=== PATIENT | female | born 1985 | race Caucasian/White ===

== ENCOUNTER → 2017-04-24 | Outpatient (CLI) | payer OTHER ==
--- NOTE | 2017-04-24 14:03 | MR ---
MR lumbar spine wo con bulging lsp disc, back and right leg pain Multiplanar, multiecho imaging of the lumbar spine was obtained without contrast on a 3 Clementina magnet. REFERENCE:None. FINDINGS: There is a 1.3 cm lesion in the medial aspect of the right kidney. This may represent a cy st. This may be confirmed with ultrasound. Paraspinal soft tissues are otherwise unremarkable. Vertebral body height and alignment are maintained. Cord signal is maintained. The conus ends normally at the level of the L1-2 disc. At T12-L1 and L1-2, no definite abnormality is seen. At L2-3, there is mild capsulitis within the facets. At L3-4, there is mild hypertrophic change and capsulitis within the facets. At L4-5, there is disc space loss and disc desiccation. There is a diffuse disc displacement. The int ervertebral foramina are well maintained. There is hypertrophic change and capsulitis in the facets. There is mild trefoiling of the thecal sac. At L5-S1, there is disc space loss and disc desiccation. There is a broad-based disc protrusion exten ding into the intervertebral foramina bilaterally causing mild, bilateral intervertebral foraminal na rrowing. There is hypertrophic changes and capsulitis within the facets. There is mild trefoiling of the thecal sac. IMPRESSION: 1. DIFFUSE FACET ARTHROPATHY. 2. DEGENERATIVE DISC DISEASE, L4-5 AND L5-S1. 3. BROAD-BASED DISC PROTRUSION, L5-S1 EXTENDING INTO THE INTERVERTEBRAL FORAMINA BILATERALLY CAUSING MILD, BILATERAL INTERVERTEBRAL FORAMINAL NARROWING.
== END | disposition home or self-care (01) ==
LOC: RADMRIMAIN 12:55
PROVIDERS: ATTEND Psychiatry & Neurology Neurology
DX: M99.73 Connective tissue and disc stenosis of intervertebral foramina of lumbar region (principal); M51.17 Intervertebral disc disorders with radiculopathy, lumbosacral region; M46.86 Other specified inflammatory spondylopathies, lumbar region
CPT/HCPCS: 72148

== ENCOUNTER 2017-08-21 09:10 | Emergency (ER) | payer OTHER ==
[2017-08-21 09:26] VITALS: TEMP 98.5
[2017-08-21] MEDS ORDERED: HYDROcodone/APAP 5-325MG 1 EACH TAB PO STA (09:43)
[2017-08-21] MEDS ORDERED: DIPH,PERTUS(ACELL)TETVAC-LF 0.5 ML VIAL IM ONE (09:45)
[2017-08-21 10:32] LABS: Basophils % (A) 0 %; CH 32.1; CHCM 30.8; Eosinophils # (A) 0.3 k/uL (0-0.7); Eosinophils % (A) 4 %; HCT 40.2 % (34.0-46.0); HDW 2.28; HGB 12.2 gm/dL (11.4-16.0); Hypochromasia Slight; Luc # (Auto) 0.12; Luc % (Auto) 1; Lymphocytes # (A) 1.4 k/uL (1.0-4.8); Lymphocytes % (A) 16 %; MCH 31.9 pg (25.0-35.0); MCHC 30.4 g/dL (31.0-37.0); MCV 105.1 fL (80.0-100.0); Macrocytosis Moderate; Monocytes # (A) 0.6 k/uL (0-1.0); Monocytes % (A) 7 %; Neutrophils # (A) 6.4 k/uL (1.3-7.7); Neutrophils % (A) 72 %; RBC 3.82 m/uL (3.80-5.40); RDW 14.5 % (11.5-15.5); WBC 8.9 k/uL (3.8-10.6); WBC (Perox) 8.48
[2017-08-21 10:54] LABS: ALT 26 U/L (9-52); AST 18 U/L (14-36); Alcohol <10 mg/dL; Alkaline Phosphatase 61 U/L (38-126); Anion Gap 7 mmol/L; Blood Urea Nitrogen 18 mg/dL (7-17); Calcium 8.7 mg/dL (8.4-10.2); Carbon Dioxide 28 mmol/L (22-30); Chloride 105 mmol/L (98-107); Glucose 72 mg/dL (74-99); Non-African American GFR(MDRD) >60 (>60 ml/min/1.73 sqM); Potassium 4.1 mmol/L (3.5-5.1); Sodium 140 mmol/L (137-145); Total Bilirubin 0.1 mg/dL (0.2-1.3); Total Protein 6.3 g/dL (6.3-8.2)
[2017-08-21 10:55] LABS: Partial Thromboplastin Time 24.1 sec (22.0-30.0); Prothrombin Time 9.8 sec (9.0-12.0)
[2017-08-21 11:00] VITALS: RESP 19
--- NOTE | 2017-08-21 11:07 | CT ---
EXAMINATION TYPE: CT brain cspine wo con DATE OF EXAM: 08/21/2017 COMPARISON: 01/08/2016 HISTORY: Fell 14feet CT DLP: brain 945.5, Cervical 312.4 mGycm, Automated exposure control for dose reduction was used. CONTRAST: None CT of the brain is performed utilizing 3 mm thick sections through the posterior fossa and 3 mm thick sections through the remaining calvarium. Study is performed within 24 hours of arrival to the hospital. No abnormal hyperdensity is present to suggest an acute intracranial hemorrhage. No mass lesion is evident. No acute infarcts are evident. Ventricles and sulci are appropriate for the patient age. Paranasal sinuses and mastoid air cells within the [id number] are clear. IMPRESSIONS: 1. Normal CT brain. CT cervical spine. COMPARISON: 01/08/2016 CT of the cervical spine is performed in the axial plane at 2 mm thick sections. Reconstructed image s in the coronal, and sagittal plane are reviewed on the computer. No acute fractures are evident. Vertebral body alignment is normal. Disc heights are preserved. Vertebral body heights are preserved. No spinal canal stenosis is evident. No neural foraminal stenosis is evident. Reflux in the esophagus is noted. IMPRESSIONS: 1. Normal CT cervical spine.
[2017-08-21 11:31] LABS: Appearance,Urine Cloudy (Clear); Bilirubin,Urine Negative (Negative); Glucose,Urine (UA) Negative (Negative); Ketones,Urine Negative (Negative); Leukocyte Esterase,Urine Negative (Negative); Mucus,Urine Rare /hpf; Nitrite,Urine Negative (Negative); PH, Urine 5.5 (5.0-8.0); Particle Count 5601; Protein,Urine Trace (Negative); RBC,Urine 1 /hpf (0-5); Specific Gravity,Urine 1.016 (1.001-1.035); Squamous Epithelial Cell,Urine 6 /hpf (0-4); UA Billing (MACRO vs. MICRO) MICRO; Urobilinogen,Urine <2.0 mg/dL (<2.0); WBC,Urine 5 /hpf (0-5)
--- NOTE | 2017-08-21 11:42 | XR ---
EXAMINATION TYPE: XR chest 2V DATE OF EXAM: 08/21/2017 CLINICAL HISTORY: pain TECHNIQUE: Frontal and lateral views of the chest are obtained. COMPARISON: 09/17/2011 FINDINGS: There is no focal air space opacity, pleural effusion, or pneumothorax seen. The cardiac silhouette size is within normal limits. The osseous structures are intact. IMPRESSION: No acute cardiopulmonary process.
--- NOTE | 2017-08-21 11:43 | XR ---
EXAMINATION TYPE: XR foot complete LT DATE OF EXAM: 08/21/2017 COMPARISON: NONE HISTORY: 14 foot Fall from tree stand landing on a wheel barrel. Abrasions, pain TECHNIQUE: Three-view left foot FINDINGS: No acute fractures evident. Soft tissues appear normal. Joint spaces are preserved. Follow-up study can be performed 7-10 days from acute trauma for continued pain. IMPRESSION: 1. Normal three-view left foot
--- NOTE | 2017-08-21 11:44 | XR ---
EXAMINATION TYPE: XR forearm LT DATE OF EXAM: 08/21/2017 CLINICAL HISTORY: pain TECHNIQUE: Frontal and lateral images of the left forearm are obtained. COMPARISON: None. FINDINGS: There is no acute fracture/dislocation evident. The joint spaces appear within normal limi ts. The overlying soft tissue appears unremarkable. IMPRESSION: There is no acute fracture or dislocation. ICD 10 NO FRACTURE, INITIAL EVALUATION
--- NOTE | 2017-08-21 11:44 | XR ---
EXAMINATION TYPE: XR tibia fibula LT DATE OF EXAM: 08/21/2017 CLINICAL HISTORY: pain TECHNIQUE: AP and lateral images of the left tibia and fibula are obtained. COMPARISON: None. FINDINGS: There is no acute fracture/dislocation evident. The joint spaces appear within normal vo its. The overlying soft tissue appears unremarkable. IMPRESSION: There is no acute fracture or dislocation seen. ICD 10 NO FRACTURE, INITIAL EVALUATION
--- NOTE | 2017-08-21 11:46 | XR ---
EXAMINATION TYPE: XR ankle complete bilateral DATE OF EXAM: 08/21/2017 COMPARISON: NONE HISTORY: 14 foot Fall from tree stand landing on a wheel barrel. Abrasions, pain TECHNIQUE: Three-view bilateral ankles each FINDINGS: Right ankle: Ankle mortise is intact. Soft tissues appear normal. No acute displaced fractu res are evident. Left ankle: Ankle mortise is intact. Soft tissues appear normal. No acute displaced fractures are santos dent. IMPRESSION: 1. Normal bilateral ankles.
--- NOTE | 2017-08-21 11:48 | XR ---
EXAMINATION TYPE: XR knee complete bilateral DATE OF EXAM: 08/21/2017 COMPARISON: NONE HISTORY: 14 foot fall from tree stand landing and wheelbarrow, pain, abrasions TECHNIQUE: Bilateral knees 3 views each FINDINGS: No joint effusions are evident. No acute fractures are evident. Joint spaces appear preserv ed. Follow-up study can be performed 7-10 days from acute trauma for continued pain. IMPRESSION: 1. No acute displaced fractures identified. Follow-up can be performed as clinically indicated.
--- NOTE | 2017-08-21 11:48 | XR ---
EXAMINATION TYPE: XR pelvis AP view DATE OF EXAM: 08/21/2017 COMPARISON: NONE HISTORY: 14 foot fall from tree stand landing and wheelbarrow, pain, abrasions TECHNIQUE: Single AP pelvis FINDINGS: Femoral heads articulate with the acetabulum. Joint spaces are preserved. Sacrum iliac join ts and symphysis pubis are normal. No acute fractures are identified. Normal bowel gas is present. IMPRESSION: 1. Normal AP pelvis
[2017-08-21 12:08] VITALS: BP 112/61; PULSE 93
--- NOTE | 2017-08-21 12:09 | ED ---
Fall [facility] - General Chief Complaint: Fall Stated Complaint: Fall 14ft Time Seen by Provider: 08/21/17 09:34 Source: patient, family Mode of arrival: wheelchair - History of Present Illness Initial Comments: Patient presents after having a fall. She hit her head and sustained multiple injuries. She complains of several areas of tenderness. She has some abrasions. Her tetanus immunization is up-to-date. She has no belly or back pain. She has no chest pain. She has no shortness of breath. Her pain is worse with movement. She took no pain medication prior to arrival. She has no nausea or vomiting. She has no focal weakness. - Related Data Home Medications Medication Instructions Recorded Confirmed LORazepam [Ativan] 1 mg PO DAILY PRN 08/21/17 08/21/17 oxyCODONE-APAP 10-325MG [Percocet 1 tab PO TID PRN 08/21/17 08/21/17 10-325 mg] Allergies Allergy/AdvReac Type Severity Reaction Status Date / Time No Known Allergies Allergy Verified 08/21/17 09:31 Review of Systems ROS Statement: Those systems with pertinent positive or pertinent negative responses have been documented in the HPI. ROS Other: All systems not noted in ROS Statement are negative. Past Medical History Past Medical History: No Reported History Additional Past Medical History / Comment(s): TUBAL PREGANCY, chronic back pain History of Any Multi-Drug Resistant Organisms: MRSA Date of last positivie culture/infection: 07/01/16 MDRO Source:: RIGHT WRIST Past Surgical History: Section, Tonsillectomy Additional Past Surgical History / Comment(s): LAPROSCOPY Past Psychological History: Anxiety, Depression Smoking Status: Current every day smoker Past Alcohol Use History: None Reported Past Drug Use History: Marijuana, Opiates, Prescription Drug Abuse General Exam Limitations: physical limitation General appearance: alert, in no apparent distress Head exam: Present: atraumatic, normocephalic, normal inspection Eye exam: Present: normal appearance, PERRL, EOMI. Absent: scleral icterus, conjunctival injection, periorbital swelling ENT exam: Present: normal exam, mucous membranes moist Neck exam: Present: normal inspection. Absent: tenderness, meningismus, lymphadenopathy Respiratory exam: Present: normal lung sounds bilaterally. Absent: respiratory distress, wheezes, rales, rhonchi, stridor Cardiovascular Exam: Present: regular rate, normal rhythm, normal heart sounds. Absent: systolic murmur, diastolic murmur, rubs, gallop, clicks GI/Abdominal exam: Present: soft, normal bowel sounds. Absent: distended, tenderness, guarding, rebound, rigid Extremities exam: Present: normal inspection, full ROM, tenderness, normal capillary refill. Absent: pedal edema, joint swelling, calf tenderness Back exam: Present: normal inspection Neurological exam: Present: alert, oriented X3, CN II-XII intact Psychiatric exam: Present: normal affect, normal mood Skin exam: Present: warm, dry, intact, normal color. Absent: rash Course Vital Signs 08/21/17 08/21/17 09:20 10:27 Temperature 98.5 F Pulse Rate 90 62 Respiratory 18 19 Rate Blood Pressure 119/86 113/62 O2 Sat by Pulse 99 97 Oximetry Medical Decision Making - Medical Decision Making Patient presents with several injuries from a fall. She does have some abrasions, but her tetanus immunization is up-to-date. All of her imaging is negative. She is feeling better. Her laboratory studies are normal. Her drug screen is positive for cannabinoids. She is stable for discharge. - Lab Data Result diagrams: 08/21/17 10:22 08/21/17 10:22 Lab Results 08/21/17 08/21/17 08/21/17 Range/Units 10:22 10:22 10:22 WBC 8.9 (3.8-10.6) k/uL RBC 3.82 (3.80-5.40) m/uL Hgb 12.2 (11.4-16.0) gm/dL Hct 40.2 (34.0-46.0) % MCV 105.1 H (80.0-100.0) fL MCH 31.9 (25.0-35.0) pg MCHC 30.4 L (31.0-37.0) g/dL RDW 14.5 (11.5-15.5) % Plt Count 289 (150-450) k/uL Neutrophils % 72 % Lymphocytes % 16 % Monocytes % 7 % Eosinophils % 4 % Basophils % 0 % Neutrophils # 6.4 (1.3-7.7) k/uL Lymphocytes # 1.4 (1.0-4.8) k/uL Monocytes # 0.6 (0-1.0) k/uL Eosinophils # 0.3 (0-0.7) k/uL Basophils # 0.0 (0-0.2) k/uL Hypochromasia Slight Macrocytosis Moderate PT 9.8 (9.0-12.0) sec INR 1.0 (<1.2) APTT 24.1 (22.0-30.0) sec Sodium 140 (137-145) mmol/L Potassium 4.1 (3.5-5.1) mmol/L Chloride 105 (98-107) mmol/L Carbon Dioxide 28 (22-30) mmol/L Anion Gap 7 mmol/L BUN 18 H (7-17) mg/dL Creatinine 1.00 (0.52-1.04) mg/dL Est GFR (MDRD) Af Amer >60 (>60 ml/min/1.73 sqM) Est GFR (MDRD) Non-Af >60 (>60 ml/min/1.73 sqM) Glucose 72 L (74-99) mg/dL Calcium 8.7 (8.4-10.2) mg/dL Total Bilirubin 0.1 L (0.2-1.3) mg/dL AST 18 (14-36) U/L ALT 26 (9-52) U/L Alkaline Phosphatase 61 (38-126) U/L Total Protein 6.3 (6.3-8.2) g/dL Albumin 3.3 L (3.5-5.0) g/dL Urine Color Urine Appearance (Clear) Urine pH (5.0-8.0) Ur Specific [place] (1.001-1.035) Urine Protein (Negative) Urine Glucose (UA) (Negative) Urine Ketones (Negative) Urine Blood (Negative) Urine Nitrite (Negative) Urine Bilirubin (Negative) Urine Urobilinogen (<2.0) mg/dL Ur Leukocyte Esterase (Negative) Urine RBC (0-5) /hpf Urine WBC (0-5) /hpf Ur Squamous Epith Cells (0-4) /hpf Urine Mucus (None) /hpf Urine Opiates Screen (NotDetected) Ur Oxycodone Screen (NotDetected) Urine Methadone Screen (NotDetected) Ur Propoxyphene Screen (NotDetected) Ur Barbiturates Screen (NotDetected) U Tricyclic Antidepress (NotDetected) Ur Phencyclidine Scrn (NotDetected) Ur Amphetamines Screen (NotDetected) U Methamphetamines Scrn (NotDetected) U Benzodiazepines Scrn (NotDetected) Urine Cocaine Screen (NotDetected) U Marijuana (THC) Screen (NotDetected) Serum Alcohol <10 mg/dL 08/21/17 08/21/17 Range/Units 10:54 10:54 WBC (3.8-10.6) k/uL RBC (3.80-5.40) m/uL Hgb (11.4-16.0) gm/dL Hct (34.0-46.0) % MCV (80.0-100.0) fL MCH (25.0-35.0) pg MCHC (31.0-37.0) g/dL RDW (11.5-15.5) % Plt Count (150-450) k/uL Neutrophils % % Lymphocytes % % Monocytes % % Eosinophils % % Basophils % % Neutrophils # (1.3-7.7) k/uL Lymphocytes # (1.0-4.8) k/uL Monocytes # (0-1.0) k/uL Eosinophils # (0-0.7) k/uL Basophils # (0-0.2) k/uL Hypochromasia Macrocytosis PT (9.0-12.0) sec INR (<1.2) APTT (22.0-30.0) sec Sodium (137-145) mmol/L Potassium (3.5-5.1) mmol/L Chloride (98-107) mmol/L Carbon Dioxide (22-30) mmol/L Anion Gap mmol/L BUN (7-17) mg/dL Creatinine (0.52-1.04) mg/dL Est GFR (MDRD) Af Amer (>60 ml/min/1.73 sqM) Est GFR (MDRD) Non-Af (>60 ml/min/1.73 sqM) Glucose (74-99) mg/dL Calcium (8.4-10.2) mg/dL Total Bilirubin (0.2-1.3) mg/dL AST (14-36) U/L ALT (9-52) U/L Alkaline Phosphatase (38-126) U/L Total Protein (6.3-8.2) g/dL Albumin (3.5-5.0) g/dL Urine Color Yellow Urine Appearance Cloudy H (Clear) Urine pH 5.5 (5.0-8.0) Ur Specific [place] 1.016 (1.001-1.035) Urine Protein Trace H (Negative) Urine Glucose (UA) Negative (Negative) Urine Ketones Negative (Negative) Urine Blood Trace H (Negative) Urine Nitrite Negative (Negative) Urine Bilirubin Negative (Negative) Urine Urobilinogen <2.0 (<2.0) mg/dL Ur Leukocyte Esterase Negative (Negative) Urine RBC 1 (0-5) /hpf Urine WBC 5 (0-5) /hpf Ur Squamous Epith Cells 6 H (0-4) /hpf Urine Mucus Rare H (None) /hpf Urine Opiates Screen Not Detected (NotDetected) Ur Oxycodone Screen Not Detected (NotDetected) Urine Methadone Screen Not Detected (NotDetected) Ur Propoxyphene Screen Not Detected (NotDetected) Ur Barbiturates Screen Not Detected (NotDetected) U Tricyclic Antidepress Not Detected (NotDetected) Ur Phencyclidine Scrn Not Detected (NotDetected) Ur Amphetamines Screen Not Detected (NotDetected) U Methamphetamines Scrn Not Detected (NotDetected) U Benzodiazepines Scrn Detected H (NotDetected) Urine Cocaine Screen Not Detected (NotDetected) U Marijuana (THC) Screen Detected H (NotDetected) Serum Alcohol mg/dL Disposition Clinical Impression: Fall Disposition: HOME SELF-CARE Condition: Good Instructions: Contusion in Adults (ED) Referrals: None,Stated [Primary Care Provider] - 1-2 days Time of Disposition: 12:08
== END 2017-08-21 12:30 | disposition home or self-care (01) ==
LOC: EC 09:10
DX: S09.90XA Unspecified injury of head, initial encounter (principal); M25.572 Pain in left ankle and joints of left foot; M25.571 Pain in right ankle and joints of right foot; M25.562 Pain in left knee; M25.561 Pain in right knee; M79.602 Pain in left arm; F17.200 Nicotine dependence, unspecified, uncomplicated; Z86.14 Personal history of Methicillin resistant Staphylococcus aureus infection; Z53.20 Procedure and treatment not carried out because of patient's decision for unspecified reasons; W14.XXXA Fall from tree, initial encounter
CPT/HCPCS: 36415; 70450; 71020; 72125; 72170; 80053; 80306; 80320; 81001; 85025; 85610; 85730; 99284

== ENCOUNTER → 2018-03-20 | Outpatient (CLI) | payer OTHER ==
--- NOTE | 2018-03-20 13:02 | XR ---
EXAMINATION TYPE: XR ankle complete RT, XR foot complete RT DATE OF EXAM: 03/20/2018 CLINICAL HISTORY: Pain TECHNIQUE: Frontal, lateral and oblique images of the right ankle and foot are obtained. COMPARISON: None. FINDINGS: There is no acute fracture/dislocation evident in the right ankle. The ankle mortise appe ars within normal limits. The overlying soft tissue appears unremarkable.There is no acute fracture or dislocation evident in the right foot. The joint spaces in the right foot are preserved. Overlyi ng soft tissue is unremarkable. IMPRESSION: There is no acute fracture or dislocation in the right ankle or foot.
== END | disposition home or self-care (01) ==
LOC: RADXRMAIN 12:34
PROVIDERS: ATTEND Family Medicine
DX: M79.671 Pain in right foot (principal)

== ENCOUNTER → 2019-02-18 | Outpatient (CLI) | payer OTHER ==
--- NOTE | 2019-02-18 14:43 | XR ---
EXAMINATION TYPE: XR Hip Bilateral Complete DATE OF EXAM: 02/18/2019 COMPARISON: None HISTORY: Bilateral hip pain TECHNIQUE: Bilateral hips examined in 2 projections each FINDINGS: Right hip: Femoral head articulates with the acetabulum. Joint spaces preserved. No acute f ractures or dislocations are evident. Left hip: Femoral head articulates with the acetabulum. Joint spaces preserved. No acute fractures or dislocations are evident. IMPRESSION: 1. Normal bilateral hips
--- NOTE | 2019-02-18 14:45 | XR ---
EXAMINATION TYPE: XR lumbar spine 2 or 3V DATE OF EXAM: 02/18/2019 COMPARISON: 06/14/2014 HISTORY: Pain TECHNIQUE: Three-view lumbar spine FINDINGS: There 5 lumbar-type vertebral bodies. The pedicles are intact. There is narrowing of the L5 -S1 disc height. Remaining disc heights are preserved. Vertebral body heights are preserved. COMPARISON: There is some progression of the loss of disc height at L5-S1. IMPRESSION: 1. Progression of degenerative disc disease L5-S1
--- NOTE | 2019-02-18 14:46 | XR ---
EXAMINATION TYPE: XR thoracic spine 2V DATE OF EXAM: 02/18/2019 COMPARISON: None HISTORY: Pain TECHNIQUE: Three-view thoracic spine FINDINGS: There are 12 thoracic type vertebral bodies. Pedicles are intact. Disc heights are preserve d. Vertebral body heights are preserved. Alignment is normal. IMPRESSION: 1. Normal three-view thoracic spine
--- NOTE | 2019-02-18 14:48 | XR ---
EXAMINATION TYPE: XR cervical spine comp DATE OF EXAM: 02/18/2019 COMPARISON: None HISTORY: Chronic pain TECHNIQUE: Five-view cervical spine FINDINGS: Prevertebral space is normal. There is straightening of the cervical spine in the lateral p rojection. Very subtle kyphosis may be present centered at C6. The posterior spinal lamellar line is intact. Mild foraminal narrowing on the right at C3-4 may be present. Remaining foramen are patent. T here is limited visualization of the odontoid with poor visualization of the tip. IMPRESSION: 1. Minimal narrowing right C3-4 foramen.
== END | disposition home or self-care (01) ==
LOC: RADXRMAIN 13:58
PROVIDERS: ATTEND Internal Medicine
DX: M48.02 Spinal stenosis, cervical region (principal); M51.37 Other intervertebral disc degeneration, lumbosacral region
CPT/HCPCS: 72050; 72070; 72100; 73521

== ENCOUNTER 2019-05-19 21:27 | Emergency (ER) | payer OTHER ==
[2019-05-19 21:49] VITALS: BP 130/86; PULSE 90; RESP 18; TEMP 98.4
[2019-05-19] MEDS ORDERED: LIDOCAINE 1% INJ 10MG/ML (20 ML MDV) SQ ONE (21:54)
[2019-05-19] MEDS ORDERED: ALPRAZolam 0.5 MG TAB PO STA (22:20)
--- NOTE | 2019-05-19 22:27 | XR ---
EXAM: XR Right Wrist Complete, 3 or More Views CLINICAL HISTORY: ITS.REASON XR Reason: FB TECHNIQUE: Frontal, lateral and oblique views of the right wrist. COMPARISON: No relevant prior studies available. FINDINGS: Bones/joints: Unremarkable. No acute fracture. No dislocation. Soft tissues: Unremarkable. No radiopaque foreign body. IMPRESSION: Normal right wrist x-rays.
--- NOTE | 2019-05-19 22:36 | XR ---
EXAM: XR Right Hand Complete, 3 or More Views CLINICAL HISTORY: [email or web address] XR Reason: FB TECHNIQUE: Frontal, lateral and oblique views of the right hand. COMPARISON: No relevant prior studies available. FINDINGS: Bones/joints: Unremarkable. No acute fracture. No dislocation. Soft tissues: Unremarkable. No radiopaque foreign body. IMPRESSION: Normal right hand x-rays.
--- NOTE | 2019-05-20 00:03 | ED ---
Wound/Laceration HPI - General Chief Complaint: Wound/Laceration Stated Complaint: Hand laceration Time Seen by Provider: 05/19/19 21:44 Source: patient Mode of arrival: ambulatory Limitations: no limitations - History of Present Illness Initial Comments: 33-year-old female presents today for chief complaint of right hand laceration x 30 minutes ago. Patient states when she was attempting to close an old one on her home her hand went through the glass. Patient states she has a small laceration of the right wrist on the ventral aspect. Patient also states on the dorsal aspect of the digits 3 and 4 she has lacerations. Patient states she thought she might need sutures and presents emergency room for evaluation. Patient states that she has no numbness tingling or loss sensation of the digits. Patient states bleeding has been controlled. Patient denies other areas of injury. Patient has a limitations of range of motion at the fingers. Patient states that her tetanus is up-to-date. Remaining review of systems negative upon arrival patient appears well there is no signs of acute distress. She is anxious about receiving sutures. - Related Data Home Medications Medication Instructions Recorded Confirmed LORazepam [Ativan] 1 mg PO DAILY PRN 08/21/17 08/21/17 oxyCODONE-APAP 10-325MG [Percocet 1 tab PO TID PRN 08/21/17 08/21/17 10-325 mg] Previous Rx's Medication Instructions Recorded Cephalexin [Keflex] 500 mg PO Q8HR 5 Days #15 cap 05/20/19 Allergies Allergy/AdvReac Type Severity Reaction Status Date / Time No Known Allergies Allergy Verified 05/19/19 21:49 Review of Systems ROS Statement: Those systems with pertinent positive or pertinent negative responses have been documented in the HPI. ROS Other: All systems not noted in ROS Statement are negative. Past Medical History Past Medical History: No Reported History Additional Past Medical History / Comment(s): TUBAL PREGANCY, chronic back pain History of Any Multi-Drug Resistant Organisms: MRSA Date of last positivie culture/infection: 07/01/16 MDRO Source:: RIGHT WRIST Past Surgical History: Section, Tonsillectomy Additional Past Surgical History / Comment(s): LAPROSCOPY Past Psychological History: Anxiety, Depression Smoking Status: Current every day smoker Past Alcohol Use History: None Reported Past Drug Use History: Marijuana, Opiates, Prescription Drug Abuse General Exam - General Exam Comments Initial Comments: General: The patient is awake and alert, in no distress, and does not appear acutely ill. Eye: Pupils are equal, round and reactive to light, extra-ocular movements are intact. No nystagmus. There is normal conjunctiva bilaterally. No signs of icterus. Cardiovascular: There is a regular rate and rhythm. No murmur, rub or gallop is appreciated. Respiratory: Lungs are clear to auscultation, respirations are non-labored, breath sounds are equal. No wheezes, stridor, rales, or rhonchi. Musculoskeletal: Normal ROM, no tenderness. Strength 5/5. Sensation intact. Radial pulses equal bilaterally 2+. Capillary refill less than 3 seconds. Patient is able to fully range at the MTP DIP and MCP joints of all 5 digits of the right hand equal comparison with the left with full strength. Neurological: A&O x 3. CN II-XII intact, There are no obvious motor or sensory deficits. Coordination appears grossly intact. Speech is normal. Skin: Skin is warm and dry and no rashes. 1.7cm laceration of the right ring finger dorsal aspect. 1.2 cm skin flap of the right middle finger. 1.2 similar laceration of the ventral aspect of the right wrist. Appears superficial no evidence of foreign body within lacerations. No evidence of exposure of underlying structures within all 3 lacerations. Psychiatric: Cooperative, appropriate mood & affect, normal judgment. Limitations: no limitations Course Vital Signs 05/19/19 21:46 Temperature 98.4 F Pulse Rate 90 Respiratory 18 Rate Blood Pressure 130/86 O2 Sat by Pulse 99 Oximetry Procedures - Laceration Laceration #1 Consent Obtained: verbal consent Indication: laceration Site: upper extremity, other Size (cm): 2 (1.7) Description: linear Depth: simple, single layer Anesthetic Used: lidocaine 1% Anesthesia Technique: local infiltration Amount (mls): 1 Pre-repair: wound explored, irrigated extensively, deep structures intact Type of Sutures: nylon Size of Sutures: 5-0 Number of Sutures: 3 Technique: simple, interrupted Patient Tolerated Procedure: well, no complications Additional Comments: Irrigated and cleansed with iodine Laceration #2 Consent Obtained: verbal consent Site: hand (Metal finger) Size (cm): 1 (1.2) Description: linear, flap Anesthetic Used: lidocaine 1% Anesthesia Technique: local infiltration Amount (mls): 1 Pre-repair: wound explored, irrigated extensively, deep structures intact Type of Sutures: nylon Size of Sutures: 5-0 Number of Sutures: 4 Technique: simple, interrupted Patient Tolerated Procedure: well, no complications Additional Comments: Irrigated and cleansed iodine prior to closure Laceration #3 Consent Obtained: verbal consent Indication: laceration Site: hand (Ring finger) Size (cm): 2 (1.7) Description: linear Depth: simple, single layer Anesthetic Used: lidocaine 1% Anesthesia Technique: local infiltration Amount (mls): 1 Pre-repair: wound explored, irrigated extensively, deep structures intact Type of Sutures: nylon Size of Sutures: 5-0 Number of Sutures: 6 Technique: simple, interrupted Patient Tolerated Procedure: well, no complications (Including cleansed with iodine prior to closure) Medical Decision Making - Medical Decision Making 33-year-old female presenting for lacerations after hand going through window. Imaging studies reveal no foreign body or osseous injury. Patient has no limitations in range of motion MTP PIP and DIP joints were isolated of all 5 digits of the right hand. Equal comparison with the left. Patient has sensation of a proximal distal to injury site neurovascularly intact. Bleeding controlled. Lacerations repaired. Signs infections discussed. Return parameters including for suture removal were discussed with patient. Patient started on antibiotics for prevention of infection. She was discharged appearing well Disposition Clinical Impression: Wrist laceration, Laceration of middle finger, Laceration of ring finger Disposition: HOME SELF-CARE Condition: Good Instructions (If sedation given, give patient instructions): Care For Your Stitches (ED), Finger Laceration (ED) Additional Instructions: Please use medication as discussed. Please follow-up for suture removal in 7 days. Please return to emergency room if the symptoms increase or worsen or for any other concerns. Prescriptions: Cephalexin [Keflex] 500 mg PO Q8HR 5 Days #15 cap Is patient prescribed a controlled substance at d/c from ED?: No Referrals: Rosas Pastor MD [Primary Care Provider] - 1-2 days Time of Disposition: 00:02
== END 2019-05-20 00:08 | disposition home or self-care (01) ==
LOC: EC 21:27
DX: S61.511A Laceration without foreign body of right wrist, initial encounter (principal); S61.212A Laceration without foreign body of right middle finger without damage to nail, initial encounter; S61.214A Laceration without foreign body of right ring finger without damage to nail, initial encounter; F41.9 Anxiety disorder, unspecified; F17.200 Nicotine dependence, unspecified, uncomplicated; Z79.899 Other long term (current) drug therapy; W25.XXXA Contact with sharp glass, initial encounter; Y92.009 Unspecified place in unspecified non-institutional (private) residence as the place of occurrence of the external cause
CPT/HCPCS: 73110; 73130; 99282; 12002; J2001

== ENCOUNTER 2019-08-29 12:40 | Emergency (ER) | payer OTHER ==
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
[2019-08-29 14:25] VITALS: BP 137/78; PULSE 90; RESP 16; TEMP 98.2
== END 2019-08-29 14:23 | disposition home or self-care (01) ==
LOC: EC 12:40
DX: S60.222A Contusion of left hand, initial encounter (principal); S60.221A Contusion of right hand, initial encounter; S50.12XA Contusion of left forearm, initial encounter; S50.11XA Contusion of right forearm, initial encounter; S90.31XA Contusion of right foot, initial encounter; F41.9 Anxiety disorder, unspecified; F17.200 Nicotine dependence, unspecified, uncomplicated; Y04.0XXA Assault by unarmed brawl or fight, initial encounter
CPT/HCPCS: 70450; 99284

== ENCOUNTER 2019-10-10 05:43 | Inpatient (IN) | payer MEDICAID, OTHER ==
[2019-10-10] MEDS ORDERED: LIDOCAINE 1% INJ 10MG/ML (20 ML MDV) SQ ONE (06:20)
[2019-10-10] MEDS ORDERED: LORazepam 1 MG TAB PO STA (06:28)
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
[2019-10-10 06:46] LABS: Amphetamine Screen,Urine Not Detected (NotDetected); Barbiturate Screen,Urine Detected (NotDetected); Benzodiazepines Screen,Urine Not Detected (NotDetected); Cocaine Screen,Urine Not Detected (NotDetected); Methadone Screen, Urine Not Detected (NotDetected); Opiate Screen,Urine Not Detected (NotDetected); Oxycodone Screen, Urine Not Detected (NotDetected); Phencyclidine Screen,Urine Not Detected (NotDetected); Tricyclic Antidepressant,Urine Not Detected (NotDetected); Urn Cannabinoid Scrn Not Detected (NotDetected)
[2019-10-10] MEDS ORDERED: diphenhydrAMINE 50 MG/ML 1 ML VIAL IM STA (07:24)
[2019-10-10] MEDS ORDERED: ZIPRASIDONE 20 MG VIAL IM STA (07:24)
[2019-10-10] MEDS ORDERED: DIPH,PERTUS(ACELL)TETVAC-LF 0.5 ML VIAL IM ONE (07:26)
[2019-10-10] MEDS ORDERED: hydrOXYzine PAMOATE 25 MG CAP PO PRN (12:15)
[2019-10-10] MEDS ORDERED: MAGNESIUM HYDROXIDE 2,400 MG/10 ML CUP PO PRN (12:18)
[2019-10-10] MEDS ORDERED: MAG HYDROX/AL HYDROX/SIMETH 30 ML CUP PO PRN (12:18)
[2019-10-10] MEDS: BUTALB/APAP/CAFF 50-325-40MG TAB PO PRN ×2 (13:35→20:07)
[2019-10-10] MEDS: LORazepam 1 MG TAB PO PRN ×2 (13:35→20:22)
[2019-10-10 14:39] LABS: Basophils % (A) 0 %; Eosinophils # (A) 0.2 k/uL (0-0.7); Eosinophils % (A) 3 %; HCT 38.5 % (34.0-46.0); HGB 12.2 gm/dL (11.4-16.0); Lymphocytes # (A) 1.6 k/uL (1.0-4.8); Lymphocytes % (A) 31 %; MCH 35.4 pg (25.0-35.0); MCHC 31.6 g/dL (31.0-37.0); MCV 111.9 fL (80.0-100.0); Macrocytosis Marked; Monocytes # (A) 0.2 k/uL (0-1.0); Monocytes % (A) 4 %; Neutrophils # (A) 3.1 k/uL (1.3-7.7); Neutrophils % (A) 60 %; Platelet Count 303 k/uL (150-450); RBC 3.44 m/uL (3.80-5.40); RDW 15.7 % (11.5-15.5); WBC 5.2 k/uL (3.8-10.6)
[2019-10-10 14:49] LABS: Albumin 4.4 g/dL (3.5-5.0); Calcium 9.7 mg/dL (8.4-10.2); Potassium 4.8 mmol/L (3.5-5.1); Total Bilirubin 0.6 mg/dL (0.2-1.3); Total Protein 7.2 g/dL (6.3-8.2)
[2019-10-10 15:08] LABS: Stomatocytes Present
--- NOTE | 2019-10-10 15:31 | P.CONS ---
History of Present Illness - History of Present Illness this is a pleasant 54 years old female with past medical history of hyperten lynne, rheumatoid arthritis, chronic back pain, irritable bowel syndrome,scleroderma, lupus, tubal ligation. Who presents because of depression and laceration of her left wrist. She was admitted to the mental health unit and medical consult has been requested for medical management.. Her left wrist is sutured in the emergency room, the wound looks clean with no surrounding cellulitis or infection. No discharge. Patient denies chest pain or dyspnea. No headache or abnormal weakness or sensation. She has a small hard bowel movement which could be related to her vertebral bowel syndrome. She smokes about half pack per day, she denies alcohol or illicit drug. I offered to do test but she declined. Risks and benefits are explained for the patient. Review of Systems CONSTITUTIONAL: No fever, no malaise, no fatigue. HEENT: No recent visual problems or hearing problems. Denied any sore throat. CARDIOVASCULAR: No orthopnea, PND, no palpitations, no syncope. PULMONARY: No shortness of breath, no cough, no hemoptysis. GASTROINTESTINAL: No diarrhea, no nausea, no vomiting, no abdominal pain. Normoactive bowel sounds. NEUROLOGICAL: No headaches, no weakness, no numbness. HEMATOLOGICAL: Denies any bleeding or petechiae. GENITOURINARY: Denies any burning micturition, frequency, or urgency. MUSCULOSKELETAL/RHEUMATOLOGICAL: Denies any joint pain, swelling, or any muscle pain. ENDOCRINE: Denies any polyuria or polydipsia. Past Medical History Past Medical History: Hypertension, Rheumatoid Arthritis (RA) Additional Past Medical History / Comment(s): TUBAL PREGANCY, chronic back pain, scleraderma, lipus, ddd History of Any Multi-Drug Resistant Organisms: MRSA Year Discovered:: 07/01/16 MDRO Source:: RIGHT WRIST Past Surgical History: Section, Tonsillectomy Additional Past Surgical History / Comment(s): LAPROSCOPY Past Anesthesia/Blood Transfusion Reactions: No Reported Reaction Past Psychological History: Anxiety, Bipolar, Depression Smoking Status: Current every day smoker Past Alcohol Use History: None Reported Past Drug Use History: Marijuana, Opiates, Prescription Drug Abuse Medications and Allergies Home Medications Medication Instructions Recorded Confirmed Type Butalb/APAP/Caff 50-325-40Mg 1 tab PO Q6H PRN 10/10/19 10/10/19 History [Fioricet 50-325-40] Ibuprofen [Motrin] 800 mg PO TID PRN 10/10/19 10/10/19 History Lisinopril [Zestril] 5 mg PO DAILY 10/10/19 10/10/19 History hydrOXYzine PAMOATE [Vistaril] 25 mg PO Q8H PRN 10/10/19 10/10/19 History Allergies Allergy/AdvReac Type Severity Reaction Status Date / Time No Known Allergies Allergy Verified 10/10/19 12:50 Physical Exam Vitals: Vital Signs Temp Pulse Pulse Resp BP BP Pulse Ox 10/10/19 12:27 98.1 F 96 16 114/58 10/10/19 11:19 98.2 F 96 18 101/58 99 10/10/19 06:00 112 H 118/99 97 10/10/19 05:51 98.3 F 121 H 20 119/106 96 Intake and Output 10/10/19 10/10/19 10/10/19 06:59 14:59 22:59 Other: Weight 72.575 kg 71.696 kg GENERAL: The patient is alert and oriented x3, not in any acute distress. Well developed, well nourished. HEENT: Pupils are round and equally reacting to light. EOMI. No scleral icterus. No conjunctival pallor. Normocephalic, atraumatic. No pharyngeal erythema. No thyromegaly. CARDIOVASCULAR: S1 and S2 present. No murmurs, rubs, or gallops. PULMONARY: Chest is clear to auscultation, no wheezing or crackles. ABDOMEN: Soft, nontender, nondistended, normoactive bowel sounds. No palpable organomegaly. MUSCULOSKELETAL: No joint swelling or deformity. EXTREMITIES: No cyanosis, clubbing, or pedal edema. NEUROLOGICAL: Gross neurological examination did not reveal any focal deficits. SKIN: No rashes. No petechiae Results CBC & Chem 7: 10/10/19 14:02 10/10/19 14:01 Labs: Abnormal Lab Results - Last 24 Hours (Table) 10/10/19 10/10/19 10/10/19 Range/Units 06:11 14:01 14:02 RBC 3.44 L (3.80-5.40) m/uL MCV 111.9 H (80.0-100.0) fL MCH 35.4 H (25.0-35.0) pg RDW 15.7 H (11.5-15.5) % Macrocytosis Marked A BUN 30 H (7-17) mg/dL Creatinine 1.37 H (0.52-1.04) mg/dL Glucose 148 H (74-99) mg/dL AST 42 H (14-36) U/L Ur Barbiturates Screen Detected H (NotDetected) Assessment and Plan Assessment: depression and suicidal ideation, management as per the psych team left wrist wound, sutures in a Place hypertension nicotine dependence History of Rheumatoid arthritis chronic back pain Irritable bowel syndrome history of Lupus tubal ligation Plan: this is a pleasant 54 years old female who presents because of depression, suicidal attempts and sludge in her left wrist. Labs and medication were reviewed.. Continue same treatment. Continue with symptomatic treatment. Resume home medication. Monitor lytes and vitals. DVT and GI prophylaxis. We will see the patient on an as-needed basis. Physical free to contact us Thank you for consulting the medical team
[2019-10-10] MEDS: IBUPROFEN 800 MG TAB PO PRN (17:26)
[2019-10-10] MEDS: ZIPRASIDONE 20 MG VIAL IM PRN (19:30)
[2019-10-11] MEDS: IBUPROFEN 800 MG TAB PO PRN ×3 (06:40→23:00)
[2019-10-11] MEDS: LORazepam 1 MG TAB PO PRN ×2 (06:43→18:30)
[2019-10-11] MEDS: BUTALB/APAP/CAFF 50-325-40MG TAB PO PRN ×2 (09:00→15:03)
[2019-10-11] MEDS: LISINOPRIL 5 MG TAB PO SCH (09:00)
--- NOTE | 2019-10-11 09:50 | P.HP ---
Psychiatric H&P - . H&P Date: 10/11/19 History & Physical: Allergies Allergy/AdvReac Type Severity Reaction Status Date / Time No Known Allergies Allergy Verified 10/10/19 12:50 Vital Signs Temp 98.1 F 10/10/19 12:27 Pulse 120 H 10/11/19 06:45 Resp 16 10/10/19 12:27 BP 108/62 10/11/19 06:45 Pulse Ox 99 10/10/19 11:19 Intake & Output 10/10/19 10/11/19 10/11/19 18:59 06:59 18:59 Weight 71.696 kg Laboratory Last Values WBC 5.2 k/uL (3.8-10.6) 10/10/19 14:02 RBC 3.44 m/uL (3.80-5.40) L 10/10/19 14:02 Hgb 12.2 gm/dL (11.4-16.0) 10/10/19 14:02 Hct 38.5 % (34.0-46.0) 10/10/19 14:02 MCV 111.9 fL (80.0-100.0) H 10/10/19 14:02 MCH 35.4 pg (25.0-35.0) H 10/10/19 14:02 MCHC 31.6 g/dL (31.0-37.0) 10/10/19 14:02 RDW 15.7 % (11.5-15.5) H 10/10/19 14:02 Plt Count 303 k/uL (150-450) 10/10/19 14:02 Neutrophils % 60 % 10/10/19 14:02 Lymphocytes % 31 % 10/10/19 14:02 Monocytes % 4 % 10/10/19 14:02 Eosinophils % 3 % 10/10/19 14:02 Basophils % 0 % 10/10/19 14:02 Neutrophils # 3.1 k/uL (1.3-7.7) 10/10/19 14:02 Lymphocytes # 1.6 k/uL (1.0-4.8) 10/10/19 14:02 Monocytes # 0.2 k/uL (0-1.0) 10/10/19 14:02 Eosinophils # 0.2 k/uL (0-0.7) 10/10/19 14:02 Basophils # 0.0 k/uL (0-0.2) 10/10/19 14:02 Manual Slide Review Performed 10/10/19 14:02 Macrocytosis Marked A 10/10/19 14:02 Stomatocytes Present 10/10/19 14:02 Sodium 137 mmol/L (137-145) 10/10/19 14:01 Potassium 4.8 mmol/L (3.5-5.1) 10/10/19 14:01 Chloride 105 mmol/L (98-107) 10/10/19 14:01 Carbon Dioxide 23 mmol/L (22-30) 10/10/19 14:01 Anion Gap 9 mmol/L 10/10/19 14:01 BUN 30 mg/dL (7-17) H 10/10/19 14:01 Creatinine 1.37 mg/dL (0.52-1.04) H 10/10/19 14:01 Est GFR (CKD-EPI)AfAm 58 (>60 ml/min/1.73 sqM) 10/10/19 14:01 Est GFR (CKD-EPI)NonAf 51 (>60 ml/min/1.73 sqM) 10/10/19 14:01 Glucose 148 mg/dL (74-99) H 10/10/19 14:01 Calcium 9.7 mg/dL (8.4-10.2) 10/10/19 14:01 Total Bilirubin 0.6 mg/dL (0.2-1.3) 10/10/19 14:01 AST 42 U/L (14-36) H 10/10/19 14:01 ALT 20 U/L (4-34) 10/10/19 14:01 Alkaline Phosphatase 71 U/L (38-126) 10/10/19 14:01 Total Protein 7.2 g/dL (6.3-8.2) 10/10/19 14:01 Albumin 4.4 g/dL (3.5-5.0) 10/10/19 14:01 TSH 1.550 mIU/L (0.465-4.680) 10/10/19 14:01 Urine HCG, Qual Not Detected (Not Detectd) 10/10/19 06:11 Urine Opiates Screen Not Detected (NotDetected) 10/10/19 06:11 Ur Oxycodone Screen Not Detected (NotDetected) 10/10/19 06:11 Urine Methadone Screen Not Detected (NotDetected) 10/10/19 06:11 Ur Propoxyphene Screen Not Detected (NotDetected) 10/10/19 06:11 Ur Barbiturates Screen Detected (NotDetected) H 10/10/19 06:11 U Tricyclic Antidepress Not Detected (NotDetected) 10/10/19 06:11 Ur Phencyclidine Scrn Not Detected (NotDetected) 10/10/19 06:11 Ur Amphetamines Screen Not Detected (NotDetected) 10/10/19 06:11 U Methamphetamines Scrn Not Detected (NotDetected) 10/10/19 06:11 U Benzodiazepines Scrn Not Detected (NotDetected) 10/10/19 06:11 Urine Cocaine Screen Not Detected (NotDetected) 10/10/19 06:11 U Marijuana (THC) Screen Not Detected (NotDetected) 10/10/19 06:11 10/11/19 09:02 IDENTIFYING DATA: Patient is a 34-year-old female who currently lives at home with her in the house and has one child and currently unemployed HPI: Patient presented to the hospital after sustaining 2 self-inflicted lacerations to her left forearm and complaining of increase in anxiety and depression. She states that she has been off medications since her last admission in 2016 to the mental health unit. She claims that she is not able to follow-up with a psychiatrist and states that her therapist was not able to get her in to see a psychiatrist. Patient claims that her anxiety and depression have been increased recently and states that after her and her were in a fight or several days her did not come home from work and she did not have any contact with him and impulsively started cutting herself however denied suicidal intent. She claimed that "I just wanted to hurt myself". Patient states that she was self-medicating with marijuana however has been off marijuana for the past month due to probation. She states that she is currently having thoughts of suicide however no plan or intent at this time. Patient is tearful and appeared anxious during the interview. She claims that she has had history of manic episodes which usually last approximately 2-3 weeks long and her last episode was a month ago when she was combative and agitated with police after a fight at home. Patient claims that her sleep has been poor and has been having nightmares almost daily. She claims that her mood is "depressed". Patient denies any homicidal ideations intent or plan. At this time patient denies any auditory or visual hallucinations. Patient admits to using marijuana and was smoking approximately 2 blunts a day however has been off this for one month now. She denies any other drugs or alcohol. She admits to daily cigarette use. PAST PSYCHIATRIC HISTORY: Patient states that she has a history of bipolar disorder, anxiety and was seeing a therapist at [facility]. Was last seen by her therapist on 10/09/19. Her last admission to the mental health unit was in 12/13. The patient claims that she's had 2 suicide attempts in the past. Patient was previously on lithium and Seroquel in her last hospitalization. PMH:rheumatoid arthritis, hypertension, lupus ALLERGIES: as per EMR CHEMICAL DEPENDENCY HISTORY: as per HPI FAMILY PSYCHIATRIC/SUBSTANCE USE HISTORY: states that her mother suffers from depression, brother abuses alcohol and aunt has bipolar disorder. SOCIAL HISTORY: patient claims that she is born and raised in [place] [facility] and finished high school completed 2 years of college dropped out, is currently unemployed and states that she cannot work at this time and has been applying for disability. She is currently living with her in a house has 1 kid and supported by her . MENTAL STATUS EXAM: General Appearance: Patient appears to be stated age is alert, attempts to cooperate, appears anxious and has several scratch meraz over her face her chest and 2 lacerations which are bandaged on her left forearm. poor hygiene and grooming. Behavior: [Patient is anxiously seated without any agitated behavior.]tearful. Speech: Patient's speech is fluent and nonpressured. Mood/Affect: Patient reports their mood is depressed and anxious, affect is congruent and tearful. Suicidality/Homicidality: Patient denies having any homicidal ideation intent or plan. patient missed a passive suicidal ideations, no intent or plan. Perceptions: Patient denies any auditory or visual hallucinations. Though content/process: There is no evidence of any delusional thought content and thought process is linear and goal-directed. Memory and concentration: AOX3, grossly intact for the purposes of this session. Can spell "WORLD" backwards Judgment and insight: poor STRENGTHS/WEAKNESSES: strength is that patient is resilient and has supportive family, weaknesses the patient is impulsive and has chronic mental illness. INTELLECT: average IMPRESSIONS: bipolar disorder type I, currently depressed Cannabis use disorder nicotine dependence PLAN: -Patient is admitted under voluntary status to MHU for stabilization of psychiatric symptoms and safety. Patient signed adult voluntary form and medication consent and is placed in patient's chart. -Medications : after speaking with patient about the option of different mood stabilizing agents, Will start patient on Abilify 2.5 mg daily for mood stabilization. Spoke with patient about possibly getting long-acting injection in the near future to ensure compliance. We'll also start Lamictal 25 mg twice a day for bipolar depression. Vistaril 50 mg every 8 hours when necessary for anxiety. Melatonin 6 mg daily at bedtime for sleep. -Ativan and GeodonPRN for agitation/aggression -Patient was counselled on substance abuse and desired to cut back on use -Patient was informed of the risks, benefits and side effects of the medication and patient verbally consented to taking the medications. Patient signed med consent form and was placed in chart. -NRT - Nicorette gum -SW on board for discharge planning 10/11/19 09:39
[2019-10-11] MEDS: ARIPiprazole 5 MG TAB PO SCH (10:42)
[2019-10-11] MEDS: hydrOXYzine PAMOATE 25 MG CAP PO PRN ×2 (10:42→20:10)
[2019-10-11] MEDS: lamoTRIgine 25 MG TAB PO SCH ×2 (10:43→20:11)
[2019-10-11] MEDS: ACETAMINOPHEN TAB 325 MG TAB PO PRN ×2 (10:43→18:30)
[2019-10-11] MEDS: cloNIDine HCL 0.1 MG TAB PO PRN ×2 (11:17→20:11)
[2019-10-11] MEDS: NICOTINE POLACRILEX 2 MG GUM BUCCAL PRN (11:17)
[2019-10-11] MEDS: BACITRACIN 500 UNIT/GM OINT 28.4 GM TUBE TOPICAL SCH ×2 (11:22→20:07)
[2019-10-11] MEDS: ZIPRASIDONE 20 MG VIAL IM PRN ×2 (11:38→23:01)
[2019-10-11] MEDS ORDERED: MELATONIN 3 MG TABLET PO SCH (21:00)
[2019-10-12] MEDS: ARIPiprazole 5 MG TAB PO SCH (08:42)
[2019-10-12] MEDS: LISINOPRIL 5 MG TAB PO SCH (08:43)
[2019-10-12] MEDS: BUTALB/APAP/CAFF 50-325-40MG TAB PO PRN ×3 (08:43→22:58)
[2019-10-12] MEDS: BACITRACIN 500 UNIT/GM OINT 28.4 GM TUBE TOPICAL SCH ×2 (08:43→20:19)
[2019-10-12] MEDS: lamoTRIgine 25 MG TAB PO SCH ×2 (08:43→20:18)
[2019-10-12] MEDS: hydrOXYzine PAMOATE 25 MG CAP PO PRN ×2 (08:46→20:20)
[2019-10-12] MEDS: LORazepam 1 MG TAB PO PRN ×2 (09:35→17:09)
[2019-10-12] MEDS: NICOTINE POLACRILEX 2 MG GUM BUCCAL PRN ×3 (09:37→23:00)
[2019-10-12] MEDS: ACETAMINOPHEN TAB 325 MG TAB PO PRN ×2 (10:22→17:12)
[2019-10-12] MEDS: QUEtiapine 50 MG TAB PO SCH (11:30)
--- NOTE | 2019-10-12 11:32 | P.PN ---
Progress Note - Text interval history: The patient is found in the hallway she follows me to an interview room. She was admitted after she had cut her left anterior forearm twice requiring sutures. She states that she did this as she felt overwhelmed in the context of having a verbal altercation with her boyfriend. She endorses a history of bipolar disorder and has been off of medication for almost 3 years. She was previously treated on this mental health unit with lithium and Seroquel. She states those were effective but never did follow up with [facility] and subsequently went off of the medication. She was seen yesterday by Dr. Monroy and was placed on Abilify and Lamictal. She states that she prefers to go back on the Seroquel. She states she is experiencing a significant amount of anxiety and feels that that medication was more calming. She indicates having some trouble sleeping. She's been trying to attend some groups. Mental status exam: The patient is alert she's cooperative she is directable. She is dressed her own clothing hygiene grooming adequate. Eye contact is appropriate. Speech is fluent spontaneous nonpressured. She reports depressed mood she reports heightened anxiety feelings. She states that she feels safe here in the hospital. She does feel overwhelmed but feels she can keep herself safe here. She is reporting no auditory or visual hallucinations or any specific delusions. She indicates prior to coming to the hospital she was experiencing visual hallucinations of mice being in her bed. She is demonstrating no verbal or physical aggressiveness. She is somewhat hyperactive due to her anxiety. Insight and judgment limited. She is oriented to person place and date. Plan: The patient will continue on the Lamictal as written we will discontinue the Abilify we will restart her Seroquel 50 mg twice daily 100 mg at bedtime. We will discontinue the melatonin as she has found it ineffective. We will prescribe trazodone 50 mg at bedtime for insomnia. She is requesting to be placed back on Suboxone. She states that she has been taking that regularly as an outpatient and is prescribed by her primary care physician. There were no opiates in her drug screen. In reviewing maps it appears that she last filled it at the end of July. She indicates that she will abuse her Suboxone at times. We decided that we would not continue that medication on the mental health unit. She is instructed to participate in groups we will monitor her for safety vital signs reviewed.
[2019-10-12] MEDS: IBUPROFEN 800 MG TAB PO PRN (15:44)
[2019-10-12] MEDS: traZODone HCL 50 MG TAB PO SCH (20:18)
[2019-10-12] MEDS ORDERED: QUEtiapine 100 MG TAB PO SCH (21:00)
[2019-10-13] MEDS ORDERED: ZIPRASIDONE 20 MG VIAL IM ONE (00:37)
[2019-10-13] MEDS ORDERED: WATER FOR INJECTION, STERILE 10 ML IV ONE (00:37)
[2019-10-13] MEDS: ZIPRASIDONE 20 MG VIAL IM PRN (00:39)
[2019-10-13] MEDS: IBUPROFEN 800 MG TAB PO PRN ×2 (01:21→12:02)
[2019-10-13] MEDS: BACITRACIN 500 UNIT/GM OINT 28.4 GM TUBE TOPICAL SCH ×2 (08:36→20:13)
[2019-10-13] MEDS: LISINOPRIL 5 MG TAB PO SCH (08:36)
[2019-10-13] MEDS: lamoTRIgine 25 MG TAB PO SCH ×2 (08:40→20:13)
[2019-10-13] MEDS: QUEtiapine 50 MG TAB PO SCH ×2 (08:40→12:00)
[2019-10-13] MEDS: LORazepam 1 MG TAB PO PRN ×2 (08:41→17:23)
[2019-10-13] MEDS: BUTALB/APAP/CAFF 50-325-40MG TAB PO PRN ×3 (08:41→20:15)
[2019-10-13] MEDS: hydrOXYzine PAMOATE 25 MG CAP PO PRN ×2 (08:42→17:23)
[2019-10-13] MEDS: NICOTINE POLACRILEX 2 MG GUM BUCCAL PRN ×4 (08:44→20:17)
--- NOTE | 2019-10-13 09:06 | P.PN ---
Progress Note - Text interval history: The patient is found in her room she follows me to an interview room. She indicates her mood is anxious which is causing her to feel down. She states that the Seroquel during the day was very helpful in reducing anxiety. She indicates she did not sleep well last night staff reported she slept 4-5 hours. She tried several medications last evening to try to sleep. She reports attending groups. She states her heart rate has been elevated. Vital signs reviewed. She has several readings were her heart rate was elevated there was one that was in the normal range yesterday. she suspects it is her withdrawing from the Suboxone. We reviewed her current psychotropic medications her questions were answered. Mental status exam: The patient is alert she is dressed in her own clothing hygiene is adequate grooming is fair. Eye contact is appropriate speech is fluent spontaneous nonpressured. She endorses and anxious mood which causes her to feel depressed. She reports some hopeless thoughts she feels safe here in the hospital in terms of suicidal ideation. She reports no auditory or visual hallucinations or any specific delusions there is no observed evidence of psychosis. She demonstrates no tangential thinking loose associations or flight of ideas. She demonstrates no verbal or physical aggressiveness she demonstrates no involuntary repetitive movements. She remains oriented to person place and date. She maintains a constricted affect with little range. Plan: The patient will continue on her current psychotropic medications. We will titrate the Seroquel to 150 mg at bedtime. The Catapres is unneeded we will discontinue that medication. We will monitor vital signs. She is encouraged to continue participating in group. She requires continued psychiatric hospitalization for further evaluation and treatment.
[2019-10-13] MEDS: ACETAMINOPHEN TAB 325 MG TAB PO PRN ×2 (10:44→17:23)
[2019-10-13] MEDS: traZODone HCL 50 MG TAB PO SCH (20:14)
[2019-10-13] MEDS ORDERED: QUEtiapine 50 MG TAB PO SCH (21:00)
[2019-10-14] MEDS: hydrOXYzine PAMOATE 25 MG CAP PO PRN ×3 (00:27→22:05)
[2019-10-14] MEDS: LORazepam 1 MG TAB PO PRN ×2 (00:27→09:01)
[2019-10-14] MEDS: IBUPROFEN 800 MG TAB PO PRN ×2 (06:22→23:29)
[2019-10-14] MEDS: BUTALB/APAP/CAFF 50-325-40MG TAB PO PRN ×3 (06:23→18:59)
[2019-10-14] MEDS: NICOTINE POLACRILEX 2 MG GUM BUCCAL PRN ×3 (06:24→22:04)
[2019-10-14] MEDS: BACITRACIN 500 UNIT/GM OINT 28.4 GM TUBE TOPICAL SCH ×2 (08:57→20:35)
[2019-10-14] MEDS: QUEtiapine 50 MG TAB PO SCH ×2 (08:58→11:41)
[2019-10-14] MEDS: lamoTRIgine 25 MG TAB PO SCH ×2 (08:58→20:34)
[2019-10-14] MEDS: LISINOPRIL 5 MG TAB PO SCH (08:58)
[2019-10-14] MEDS: ACETAMINOPHEN TAB 325 MG TAB PO PRN ×2 (09:00→22:04)
[2019-10-14] MEDS ORDERED: NALTREXONE HCL 50 MG TAB PO SCH (09:30)
--- NOTE | 2019-10-14 09:38 | P.PN ---
Progress Note - Text Interval history: The patient is found in the hallway she follows me to an interview room. She reports that her mood is slowly getting better. She is troubled that she is not sleeping at night. Staff reported she slept 4 hours she states maybe 2 hours. She indicates she is not sleeping during the day. She feels that it's is because she's been manic that is been more difficult to sleep at night with this admission. We reviewed her psychotropic medications. We decided we would discontinue the Ativan as we want to eliminate substances that can be habit forming we discussed the true necessity of the Fioricet. We decided we would titrate the Seroquel and she is also interested in starting naltrexone. She expects a visit from her this evening. Mental status exam: The patient is alert she has a disheveled appearance hygiene is adequate eye contact is appropriate. She is pleasant cooperative she is easily directed during the session. She is reporting that her mood is improving but she is troubled by not sleeping. She continues to have heightened anxiety. She is having some racing thoughts. She is reporting that she feels safe in the hospital. She has no intent or plan of harming herself here. She is reporting no homicidal ideation intent or plan. She is reporting no auditory or visual hallucinations or any specific delusions. She demonstrates no verbal or physical aggressiveness she demonstrates no involuntary repetitive movements. Insight and judgment limited but slowly improving. Plan: The patient will continue on her current medication however we will titrate the Seroquel to 300 mg at bedtime continue the daily doses written we will initiate naltrexone 50 mg daily we will discontinue Ativan. She is encouraged to avoid use of Fioricet. She is encouraged to continue participating in the milieu. We will await the outcome of her visit with her this evening. She requires continued psychiatric hospitalization. Vital signs reviewed she does have continued tachycardia we will get an EKG if one has not argument order to be sure that its sinus tachycardia.
[2019-10-14] MEDS ORDERED: LORazepam 2 MG/ML INJ IM STA (12:56)
[2019-10-14] MEDS: traZODone HCL 50 MG TAB PO SCH (20:34)
[2019-10-14] MEDS ORDERED: QUEtiapine 100 MG TAB PO SCH (21:00)
[2019-10-15] MEDS: BUTALB/APAP/CAFF 50-325-40MG TAB PO PRN ×4 (06:02→23:22)
[2019-10-15] MEDS: hydrOXYzine PAMOATE 25 MG CAP PO PRN ×3 (06:04→23:23)
[2019-10-15] MEDS: BACITRACIN 500 UNIT/GM OINT 28.4 GM TUBE TOPICAL SCH ×2 (08:42→23:13)
[2019-10-15] MEDS: LISINOPRIL 5 MG TAB PO SCH (08:44)
[2019-10-15] MEDS: ACETAMINOPHEN TAB 325 MG TAB PO PRN ×3 (08:44→18:57)
[2019-10-15] MEDS: lamoTRIgine 25 MG TAB PO SCH ×2 (08:44→21:08)
[2019-10-15] MEDS: NICOTINE POLACRILEX 2 MG GUM BUCCAL PRN ×3 (08:44→23:22)
[2019-10-15] MEDS: QUEtiapine 50 MG TAB PO SCH ×2 (08:44→12:44)
--- NOTE | 2019-10-15 10:03 | P.PN ---
Progress Note - Text interval history: The patient is found in group she follows me to an interview room. She reports that she feels very anxious she feels much more depressed. SHe states that she wishes she wasn't alive. She indicates that she didn't sleep more than 2 hours last night staff recorded she slept 5 hours. She was acutely anxious yesterday and required Ativan once. She has been attending groups and she feels better when she is around others.she did have a brief visit with her yesterday. She indicates that there was nothing upsetting about that visit. Mental status exam: The patient is alert she is dressed in her own clothing hygiene grooming adequate. Eye contact is intermittent. Speech is spontaneous nonpressured. She reports hopelessness thinking depressed mood significant anxiety. She made a statement that she wishes she would've cut her arm deeper. She reports no homicidal ideation intent or plan. She reports no auditory or visual hallucinations or any specific delusions. There is no objective evidence of psychosis. She demonstrates no tangential thinking loose associations or flight of ideas. She does not appear hypomanic or manic. Insight and judgment limited. She is oriented to person place and date. She maintains a dysphoric affect throughout the session. Plan: The patient will continue on her current medication we will titrate the Seroquel to 400 mg at bedtime we will titrate the trazodone 100 mg at bedtime. We discussed having her continue group activity she is encouraged to journal. Her questions regarding the psychotropic medications were answered. We will monitor her for safety. She requires continued psychiatric hospitalization. Vital signs reviewed.
[2019-10-15] MEDS: IBUPROFEN 800 MG TAB PO PRN ×2 (10:32→21:08)
[2019-10-15] MEDS ORDERED: QUEtiapine 400 MG TAB PO SCH (21:00)
[2019-10-15] MEDS: traZODone HCL 100 MG TAB PO SCH (21:08)
[2019-10-16] MEDS: ACETAMINOPHEN TAB 325 MG TAB PO PRN (02:08)
[2019-10-16] MEDS: IBUPROFEN 800 MG TAB PO PRN ×2 (04:31→12:43)
[2019-10-16] MEDS: NICOTINE POLACRILEX 2 MG GUM BUCCAL PRN ×3 (06:10→16:16)
[2019-10-16] MEDS: QUEtiapine 50 MG TAB PO SCH (09:11)
[2019-10-16] MEDS: lamoTRIgine 25 MG TAB PO SCH ×2 (09:11→21:26)
[2019-10-16] MEDS: BACITRACIN 500 UNIT/GM OINT 28.4 GM TUBE TOPICAL SCH ×2 (09:11→21:30)
[2019-10-16] MEDS: LISINOPRIL 5 MG TAB PO SCH (09:11)
[2019-10-16] MEDS: BUTALB/APAP/CAFF 50-325-40MG TAB PO PRN ×3 (09:12→21:28)
[2019-10-16] MEDS: hydrOXYzine PAMOATE 25 MG CAP PO PRN ×2 (09:16→18:09)
[2019-10-16] MEDS: QUEtiapine 25 MG TAB PO SCH (12:41)
--- NOTE | 2019-10-16 15:09 | P.PN ---
Progress Note - Text Progress Note Date: 10/16/19 Interval History: patient is a 34-year-old female is being seen in coverage for Dr. Werner and she reports that she isn't feeling tired continues to complain of anxiety all day long and is up most of the night talking to other patients. Patient states that she is not having any suicidal thoughts and states that the Vistaril is not helping with her anxiety. She states that she isn't attempting to attend groups and activities. Mental Status: Appearance/Attitude: patient is casually dressed and makes eye contact and is cooperative Behavior: patient does not exhibit any psychomotor agitation or retardation Speech/Language: patient's speech is spontaneous and normal volume and rhythm and she is coherent Thought Process: patient is goal-directed there is no evidence of loose association or flight of ideas Thought Content: patient denies any auditory or visual hallucinations and no delusions or paranoid ideation were elicited. Patient is preoccupied with her anxiety symptoms and states that she's up all night long pacing in the hallways, later in the day complained of some abdominal discomfort and states that she slept for about an hour last night. She states that her appetite is okay Suicidal/Homicidal Ideation: patient denied any current suicidal or homicidal ideation Sensorium/Cognition: patient is alert and oriented to person, place, and time and her recent and remote memory are grossly intact Mood/Affect: patient's mood is anxious and her affect is appropriate to her mood Insight/Judgment: patient's insight and judgment are fair Assessment: patient reports that she is still anxious not feeling tired and sleeping only an hour at night. She reports that she aches the medication state to be increased and wonders what else she can take for anxiety. She states that the anxiety is not controlled with the Vistaril. patient is attending groups and activities. Plan: we'll increase patient's Seroquel to 75 mg twice a day and 600 mg at bedtime and continue trazodone 100 mg at bedtime and Lamictal 25 mg daily. she continues to require inpatient hospital stay to stabilize her mood.
[2019-10-16 15:37] VITALS: BMI 28.0
[2019-10-16] MEDS: QUEtiapine 200 MG TAB PO SCH (21:26)
[2019-10-16] MEDS: traZODone HCL 100 MG TAB PO SCH (21:26)
[2019-10-16] MEDS: ZIPRASIDONE 20 MG VIAL IM PRN (22:17)
[2019-10-16] MEDS ORDERED: LORazepam 1 MG TAB PO STA (23:17)
[2019-10-17] MEDS: BUTALB/APAP/CAFF 50-325-40MG TAB PO PRN ×3 (06:34→21:18)
[2019-10-17] MEDS: NICOTINE POLACRILEX 2 MG GUM BUCCAL PRN (06:38)
[2019-10-17] MEDS: hydrOXYzine PAMOATE 25 MG CAP PO PRN ×2 (06:40→21:19)
[2019-10-17] MEDS: BACITRACIN 500 UNIT/GM OINT 28.4 GM TUBE TOPICAL SCH ×2 (08:56→21:20)
[2019-10-17] MEDS: LISINOPRIL 5 MG TAB PO SCH (08:56)
[2019-10-17] MEDS: lamoTRIgine 25 MG TAB PO SCH ×2 (08:56→21:18)
[2019-10-17] MEDS: QUEtiapine 25 MG TAB PO SCH ×2 (08:56→12:55)
[2019-10-17] MEDS: IBUPROFEN 800 MG TAB PO PRN (08:57)
--- NOTE | 2019-10-17 17:17 | P.PN ---
Progress Note - Text Progress Note Date: 10/17/19 interval history: [place] [facility] [place] She states last night she had an episode where she was having hallucinations and she has had that it sounds like occasionally in the past. She states she absolutely will not take the Seroquel. She complains of high anxiety level and elevated pulse. Her blood pressure has been good. She seems to relay that she does well with the Geodon IM. Mental status exam: She is alert and cooperative with the interview. She denies any thoughts of harm to self or others. She does describe that she has thoughts of dying. Her mood she describes is not doing well. She does not show any active evidence of psychosis and does not appear responding to any internal stimuli Plan: Patient will be maintained on current psychotropic medication regimen. She is not going to take the Seroquel she states. We will consider substituting Geodon for Seroquel once we evaluate how she feels without taking the Seroquel. She is recommended to not abruptly discontinue her medications
[2019-10-17] MEDS: traZODone HCL 100 MG TAB PO SCH (21:18)
[2019-10-17] MEDS: QUEtiapine 200 MG TAB PO SCH (21:20)
[2019-10-17] MEDS: ZIPRASIDONE 20 MG VIAL IM PRN (23:50)
[2019-10-18] MEDS: hydrOXYzine PAMOATE 25 MG CAP PO PRN ×2 (06:52→18:23)
[2019-10-18] MEDS: BUTALB/APAP/CAFF 50-325-40MG TAB PO PRN ×2 (06:53→18:24)
[2019-10-18] MEDS ORDERED: BENZOCAINE/MENTHOL LOZENG 1 EACH LOZENGE MUCOUS MEM PRN (07:52)
[2019-10-18] MEDS: QUEtiapine 25 MG TAB PO SCH ×2 (08:56→12:58)
[2019-10-18] MEDS: BACITRACIN 500 UNIT/GM OINT 28.4 GM TUBE TOPICAL SCH ×2 (08:56→21:11)
[2019-10-18] MEDS: lamoTRIgine 25 MG TAB PO SCH ×2 (08:56→21:12)
[2019-10-18] MEDS: LISINOPRIL 5 MG TAB PO SCH (08:56)
[2019-10-18] MEDS: IBUPROFEN 800 MG TAB PO PRN ×2 (08:56→23:54)
[2019-10-18] MEDS ORDERED: ZIPRASIDONE 20 MG VIAL IM ONE ×2 (13:00→21:55)
[2019-10-18] MEDS: ZIPRASIDONE 20 MG VIAL IM PRN ×2 (13:01→21:59)
--- NOTE | 2019-10-18 13:36 | P.PN ---
Progress Note - Text Progress Note Date: 10/18/19 interval history: [place] [facility] [place] She reports that she was feeling better and then found out that her daughter tried to run away to see her dad. She states that her mom now has her daughter. She did receive a injection of Geodon just prior to seeing me. She states that last night without the Seroquel she felt much better was able to sleep for 6-1/2 hours. She felt less restless and was not having hallucinations. She would like to stay off of the Seroquel. She has responded well to Geodon and would like to try oral Geodon at bedtime. We did discuss risk of QT prolongation with Geodon and trazodone and she prefers to trial the Geodon and not be on the trazodone as it does not seem to give her much benefit. Geodon can also get benefit in terms of mood stabilization. We discussed if an EKG has not been done that we will order an EKG to rule out any QT prolongation and then she could get periodic EKG checkups. Mental status exam: Patient is alert and cooperative with the interview. She describes being upset regarding the situation with her daughter. She denies any thoughts of harm to self or others. She does not verbalize any hallucinations or alberto delusions. She does not show any significant agitation. She does describe a lot of anxiety. Plan: Patient will be taken off of Seroquel she does not wish to take any longer and we will also DC trazodone. Will initiate low dose of Geodon at bedtime. Maintain other current psychotropic medication regimen. We will check an EKG if needed.
[2019-10-18] MEDS: NICOTINE POLACRILEX 2 MG GUM BUCCAL PRN (18:23)
[2019-10-18] MEDS ORDERED: ZIPRASIDONE 20 MG CAP PO SCH (21:00)
[2019-10-18] MEDS: ACETAMINOPHEN TAB 325 MG TAB PO PRN (21:12)
[2019-10-19 07:05] VITALS: RESP 16; TEMP 98
[2019-10-19] MEDS: IBUPROFEN 800 MG TAB PO PRN ×2 (07:49→16:54)
[2019-10-19] MEDS: BUTALB/APAP/CAFF 50-325-40MG TAB PO PRN ×3 (07:51→23:19)
[2019-10-19] MEDS: hydrOXYzine PAMOATE 25 MG CAP PO PRN ×2 (07:51→20:55)
[2019-10-19] MEDS: lamoTRIgine 25 MG TAB PO SCH ×2 (07:52→20:55)
[2019-10-19] MEDS: BACITRACIN 500 UNIT/GM OINT 28.4 GM TUBE TOPICAL SCH ×2 (07:53→21:43)
[2019-10-19] MEDS: LISINOPRIL 5 MG TAB PO SCH (07:53)
[2019-10-19] MEDS: ZIPRASIDONE 20 MG VIAL IM PRN ×2 (11:45→22:51)
[2019-10-19] MEDS: ACETAMINOPHEN TAB 325 MG TAB PO PRN ×2 (12:24→20:55)
[2019-10-19] MEDS: ZIPRASIDONE 20 MG CAP PO SCH ×2 (12:26→20:55)
--- NOTE | 2019-10-19 13:35 | P.PN ---
Progress Note - Text Progress Note Date: 10/19/19 Chief complaint: "I am ready to go back home " Subjective: The patient has been seen today as follow-up, chart reviewed, case discussed with the treatment team. Patient slept about 7 hours last night. Patient has been going to some groups and other unit activities. Patient reports fair appet ite. Patient reports feeling stable emotionally and he denies feeling depressed, hopeless, or suicidal. She denies any severe mood swings and reports feeling ready for discharge. Patient addressed that she feels get the maximum benefit from hospital stay and her family is waiting for her. Patient submitted 72 hours for to leave the hospital. She reports her and her family are waiting for her to celebrate Dora together. The patient is compliant with her medications and denies any adverse reactions. Patient reports is starting Geodon helping her mood and he denies any side effects. She reports Seroquel caused her swollen tongue and face and she felt very "weird" on it. The patient denies any manic symptoms including sustained period of time with elevated or irritable mood, impulsive or irrational behavior, inflated self- esteem, or absence need to sleep due to increases goal-directed activities. The patient denies any auditory or visual hallucinations. Also the patient denies any paranoid ideation. Objective: Vitals has been reviewed. Mental status examination; Appearance: The patient appears stated age, adequately groomed and dressed, no specific features. Gait/posture: Normal gait, Normal arm swinging: No abnormal movements. Attitude and behavior: engaged, cooperative, eye contact. Motor activity: Normal psychomotor activity Speech: Normal rate, tone. Mood: Anxious Affect: Constricted Thought form: goal-directed, linear, coherent. Thought content: Non-delusional, denies suicidal thoughts, denies homicidal thoughts, denies intentions or plans. Perception: Denies any auditory or visual hallucinations Attention: No impairment. Patient was able to repeat serial 5. Orientation: Patient patient was fully oriented to time place person and situa tion. Insight: Patient has fair insight about his psychiatric disorder. Judgment: Patient has fair judgment about his psychiatric treatment. Assessment: Bipolar disorder type I, most recent episode depressive. Cannabis use disorder, moderate-severe. Tobacco use disorder. Rule out borderline personality disorder. Plan: Continue inpatient level of care due to further stabilization on medication and discharge planning Continue treatment of disorder provide psychiatric education regarding her diagnosis Precautions: Continue 15 minutes check for safety. Consider medical consultation if any acute medical issues arise. Provide the patient individual, group therapy, substance use disorder counseling to give better insight and learn coping skills. Medications: Continue Geodon 20 mg and increase the dose to twice daily for better stabilization of the mood and bipolar disorder. Continue Lamictal 25 mg twice daily for bipolar disorder. Discharge patient to OUTPATIENT services upon a stabilization Expected LOS: 1-2 days
[2019-10-19] MEDS: NICOTINE POLACRILEX 2 MG GUM BUCCAL PRN (16:53)
[2019-10-20] MEDS: IBUPROFEN 800 MG TAB PO PRN (02:08)
[2019-10-20] MEDS: hydrOXYzine PAMOATE 25 MG CAP PO PRN (05:46)
[2019-10-20] MEDS: ACETAMINOPHEN TAB 325 MG TAB PO PRN ×2 (05:47→11:33)
[2019-10-20] MEDS: NICOTINE POLACRILEX 2 MG GUM BUCCAL PRN ×2 (05:48→11:33)
[2019-10-20] MEDS: BACITRACIN 500 UNIT/GM OINT 28.4 GM TUBE TOPICAL SCH (08:18)
[2019-10-20] MEDS: ZIPRASIDONE 20 MG CAP PO SCH (08:18)
[2019-10-20] MEDS: lamoTRIgine 25 MG TAB PO SCH (08:18)
[2019-10-20] MEDS: LISINOPRIL 5 MG TAB PO SCH (08:18)
[2019-10-20] MEDS: BUTALB/APAP/CAFF 50-325-40MG TAB PO PRN (08:19)
[2019-10-20 09:41] VITALS: BP 125/71; PULSE 113
--- NOTE | 2019-10-20 13:54 | P.DS ---
Providers Date of admission: 10/10/19 11:16 Expected date of discharge: 10/20/19 Attending physician: Pal Werner Consults: 10/10/19 12:18 Consult Physician Routine Consulting Provider: Gracy Casanova Consult Reason/Comments: H and P Do you want consulting provider notified?: Yes Primary care physician: [facility] Course: Brief HPI: As per the HPI from initial psychiatric evaluation during this hospital stay: " Patient presented to the hospital after sustaining 2 self-inflicted lacerations to her left forearm and complaining of increase in anxiety and depression. She states that she has been off medications since her last admission in 2016 to the mental health unit. She claims that she is not able to follow-up with a psychiatrist and states that her therapist was not able to get her in to see a psychiatrist. Patient claims that her anxiety and depression have been increased recently and states that after her and her were in a fight or several days her did not come home from work and she did not have any contact with him and impulsively started cutting herself however denied suicidal intent. She claimed that "I just wanted to hurt myself". Patient states that she was self-medicating with marijuana however has been off marijuana for the past month due to probation. She states that she is currently having thoughts of suicide however no plan or intent at this time. Patient is tearful and appeared anxious during the interview. She claims that she has had history of manic episodes which usually last approximately 2-3 weeks long and her last episode was a month ago when she was combative and agitated with police after a fight at home. Patient claims that her sleep has been poor and has been having nightmares almost daily. She claims that her mood is "depressed". Patient denies any homicidal ideations intent or plan. At this time patient denies any auditory or visual hallucinations. Patient admits to using marijuana and was smoking approximately 2 blunts a day however has been off this for one month now. She denies any other drugs or alcohol. She admits to daily cigarette use. " Psychiatric: The patient was initiated on psychotropic medication Seroquel which she received for few doses and medication was discontinued because it caused her severe anxiety, panic attack, and swelling of her throat that she couldn't breathe. Seroquel was added to patient's ALLERGY, and patient was a started on Geodon for mood stabilization. Patient reports previous trial of Seroquel few years ago but was at the low dose. She reports didn't receive any psychiatric medications for the past 2 years prior to this admission. During this hospitalization, the patient was a started on Lamictal as a mood stabilizer and Vistaril as needed for anxiety. The medication doses has been adjusted to optimize the stability of the psychiatric symptoms, and to avoid side effects. Patient tolerated the above medication/s very well, without side effects. The patient was admitted for a safe and supportive environment. A psychiatric, medical, and psychosocial evaluations were done on admission. [facility]. Patient did not exhibit any aggression towards herself or others during this hospitalization, and there was no requirements for emergency medications or restraints. The patient attended most of the groups to obtain coping skills and process stress. Patient was compliant with her medications. Patient got along with her peers and with staff. The objective signs of depression and mood instability have been improved. She denies any suicidal ideation, not made any hopelessness/helplessness statements for more than 3 days prior to discharge. Maximum hospitalization benefit was reached and subsequently discharge was planned, and patient is appropriate to continue treatment on an outpatient basis. On the day of discharge the patient was able to create an appropriate safety plan and denies any side effect of medications. Discussion was held about need to stop use of marijuna , including its effects on mood, interaction with psychiatric medications, and its role in events leading up to admission. Patient is in the contemplation stage of a change. Medical: Patient continued the medical management of her medical conditions. Non- psychiatric medications including Lisinopril was maintained to manage HTN. Patient was educated about smoking cessation and a prescription for nicotine replacement therapy was offered NRT at time of discharge but she refused. Assessment: Assessment at the day of discharge: The patient was seen at the day of discharge. Patient denies any sleep or appetite disturbances, denies feeling hopeless, worthless or helpless. Also, patient denies any other depressive or manic symptoms. Patient denies any psychotic symptoms. Patient denies suicidal or homicidal thoughts, intention or plans. Nurses and therapist reported patient is psychiatrically stable, and agreed to discharge plan. Mental status examination; Appearance: The patient appears stated age, adequately groomed and dressed, no specific features. Gait/posture: Normal gait, Normal arm swinging: No abnormal movements. Attitude and behavior: engaged, cooperative, eye contact. Motor activity: Normal psychomotor activity Speech: Normal rate, tone, not pressured Mood: Anxious Affect: Constricted Thought form: goal-directed, linear, coherent. Thought content: Non-delusional, denies suicidal thoughts, denies homicidal t houghts, denies intentions or plans. Perception: Denies any auditory or visual hallucinations Attention: No impairment. Patient was able to repeat serial 5. Orientation: Patient patient was fully oriented to time place person and situation. Insight: Patient has fair insight about his psychiatric disorder. Judgment: Patient has fair judgment about his psychiatric treatment. Discharge diagnoses: Bipolar disorder type I, most recent episode depressive. Cannabis use disorder, moderate-severe. Tobacco use disorder. Rule out borderline personality disorder. Health Concerns: Activity: As tolerated Diet: Low salt diet. Wound Care: Follow up with her PCP for remove stitches in L forearm Special Instructions: Labs to be completed after discharge: As clinically indicated by her outpatient psychiatrist and PCP. Pt is currently on Geodon and she was educated about risk of metabolic syndrome and need to continue monitoring weight, and continue monitoring lipid panel and Hb A1C. Discharge checklist for suicide and violence to determine stability: Safety plan was discussed with the patient. Patient denies any current suicidal/ homicidal or violent ideation/plan/ intent. Patient has ability to address stressors/emotions. Patient understands and is comfortable with discharge plan. Outpatient appointments is near [facility] Emergency number (911, crisis number) provided to the patient. Avoid the use of street drugs and alcohol. Take all medications as prescribed. When you are in need of refills please contact your medical provider and/or outpatient psychiatrist to have this done. Please go to scheduled outpatient appointment for aftercare. If symptoms return or become worse call the crisis line at and/or go to the nearest emergency room for an evaluation. Pertinent Studies: Laboratory Tests Range/Units 10/10/19 10/10/19 10/10/19 06:11 06:11 14:01 WBC (3.8-10.6) k/uL RBC (3.80-5.40) m/uL Hgb (11.4-16.0) gm/dL Hct (34.0-46.0) % MCV (80.0-100.0) fL MCH (25.0-35.0) pg MCHC (31.0-37.0) g/dL RDW (11.5-15.5) % Plt Count (150-450) k/uL Neutrophils % % Lymphocytes % % Monocytes % % Eosinophils % % Basophils % % Neutrophils # (1.3-7.7) k/uL Lymphocytes # (1.0-4.8) k/uL Monocytes # (0-1.0) k/uL Eosinophils # (0-0.7) k/uL Basophils # (0-0.2) k/uL Manual Slide Review Macrocytosis Stomatocytes Sodium (137-145) mmol/L 137 Potassium (3.5-5.1) mmol/L 4.8 Chloride (98-107) mmol/L 105 Carbon Dioxide (22-30) mmol/L 23 Anion Gap mmol/L 9 BUN (7-17) mg/dL 30 H Creatinine (0.52-1.04) mg/dL 1.37 H Est GFR (CKD-EPI)AfAm (>60 ml/min/1.73 sqM) 58 Est GFR (CKD-EPI)NonAf (>60 ml/min/1.73 sqM) 51 Glucose (74-99) mg/dL 148 H Calcium (8.4-10.2) mg/dL 9.7 Total Bilirubin (0.2-1.3) mg/dL 0.6 AST (14-36) U/L 42 H ALT (4-34) U/L 20 Alkaline Phosphatase (38-126) U/L 71 Total Protein (6.3-8.2) g/dL 7.2 Albumin (3.5-5.0) g/dL 4.4 TSH (0.465-4.680) mIU/L 1.550 Urine HCG, Qual (Not Detectd) Not Detected Urine Opiates Screen (NotDetected) Not Detected Ur Oxycodone Screen (NotDetected) Not Detected Urine Methadone Screen (NotDetected) Not Detected Ur Propoxyphene Screen (NotDetected) Not Detected Ur Barbiturates Screen (NotDetected) Detected H U Tricyclic Antidepress (NotDetected) Not Detected Ur Phencyclidine Scrn (NotDetected) Not Detected Ur Amphetamines Screen (NotDetected) Not Detected U Methamphetamines Scrn (NotDetected) Not Detected U Benzodiazepines Scrn (NotDetected) Not Detected Urine Cocaine Screen (NotDetected) Not Detected U Marijuana (THC) Screen (NotDetected) Not Detected Range/Units 10/10/19 14:02 WBC (3.8-10.6) k/uL 5.2 RBC (3.80-5.40) m/uL 3.44 L Hgb (11.4-16.0) gm/dL 12.2 Hct (34.0-46.0) % 38.5 MCV (80.0-100.0) fL 111.9 H MCH (25.0-35.0) pg 35.4 H MCHC (31.0-37.0) g/dL 31.6 RDW (11.5-15.5) % 15.7 H Plt Count (150-450) k/uL 303 Neutrophils % % 60 Lymphocytes % % 31 Monocytes % % 4 Eosinophils % % 3 Basophils % % 0 Neutrophils # (1.3-7.7) k/uL 3.1 Lymphocytes # (1.0-4.8) k/uL 1.6 Monocytes # (0-1.0) k/uL 0.2 Eosinophils # (0-0.7) k/uL 0.2 Basophils # (0-0.2) k/uL 0.0 Manual Slide Review Performed Macrocytosis Marked A Stomatocytes Present Sodium (137-145) mmol/L Potassium (3.5-5.1) mmol/L Chloride (98-107) mmol/L Carbon Dioxide (22-30) mmol/L Anion Gap mmol/L BUN (7-17) mg/dL Creatinine (0.52-1.04) mg/dL Est GFR (CKD-EPI)AfAm (>60 ml/min/1.73 sqM) Est GFR (CKD-EPI)NonAf (>60 ml/min/1.73 sqM) Glucose (74-99) mg/dL Calcium (8.4-10.2) mg/dL Total Bilirubin (0.2-1.3) mg/dL AST (14-36) U/L ALT (4-34) U/L Alkaline Phosphatase (38-126) U/L Total Protein (6.3-8.2) g/dL Albumin (3.5-5.0) g/dL TSH (0.465-4.680) mIU/L Urine HCG, Qual (Not Detectd) Urine Opiates Screen (NotDetected) Ur Oxycodone Screen (NotDetected) Urine Methadone Screen (NotDetected) Ur Propoxyphene Screen (NotDetected) Ur Barbiturates Screen (NotDetected) U Tricyclic Antidepress (NotDetected) Ur Phencyclidine Scrn (NotDetected) Ur Amphetamines Screen (NotDetected) U Methamphetamines Scrn (NotDetected) U Benzodiazepines Scrn (NotDetected) Urine Cocaine Screen (NotDetected) U Marijuana (THC) Screen (NotDetected) Procedures: Plan: Patient will continue follow-up at-. As per discharge plan Continue the following medications: As per discharge plan Patient Condition at Discharge: Stable Patient will be discharge to home Discharge Medication List Lisinopril [Zestril] 5 mg PO DAILY 10/10/19 [History] Bacitracin Oint 1 applic TOPICAL BID #1 ampul 10/20/19 [Rx] Ziprasidone [Geodon] 20 mg PO BID #60 cap 10/20/19 [Rx] hydrOXYzine PAMOATE [Vistaril] 50 mg PO Q8HR PRN #180 cap 10/20/19 [Rx] lamoTRIgine [LaMICtal] 25 mg PO BID #60 tab 10/20/19 [Rx] Plan - Discharge Summary Discharge Rx Participant: No New Discharge Prescriptions: New Bacitracin Oint 1 applic TOPICAL BID #1 ampul Ziprasidone [Geodon] 20 mg PO BID #60 cap lamoTRIgine [LaMICtal] 25 mg PO BID #60 tab hydrOXYzine PAMOATE [Vistaril] 50 mg PO Q8HR PRN #180 cap PRN Reason: Anxiety Continue Lisinopril [Zestril] 5 mg PO DAILY Discontinued Ibuprofen [Motrin] 800 mg PO TID PRN PRN Reason: Pain Butalb/APAP/Caff 50-325-40Mg [Fioricet 50-325-40] 1 tab PO Q6H PRN PRN Reason: Migraine Headache hydrOXYzine PAMOATE [Vistaril] 25 mg PO Q8H PRN PRN Reason: Anxiety Discharge Medication List Lisinopril [Zestril] 5 mg PO DAILY 10/10/19 [History] Bacitracin Oint 1 applic TOPICAL BID #1 ampul 10/20/19 [Rx] Ziprasidone [Geodon] 20 mg PO BID #60 cap 10/20/19 [Rx] hydrOXYzine PAMOATE [Vistaril] 50 mg PO Q8HR PRN #180 cap 10/20/19 [Rx] lamoTRIgine [LaMICtal] 25 mg PO BID #60 tab 10/20/19 [Rx] Follow up Appointment(s)/Referral(s): [facility] - 10/23/19 2:30 pm (Kelly Arellano @ [facility] ) Sukh Wilkerson MD [Primary Care Provider] - 1-2 days Patient Instructions/Handouts: Bipolar Disorder (DC), Suicide Prevention (DC) Activity/Diet/Wound Care/Special Instructions: Activity and diet as tolerated. Avoid the use of street drugs and alcohol. Take all medications as prescribed. When you are in need of refills on your medications please contact your medical provider and/or outpatient psychiatrist to have this done. Please go to scheduled outpatient appointment for aftercare treatment. If symptoms return or become worse, call the crisis line at and/or go to the nearest emergency room for evaluation. Discharge Disposition: HOME SELF-CARE
== END 2019-10-20 12:30 | disposition home or self-care (01) | DRG 885 ==
LOC: EC 05:43 → 3MHU 11:16
PROVIDERS: ADMIT Psychiatry & Neurology Psychiatry; ATTEND Psychiatry & Neurology Psychiatry
DX: F31.9 Bipolar disorder, unspecified (principal); F12.20 Cannabis dependence, uncomplicated; F17.210 Nicotine dependence, cigarettes, uncomplicated; F41.0 Panic disorder [episodic paroxysmal anxiety]; F41.1 Generalized anxiety disorder; G89.29 Other chronic pain; I10 Essential (primary) hypertension; K58.9 Irritable bowel syndrome, unspecified; M06.9 Rheumatoid arthritis, unspecified; M34.9 Systemic sclerosis, unspecified; M32.9 Systemic lupus erythematosus, unspecified; R45.850 Homicidal ideations; S51.812A Laceration without foreign body of left forearm, initial encounter; S61.512A Laceration without foreign body of left wrist, initial encounter; X78.9XXA Intentional self-harm by unspecified sharp object, initial encounter; Y04.0XXA Assault by unarmed brawl or fight, initial encounter; Z65.3 Problems related to other legal circumstances; Z79.899 Other long term (current) drug therapy; Z81.8 Family history of other mental and behavioral disorders; Z98.51 Tubal ligation status
CPT/HCPCS: 12002; 80053; 80306; 81025; 82075; 84443; 85025; 93005; 96372; 99285

== ENCOUNTER 2020-01-06 19:24 | Emergency (ER) | payer OTHER ==
[2020-01-06 19:42] VITALS: BP 121/77; PULSE 97; RESP 18; TEMP 98.2
== END 2020-01-06 20:35 | disposition left against medical advice (07) ==
LOC: EC 19:24
DX: R51 Headache (principal); R11.10 Vomiting, unspecified; Z53.21 Procedure and treatment not carried out due to patient leaving prior to being seen by health care provider
CPT/HCPCS: 99499

== ENCOUNTER 2020-02-22 09:25 | Inpatient (IN) | payer MEDICAID, OTHER ==
[2020-02-22] MEDS ORDERED: SODIUM CHLORIDE 0.9% 1,000 ML IV STA (09:29)
--- NOTE | 2020-02-22 09:50 | ED ---
General Adult HPI - General Chief complaint: Psychiatric Symptoms Stated complaint: Poss overdose Time Seen by Provider: 02/22/20 09:28 Source: patient, EMS, RN notes reviewed, old records reviewed Mode of arrival: EMS Limitations: no limitations - History of Present Illness Initial comments: 34-year-old female presented for evaluation of depression, suicidal ideation and overdose. Patient metastases to taking Fioricet and Xanax. She is uncertain ho w many of these medications she has taken over the past 24 hours. She states that she wanted to go to sleep and not wake up. Transported by EMS. History of depression. She has had previous admission for psychiatric evaluation and treatment. She is stating that she "does not want to go to [facility] unless she has a private room". - Related Data Home Medications Medication Instructions Recorded Confirmed Lisinopril [Zestril] 5 mg PO DAILY 10/10/19 10/10/19 Previous Rx's Medication Instructions Recorded Bacitracin Oint 1 applic TOPICAL BID #1 ampul 10/20/19 Ziprasidone [Geodon] 20 mg PO BID #60 cap 10/20/19 hydrOXYzine PAMOATE [Vistaril] 50 mg PO Q8HR PRN #180 cap 10/20/19 lamoTRIgine [LaMICtal] 25 mg PO BID #60 tab 10/20/19 Allergies Allergy/AdvReac Type Severity Reaction Status Date / Time quetiapine [From Seroquel] AdvReac Rash/Hives Verified 02/22/20 09:43 Review of Systems ROS Statement: Those systems with pertinent positive or pertinent negative responses have been documented in the HPI. ROS Other: All systems not noted in ROS Statement are negative. Past Medical History Past Medical History: Hypertension, Rheumatoid Arthritis (RA) Additional Past Medical History / Comment(s): TUBAL PREGANCY, chronic back pain, scleraderma, lupus, ddd History of Any Multi-Drug Resistant Organisms: MRSA Date of last positivie culture/infection: 07/01/16 MDRO Source:: RIGHT WRIST Past Surgical History: Section, Tonsillectomy Additional Past Surgical History / Comment(s): LAPROSCOPY Past Anesthesia/Blood Transfusion Reactions: No Reported Reaction Past Psychological History: Anxiety, Bipolar, Depression Smoking Status: Current every day smoker Past Alcohol Use History: None Reported Past Drug Use History: Marijuana, Opiates, Prescription Drug Abuse General Exam Limitations: no limitations General appearance: alert, appears intoxicated Head exam: Present: atraumatic, normocephalic Eye exam: Present: normal appearance, PERRL ENT exam: Present: normal exam Neck exam: Present: normal inspection. Absent: tenderness, meningismus Respiratory exam: Present: normal lung sounds bilaterally. Absent: respiratory distress, wheezes Cardiovascular Exam: Present: regular rate, normal rhythm GI/Abdominal exam: Present: soft. Absent: distended, tenderness, guarding, rebound Extremities exam: Present: normal inspection, normal capillary refill. Absent: pedal edema Neurological exam: Present: alert, oriented X3, CN II-XII intact. Absent: motor sensory deficit Psychiatric exam: Present: depressed, flat affect, suicidal ideation Skin exam: Present: warm, dry, intact. Absent: cyanosis, diaphoretic Course Vital Signs 02/22/20 02/22/20 02/22/20 09:30 10:39 12:00 Temperature 97.5 F L Pulse Rate 98 80 96 Respiratory 18 18 18 Rate Blood Pressure 122/55 114/78 120/89 O2 Sat by Pulse 99 100 100 Oximetry 02/22/20 02/22/20 13:17 15:03 Temperature 98.1 F Pulse Rate 99 98 Respiratory 18 18 Rate Blood Pressure 113/96 125/77 O2 Sat by Pulse 96 100 Oximetry - Reevaluation(s) Reevaluation #1: 02/22/20 11:03 Patient medically cleared for EPS evaluation. EKG Findings - EKG Comments: EKG Findings:: EKG: Sinus tachycardia, rate of 104, left atrial enlargement, NM interval 136, QRS duration 80, QTc 457, no ST segment elevation. Medical Decision Making - Medical Decision Making Patient medically cleared, evaluated by EPS, patient does sign herself in for psychiatric evaluation and treatment. She has been admitted to this institution. - Lab Data Result diagrams: 02/22/20 09:52 02/22/20 09:52 Lab Results 02/22/20 02/22/20 02/22/20 Range/Units 09:52 09:52 09:52 WBC 8.1 (3.8-10.6) k/uL RBC 3.64 L (3.80-5.40) m/uL Hgb 13.1 (11.4-16.0) gm/dL Hct 41.0 (34.0-46.0) % MCV 112.7 H (80.0-100.0) fL MCH 36.0 H (25.0-35.0) pg MCHC 31.9 (31.0-37.0) g/dL RDW 12.9 (11.5-15.5) % Plt Count 400 (150-450) k/uL Neutrophils % 68 % Lymphocytes % 25 % Monocytes % 4 % Eosinophils % 1 % Basophils % 0 % Neutrophils # 5.5 (1.3-7.7) k/uL Lymphocytes # 2.0 (1.0-4.8) k/uL Monocytes # 0.3 (0-1.0) k/uL Eosinophils # 0.1 (0-0.7) k/uL Basophils # 0.0 (0-0.2) k/uL Manual Slide Review Performed Hypochromasia Moderate Poikilocytosis (manual Present Anisocytosis (manual) Present Macrocytosis Marked A PT 10.6 (9.0-12.0) sec INR 1.0 (<1.2) Sodium (137-145) mmol/L Potassium (3.5-5.1) mmol/L Chloride (98-107) mmol/L Carbon Dioxide (22-30) mmol/L Anion Gap mmol/L BUN (7-17) mg/dL Creatinine (0.52-1.04) mg/dL Est GFR (CKD-EPI)AfAm (>60 ml/min/1.73 sqM) Est GFR (CKD-EPI)NonAf (>60 ml/min/1.73 sqM) Glucose (74-99) mg/dL Plasma Lactic Acid Flex (0.7-2.0) mmol/L Calcium (8.4-10.2) mg/dL Phosphorus (2.5-4.5) mg/dL Magnesium (1.6-2.3) mg/dL Total Bilirubin (0.2-1.3) mg/dL AST (14-36) U/L ALT (4-34) U/L Alkaline Phosphatase (38-126) U/L Total Protein (6.3-8.2) g/dL Albumin (3.5-5.0) g/dL Urine Color Yellow Urine Appearance Cloudy H (Clear) Urine pH 6.0 (5.0-8.0) Ur Specific [place] 1.019 (1.001-1.035) Urine Protein Negative (Negative) Urine Glucose (UA) Negative (Negative) Urine Ketones Negative (Negative) Urine Blood Negative (Negative) Urine Nitrite Negative (Negative) Urine Bilirubin Negative (Negative) Urine Urobilinogen <2.0 (<2.0) mg/dL Ur Leukocyte Esterase Negative (Negative) Urine RBC 1 (0-5) /hpf Urine WBC 5 (0-5) /hpf Ur Squamous Epith Cells 15 H (0-4) /hpf Urine Mucus Rare H (None) /hpf Urine HCG, Qual (Not Detectd) Salicylates mg/dL Urine Opiates Screen Not Detected (NotDetected) Ur Oxycodone Screen Not Detected (NotDetected) Urine Methadone Screen Not Detected (NotDetected) Ur Propoxyphene Screen Not Detected (NotDetected) Acetaminophen ug/mL Ur Barbiturates Screen Detected H (NotDetected) U Tricyclic Antidepress Not Detected (NotDetected) Ur Phencyclidine Scrn Not Detected (NotDetected) Ur Amphetamines Screen Not Detected (NotDetected) U Methamphetamines Scrn Not Detected (NotDetected) U Benzodiazepines Scrn Detected H (NotDetected) Urine Cocaine Screen Not Detected (NotDetected) U Marijuana (THC) Screen Not Detected (NotDetected) Serum Alcohol mg/dL 02/22/20 02/22/20 02/22/20 Range/Units 09:52 09:52 09:52 WBC (3.8-10.6) k/uL RBC (3.80-5.40) m/uL Hgb (11.4-16.0) gm/dL Hct (34.0-46.0) % MCV (80.0-100.0) fL MCH (25.0-35.0) pg MCHC (31.0-37.0) g/dL RDW (11.5-15.5) % Plt Count (150-450) k/uL Neutrophils % % Lymphocytes % % Monocytes % % Eosinophils % % Basophils % % Neutrophils # (1.3-7.7) k/uL Lymphocytes # (1.0-4.8) k/uL Monocytes # (0-1.0) k/uL Eosinophils # (0-0.7) k/uL Basophils # (0-0.2) k/uL Manual Slide Review Hypochromasia Poikilocytosis (manual Anisocytosis (manual) Macrocytosis PT (9.0-12.0) sec INR (<1.2) Sodium 139 (137-145) mmol/L Potassium 4.8 (3.5-5.1) mmol/L Chloride 110 H (98-107) mmol/L Carbon Dioxide 20 L (22-30) mmol/L Anion Gap 9 mmol/L BUN 17 (7-17) mg/dL Creatinine 0.96 (0.52-1.04) mg/dL Est GFR (CKD-EPI)AfAm 89 (>60 ml/min/1.73 sqM) Est GFR (CKD-EPI)NonAf 78 (>60 ml/min/1.73 sqM) Glucose 102 H (74-99) mg/dL Plasma Lactic Acid Flex 1.9 (0.7-2.0) mmol/L Calcium 9.1 (8.4-10.2) mg/dL Phosphorus 2.2 L (2.5-4.5) mg/dL Magnesium 1.8 (1.6-2.3) mg/dL Total Bilirubin 0.7 (0.2-1.3) mg/dL AST 31 (14-36) U/L ALT 13 (4-34) U/L Alkaline Phosphatase 56 (38-126) U/L Total Protein 7.3 (6.3-8.2) g/dL Albumin 4.2 (3.5-5.0) g/dL Urine Color Urine Appearance (Clear) Urine pH (5.0-8.0) Ur Specific [place] (1.001-1.035) Urine Protein (Negative) Urine Glucose (UA) (Negative) Urine Ketones (Negative) Urine Blood (Negative) Urine Nitrite (Negative) Urine Bilirubin (Negative) Urine Urobilinogen (<2.0) mg/dL Ur Leukocyte Esterase (Negative) Urine RBC (0-5) /hpf Urine WBC (0-5) /hpf Ur Squamous Epith Cells (0-4) /hpf Urine Mucus (None) /hpf Urine HCG, Qual Not Detected (Not Detectd) Salicylates <1.0 mg/dL Urine Opiates Screen (NotDetected) Ur Oxycodone Screen (NotDetected) Urine Methadone Screen (NotDetected) Ur Propoxyphene Screen (NotDetected) Acetaminophen <10.0 ug/mL Ur Barbiturates Screen (NotDetected) U Tricyclic Antidepress (NotDetected) Ur Phencyclidine Scrn (NotDetected) Ur Amphetamines Screen (NotDetected) U Methamphetamines Scrn (NotDetected) U Benzodiazepines Scrn (NotDetected) Urine Cocaine Screen (NotDetected) U Marijuana (THC) Screen (NotDetected) Serum Alcohol <10 mg/dL Disposition Clinical Impression: Suicidal ideation, Depression Disposition: ADMITTED IP TO THIS [facility] Condition: Stable Is patient prescribed a controlled substance at d/c from ED?: No Decision to Admit Reason: Admit from EC Decision Date: 02/22/20 Decision Time: 15:14
[2020-02-22 10:11] LABS: Appearance,Urine Cloudy (Clear); Bilirubin,Urine Negative (Negative); Blood,Urine Negative (Negative); Color,Urine Yellow; Glucose,Urine (UA) Negative (Negative); Ketones,Urine Negative (Negative); Leukocyte Esterase,Urine Negative (Negative); Mucus,Urine Rare /hpf; Nitrite,Urine Negative (Negative); Protein,Urine Negative (Negative); RBC,Urine 1 /hpf (0-5); Specific Gravity,Urine 1.019 (1.001-1.035); Squamous Epithelial Cell,Urine 15 /hpf (0-4); Urobilinogen,Urine <2.0 mg/dL (<2.0); WBC,Urine 5 /hpf (0-5)
[2020-02-22 10:12] LABS: Basophils % (A) 0 %; Eosinophils # (A) 0.1 k/uL (0-0.7); Eosinophils % (A) 1 %; HGB 13.1 gm/dL (11.4-16.0); Hypochromasia Moderate; Lymphocytes % (A) 25 %; MCHC 31.9 g/dL (31.0-37.0); MCV 112.7 fL (80.0-100.0); Macrocytosis Marked; Monocytes # (A) 0.3 k/uL (0-1.0); Monocytes % (A) 4 %; Neutrophils # (A) 5.5 k/uL (1.3-7.7); Neutrophils % (A) 68 %; Platelet Count 400 k/uL (150-450); RBC 3.64 m/uL (3.80-5.40); RDW 12.9 % (11.5-15.5); WBC 8.1 k/uL (3.8-10.6)
[2020-02-22 10:15] LABS: African American GFR (CKD) 89 (>60 ml/min/1.73 sqM); Albumin 4.2 g/dL (3.5-5.0); Anion Gap 9 mmol/L; Blood Urea Nitrogen 17 mg/dL (7-17); Calcium 9.1 mg/dL (8.4-10.2); Carbon Dioxide 20 mmol/L (22-30); Chloride 110 mmol/L (98-107); Glucose 102 mg/dL (74-99); Non-African American GFR(CKD) 78 (>60 ml/min/1.73 sqM); Sodium 139 mmol/L (137-145); Total Bilirubin 0.7 mg/dL (0.2-1.3); Total Protein 7.3 g/dL (6.3-8.2)
[2020-02-22 10:16] LABS: ALT 13 U/L (4-34); Acetaminophen <10.0 ug/mL; Alcohol <10 mg/dL; Salicylate <1.0 mg/dL
[2020-02-22 10:19] LABS: AST 31 U/L (14-36); Magnesium 1.8 mg/dL (1.6-2.3); Phosphorus 2.2 mg/dL (2.5-4.5); Potassium 4.8 mmol/L (3.5-5.1)
[2020-02-22 10:20] LABS: Alkaline Phosphatase 56 U/L (38-126)
[2020-02-22 10:21] LABS: Prothrombin Time 10.6 sec (9.0-12.0)
[2020-02-22 10:46] LABS: Anisocytosis (M) Present; Poikilocytosis (M) Present
[2020-02-22 11:01] LABS: Amphetamine Screen,Urine Not Detected (NotDetected); Barbiturate Screen,Urine Detected (NotDetected); Benzodiazepines Screen,Urine Detected (NotDetected); Cocaine Screen,Urine Not Detected (NotDetected); Methadone Screen, Urine Not Detected (NotDetected); Opiate Screen,Urine Not Detected (NotDetected); Oxycodone Screen, Urine Not Detected (NotDetected); Phencyclidine Screen,Urine Not Detected (NotDetected); Tricyclic Antidepressant,Urine Not Detected (NotDetected); Urn Cannabinoid Scrn Not Detected (NotDetected)
[2020-02-22] MEDS ORDERED: LORazepam 2 MG/ML INJ IV STA (13:20)
[2020-02-22] MEDS ORDERED: MAG HYDROX/AL HYDROX/SIMETH 30 ML CUP PO PRN (15:01)
[2020-02-22] MEDS ORDERED: MAGNESIUM HYDROXIDE 2,400 MG/10 ML CUP PO PRN (15:01)
[2020-02-22] MEDS: LORazepam 1 MG TAB PO PRN (15:46)
[2020-02-22] MEDS: ZIPRASIDONE 20 MG VIAL IM PRN (15:48)
--- NOTE | 2020-02-22 23:22 | P.PN ---
Progress Note - Text Progress Note Date: 02/22/20 patient was heavily sedated, as she was agitated earlier please notify Sound team when patient appropriate for evaluation
[2020-02-23] MEDS: LORazepam 1 MG TAB PO PRN ×3 (04:34→18:25)
[2020-02-23 07:11] LABS: ALT 12 U/L (4-34); AST 21 U/L (14-36); African American GFR (CKD) >90 (>60 ml/min/1.73 sqM); Albumin 3.8 g/dL (3.5-5.0); Alkaline Phosphatase 68 U/L (38-126); Anion Gap 0 mmol/L; Blood Urea Nitrogen 17 mg/dL (7-17); Calcium 8.9 mg/dL (8.4-10.2); Carbon Dioxide 21 mmol/L (22-30); Chloride 111 mmol/L (98-107); Glucose 107 mg/dL (74-99); Non-African American GFR(CKD) >90 (>60 ml/min/1.73 sqM); Potassium 4.8 mmol/L (3.5-5.1); Sodium 132 mmol/L (137-145); Total Bilirubin 0.2 mg/dL (0.2-1.3); Total Protein 6.7 g/dL (6.3-8.2)
[2020-02-23] MEDS ORDERED: ZIPRASIDONE 20 MG VIAL IM ONE ×2 (07:46→11:44)
[2020-02-23] MEDS ORDERED: WATER FOR INJECTION, STERILE 10 ML IV ONE (07:46)
[2020-02-23] MEDS: ZIPRASIDONE 20 MG VIAL IM PRN ×3 (07:49→22:45)
[2020-02-23] MEDS: IBUPROFEN 800 MG TAB PO PRN ×2 (11:21→18:25)
[2020-02-23] MEDS ORDERED: IBUPROFEN 800 MG TAB ONE (11:21)
[2020-02-23] MEDS: lamoTRIgine 25 MG TAB PO SCH (11:23)
[2020-02-23] MEDS ORDERED: lamoTRIgine 25 MG TAB ONE (11:23)
[2020-02-23] MEDS: NICOTINE POLACRILEX 2 MG GUM BUCCAL PRN ×4 (11:23→20:19)
[2020-02-23] MEDS ORDERED: NICOTINE POLACRILEX 2 MG GUM BUCCAL ONE (11:23)
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
[2020-02-23] MEDS: ACETAMINOPHEN TAB 325 MG TAB PO PRN ×3 (12:45→23:03)
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
[2020-02-23] MEDS: ZIPRASIDONE 40 MG CAP PO SCH (20:17)
[2020-02-23] MEDS: traZODone HCL 100 MG TAB PO SCH (20:17)
[2020-02-24] MEDS: IBUPROFEN 800 MG TAB PO PRN ×3 (06:04→18:57)
[2020-02-24] MEDS: LORazepam 1 MG TAB PO PRN ×3 (06:04→18:58)
[2020-02-24 07:17] VITALS: RESP 16
[2020-02-24] MEDS: lamoTRIgine 25 MG TAB PO SCH (08:06)
[2020-02-24] MEDS: ACETAMINOPHEN TAB 325 MG TAB PO PRN ×3 (08:07→20:27)
[2020-02-24] MEDS: NICOTINE POLACRILEX 2 MG GUM BUCCAL PRN ×5 (08:07→20:31)
[2020-02-24] MEDS: ZIPRASIDONE 40 MG CAP PO SCH (08:07)
--- NOTE | 2020-02-24 11:28 | P.PN ---
Progress Note - Text Interval history: The patient is found at the front she follows me to an interview room. She indicates her mood is frustrated. She is primarily focused on obtaining substances. She is asking for methadone and Subutex or Suboxone. She reports that she continues to experience some opiate withdrawal symptoms however she is eating she is experiencing no vomiting or diarrhea. Staff reports that she continues to ask for Geodon injections for agitated behavior. She states that she has used Haldol on the past and asked that that be used at bedtime to assist with sleep. We discussed risks and benefits he using Haldol and she is agreeable with trialing the medication temporarily while she is here. She selectively attends group she is associating with peers. Mental status exam: The patient is alert she reports a frustrated mood she is very somatic in her complaints. She indicates that she feels safe she is reporting no suicidal ideation intent or plan. She is reporting no homicidal ideation intent or plan. She reports no auditory or visual hallucinations or any specific delusions. Insight and judgment limited but improved compared to yesterday. She is oriented to person place and date. She demonstrates no evidence of psychosis hypomania or brandon. Affect is constricted. Plan: The patient will continue her current medications however we will discontinue the scheduled Geodon. We will plan to titrate the Lamictal further. I will prescribe Haldol 2.5 mg at bedtime to assist with some of her agitation. We will discuss the option of inpatient chemical dependency treatment although she is not motivated. She is encouraged to fully participate in the milieu. We will monitor her for safety.
[2020-02-24] MEDS: traZODone HCL 100 MG TAB PO SCH (20:28)
[2020-02-24] MEDS ORDERED: HALOPERIDOL 5 MG TAB PO SCH (21:00)
[2020-02-24] MEDS: ZIPRASIDONE 20 MG VIAL IM PRN (22:56)
[2020-02-25] MEDS: ACETAMINOPHEN TAB 325 MG TAB PO PRN ×2 (00:26→08:47)
[2020-02-25 01:08] VITALS: BP 131/78; PULSE 107; TEMP 98.2
[2020-02-25] MEDS: IBUPROFEN 800 MG TAB PO PRN (04:38)
[2020-02-25] MEDS: LORazepam 1 MG TAB PO PRN ×2 (04:38→09:53)
[2020-02-25] MEDS: lamoTRIgine 25 MG TAB PO SCH (08:47)
[2020-02-25] MEDS: NICOTINE POLACRILEX 2 MG GUM BUCCAL PRN (08:48)
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
== END 2020-02-25 12:00 | disposition home or self-care (01) | DRG 881 ==
LOC: EC 09:25 → 3MHU 14:58
PROVIDERS: ADMIT Psychiatry & Neurology Psychiatry; ATTEND Psychiatry & Neurology Psychiatry
DX: F32.9 Major depressive disorder, single episode, unspecified (principal); E87.1 Hypo-osmolality and hyponatremia; F11.23 Opioid dependence with withdrawal; M34.9 Systemic sclerosis, unspecified; F12.10 Cannabis abuse, uncomplicated; T42.4X2A Poisoning by benzodiazepines, intentional self-harm, initial encounter; E86.1 Hypovolemia; E86.0 Dehydration; F41.9 Anxiety disorder, unspecified; M06.9 Rheumatoid arthritis, unspecified; I10 Essential (primary) hypertension; G89.29 Other chronic pain; M54.9 Dorsalgia, unspecified; F17.200 Nicotine dependence, unspecified, uncomplicated; Z71.6 Tobacco abuse counseling; Z79.899 Other long term (current) drug therapy; Z91.5 Personal history of self-harm; Z86.14 Personal history of Methicillin resistant Staphylococcus aureus infection; Z59.9 Problem related to housing and economic circumstances, unspecified; Z98.890 Other specified postprocedural states; Z98.891 History of uterine scar from previous surgery; Z88.8 Allergy status to other drugs, medicaments and biological substances; Y04.0XXA Assault by unarmed brawl or fight, initial encounter; Y92.009 Unspecified place in unspecified non-institutional (private) residence as the place of occurrence of the external cause; Z81.8 Family history of other mental and behavioral disorders
CPT/HCPCS: 36415; 80053; 80306; 80320; 80329; 81001; 81025; 82075; 83520; 83605; 83735; 84100; 85025; 85610; 93005; 96361; 96374; 99285

== ENCOUNTER → 2020-04-05 | Outpatient (CLI) | payer OTHER ==
[2020-04-05 13:44] LABS: HCT 40.5 % (34.0-46.0); HGB 12.9 gm/dL (11.4-16.0); Hypochromasia Slight; MCH 35.6 pg (25.0-35.0); MCHC 31.8 g/dL (31.0-37.0); MCV 112.1 fL (80.0-100.0); Macrocytosis Marked; Mean Platelet Volume 7.1; Platelet Count 242 k/uL (150-450); RBC 3.62 m/uL (3.80-5.40); RDW 13.5 % (11.5-15.5); WBC 5.5 k/uL (3.8-10.6)
[2020-04-05 20:09] LABS: T4, Free (Free Thyroxine) 0.8 ng/dL (0.80-1.80)
[2020-04-05 20:25] LABS: Hemoglobin A1C 4.8 % (4.0-6.0)
== END | disposition home or self-care (01) ==
LOC: LABWHC1 12:19
PROVIDERS: ATTEND Family Medicine
DX: R00.0 Tachycardia, unspecified (principal); Z13.9 Encounter for screening, unspecified; Z13.1 Encounter for screening for diabetes mellitus
CPT/HCPCS: 36415; 83036; 83721; 84439; 84443; 84481; 85027

== ENCOUNTER → 2020-06-24 | Outpatient (CLI) | payer OTHER | END | disposition home or self-care (01) | LOC: LABWHC1 08:53 | PROVIDERS: ATTEND Psychiatry & Neurology Psychiatry | DX: Z53.9 Procedure and treatment not carried out, unspecified reason (principal) ==

== ENCOUNTER 2020-10-14 05:53 | Emergency (ER) | payer OTHER ==
[2020-10-14] MEDS ORDERED: PANTOPRAZOLE 40 MG/10 ML VIAL IVP STA (06:19)
[2020-10-14] MEDS ORDERED: diphenhydrAMINE 50 MG/ML 1 ML VIAL IVP STA (06:19)
[2020-10-14] MEDS ORDERED: SODIUM CHLORIDE 0.9% 2,000 ML IV STA (06:19)
[2020-10-14] MEDS ORDERED: ONDANSETRON 4 MG/2 ML VIAL IVP STA ×2 (06:19→08:31)
[2020-10-14 06:32] LABS: Basophils % (A) 1 %; Eosinophils # (A) 0.2 k/uL (0-0.7); Eosinophils % (A) 3 %; HCT 42.9 % (34.0-46.0); HGB 14.2 gm/dL (11.4-16.0); Lymphocytes # (A) 1.8 k/uL (1.0-4.8); Lymphocytes % (A) 24 %; MCH 33.7 pg (25.0-35.0); MCHC 33.1 g/dL (31.0-37.0); MCV 101.8 fL (80.0-100.0); Macrocytosis Slight; Mean Platelet Volume 7.4; Monocytes # (A) 0.5 k/uL (0-1.0); Monocytes % (A) 6 %; Neutrophils # (A) 4.7 k/uL (1.3-7.7); Neutrophils % (A) 63 %; Platelet Count 298 k/uL (150-450); RBC 4.22 m/uL (3.80-5.40); RDW 13.6 % (11.5-15.5); WBC 7.5 k/uL (3.8-10.6)
[2020-10-14 06:36] LABS: Appearance,Urine Clear (Clear); Bilirubin,Urine 1+ (Negative); Blood,Urine Trace (Negative); Color,Urine Yellow; Glucose,Urine (UA) Negative (Negative); Hyaline Casts,Urine 169 /lpf (0-2); Ketones,Urine Negative (Negative); Leukocyte Esterase,Urine Negative (Negative); Mucus,Urine Rare /hpf; Nitrite,Urine Negative (Negative); Protein,Urine 1+ (Negative); RBC,Urine 3 /hpf (0-5); Specific Gravity,Urine 1.035 (1.001-1.035); Squamous Epithelial Cell,Urine 2 /hpf (0-4); Urobilinogen,Urine <2.0 mg/dL (<2.0); WBC,Urine 1 /hpf (0-5)
[2020-10-14 06:42] LABS: Albumin 3.8 g/dL (3.5-5.0); Calcium 9.5 mg/dL (8.4-10.2); Potassium 3.7 mmol/L (3.5-5.1); Total Bilirubin 0.5 mg/dL (0.2-1.3); Total Protein 6.6 g/dL (6.3-8.2)
--- NOTE | 2020-10-14 06:43 | ED ---
General Adult HPI - General Chief complaint: Nausea/Vomiting/Diarrhea Stated complaint: vomiting Time Seen by Provider: 10/14/20 06:01 Source: patient, RN notes reviewed Mode of arrival: ambulatory Limitations: no limitations - History of Present Illness Initial comments: 35-year-old female presents emergency Department with chief complaint of nausea vomiting diarrhea. Patient states symptoms started 9 days ago. Patient states that she feels severely dehydrated. Patient states she's not been any recent antibiotics. Patient states that she's had no melena hematochezia. Patient has no dysuria or noted hematuria she's had decreased urine output. Patient states she's thirsty no chest pain or shortness of breath no fevers or chills. She's had no sick contacts. - Related Data Home Medications Medication Instructions Recorded Confirmed Buprenorphine HCl/Naloxone HCl 1 film SUBLINGUAL BID 10/14/20 10/14/20 [Suboxone 8 mg-2 mg Sl Film] Butalb/APAP/Caff 50-325-40Mg 1 tab PO Q6H PRN 10/14/20 10/14/20 [Fioricet 50-325-40] Cyclobenzaprine [Flexeril] 5 mg PO TID PRN 10/14/20 10/14/20 FLUoxetine HCL [PROzac] 20 mg PO HS 10/14/20 10/14/20 Mirtazapine [Remeron] 30 mg PO HS 10/14/20 10/14/20 Ziprasidone HCl [Geodon] 20 mg PO BID 10/14/20 10/14/20 Previous Rx's Medication Instructions Recorded Famotidine [Pepcid] 20 mg PO BID #28 tablet 10/14/20 Ondansetron Odt [Zofran Odt] 4 mg PO Q8HR PRN #15 tab 10/14/20 Allergies Allergy/AdvReac Type Severity Reaction Status Date / Time quetiapine [From Seroquel] Allergy Rash/Hives Verified 10/14/20 06:48 Review of Systems ROS Statement: Those systems with pertinent positive or pertinent negative responses have been documented in the HPI. ROS Other: All systems not noted in ROS Statement are negative. Past Medical History Past Medical History: Hypertension, Rheumatoid Arthritis (RA) Additional Past Medical History / Comment(s): TUBAL PREGANCY, chronic back pain, scleraderma, lupus, ddd History of Any Multi-Drug Resistant Organisms: MRSA Date of last positivie culture/infection: 07/01/16 MDRO Source:: RIGHT WRIST Past Surgical History: Section, Tonsillectomy Additional Past Surgical History / Comment(s): LAPROSCOPY Past Anesthesia/Blood Transfusion Reactions: No Reported Reaction Past Psychological History: Anxiety, Bipolar, Depression Smoking Status: Current some day smoker Past Alcohol Use History: None Reported Past Drug Use History: Marijuana, Opiates, Prescription Drug Abuse General Exam Limitations: no limitations General appearance: alert, in no apparent distress Head exam: Present: atraumatic, normocephalic, normal inspection Eye exam: Present: normal appearance, PERRL, EOMI. Absent: scleral icterus, conjunctival injection, periorbital swelling ENT exam: Present: mucous membranes dry. Absent: normal exam, normal oropharynx, mucous membranes moist Neck exam: Present: normal inspection. Absent: tenderness, meningismus, lymphadenopathy Respiratory exam: Present: normal lung sounds bilaterally. Absent: respiratory distress, wheezes, rales, rhonchi, stridor Cardiovascular Exam: Present: normal rhythm, tachycardia (Heart rate 110 on e xam), normal heart sounds. Absent: systolic murmur, diastolic murmur, rubs, gallop, clicks GI/Abdominal exam: Present: soft, tenderness ([id number] epigastric), normal bowel sounds. Absent: distended, guarding, rebound, rigid Back exam: Absent: CVA tenderness (R), CVA tenderness (L) Neurological exam: Present: alert, oriented X3 Course Vital Signs 10/14/20 10/14/20 10/14/20 05:54 07:23 08:29 Temperature 98.2 F Pulse Rate 133 H 98 112 H Respiratory 20 18 Rate Blood Pressure 131/84 110/74 O2 Sat by Pulse 99 100 98 Oximetry Medical Decision Making - Medical Decision Making 35-year-old female presented from for nausea vomiting diarrhea. Patient symptoms have been present for over a week. Patient was well hydrated with 3 L of fluid, given antiemetics, pain control. Symptoms have improved she's no recurrent episodes of emesis she has had some diarrhea. Patient also was performed secondary to transaminitis which is unremarkable sec reactive. Patient will be discharged follow-up with PCP and return parameters were discussed. - Lab Data Result diagrams: 10/14/20 06:24 10/14/20 06:24 Lab Results 10/14/20 10/14/20 10/14/20 Range/Units 06:24 06:24 06:24 WBC 7.5 (3.8-10.6) k/uL RBC 4.22 (3.80-5.40) m/uL Hgb 14.2 (11.4-16.0) gm/dL Hct 42.9 (34.0-46.0) % MCV 101.8 H (80.0-100.0) fL MCH 33.7 (25.0-35.0) pg MCHC 33.1 (31.0-37.0) g/dL RDW 13.6 (11.5-15.5) % Plt Count 298 (150-450) k/uL MPV 7.4 Neutrophils % 63 % Lymphocytes % 24 % Monocytes % 6 % Eosinophils % 3 % Basophils % 1 % Neutrophils # 4.7 (1.3-7.7) k/uL Lymphocytes # 1.8 (1.0-4.8) k/uL Monocytes # 0.5 (0-1.0) k/uL Eosinophils # 0.2 (0-0.7) k/uL Basophils # 0.0 (0-0.2) k/uL Macrocytosis Slight Sodium 135 L (137-145) mmol/L Potassium 3.7 (3.5-5.1) mmol/L Chloride 99 (98-107) mmol/L Carbon Dioxide 27 (22-30) mmol/L Anion Gap 9 mmol/L BUN 15 (7-17) mg/dL Creatinine 1.07 H (0.52-1.04) mg/dL Est GFR (CKD-EPI)AfAm 78 (>60 ml/min/1.73 sqM) Est GFR (CKD-EPI)NonAf 68 (>60 ml/min/1.73 sqM) Glucose 122 H (74-99) mg/dL Plasma Lactic Acid Flex (0.7-2.0) mmol/L Calcium 9.5 (8.4-10.2) mg/dL Total Bilirubin 0.5 (0.2-1.3) mg/dL AST 232 H (14-36) U/L ALT 165 H (4-34) U/L Alkaline Phosphatase 119 (38-126) U/L Total Protein 6.6 (6.3-8.2) g/dL Albumin 3.8 (3.5-5.0) g/dL Amylase 102 (30-110) U/L Lipase 412 H (23-300) U/L Urine Color Yellow Urine Appearance Clear (Clear) Urine pH 6.0 (5.0-8.0) Ur Specific [place] 1.035 (1.001-1.035) Urine Protein 1+ H (Negative) Urine Glucose (UA) Negative (Negative) Urine Ketones Negative (Negative) Urine Blood Trace H (Negative) Urine Nitrite Negative (Negative) Urine Bilirubin 1+ H (Negative) Urine Urobilinogen <2.0 (<2.0) mg/dL Ur Leukocyte Esterase Negative (Negative) Urine RBC 3 (0-5) /hpf Urine WBC 1 (0-5) /hpf Ur Squamous Epith Cells 2 (0-4) /hpf Hyaline Casts 169 H (0-2) /lpf Urine Mucus Rare H (None) /hpf Urine HCG, Qual (Not Detectd) 10/14/20 10/14/20 Range/Units 06:24 06:24 WBC (3.8-10.6) k/uL RBC (3.80-5.40) m/uL Hgb (11.4-16.0) gm/dL Hct (34.0-46.0) % MCV (80.0-100.0) fL MCH (25.0-35.0) pg MCHC (31.0-37.0) g/dL RDW (11.5-15.5) % Plt Count (150-450) k/uL MPV Neutrophils % % Lymphocytes % % Monocytes % % Eosinophils % % Basophils % % Neutrophils # (1.3-7.7) k/uL Lymphocytes # (1.0-4.8) k/uL Monocytes # (0-1.0) k/uL Eosinophils # (0-0.7) k/uL Basophils # (0-0.2) k/uL Macrocytosis Sodium (137-145) mmol/L Potassium (3.5-5.1) mmol/L Chloride (98-107) mmol/L Carbon Dioxide (22-30) mmol/L Anion Gap mmol/L BUN (7-17) mg/dL Creatinine (0.52-1.04) mg/dL Est GFR (CKD-EPI)AfAm (>60 ml/min/1.73 sqM) Est GFR (CKD-EPI)NonAf (>60 ml/min/1.73 sqM) Glucose (74-99) mg/dL Plasma Lactic Acid Flex 1.6 (0.7-2.0) mmol/L Calcium (8.4-10.2) mg/dL Total Bilirubin (0.2-1.3) mg/dL AST (14-36) U/L ALT (4-34) U/L Alkaline Phosphatase (38-126) U/L Total Protein (6.3-8.2) g/dL Albumin (3.5-5.0) g/dL Amylase (30-110) U/L Lipase (23-300) U/L Urine Color Urine Appearance (Clear) Urine pH (5.0-8.0) Ur Specific [place] (1.001-1.035) Urine Protein (Negative) Urine Glucose (UA) (Negative) Urine Ketones (Negative) Urine Blood (Negative) Urine Nitrite (Negative) Urine Bilirubin (Negative) Urine Urobilinogen (<2.0) mg/dL Ur Leukocyte Esterase (Negative) Urine RBC (0-5) /hpf Urine WBC (0-5) /hpf Ur Squamous Epith Cells (0-4) /hpf Hyaline Casts (0-2) /lpf Urine Mucus (None) /hpf Urine HCG, Qual Not Detected (Not Detectd) Disposition Clinical Impression: Dehydration, Nausea vomiting and diarrhea Disposition: HOME SELF-CARE Condition: Stable Instructions (If sedation given, give patient instructions): Acute Diarrhea (ED), Acute Nausea and Vomiting (ED) Additional Instructions: Please return to the Emergency Department if symptoms worsen or any other concerns. Prescriptions: Famotidine [Pepcid] 20 mg PO BID #28 tablet Ondansetron Odt [Zofran Odt] 4 mg PO Q8HR PRN #15 tab PRN Reason: Nausea Is patient prescribed a controlled substance at d/c from ED?: No Referrals: Sukh Wilkerson MD [Primary Care Provider] - 1-2 days Marianna Kendall MD [STAFF PHYSICIAN] - 1-2 days Time of Disposition: 09:20
--- NOTE | 2020-10-14 08:28 | US ---
EXAMINATION TYPE: US abdomen limited DATE OF EXAM: 10/14/2020 COMPARISON: None CLINICAL HISTORY: ruq pain. N/V/D x 10 days EXAM MEASUREMENTS: Liver Length: 18.7 cm Gallbladder Wall: 0.2 cm CBD: 0.6 cm Right Kidney: 10.1 x 4.9 x 2.6 cm Pancreas: Tail obscured by overlying bowel gas Liver: Upper limits of normal Gallbladder: wnl Evidence for sonographic Ruiz's sign: neg CBD: Upper limits of normal Right Kidney: No hydronephrosis or masses seen IMPRESSION: No distinct abnormality at this time.
[2020-10-14 08:30] VITALS: RESP 18
[2020-10-14] MEDS ORDERED: MAG HYDROX/AL HYDROX/SIMETH 30 ML, HYOSCYAMINE ELIXIR 10 ML PO STA ×2 (08:31)
[2020-10-14] MEDS ORDERED: SODIUM CHLORIDE 0.9% 1,000 ML IV ONE (08:34)
[2020-10-14] MEDS ORDERED: KETOROLAC 15 MG/ML 1 ML VIAL IVP STA (08:34)
[2020-10-14] MEDS ORDERED: DIPHENOX-ATROP STARTER PACK 8 TAB BTL PO STA (09:18)
[2020-10-14 09:53] VITALS: BP 115/75; PULSE 88; TEMP 98.1
== END 2020-10-14 09:50 | disposition home or self-care (01) ==
LOC: EC 05:53
DX: R11.2 Nausea with vomiting, unspecified (principal); R19.7 Diarrhea, unspecified; E86.0 Dehydration; R74.01 Elevation of levels of liver transaminase levels; F41.9 Anxiety disorder, unspecified; F32.9 Major depressive disorder, single episode, unspecified; F17.200 Nicotine dependence, unspecified, uncomplicated; Z79.899 Other long term (current) drug therapy; Z79.891 Long term (current) use of opiate analgesic; Z88.8 Allergy status to other drugs, medicaments and biological substances
CPT/HCPCS: 36415; 80053; 82150; 83605; 83690; 85025; 81001; 81025; 76705; 99284; 96374; 96375 ×3; 96376; 96361 ×3; J1200; J2405; J1885; C9113

== ENCOUNTER 2021-05-14 06:49 | Inpatient (IN) | payer OTHER ==
--- NOTE | 2021-05-14 07:25 | ED ---
General Adult HPI - General Chief complaint: Overdose Stated complaint: Overdose Time Seen by Provider: 05/14/21 07:07 Source: patient, RN notes reviewed Mode of arrival: ambulatory Limitations: altered mental status (Intoxicated) - History of Present Illness Initial comments: Patient is a 35-year-old female presenting to the emergency department for ov erdose. Patient omits to attempt at self-harm. Patient also admits to causing abrasions to her arm. Patient states she took around 15 pills total. Patient took fiorcet and another medication. Patient states she took these not long ago. - Related Data Home Medications Medication Instructions Recorded Confirmed Buprenorphine HCl/Naloxone HCl 1 film SUBLINGUAL BID 10/14/20 10/14/20 [Suboxone 8 mg-2 mg Sl Film] Butalb/APAP/Caff 50-325-40Mg 1 tab PO Q6H PRN 10/14/20 10/14/20 [Fioricet 50-325-40] Cyclobenzaprine [Flexeril] 5 mg PO TID PRN 10/14/20 10/14/20 FLUoxetine HCL [PROzac] 20 mg PO HS 10/14/20 10/14/20 Mirtazapine [Remeron] 30 mg PO HS 10/14/20 10/14/20 Ziprasidone HCl [Geodon] 20 mg PO BID 10/14/20 10/14/20 Previous Rx's Medication Instructions Recorded Famotidine [Pepcid] 20 mg PO BID #28 tablet 10/14/20 Ondansetron Odt [Zofran Odt] 4 mg PO Q8HR PRN #15 tab 10/14/20 Allergies Allergy/AdvReac Type Severity Reaction Status Date / Time quetiapine [From Seroquel] Allergy Rash/Hives Verified 05/14/21 07:14 Review of Systems ROS Statement: Those systems with pertinent positive or pertinent negative responses have been documented in the HPI. ROS Other: All systems not noted in ROS Statement are negative. Constitutional: Denies: fever Eyes: Denies: eye pain ENT: Denies: ear pain Respiratory: Denies: cough Cardiovascular: Denies: chest pain Endocrine: Denies: fatigue Gastrointestinal: Denies: abdominal pain Genitourinary: Denies: urgency Skin: Denies: lesions Neurological: Denies: weakness Psychiatric: Reports: depression, suicidal thoughts Past Medical History Past Medical History: Hypertension, Rheumatoid Arthritis (RA) Additional Past Medical History / Comment(s): TUBAL PREGANCY, chronic back pain, scleraderma, lupus, ddd History of Any Multi-Drug Resistant Organisms: MRSA Date of last positivie culture/infection: 07/01/16 MDRO Source:: RIGHT WRIST Past Surgical History: Section, Tonsillectomy Additional Past Surgical History / Comment(s): LAPROSCOPY Past Anesthesia/Blood Transfusion Reactions: No Reported Reaction Past Psychological History: Anxiety, Bipolar, Depression Smoking Status: Current every day smoker, Current some day smoker Past Alcohol Use History: None Reported Past Drug Use History: Marijuana, Opiates, Prescription Drug Abuse General Exam Limitations: no limitations General appearance: alert, appears intoxicated Head exam: Present: atraumatic Eye exam: Present: normal appearance, PERRL ENT exam: Present: normal oropharynx Neck exam: Present: normal inspection Respiratory exam: Present: normal lung sounds bilaterally Cardiovascular Exam: Present: regular rate, normal rhythm GI/Abdominal exam: Present: soft. Absent: tenderness Extremities exam: Present: normal inspection Neurological exam: Present: alert Psychiatric exam: Present: manic (Intoxicated and hypomanic) Skin exam: Present: normal color Course Vital Signs 05/14/21 05/14/21 07:07 08:09 Temperature 98.4 F Pulse Rate 88 70 Respiratory 16 18 Rate Blood Pressure 117/71 115/75 O2 Sat by Pulse 98 99 Oximetry EKG Findings - EKG Comments: EKG Findings:: Normal sinus rhythm with rate of 86. ND 1:30. QRS 80. QT 374. QTC 447. Normal axis. Normal QRS. No acute ST change. Medical Decision Making - Medical Decision Making Patient reevaluated and unchanged. Patient still remains intoxicated. Patient is maintaining her airway well. Case was discussed with Dr. russell, covering for and that it has been ordered and will need to be followed up with. - Lab Data Result diagrams: 05/14/21 07:34 05/14/21 07:34 Lab Results 05/14/21 05/14/21 05/14/21 Range/Units 07:34 07:34 07:34 WBC 7.6 (3.8-10.6) k/uL RBC 3.68 L (3.80-5.40) m/uL Hgb 13.2 (11.4-16.0) gm/dL Hct 38.8 (34.0-46.0) % MCV 105.6 H (80.0-100.0) fL MCH 36.0 H (25.0-35.0) pg MCHC 34.1 (31.0-37.0) g/dL RDW 13.7 (11.5-15.5) % Plt Count 302 (150-450) k/uL MPV 7.0 Neutrophils % 39 % Lymphocytes % 50 % Monocytes % 6 % Eosinophils % 3 % Basophils % 0 % Neutrophils # 3.0 (1.3-7.7) k/uL Lymphocytes # 3.8 (1.0-4.8) k/uL Monocytes # 0.4 (0-1.0) k/uL Eosinophils # 0.2 (0-0.7) k/uL Basophils # 0.0 (0-0.2) k/uL Macrocytosis Moderate Sodium (137-145) mmol/L Potassium (3.5-5.1) mmol/L Chloride (98-107) mmol/L Carbon Dioxide (22-30) mmol/L Anion Gap mmol/L BUN (7-17) mg/dL Creatinine (0.52-1.04) mg/dL Est GFR (CKD-EPI)AfAm (>60 ml/min/1.73 sqM) Est GFR (CKD-EPI)NonAf (>60 ml/min/1.73 sqM) Glucose (74-99) mg/dL Calcium (8.4-10.2) mg/dL Total Bilirubin (0.2-1.3) mg/dL AST (14-36) U/L ALT (4-34) U/L Alkaline Phosphatase (38-126) U/L Total Protein (6.3-8.2) g/dL Albumin (3.5-5.0) g/dL Urine HCG, Qual Not Detected (Not Detectd) Salicylates mg/dL Urine Opiates Screen Not Detected (NotDetected) Ur Oxycodone Screen Not Detected (NotDetected) Urine Methadone Screen Not Detected (NotDetected) Ur Propoxyphene Screen Not Detected (NotDetected) Acetaminophen ug/mL Ur Barbiturates Screen Detected H (NotDetected) U Tricyclic Antidepress Not Detected (NotDetected) Ur Phencyclidine Scrn Not Detected (NotDetected) Ur Amphetamines Screen Not Detected (NotDetected) U Methamphetamines Scrn Not Detected (NotDetected) U Benzodiazepines Scrn Detected H (NotDetected) Urine Cocaine Screen Not Detected (NotDetected) U Marijuana (THC) Screen Detected H (NotDetected) Serum Alcohol mg/dL 05/14/21 Range/Units 07:34 WBC (3.8-10.6) k/uL RBC (3.80-5.40) m/uL Hgb (11.4-16.0) gm/dL Hct (34.0-46.0) % MCV (80.0-100.0) fL MCH (25.0-35.0) pg MCHC (31.0-37.0) g/dL RDW (11.5-15.5) % Plt Count (150-450) k/uL MPV Neutrophils % % Lymphocytes % % Monocytes % % Eosinophils % % Basophils % % Neutrophils # (1.3-7.7) k/uL Lymphocytes # (1.0-4.8) k/uL Monocytes # (0-1.0) k/uL Eosinophils # (0-0.7) k/uL Basophils # (0-0.2) k/uL Macrocytosis Sodium 139 (137-145) mmol/L Potassium 4.3 (3.5-5.1) mmol/L Chloride 109 H (98-107) mmol/L Carbon Dioxide 21 L (22-30) mmol/L Anion Gap 9 mmol/L BUN 17 (7-17) mg/dL Creatinine 1.03 (0.52-1.04) mg/dL Est GFR (CKD-EPI)AfAm 81 (>60 ml/min/1.73 sqM) Est GFR (CKD-EPI)NonAf 71 (>60 ml/min/1.73 sqM) Glucose 99 (74-99) mg/dL Calcium 9.6 (8.4-10.2) mg/dL Total Bilirubin 0.3 (0.2-1.3) mg/dL AST 30 (14-36) U/L ALT 14 (4-34) U/L Alkaline Phosphatase 80 (38-126) U/L Total Protein 6.9 (6.3-8.2) g/dL Albumin 4.2 (3.5-5.0) g/dL Urine HCG, Qual (Not Detectd) Salicylates <1.0 mg/dL Urine Opiates Screen (NotDetected) Ur Oxycodone Screen (NotDetected) Urine Methadone Screen (NotDetected) Ur Propoxyphene Screen (NotDetected) Acetaminophen 107.0 H* ug/mL Ur Barbiturates Screen (NotDetected) U Tricyclic Antidepress (NotDetected) Ur Phencyclidine Scrn (NotDetected) Ur Amphetamines Screen (NotDetected) U Methamphetamines Scrn (NotDetected) U Benzodiazepines Scrn (NotDetected) Urine Cocaine Screen (NotDetected) U Marijuana (THC) Screen (NotDetected) Serum Alcohol <10 mg/dL - Radiology Data Radiology results: image reviewed (Right knee x-ray reveals no acute process) Disposition Clinical Impression: Drug overdose, Depression Disposition: ADMITTED IP TO THIS HOSP Is patient prescribed a controlled substance at d/c from ED?: No Referrals: Sukh Wilkerson MD [Primary Care Provider] - 1-2 days Decision Time: 09:22
[2021-05-14 07:46] LABS: Basophils % (A) 0 %; Eosinophils # (A) 0.2 k/uL (0-0.7); Eosinophils % (A) 3 %; HCT 38.8 % (34.0-46.0); HGB 13.2 gm/dL (11.4-16.0); Lymphocytes # (A) 3.8 k/uL (1.0-4.8); Lymphocytes % (A) 50 %; MCHC 34.1 g/dL (31.0-37.0); MCV 105.6 fL (80.0-100.0); Macrocytosis Moderate; Monocytes # (A) 0.4 k/uL (0-1.0); Monocytes % (A) 6 %; Neutrophils % (A) 39 %; Platelet Count 302 k/uL (150-450); RBC 3.68 m/uL (3.80-5.40); RDW 13.7 % (11.5-15.5); WBC 7.6 k/uL (3.8-10.6)
[2021-05-14 07:56] LABS: ALT 14 U/L (4-34); AST 30 U/L (14-36); African American GFR (CKD) 81 (>60 ml/min/1.73 sqM); Albumin 4.2 g/dL (3.5-5.0); Alcohol <10 mg/dL; Alkaline Phosphatase 80 U/L (38-126); Anion Gap 9 mmol/L; Blood Urea Nitrogen 17 mg/dL (7-17); Calcium 9.6 mg/dL (8.4-10.2); Carbon Dioxide 21 mmol/L (22-30); Chloride 109 mmol/L (98-107); Glucose 99 mg/dL (74-99); Non-African American GFR(CKD) 71 (>60 ml/min/1.73 sqM); Potassium 4.3 mmol/L (3.5-5.1); Salicylate <1.0 mg/dL; Sodium 139 mmol/L (137-145); Total Bilirubin 0.3 mg/dL (0.2-1.3); Total Protein 6.9 g/dL (6.3-8.2)
[2021-05-14 08:14] LABS: Cocaine Screen,Urine Not Detected (NotDetected); Opiate Screen,Urine Not Detected (NotDetected); Phencyclidine Screen,Urine Not Detected (NotDetected); Urn Cannabinoid Scrn Detected (NotDetected)
[2021-05-14 08:15] LABS: Amphetamine Screen,Urine Not Detected (NotDetected); Barbiturate Screen,Urine Detected (NotDetected); Benzodiazepines Screen,Urine Detected (NotDetected); Methadone Screen, Urine Not Detected (NotDetected); Oxycodone Screen, Urine Not Detected (NotDetected); Tricyclic Antidepressant,Urine Not Detected (NotDetected)
--- NOTE | 2021-05-14 08:19 | XR ---
EXAMINATION TYPE: XR knee complete RT DATE OF EXAM: 05/14/2021 COMPARISON: 08/21/2017 HISTORY: Pain TECHNIQUE: Three-view right FINDINGS: No acute fractures or dislocations are evident. Joint spaces are preserved. No joint effusi on is evident. Follow up exams can be performed 7-10 days from acute trauma for continued pain. IMPRESSION: 1. Normal three-view right knee
[2021-05-14] MEDS ORDERED: NALOXONE 0.4 MG/ML 1 ML VIAL IV PRN (09:23)
[2021-05-14] MEDS: SODIUM CHLORIDE 0.9% 1,000 ML IV SCH (09:36)
[2021-05-14] MEDS ORDERED: ACETYLCYSTEINE 6,000 MG/30 ML VIAL PO STA (10:04)
[2021-05-14] MEDS ORDERED: ALBUTEROL HFA INHALER INHALATION PRN (10:46)
[2021-05-14] MEDS ORDERED: IOPAMIDOL CONTRAST (ORAL USE) VIAL PO PRN (13:53)
[2021-05-14] MEDS ORDERED: ONDANSETRON 4 MG/2 ML VIAL IVP PRN (13:54)
--- NOTE | 2021-05-14 14:25 | P.HPIM ---
History of Present Illness This is a pleasant 35 years old female with past medical history of hypertension, rheumatoid arthritis, chronic back pain, lupus and scleroderma, bipolar disorder and depression, She presents to emergency room with lethargy and drowsiness stating that she took a lot the Tylenol and Fioricet but could not specify how many. Patient was drowsy but she will wake up and provide appropriate information, When I ask her she stated that she did not want to kill herself. Her has gone, she tried but she could not handle it and then started crying. Also patient was complaining of from right ankle pain but denies trauma. She states also she has abdominal pain and vomited. She states that she has history of gastroparesis. She could not specify where her pain is but she points more to the left side. When asked she denies any vaginal bleeding or discharge more than usual. she denies chest pain or dyspnea Vitals have been stable and blood pressure 106/68, heart rate 62, RR 16, afebrile with temperature 97.6. She is saturating 99% on room air. reviewed showing unremarkable CBC, BMP, liver enzymes. Urine drug screen is positive for barbiturates, benzodiazepines and marijuana Her acetaminophen level was elevated on admission at 107 down to 79.6 today. She is a cigarette smoker about 1 cigarettes per day and uses marijua In the emergency room patient received first dose of N acetylcysteine and and continue with while inpatient. Also she was started on normal sinus at 75 mL/h psychiatric team were consulted Sitter is currently at bedside Encounter and physical examination were done in the presents of sitter at bedside nurse Review of Systems CONSTITUTIONAL: No fever, no malaise, no fatigue. HEENT: No recent visual problems or hearing problems. Denied any sore throat. CARDIOVASCULAR: No orthopnea, PND, no palpitations, no syncope. PULMONARY: No shortness of breath, no cough, no hemoptysis. GASTROINTESTINAL: No diarrhea. Normoactive bowel sounds. NEUROLOGICAL: No headaches, no weakness, no numbness. HEMATOLOGICAL: Denies any bleeding or petechiae. GENITOURINARY: Denies any burning micturition, frequency, or urgency. MUSCULOSKELETAL/RHEUMATOLOGICAL: Denies any joint pain, swelling, or any muscle pain. ENDOCRINE: Denies any polyuria or polydipsia. Past Medical History Past Medical History: Hypertension, Rheumatoid Arthritis (RA) Additional Past Medical History / Comment(s): TUBAL PREGANCY, chronic back pain, scleraderma, lupus, ddd History of Any Multi-Drug Resistant Organisms: MRSA Date of last positivie culture/infection: 07/01/16 MDRO Source:: RIGHT WRIST Past Surgical History: Section, Tonsillectomy Additional Past Surgical History / Comment(s): LAPROSCOPY Past Anesthesia/Blood Transfusion Reactions: No Reported Reaction Past Psychological History: Anxiety, Bipolar, Depression Smoking Status: Current every day smoker Past Alcohol Use History: None Reported Past Drug Use History: Marijuana, Opiates, Prescription Drug Abuse Medications and Allergies Home Medications Medication Instructions Recorded Confirmed Type Buprenorphine HCl/Naloxone HCl 1 film SUBLINGUAL BID 10/14/20 05/14/21 History [Suboxone 8 mg-2 mg Sl Film] Butalb/APAP/Caff 50-325-40Mg 1 tab PO Q6H PRN 10/14/20 05/14/21 History [Fioricet 50-325-40] Cyclobenzaprine [Flexeril] 5 mg PO TID PRN 10/14/20 05/14/21 History Albuterol Sulfate [Proair Hfa] 2 puff INHALATION RT-Q4H PRN 05/14/21 05/14/21 History Allergies Allergy/AdvReac Type Severity Reaction Status Date / Time quetiapine [From Seroquel] Allergy Rash/Hives Verified 05/14/21 10:28 Physical Exam Vitals: Vital Signs Temp Pulse Pulse Resp BP BP Pulse Ox 05/14/21 11:25 97.6 F 62 16 106/68 99 05/14/21 10:17 65 18 101/78 99 05/14/21 08:09 70 18 115/75 99 05/14/21 07:07 98.4 F 88 16 117/71 98 Intake and Output 05/13/21 05/14/21 05/14/21 22:59 06:59 14:59 Other: Weight 90.718 kg GENERAL: The patient is alert and oriented x3, not in any acute distress. Well developed, well nourished. HEENT: Pupils are round and equally reacting to light. EOMI. No scleral icterus. No conjunctival pallor. Normocephalic, atraumatic. No pharyngeal erythema. No thyromegaly. CARDIOVASCULAR: S1 and S2 present. No murmurs, rubs, or gallops. PULMONARY: Chest is clear to auscultation, no wheezing or crackles. -ABDOMEN: Soft, generalized abdominal tenderness, more on the left side, no rebound tenderness, no guarding, nondistended, normoactive bowel sounds. No palpable organomegaly. ((Exam was limited by poor patient cooperation due to her drowsiness and crying)) MUSCULOSKELETAL: No joint swelling or deformity. EXTREMITIES: No cyanosis, clubbing, or pedal edema. NEUROLOGICAL: Gross neurological examination did not reveal any focal deficits. SKIN: No rashes. No petechiae Results CBC & Chem 7: 05/14/21 07:34 05/14/21 07:34 Labs: Abnormal Lab Results - Last 24 Hours (Table) 05/14/21 05/14/21 05/14/21 Range/Units 07:34 07:34 07:34 RBC 3.68 L (3.80-5.40) m/uL MCV 105.6 H (80.0-100.0) fL MCH 36.0 H (25.0-35.0) pg Chloride 109 H (98-107) mmol/L Carbon Dioxide 21 L (22-30) mmol/L Acetaminophen 107.0 H* ug/mL Ur Barbiturates Screen Detected H (NotDetected) U Benzodiazepines Scrn Detected H (NotDetected) U Marijuana (THC) Screen Detected H (NotDetected) 05/14/21 Range/Units 10:24 RBC (3.80-5.40) m/uL MCV (80.0-100.0) fL MCH (25.0-35.0) pg Chloride (98-107) mmol/L Carbon Dioxide (22-30) mmol/L Acetaminophen 79.6 H* ug/mL Ur Barbiturates Screen (NotDetected) U Benzodiazepines Scrn (NotDetected) U Marijuana (THC) Screen (NotDetected) Thrombosis Risk Factor Assmnt - Choose All That Apply Any of the Below Risk Factors Present?: No Other Risk Factors: No Thrombosis Risk Factor Assessment Level: Very Low Risk Assessment and Plan Assessment: Tylenol toxicity Medication overdose with Tylenol and Fioricet Bipolar/depression and anxiety, rule out suicidal ideation She complains from abdominal pain and vomiting. Also she has history of gastroparesis Nicotine dependence Substance abuse including barbiturates, marijuana History of rheumatoid arthritis Protection Back pain History of lupus and scleroderma Plan: this is a pleasant 35 years old female who presents with Tylenol overdose. Continue with N acetylcysteine started in the emergency room. Monitor liver enzymes closely. GI team consult Nicotine patch Check CT of the abdomen and pelvis with oral but no intravenous contrast. Check right ankle x-ray GI team consult, for abdominal pain and Tylenol toxicity Keep sitter at bedside with suicidal precautions Labs and medication were reviewed.. Continue same treatment. Continue with symptomatic treatment. Resume home medication. Monitor lytes and vitals. DVT and GI prophylaxis. Further recommendations depends on the clinical course of the patient DVT prophylaxis: Subcutaneous heparin GI Prophylaxis: Pepcid Prognosis is guarded
[2021-05-14] MEDS: NICOTINE 14MG/24HR PATCH TRANSDERM SCH (15:11)
[2021-05-14] MEDS: ACETYLCYSTEINE 6,000 MG/30 ML VIAL PO SCH ×2 (15:11→19:11)
--- NOTE | 2021-05-14 18:02 | CT ---
EXAMINATION TYPE: CT abdomen pelvis wo con DATE OF EXAM: 05/14/2021 COMPARISON: 01/08/2016 HISTORY: Abdominal pain and vomiting. CT DLP: 618.2 mGycm Automated exposure control for dose reduction was used. Images obtained from the diaphragm to the floor the pelvis with oral contrast only. Lung bases are clear. There is no pleural effusion. Heart size is normal. There is no pericardial eff usion. Liver spleen stomach pancreas gallbladder appear intact. Bile ducts are not dilated. There is no adrenal mass. Kidneys have normal size. There is no hydronephrosis. Bladder distends smoo thly. Uterus is retroverted. There is no inguinal hernia. There is no free fluid in the pelvis. I see no pelvic mass. Appendix is posterior and appears normal. There is no mesenteric edema. There is no ascites or free air. There is no evidence of a bowel obstruction. There is no retroperitoneal adenopa thy. The lumbar vertebra have fairly normal alignment. There is narrowing of L5-S1 disc space. There is no compression fracture. The bony pelvis is intact. The hip joints are intact. There is no hip dysplasi a. IMPRESSION: Negative CT scan abdomen and pelvis. Normal appendix. No adverse change compared to old exam.
--- NOTE | 2021-05-14 18:04 | XR ---
EXAMINATION TYPE: XR ankle limited RT DATE OF EXAM: 05/14/2021 COMPARISON: NONE HISTORY: Ankle pain TECHNIQUE: 2 views FINDINGS: Ankle mortise is anatomic. I see no fracture nor dislocation. Joint spaces are normal. IMPRESSION: Negative right ankle exam.
[2021-05-14] MEDS ORDERED: hydrOXYzine HCL 25 MG TAB PO PRN (20:30)
[2021-05-14] MEDS ORDERED: FAMOTIDINE 20 MG/2 ML VIAL IV SCH (21:00)
[2021-05-14] MEDS ORDERED: LORazepam 2 MG/ML INJ IV PRN (21:12)
[2021-05-14] MEDS ORDERED: LORazepam 2 MG/ML INJ IV STA (21:12)
[2021-05-14] MEDS ORDERED: traMADol 50 MG TAB PO SCH (22:00)
[2021-05-14] MEDS ORDERED: traMADol 50 MG TAB PO PRN (22:15)
[2021-05-14] MEDS: HEPARIN SODIUM,PORCINE/PF 5,000 UNIT/0.5 ML SYRINGE SQ SCH (22:17)
[2021-05-14] MEDS ORDERED: HALOPERIDOL LACTATE 5 MG/ML 1 ML VIAL IM STA (23:48)
[2021-05-15] MEDS: ACETYLCYSTEINE 6,000 MG/30 ML VIAL PO SCH ×4 (00:12→12:20)
[2021-05-15] MEDS: SODIUM CHLORIDE 0.9% 1,000 ML IV SCH ×2 (00:42→12:00)
[2021-05-15] MEDS ORDERED: HALOPERIDOL LACTATE 5 MG/ML 1 ML VIAL IM PRN ×2 (07:11→13:11)
[2021-05-15] MEDS ORDERED: CYCLOBENZAPRINE 5 MG TAB PO PRN (07:50)
[2021-05-15 08:44] LABS: INR 1.1 (<1.2); Prothrombin Time 11.2 sec (9.0-12.0)
[2021-05-15 08:47] LABS: Basophils # (A) 0.1 k/uL (0-0.2); Basophils % (A) 1 %; Eosinophils # (A) 0.2 k/uL (0-0.7); Eosinophils % (A) 3 %; HCT 40.6 % (34.0-46.0); HGB 12.9 gm/dL (11.4-16.0); Lymphocytes # (A) 1.7 k/uL (1.0-4.8); Lymphocytes % (A) 27 %; MCH 34.7 pg (25.0-35.0); MCHC 31.8 g/dL (31.0-37.0); MCV 108.9 fL (80.0-100.0); Macrocytosis Marked; Mean Platelet Volume 7.6; Monocytes # (A) 0.3 k/uL (0-1.0); Monocytes % (A) 4 %; Neutrophils # (A) 3.9 k/uL (1.3-7.7); Neutrophils % (A) 63 %; Platelet Count 262 k/uL (150-450); RBC 3.73 m/uL (3.80-5.40); RDW 14.3 % (11.5-15.5); WBC 6.2 k/uL (3.8-10.6)
[2021-05-15] MEDS ORDERED: PATIENT'S OWN (Buprenorphine Hcl/Naloxone Hcl [Suboxone 8 Mg-2 Mg Sl Film] 1 EACH Fil SUBLINGUAL SCH (09:00)
[2021-05-15 09:02] LABS: ALT 13 U/L (4-34); AST 23 U/L (14-36); Acetaminophen <10.0 ug/mL; African American GFR (CKD) >90 (>60 ml/min/1.73 sqM); Albumin 3.6 g/dL (3.5-5.0); Alkaline Phosphatase 39 U/L (38-126); Anion Gap 11 mmol/L; Blood Urea Nitrogen 11 mg/dL (7-17); Calcium 9.1 mg/dL (8.4-10.2); Carbon Dioxide 20 mmol/L (22-30); Chloride 108 mmol/L (98-107); Glucose 122 mg/dL (74-99); Magnesium 1.7 mg/dL (1.6-2.3); Non-African American GFR(CKD) >90 (>60 ml/min/1.73 sqM); Potassium 3.7 mmol/L (3.5-5.1); Sodium 139 mmol/L (137-145); Total Bilirubin 0.2 mg/dL (0.2-1.3); Total Protein 6.1 g/dL (6.3-8.2)
[2021-05-15] MEDS: HEPARIN SODIUM,PORCINE/PF 5,000 UNIT/0.5 ML SYRINGE SQ SCH ×2 (09:49→20:43)
[2021-05-15] MEDS: FAMOTIDINE 20 MG TAB PO SCH ×2 (09:49→20:42)
[2021-05-15] MEDS: NICOTINE 14MG/24HR PATCH TRANSDERM SCH (09:50)
[2021-05-15] MEDS: PATIENT'S OWN (Buprenorphine Hcl/Naloxone Hcl [Suboxone 8 Mg-2 Mg Sl Film] 1 EACH Fil SUBLINGUAL SCH ×2 (09:50→21:52)
[2021-05-15] MEDS ORDERED: ALPRAZolam 0.25 MG TAB PO PRN (12:45)
[2021-05-15] MEDS ORDERED: LORazepam 2 MG/ML INJ IM PRN (13:11)
--- NOTE | 2021-05-15 13:22 | P.CN ---
Psychiatric Consult - . Consult date: 05/15/21 Consult:: 05/15/21 12:24 IDENTIFYING DATA: This patient is a 35-year-old female who currently lives with her [id number] and her in a house and has 1. She is currently unemployed. REASON FOR REFERRAL: Psychiatry was consulted for overdose HISTORY OF PRESENT ILLNESS: The patient presented to the hospital initially after a overdose and apparently admitted in the ER that it was a suicide attempt. Patient also had admitted that she was causing abrasions on her arms. She admitted to taking 15 pills fiorcet and other medications. Patient's MCV was 105. Patient's UDS was positive for barbiturates benzodiazepines and THC. Patient's acetaminophen level was 107 on admission however has now improved to below 10. Patient was given Mucomyst for treatment. Patient received Haldol IM as a prn med for agitation. Patient's nurse claims the patient has not been endorsing any current suicidal thoughts however has been tearful. Patient was seen by telegraphic typewriter operator chief at the bedside and was tearful at times and appeared to be irritable and rambling. She claims that "nothing's going on" and minimized her mental health history and also the reason why she came to the hospital. She states that she took 10-12 tablets of fiorcet for pain but states that she took it over a 12 hr time frame. At this time she claims that it was not a suicide attempt and was very confrontational and aggressive with telegraphic typewriter operator chief denying that it ever was. She states that she try to relax after watching TV with her son. She states that she is worried about her not coming home. She claims that after taking the medications she tried to walk down the stairs and fell down and her [id number] brought her in the hospital. She states that she became agitated in the hospital. She claims that she does not want to be admitted and showed very poor impulse control and agitation. She claims that she has not been taking her psychiatric meds for a "long time" and claims that she has not been going to her [facility] appointments in quite some time. She states that she has no history of manic episodes in the past. She said that she is currently depressed and anxious. She has very poor insight into her condition and need for treatment. At this time patient denies any current suicidal or homical ideations, intent or plan. Patient denies any auditory, visual hallucinations and denies any paranoia or delusions. Patients admits to using cigarettes daily and opiates and marijuana. PAST PSYCHIATRIC HISTORY: Patient has a a history of depression and anxiety. [Patient denies being on any psychiatric medications currently however in the past was previously taking Haldol, Lamictal and trazodone.] [Patient has had multiple psychiatric hospitalizations in the past and her last admission was in January 2020.] [Patient denies any psychiatric outpatient follow-up.] [Patient denies any history of suicide attempts in the past.] PAST MEDICAL HISTORY: Lupus, rheumatoid arthritis, hypertension ALLERGIES: as per EMR. CHEMICAL DEPENDENCY HISTORY: as per HPI. FAMILY PSYCHIATRIC/SUBSTANCE USE HISTORY: denies SOCIAL HISTORY: Patient was born and raised in [place] [facility]. She states that she completed high school and did some college in psychology. 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 She states that she stopped working for her disability as she has lupus. She states that she went to penitentiary briefly in the past for unpaid child support. She has 1 biological son. She lives in a house with her and her [id number]. MENTAL STATUS EXAM: General Appearance: Patient appears to be overweight stated age is alert, irritable, aggressive at times and tearful. Patient appears to have [fair] hygiene and grooming wearing hospital gown with poor eye contact. Behavior: [Patient is calmly lying in bed without any agitated behavior.] impulsive Speech: Patient's speech is fluent and nonpressured. Mood/Affect: Patient reports their mood is "[depressed and anxious]", affect is congruent and tearful Suicidality/Homicidality: Patient denies having any suicidal or homicidal ideation intent or plan. Perceptions: Patient denies any visual hallucinations [and denies any auditory hallucinations] Though content/process: patient minimizes her symptoms and need for treatment. Depressive content. illogical. Poor insight. Memory and concentration: AOX3, grossly intact for the purposes of this session. Can spell "WORLD" backwards Judgment and insight: [poor] IMPRESSIONS: Major depressive disorder, recurrent, severe without psychotic features Anxiety disorder unspecified Cannabis use disorder Opiate abuse Nicotine dependence PLAN: -At this time patient DOES meet criteria for inpatient psychiatric admission. -Would recommend the following medication changes/additions: Will add Lamictal 25 mg twice a day for mood stabilization/depression. Trazodone 50 mg daily at bedtime for insomnia. Haldol and Ativan IM when necessary for agitation/aggression. -Continue 1:1 sitter for safety -When medically stable, patient is eligible for transfer to a psych bed when available. -Communicated plan to patient's nurse and medical doctor -Psychiatry will sign off at this time -Please contact with any questions. 05/15/21 13:12
--- NOTE | 2021-05-15 13:41 | P.CONS ---
History of Present Illness - Reason for Consult Consult date: 05/15/21 Acetaminophen toxicity Requesting physician: Kimo E Sheet - Chief Complaint Overdose - History of Present Illness 35-year-old white female who presented to the emergency department yesterday after taking several Fioricet and other possible medications with complaints of lethargy and weakness. Her past medical history includes hypertension, rheumatoid arthritis, chronic back pain, lupus and scleroderma, bipolar disorder and depression. Patient states she had a lot of pain and Taking Fioricet, states she took at least 10 Fioricet within a 12 hour period. She was found to have acetaminophen toxicity. Her initial acetaminophen level was 107, she was started on Mucomyst, today's repeat acetaminophen level was less than 10. The patient states she did not take to intentionally harm herself. She also states she has a history of gastroparesis and has nausea and vomiting daily. States she usually vomits every day. She's had multiple multiple episodes of diarrhea today due to the Mucomyst. Admission labs WBC 7.6, hemoglobin 13.2, hematocrit 38.8, platelet count 302,000, total bilirubin 0.3, alkaline phosphatase 80, AST 30, ALT 14, acetaminophen level was 107, with a repeat at 79.6. She had a CT of the abdomen and pelvis with no acute findings. The patient is denying any nausea or vomiting currently. States she does have some abdominal tenderness. She denies any previous liver disease. She does state she has a history of gastroparesis, had an EGD approximately 5 years ago when she was diagnosed in [facility]. The patient was crying to the sitter when first entering her room. Psychiatry has been consulted. Review of Systems REVIEW OF SYSTEMS: CARDIOPULMONARY: No chest pain or shortness of breath. Gastrointestinal: Diffuse abdominal pain.. Nausea and vomiting daily, history of gastroparesis. No hematemesis, coffee-ground emesis. No rectal bleeding, or melena. GENITOURINARY: No dysuria or hematuria. MUSCULOSKELETAL: Reports normal range of motion., Joint pain. SKIN: No rashes. No jaundice. ENDOCRINE: No chills, fevers. No excessive weight gain or loss. No polydipsia or polyuria. PSYCHIATRIC: On suicide precautions. History of depression and bipolar disease. Crying when entering the room NEUROLOGY: No change in mental status. Denies dizziness, headache. ENT: Vision unremarkable. CONSTITUTIONAL: No recent weight loss. No fever, chills, night sweats. Past Medical History Past Medical History: Hypertension, Rheumatoid Arthritis (RA) Additional Past Medical History / Comment(s): TUBAL PREGANCY, chronic back pain, scleraderma, lupus, ddd History of Any Multi-Drug Resistant Organisms: MRSA Year Discovered:: 07/01/16 MDRO Source:: RIGHT WRIST Past Surgical History: Section, Tonsillectomy Additional Past Surgical History / Comment(s): LAPROSCOPY Past Anesthesia/Blood Transfusion Reactions: No Reported Reaction Past Psychological History: Anxiety, Bipolar, Depression Smoking Status: Current every day smoker Past Alcohol Use History: None Reported Past Drug Use History: Marijuana, Opiates, Prescription Drug Abuse Medications and Allergies Home Medications Medication Instructions Recorded Confirmed Type Buprenorphine HCl/Naloxone HCl 1 film SUBLINGUAL BID 10/14/20 05/14/21 History [Suboxone 8 mg-2 mg Sl Film] Butalb/APAP/Caff 50-325-40Mg 1 tab PO Q6H PRN 10/14/20 05/14/21 History [Fioricet 50-325-40] Cyclobenzaprine [Flexeril] 5 mg PO TID PRN 10/14/20 05/14/21 History Albuterol Sulfate [Proair Hfa] 2 puff INHALATION RT-Q4H PRN 05/14/21 05/14/21 History Allergies Allergy/AdvReac Type Severity Reaction Status Date / Time quetiapine [From Seroquel] Allergy Rash/Hives Verified 05/14/21 10:28 Physical Exam Vitals: Vital Signs Temp Pulse Resp BP Pulse Ox 05/15/21 12:00 97.9 F 102 H 18 121/82 96 05/15/21 09:00 97.9 F 92 18 120/78 97 05/15/21 02:17 16 05/14/21 19:30 16 05/14/21 16:00 86 16 116/87 98 05/14/21 14:00 62 16 Intake and Output 05/14/21 05/15/21 05/15/21 22:59 06:59 14:59 Intake Total 650 240 Balance 650 240 Intake: Oral 650 240 Other: Voiding Method Toilet Toilet # Voids 1 2 # Bowel Movements 1 3 Weight 82.5 kg General appearance: The patient is alert, oriented, appears in no acute distress. HET: Head is normocephalic and atraumatic. Conjunctiva pink. Sclera anicteric. Neck: Supple without lymphadenopathy. Trachea midline. Heart: S1 S2. Regular rate and rhythm. Lungs: Clear to auscultation. Abdomen: Soft, diffuse tenderness, nondistended with bowel sounds. No guarding or rigidity. Skin: No rashes. No jaundice. Extremities: Normal skin color and turgor. No pedal edema. Neurological: No focal deficits. Alert and oriented 3.. Results CBC & Chem 7: 05/15/21 08:16 05/15/21 08:16 Labs: Abnormal Lab Results - Last 24 Hours (Table) 05/15/21 05/15/21 Range/Units 08:16 08:16 RBC 3.73 L (3.80-5.40) m/uL MCV 108.9 H (80.0-100.0) fL Macrocytosis Marked A Chloride 108 H (98-107) mmol/L Carbon Dioxide 20 L (22-30) mmol/L Glucose 122 H (74-99) mg/dL Total Protein 6.1 L (6.3-8.2) g/dL CT scan - abdomen: report reviewed (No significant findings) Assessment and Plan (1) Acetaminophen toxicity Narrative/Plan: There is a 5-year-old female who presented to the emergency department with lethargy and weakness after taking at least 10 Fioricet for chronic pain. States she came to get help because she knew she needed it. States she was not trying to harm herself by taking the medication. States she took them over a period of 12 hours. She has a past medical history including depression and bipolar disorder, chronic back pain, lupus and scleroderma, rheumatoid arthritis, and hypertension. On admission her acetaminophen level was 170, liver enzymes are within normal limits. She was treated with Mucomyst and repeat acetaminophen level today is less than 10. She also states she has a history of gastroparesis and has been vomiting daily. States she was diagnosed approximately 5 years ago and was seen by a environmental science instructor in [facility], states she had an EGD at that time as well. Current Visit: Yes Status: Acute Code(s): T39.1X1A - POISONING BY 4- AMINOPHENOL DERIVATIVES, ACCIDENTAL, INIT SNOMED Code(s): 04095587 (2) Drug overdose Current Visit: Yes Status: Acute Code(s): T50.901A - POISONING BY UNSP DRUG/MEDS/BIOL SUBST, ACCIDENTAL, INIT SNOMED Code(s): 00819547 Plan: 1. Continue symptomatic and supportive care 2. Diabetes tolerated 3. Repeat CMP, INR in the morning 4. CT of abdomen and pelvis reviewed 5. Avoid hepatotoxic medications 6. Continue further medical management per primary team, psychiatry on consult as well Thank you for this consultation, we will continue to follow Dr. Wright I agree with the dictator's note, documented as a scribe by Iqra Tavares.
[2021-05-15] MEDS: lamoTRIgine 25 MG TAB PO SCH ×2 (17:31→20:46)
--- NOTE | 2021-05-15 20:06 | P.PN ---
Subjective his is a pleasant 35 years old female with past medical history of hypertension, rheumatoid arthritis, chronic back pain, lupus and scleroderma, bipolar disorder and depression, She presents to emergency room with lethargy and drowsiness stating that she took a lot the Tylenol and Fioricet but could not specify how many. Patient was drowsy but she will wake up and provide appropriate information, When I ask her she stated that she did not want to kill herself. Her has gone, she tried but she could not handle it and then started crying. Also patient was complaining of from right ankle pain but denies trauma. She states also she has abdominal pain and vomited. She states that she has history of gastroparesis. She could not specify where her pain is but she points more to the left side. When asked she denies any vaginal bleeding or discharge more than usual. she denies chest pain or dyspnea Vitals have been stable and blood pressure 106/68, heart rate 62, RR 16, afebrile with temperature 97.6. She is saturating 99% on room air. reviewed showing unremarkable CBC, BMP, liver enzymes. Urine drug screen is positive for barbiturates, benzodiazepines and marijuana Her acetaminophen level was elevated on admission at 107 down to 79.6 today. She is a cigarette smoker about 1 cigarettes per day and uses marijua In the emergency room patient received first dose of N acetylcysteine and and continue with while inpatient. Also she was started on normal sinus at 75 mL/h psychiatric team were consulted Sitter is currently at bedside Encounter and physical examination were done in the presents of sitter at bedside nurse 05/15/2021 Patient was agitated during the night and on an off, however she was calm when I saw Her the morning. She still complaining from vague abdominal pain and ankle pain however ankle x-ray and CT of the abdomen are negative. She was denying suicidal ideation and denial taking Tylenol despite having higher level of acetaminophen level and the blood. She was still crying, she wants to remember and her and his family. She was trying to leave AMA because of this patient was positioned by staff and I did cert for her. Sitter At bedside. Vital signs stable. Liver enzymes are normal. Uncontrolled called and recommended to discontinue the Mucomyst. She was getting Ativan and Haldol as needed. I discussed the case with the psychiatric service who are kindly accepted the vicki claudio to inpatient psychiatrist where she is medically stable. I discussed the case with GI team, we will monitor her liver enzymes and INR tomorrow, if she remains stable she would be medically stable to go to psych unit Review of systems CONSTITUTIONAL: No fever, no malaise, no fatigue. HEENT: No recent visual problems or hearing problems. Denied any sore throat. CARDIOVASCULAR: No orthopnea, PND, no palpitations, no syncope. PULMONARY: No shortness of breath, no cough, no hemoptysis. GASTROINTESTINAL: No diarrhea, no nausea, no vomiting, no abdominal pain. Normoactive bowel sounds. NEUROLOGICAL: No headaches, no weakness, no numbness. Active Medications Generic Name Dose Route Start Last Admin Trade Name Freq PRN Reason Stop Dose Admin Albuterol Sulfate 2 puff 05/14/21 10:46 Albuterol Hfa Inhaler INHALATION RT-Q4H PRN Shortness Of Breath Cyclobenzaprine HCl 5 mg 05/15/21 07:50 Cyclobenzaprine 5 Mg Tab PO TID PRN Muscle Spasm Famotidine 20 mg 05/15/21 09:00 05/15/21 09:49 Famotidine 20 Mg Tab PO 20 mg BID RYAN Administration Haloperidol Lactate 5 mg 05/15/21 13:11 05/15/21 13:31 Haloperidol Lactate 5 Mg/Ml 1 Ml Vial IM 5 mg Q6HR PRN Administration Agitation or Acute Psychosis Heparin Sodium (Porcine) 5,000 unit 05/14/21 21:00 05/15/21 09:49 Heparin Sodium,Porcine/Pf 5,000 Unit/0.5 Ml Syringe SQ 5,000 unit Q12HR RYAN Administration Hydroxyzine HCl 25 mg 05/14/21 20:30 Hydroxyzine Hcl 25 Mg Tab PO TID PRN Mild Anxiety Sodium Chloride 1,000 mls @ 75 mls/hr 05/14/21 09:30 05/15/21 12:00 Saline 0.9% IV Not Given .[id number] RYAN Lamotrigine 25 mg 05/15/21 13:30 05/15/21 17:31 Lamotrigine 25 Mg Tab PO 25 mg BID RYAN Administration Lorazepam 1 mg 05/15/21 13:11 Lorazepam 2 Mg/Ml Inj IM Q6HR PRN Anxiety Naloxone HCl 0.2 mg 05/14/21 09:23 Naloxone 0.4 Mg/Ml 1 Ml Vial IV Q2M PRN Opioid Reversal Nicotine 1 patch 05/14/21 14:00 05/15/21 09:50 Nicotine 14mg/24hr Patch TRANSDERM 1 patch DAILY RYAN Administration Patient's Own ( 1 film 05/15/21 10:00 05/15/21 09:50 Buprenorphine Hcl/ SUBLINGUAL 1 film Naloxone Hcl [ BID RYAN Administration Suboxone 8 Mg-2 Mg Sl Film] 1 Each Aolnzo Ondansetron HCl 4 mg 05/14/21 13:54 Ondansetron 4 Mg/2 Ml Vial IVP Q6HR PRN Nausea And Vomiting Tramadol HCl 25 mg 05/14/21 22:15 05/14/21 22:47 Tramadol 50 Mg Tab PO 25 mg TID PRN Administration Mild to Moderate Pain Trazodone HCl 50 mg 05/15/21 21:00 Trazodone Hcl 50 Mg Tab PO HS [facility] Objective - Vital Signs Vital signs: Vital Signs Temp 97.9 F 05/15/21 12:00 Pulse 102 H 05/15/21 12:00 Resp 18 05/15/21 12:00 BP 121/82 05/15/21 12:00 Pulse Ox 96 05/15/21 12:00 Intake & Output 05/14/21 05/15/21 05/15/21 18:59 06:59 18:59 Intake Total 650 1070 Balance 650 1070 Weight 90.718 kg 82.5 kg Intake: Oral 650 1070 Other: Voiding Method Toilet Toilet # Voids 1 2 # Bowel Movements 3 - Exam GENERAL: The patient is alert and oriented x3, not in any acute distress. Well developed, well nourished. HEENT: Pupils are round and equally reacting to light. EOMI. No scleral icterus. No conjunctival pallor. Normocephalic, atraumatic. No pharyngeal erythema. No thyromegaly. CARDIOVASCULAR: S1 and S2 present. No murmurs, rubs, or gallops. PULMONARY: Chest is clear to auscultation, no wheezing or crackles. ABDOMEN: Soft, nontender, nondistended, normoactive bowel sounds. No palpable organomegaly. MUSCULOSKELETAL: No joint swelling or deformity. EXTREMITIES: No cyanosis, clubbing, or pedal edema. NEUROLOGICAL: Gross neurological examination did not reveal any focal deficits. SKIN: No rashes. no petechiae. - Labs CBC & Chem 7: 05/15/21 08:16 05/15/21 08:16 Labs: Abnormal Lab Results - Last 24 Hours (Table) 05/15/21 05/15/21 Range/Units 08:16 08:16 RBC 3.73 L (3.80-5.40) m/uL MCV 108.9 H (80.0-100.0) fL Macrocytosis Marked A Chloride 108 H (98-107) mmol/L Carbon Dioxide 20 L (22-30) mmol/L Glucose 122 H (74-99) mg/dL Total Protein 6.1 L (6.3-8.2) g/dL Assessment and Plan Assessment: Tylenol toxicity Medication overdose with Tylenol and Fioricet Bipolar/depression and anxiety, which possible suicidal intention for medication overdose. Patient was accepted for inpatient psychiatric admission when medically stable Right ankle sprain She complains from abdominal pain and vomiting. Also she has history of gastroparesis Nicotine dependence Substance abuse including barbiturates, marijuana History of rheumatoid arthritis Protection Back pain History of lupus and scleroderma Plan: this is a pleasant 35 years old female who presents with Tylenol overdose. Discontinue N acetylcysteine per poison control recommendation Monitor liver enzymes and INR closely. GI team consult Nicotine patch Transfer to psych unit when medically stable, possibly tomorrow Keep sitter at bedside with suicidal precautions Labs and medication were reviewed.. Continue same treatment. Continue with symptomatic treatment. Resume home medication. Monitor lytes and vitals. DVT and GI prophylaxis. Further recommendations depends on the clinical course of the patient DVT prophylaxis: Subcutaneous heparin GI Prophylaxis: Pepcid Prognosis is guarded
[2021-05-15] MEDS: traZODone HCL 50 MG TAB PO SCH (20:42)
[2021-05-15 23:40] VITALS: RESP 18; TEMP 98.1
[2021-05-16] MEDS: SODIUM CHLORIDE 0.9% 1,000 ML IV SCH (05:54)
[2021-05-16 07:41] LABS: Prothrombin Time 10.4 sec (9.0-12.0)
[2021-05-16 07:56] LABS: ALT 25 U/L (4-34); AST 41 U/L (14-36); African American GFR (CKD) >90 (>60 ml/min/1.73 sqM); Albumin 3.7 g/dL (3.5-5.0); Alkaline Phosphatase 93 U/L (38-126); Anion Gap 4 mmol/L; Blood Urea Nitrogen 15 mg/dL (7-17); Calcium 9.4 mg/dL (8.4-10.2); Carbon Dioxide 26 mmol/L (22-30); Chloride 108 mmol/L (98-107); Glucose 97 mg/dL (74-99); Non-African American GFR(CKD) 84 (>60 ml/min/1.73 sqM); Potassium 4.5 mmol/L (3.5-5.1); Sodium 138 mmol/L (137-145); Total Bilirubin 0.1 mg/dL (0.2-1.3); Total Protein 6.4 g/dL (6.3-8.2)
[2021-05-16] MEDS: FAMOTIDINE 20 MG TAB PO SCH ×2 (09:03→21:04)
[2021-05-16] MEDS: lamoTRIgine 25 MG TAB PO SCH ×2 (09:03→21:04)
[2021-05-16] MEDS: HEPARIN SODIUM,PORCINE/PF 5,000 UNIT/0.5 ML SYRINGE SQ SCH ×2 (09:04→21:04)
[2021-05-16] MEDS: NICOTINE 14MG/24HR PATCH TRANSDERM SCH (09:04)
--- NOTE | 2021-05-16 10:18 | P.PN ---
Subjective Progress Note Date: 05/16/21 Principal diagnosis: Acetaminophen toxicity, overdose The patient is seen and examined lying in bed. She denies any abdominal pain or vomiting. States she does have some nausea. The patient is status post treatment with Mucomyst, last acetaminophen level yesterday less than 10. Liver enzymes remain stable. Objective - Vital Signs Vital signs: Vital Signs Temp 98.1 F 05/15/21 20:00 Pulse 96 05/16/21 04:00 Resp 18 05/16/21 04:00 BP 101/51 05/16/21 04:00 Pulse Ox 97 05/16/21 04:00 Intake & Output 05/15/21 05/16/21 05/16/21 18:59 06:59 18:59 Intake Total 1310 240 Balance 1310 240 Weight 84 kg Intake: Oral 1310 240 Other: # Voids 3 - Exam General appearance: The patient is alert, oriented, appears in no acute distress. HET: Head is normocephalic and atraumatic. Conjunctiva pink. Sclera anicteric. Neck: Supple without lymphadenopathy. Abdomen: Soft, diffuse tenderness, nondistended with bowel sounds. No guarding or rigidity. Extremities: Normal skin color and turgor. No pedal edema Skin: No rashes, no jaundice Neurological: No focal deficits. Alert and oriented 3. - Labs CBC & Chem 7: 05/15/21 08:16 05/16/21 07:04 Labs: Abnormal Lab Results - Last 24 Hours (Table) 05/16/21 Range/Units 07:04 Chloride 108 H (98-107) mmol/L Total Bilirubin 0.1 L (0.2-1.3) mg/dL AST 41 H (14-36) U/L Assessment and Plan (1) Acetaminophen toxicity Narrative/Plan: There is a 5-year-old female who presented to the emergency department with lethargy and weakness after taking at least 10 Fioricet for chronic pain. States she came to get help because she knew she needed it. States she was not trying to harm herself by taking the medication. States she took them over a period of 12 hours. She has a past medical history including depression and bipolar disorder, chronic back pain, lupus and scleroderma, rheumatoid arthri tis, and hypertension. On admission her acetaminophen level was 170, liver enzymes are within normal limits. She was treated with Mucomyst and repeat acetaminophen level today is less than 10. She also states she has a history of gastroparesis and has been vomiting daily. States she was diagnosed approximately 5 years ago and was seen by a division chair in [facility], states she had an EGD at that time as well. Current Visit: Yes Status: Acute Code(s): T39.1X1A - POISONING BY 4- AMINOPHENOL DERIVATIVES, ACCIDENTAL, INIT SNOMED Code(s): 53721214 (2) Drug overdose Current Visit: Yes Status: Acute Code(s): T50.901A - POISONING BY UNSP DRUG/MEDS/BIOL SUBST, ACCIDENTAL, INIT SNOMED Code(s): 19165624 Plan: 1. Continue symptomatic and supportive care 2. Diet as tolerated 3. LFTs reviewed, stable 4. CT of abdomen and pelvis reviewed 5. Avoid hepatotoxic medications 6. Continue further medical management per primary team, psychiatry on consult as well 7. Patient is clear from a gastroenterology standpoint and may be transferred to the mental health unit, once otherwise medically cleared 8. Discussed with patient importance to adhere to medication dosage recommendations as overmedicating me lead to liver damage and overdosing, even causing . Thank you for this consultation, we will sign off at this time Dr. Wright I agree with the dictator's note, documented as a scribe by Iqra Tavares.
[2021-05-16] MEDS: PATIENT'S OWN (Buprenorphine Hcl/Naloxone Hcl [Suboxone 8 Mg-2 Mg Sl Film] 1 EACH Fil SUBLINGUAL SCH ×2 (11:27→21:04)
--- NOTE | 2021-05-16 13:35 | P.PN ---
Subjective Please consider this note as discharge summary his is a pleasant 35 years old female with past medical history of hypertension, rheumatoid arthritis, chronic back pain, lupus and scleroderma, bipolar disorder and depression, She presents to emergency room with lethargy and drowsiness stating that she took a lot the Tylenol and Fioricet but could not specify how many. Patient was drowsy but she will wake up and provide appropriate information, When I ask her she stated that she did not want to kill herself. Her has gone, she tried but she could not handle it and then started crying. Also patient was complaining of from right ankle pain but denies trauma. She states also she has abdominal pain and vomited. She states that she has history of gastroparesis. She could not specify where her pain is but she points more to the left side. When asked she denies any vaginal bleeding or discharge more than usual. she denies chest pain or dyspnea Vitals have been stable and blood pressure 106/68, heart rate 62, RR 16, afebrile with temperature 97.6. She is saturating 99% on room air. reviewed showing unremarkable CBC, BMP, liver enzymes. Urine drug screen is positive for barbiturates, benzodiazepines and marijuana Her acetaminophen level was elevated on admission at 107 down to 79.6 today. She is a cigarette smoker about 1 cigarettes per day and uses marijua In the emergency room patient received first dose of N acetylcysteine and and continue with while inpatient. Also she was started on normal sinus at 75 mL/h psychiatric team were consulted Sitter is currently at bedside Encounter and physical examination were done in the presents of sitter at bedside nurse 05/15/2021 Patient was agitated during the night and on an off, however she was calm when I saw Her the morning. She still complaining from vague abdominal pain and ankle pain however ankle x-ray and CT of the abdomen are negative. She was denying suicidal ideation and denial taking Tylenol despite having higher level of acetaminophen level and the blood. She was still crying, she wants to remember and her and his family. She was trying to leave AMA because of this patient was positioned by staff and I did cert for her. Sitter At bedside. Vital signs stable. Liver enzymes are normal. Uncontrolled called and recommended to discontinue the Mucomyst. She was getting Ativan and Haldol as needed. I discussed the case with the psychiatric service who are kindly accepted the patient to inpatient psychiatrist where she is medically stable. I discussed the case with GI team, we will monitor her liver enzymes and INR tomorrow, if she remains stable she would be medically stable to go to psych unit 05/16/2021 Patient is more calm and alert today however she still looks sat and depressed. She did not complain much from her abdominal or ankle pain. Her liver enzymes are stable with AST only mildly up at 41. INR is 1.0. Rest of labs are unremarkable GI input is appreciated Patient remains on normal sinus 75 mL/h. Also she is on home dose of Suboxone Psychiatric input is appreciated, Lamictal and trazodone for acute patient is medically stable to be transferred to mental health unit Objective - Vital Signs Vital signs: Vital Signs Temp 98.1 F 05/15/21 20:00 Pulse 96 05/16/21 04:00 Resp 18 05/16/21 04:00 BP 101/51 05/16/21 04:00 Pulse Ox 97 05/16/21 04:00 Intake & Output 05/15/21 05/16/21 05/16/21 18:59 06:59 18:59 Intake Total 1310 240 Balance 1310 240 Weight 84 kg Intake: Oral 1310 240 Other: # Voids 3 0 # Bowel Movements 0 - Exam GENERAL: The patient is alert and oriented x3, not in any acute distress. Well developed, well nourished. HEENT: Pupils are round and equally reacting to light. EOMI. No scleral icterus. No conjunctival pallor. Normocephalic, atraumatic. No pharyngeal erythema. No thyromegaly. CARDIOVASCULAR: S1 and S2 present. No murmurs, rubs, or gallops. PULMONARY: Chest is clear to auscultation, no wheezing or crackles. ABDOMEN: Soft, nontender, nondistended, normoactive bowel sounds. No palpable organomegaly. MUSCULOSKELETAL: No joint swelling or deformity. EXTREMITIES: No cyanosis, clubbing, or pedal edema. NEUROLOGICAL: Gross neurological examination did not reveal any focal deficits. SKIN: No rashes. no petechiae. - Labs CBC & Chem 7: 05/15/21 08:16 05/16/21 07:04 Labs: Abnormal Lab Results - Last 24 Hours (Table) 05/16/21 Range/Units 07:04 Chloride 108 H (98-107) mmol/L Total Bilirubin 0.1 L (0.2-1.3) mg/dL AST 41 H (14-36) U/L Assessment and Plan Assessment: Tylenol toxicity Medication overdose with Tylenol and Fioricet Bipolar/depression and anxiety, which possible suicidal intention for medication overdose. Patient was accepted for inpatient psychiatric admission when medically stable Right ankle sprain She complains from abdominal pain and vomiting. Also she has history of gastroparesis Nicotine dependence Substance abuse including barbiturates, marijuana History of rheumatoid arthritis Protection Back pain History of lupus and scleroderma Plan: this is a pleasant 35 years old female who presents with Tylenol overdose. Discontinue N acetylcysteine per poison control recommendation Monitor liver enzymes and INR closely. GI team consult Nicotine patch Patient liver function is stable and cleared by GI team to be transferred to psych unit Patient is medically stable for transfer to psych unit Keep sitter at bedside with suicidal precautions Labs and medication were reviewed.. Continue same treatment. Continue with symptomatic treatment. Resume home medication. Monitor lytes and vitals. DVT and GI prophylaxis. Further recommendations depends on the clinical course of the patient DVT prophylaxis: Subcutaneous heparin GI Prophylaxis: Pepcid Prognosis is guarded
[2021-05-16 21:03] VITALS: BP 136/83; PULSE 81
[2021-05-16] MEDS: traZODone HCL 50 MG TAB PO SCH (21:04)
--- NOTE | 2021-05-19 10:30 | CDI ---
Documentation Clarification Form Date: 05/19/2021 09:19:00 AM From: Claudia Dorsey RN, CCDS Admit Date: 05/14/2021 09:23:00 AM Patient Name: Paulino Angel Visit Number: [id number] Discharge Date: 05/17/2021 12:18:00 AM ATTENTION: The Clinical Documentation Specialists (CDI) and [facility] Coding Staff appreciate your assistance in clarifying documentation. Please respond to the clarification below the line at the bottom and electronically sign. The CDI & [facility] Coding staff will review the response and follow-up if needed. Please note: Queries are made part of the Legal Health Record. If you have any questions, please contact the author of this message via ITS. Dr. Malin Sheet Elements of metabolic and/or toxic encephalopathy is documented in the addendum to the H/P, but is not noted in subsequent documentation. Clarification is requested. H/P and subsequent progress notes has Tylenol toxicity. History/Risk Factors: Hypertension Rheumatoid Arthritis, Anxiety, Bipolar, Depression, Prescription Drug abuse, marijuana, Opiates, Current smoker Clinical Indicators: 35-year-old female present with altered mental status per ED assessment. She admits to self-harm and took Fiorcet and Tylenol and other medication. She reports: depression, suicidal thoughts. General appearance: Alert, appears intoxicated Psychiatric exam: Manic (intoxicated and hypomanic) 05/15 GI Consults: Present after taking several Fioricet and other possible medications with complaints of lethargy and weakness. 05/14 07:07: Vital sign: 117/71 88 16 98 % RA 05/04 Labs: UDA: Acetaminophen 107.0, Barbiturates screen Detected, Benzodiazepines Detected, Marijuana Detected, Serum Alcohol <10 Treatment: Telemetry monitoring Neuro checks per protocol 1:1 sitter Mucomyst 14,000 MG PO Once STA then 7,000 MP PO Q 4 HRS (05/14-05/15) Please clarify if the Toxic encephalopathy due to medication overdose with Tylenol and Fioricet is: [ ] Toxic Encephalopathy, confirmed, resolved [ ] Toxic Encephalopathy, ruled out [ ] Other condition, please specify [ ] Unable to determine (Template Last Revised: December 2020) Toxic Encephalopathy, resolved MTDD
== END 2021-05-17 00:18 | DRG 917 ==
LOC: EC 06:49 → 3SCARD 09:23
PROVIDERS: ADMIT Internal Medicine; ATTEND Internal Medicine
DX: T39.1X2A Poisoning by 4-Aminophenol derivatives, intentional self-harm, initial encounter (principal); G92 Toxic encephalopathy; S40.819A Abrasion of unspecified upper arm, initial encounter; I10 Essential (primary) hypertension; M06.9 Rheumatoid arthritis, unspecified; M32.9 Systemic lupus erythematosus, unspecified; M34.9 Systemic sclerosis, unspecified; F17.210 Nicotine dependence, cigarettes, uncomplicated; F31.9 Bipolar disorder, unspecified; M54.5 Low back pain; K31.84 Gastroparesis; G89.29 Other chronic pain; F41.9 Anxiety disorder, unspecified; S93.401A Sprain of unspecified ligament of right ankle, initial encounter
CPT/HCPCS: 36415; 74176; 80053; 80143; 80179; 80306; 80320; 81025; 83735; 84703; 85025; 85610; 93005; 99285

== ENCOUNTER 2021-05-16 22:38 | Inpatient (IN) | payer MEDICAID ==
[2021-05-17] MEDS ORDERED: ACETAMINOPHEN TAB 325 MG TAB PO PRN (00:11)
[2021-05-17] MEDS ORDERED: MAGNESIUM HYDROXIDE 2,400 MG/10 ML CUP PO PRN (00:11)
[2021-05-17] MEDS ORDERED: MAG HYDROX/AL HYDROX/SIMETH 30 ML CUP PO PRN (00:11)
[2021-05-17] MEDS ORDERED: HALOPERIDOL LACTATE 5 MG/ML 1 ML VIAL IM PRN (00:13)
[2021-05-17] MEDS ORDERED: LORazepam 2 MG/ML INJ IM PRN (00:13)
[2021-05-17] MEDS ORDERED: haloperidoL 5 MG TAB PO PRN (00:13)
[2021-05-17] MEDS: CYCLOBENZAPRINE 5 MG TAB PO PRN ×4 (00:36→22:52)
[2021-05-17] MEDS: lamoTRIgine 25 MG TAB PO SCH ×2 (07:57→20:28)
[2021-05-17] MEDS: NICOTINE 14MG/24HR PATCH TRANSDERM SCH (07:58)
[2021-05-17] MEDS: Buprenorphine Hcl/Naloxone Hcl [Suboxone 8 Mg-2 Mg Sl Film] 1 EACH Fil SUBLINGUAL SCH ×2 (08:43→21:28)
--- NOTE | 2021-05-17 10:37 | P.HP ---
Psychiatric H&P - . H&P Date: 05/17/21 History & Physical: Allergies Allergy/AdvReac Type Severity Reaction Status Date / Time quetiapine From Seroquel Allergy Rash/Hives Verified 05/17/21 04:46 Vital Signs Temp 98.2 F 05/17/21 00:05 Pulse 88 05/17/21 00:05 Resp 16 05/17/21 00:05 BP 119/85 05/17/21 00:05 Pulse Ox 96 05/17/21 00:05 Intake & Output 05/16/21 05/17/21 05/17/21 18:59 06:59 18:59 Weight 84 kg 05/17/21 10:23 IDENTIFYING DATA: This patient is a 35-year-old female who currently lives with her [id number] and her in a house and has 1. She is currently unemployed. HISTORY OF PRESENT ILLNESS: The patient presented to the hospital initially after a overdose and apparently admitted in the ER that it was a suicide attempt. Patient also had admitted that she was causing abrasions on her arms. She admitted to taking 15 pills fiorcet and other medications. Patient's MCV was 105. Patient's UDS was positive for barbiturates benzodiazepines and THC. Patient's acetaminophen level was 107 on admission however has now improved to below 10. Patient was given Mucomyst for treatment. Patient received Haldol IM as a prn med for agitation. Patient's nurse claims the patient has not been endorsing any current suicidal thoughts however has been tearful. Patient was initially seen by publicity writer at the bedside for psychiatric consultation and was tearful at times and appeared to be irritable and rambling. She claims that "nothing's going on" and minimized her mental health history and also the reason why she came to the hospital. She states that she took 10-12 tablets of fiorcet for pain but states that she took it over a 12 hr time frame. At this time she claims that it was not a suicide attempt and was very confrontational and aggressive with publicity writer denying that it ever was. She states that she try to relax after watching TV with her son. She states that she is worried about her not coming home. She claims that after taking the medications she tried to walk down the stairs and fell down and her [id number] brought her in the hospital. She states that she became agitated in the hospital. She claims that she does not want to be admitted and showed very poor impulse control and a gitation. She claims that she has not been taking her psychiatric meds for a "long time" and claims that she has not been going to her [facility] appointments in quite some time. She said that she is currently depressed and anxious. She has very poor insight into her condition and need for treatment. After patient was transferred to the mental health unit, patient was seen again on the floor and agreeable to speak to publicity writer in the office for evaluation. She was more superficial today and appeared to have a brighter affect. She claims that she "messed up" and states that she should've been taking her medications. She claims that her mood feels still "unstable" however states that it has been getting better. She claims that she does have some anxiety during the day. She states that she could not sleep well last night. At this time patient denies any current suicidal or homical ideations, intent or plan. Patient denies any auditory, visual hallucinations and denies any paranoia or delusions. Patients admits to using cigarettes daily and opiates and marijuana. PAST PSYCHIATRIC HISTORY: Patient has a a history of depression and anxiety. Patient in the past was previously taking Haldol, Lamictal and trazodone. Patient has had multiple psychiatric hospitalizations in the past and her last admission was in January 2020. Patient denies any psychiatric outpatient follow- up. Patient denies any history of suicide attempts in the past. PAST MEDICAL HISTORY: Lupus, rheumatoid arthritis, hypertension ALLERGIES: as per EMR. CHEMICAL DEPENDENCY HISTORY: as per HPI. FAMILY PSYCHIATRIC/SUBSTANCE USE HISTORY: denies SOCIAL HISTORY: Patient was born and raised in [place] [facility] [place]. She states that she completed high school and did some college in psychology. 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 She states that she stopped working for her disability as she has lupus. She states that she went to group home briefly in the past for unpaid child support. She has 1 biological son. She lives in a house with her and her [id number]. MENTAL STATUS EXAM: General Appearance: Patient appears to be stated age is alert, directable, and attempts to cooperate. Patient appears to have improving hygiene and grooming. Behavior: Patient is seated without any agitated behavior. Speech: Patient's speech is fluent and nonpressured. Mood/Affect: Patient reports their mood is anxious depressed, improving, affect is congruent Suicidality/Homicidality: Patient denies having any homicidal ideation intent or plan. Denies any suicidal ideations intent or plan Perceptions: Patient denies any visual hallucinations and denies any auditory hallucinations Though content/process: There is no evidence of any delusional thought content and thought process is linear and goal-directed. Memory and concentration: AOX3, grossly intact for the purposes of this session. Can spell "WORLD" backwards Judgment and insight: poor STRENGTHS/WEAKNESSES: strength is that patient is resilient. Weakness is that patient has poor judgment and is impulsive INTELLECT: average IMPRESSIONS: Mood disorder unspecified, rule out bipolar disorder depressed versus major depressive disorder Anxiety disorder unspecified Cannabis use disorder Opiate abuse Nicotine dependence PLAN: -Patient is admitted under involuntary status to MHU for stabilization of psychiatric symptoms and safety. Patient has signed adult voluntary form and medication consent and is placed in patient's chart. A second certification was completed and along with petition will be filed for court. -Medications : Will start patient on Zyprexa 5 mg daily at bedtime for mood stabilization/insomnia. Lamictal 25 mg twice a day for mood stabilization/depression. -Ativan and Haldol PRN for agitation/aggression -Patient was counselled on substance abuse and desired to cut back on use -Patient was informed of the risks, benefits and side effects of the medication and patient verbally consented to taking the medications. Patient signed med consent form and was placed in chart. -Internal Medicine consult to perform medical evaluation and physical. -NRT - nicotine patch - on board for discharge planning. Encourage patient to participate in groups to work on coping skills. Will await deferral and court date. 05/17/21 11:45
[2021-05-17] MEDS: NICOTINE POLACRILEX 2 MG GUM BUCCAL PRN ×4 (11:01→22:52)
[2021-05-17] MEDS: LORazepam 1 MG TAB PO PRN ×2 (15:17→22:53)
[2021-05-17] MEDS ORDERED: traZODone HCL 50 MG TAB PO SCH (21:00)
[2021-05-17] MEDS ORDERED: OLANZapine 5 MG TAB PO SCH (21:00)
[2021-05-18] MEDS: CYCLOBENZAPRINE 5 MG TAB PO PRN ×3 (07:38→22:48)
[2021-05-18] MEDS: lamoTRIgine 25 MG TAB PO SCH ×2 (07:38→20:29)
[2021-05-18] MEDS: NICOTINE 14MG/24HR PATCH TRANSDERM SCH (07:38)
[2021-05-18] MEDS: Buprenorphine Hcl/Naloxone Hcl [Suboxone 8 Mg-2 Mg Sl Film] 1 EACH Fil SUBLINGUAL SCH ×2 (08:03→20:09)
[2021-05-18] MEDS: LORazepam 1 MG TAB PO PRN ×3 (09:18→22:48)
--- NOTE | 2021-05-18 11:27 | P.PN ---
Progress Note - Text Progress Note Date: 05/18/21 Interval History: Patient was seen wandering the hallways and was directable and agreeable to sp eak with appeals writer in the office. Patient was fairly persistent to speak with appeals writer today. She was fairly focused on discharge. She claims that her mood has been improving on the current medications. She states that she needed to take an Ativan last night to go to sleep however did claim that the Zyprexa is helping her. She was agreeable to have her Zyprexa increased to 7-1/2 mg tonight. She states that she does miss her family and plans on signing a deferral tomorrow with her [place] attorney. She claims that she has been going to groups and notices the difference being on medications. At this time patient denies any suicidal or homical ideations, intent or plan. Patient denies any auditory, visual hallucinations and denies any paranoia or delusions. Patient denies any side effects from the medications and has been compliant with meds. Mental Status Exam: General Appearance: Patient appears to be stated age is alert, directable, and attempts to cooperate. Patient appears to have improving hygiene and grooming. Behavior: Patient is seated without any agitated behavior. Speech: Patient's speech is fluent and nonpressured. Mood/Affect: Patient reports their mood is improving, affect is congruent Suicidality/Homicidality: Patient denies having any homicidal ideation intent or plan. Denies any suicidal ideations intent or plan Perceptions: Patient denies any visual hallucinations and denies any auditory hallucinations Though content/process: There is no evidence of any delusional thought content and thought process is linear and goal-directed. Focused on discharge. Memory and concentration: AOX3, grossly intact for the purposes of this session Judgment and insight: Improving mildly Assessment Mood disorder unspecified, rule out bipolar disorder depressed versus major depressive disorder Anxiety disorder unspecified Cannabis use disorder Opiate abuse Nicotine dependence Plan: -Patient continues to meet criteria for inpatient psychiatric admission for symptom stabilization and safety. Patient has signed medication consent and was placed in patient's chart. -Medications: Increase Zyprexa to 700 mg daily at bedtime for mood stabilization/insomnia. Continue with Lamictal 25 mg twice a day for mood stabilization/depression. -When necessary Ativan and Haldol for agitation/aggression. -NRT - nicotine patch -SW on board for discharge planning. Encouraged the patient to participate in milieu. She has a deferral with her [place] attorney tomorrow at 1 PM. If patient defers then likely discharge tomorrow back home.
--- NOTE | 2021-05-18 14:17 | P.HPMEDMHU ---
History of Present Illness H&P Date: 05/18/21 History of Presenting Illness: Patient is a 35-year-old female with a past medical history of anxiety, rheumatoid arthritis, hypertension, asthma/COPD, nicotine dependence smoking one pack of cigarettes daily, and daily marijuana use. She is currently admitted to the inpatient mental health unit after a suicide attempt with intentional overdose with ingestion of medications including 15 Fioricet pills and other medications. Urine drug screen positive for barbiturates, benzos, and marijuana. We have been consulted for medical management of this patient during her admission to the psychiatric unit. Upon assessment, patient alert and oriented to person place time and situation. She denied having any pain or complaints at this time including headache, lightheadedness, dizziness, changes in her vision or hearing, chest pain or palpitations, shortness of breath, dyspnea with exertion, abdominal pain, nausea, vomiting, or experiencing any numbness/tingling/weakness in her extremities. She does report feeling some anxiety and did confirm intentional ingestion of medications was done in a suicide attempt, however patient currently denies having suicidal or homicidal ideations. Patient denies having any visual, auditory, or tactile hallucin ations. Review of systems: Pertinent positives and negatives as discussed in HPI, a complete review of systems was performed and all other systems are negative. Physical exam: Vital signs reviewed and stable. General: Nontoxic, no distress and appears stated age. Derm: Skin warm and dry, normal coloration for ethnicity. Head: Atraumatic, normocephalic and symmetric. Eyes: EOMs intact, no lid lag, and anicteric sclera Mouth: no lip lesions, mucus membranes moist Cardiovascular: regular rate and rhythm with normal S1S2, no murmur, positive posterior tibial pulses bilaterally, and cap refill < 2 seconds. Lungs: Respirations even, regular, and unlabored on room air. Lungs CTA bilaterally, no rhonchi, no rales, no wheezing, and no accessory muscle usage. Abdominal: soft, nontender to palpation, no guarding, no appreciable organomegaly Ext: ROM intact. No gross muscle atrophy, no edema, no contractures Neuro: Speech clear, face symmetrical and CN II-XII grossly intact with no noted focal neuro deficits Psych: Alert and oriented to person, place, time, and situation. Appropriate and pleasant affect. Assessment and Plan of Care: Suicidal attempt with intentional overdose via ingestion of medications -Suicidal precautions -Management per primary admitting psychiatric team. Asthma/COPD -Ventolin inhaler every 4 hours as needed for shortness of breath. -Continued encouragement and education on the importance of smoking cessation and the risks of continued use. Hypertension -Monitor vital signs. Patient currently not on any antihypertensive medications and blood pressure within normal range. Rheumatoid arthritis -Symptomatic care and pain management. -Flexeril for muscle spasms. Nicotine dependence -Patient to continue to receive education and encouragement on the benefits of smoking cessation and the risks of continued use. -Nicotine patch Other conditions include: Cannabis use disorder and anxiety Thank you for allowing us to participate in the care of this pleasant patient. Do not hesitate to contact us with questions. Someone can be reached from the [facility] hospitalist group all hours of the day at [phone] or via [employer]. Past Medical History Past Medical History: Hypertension, Rheumatoid Arthritis (RA) Additional Past Medical History / Comment(s): TUBAL PREGANCY, chronic back pain, scleraderma, lupus, ddd History of Any Multi-Drug Resistant Organisms: MRSA Date of last positivie culture/infection: 07/01/16 MDRO Source:: RIGHT WRIST Past Surgical History: Section, Tonsillectomy Additional Past Surgical History / Comment(s): LAPROSCOPY Past Anesthesia/Blood Transfusion Reactions: No Reported Reaction Past Psychological History: Anxiety, Bipolar, Depression Smoking Status: Current every day smoker Past Alcohol Use History: None Reported Past Drug Use History: Marijuana, Opiates, Prescription Drug Abuse Medications and Allergies Home Medications Medication Instructions Recorded Confirmed Type Buprenorphine HCl/Naloxone HCl 1 film SUBLINGUAL BID 10/14/20 05/14/21 History [Suboxone 8 mg-2 mg Sl Film] Butalb/APAP/Caff 50-325-40Mg 1 tab PO Q6H PRN 10/14/20 05/14/21 History [Fioricet 50-325-40] Cyclobenzaprine [Flexeril] 5 mg PO TID PRN 10/14/20 05/14/21 History Albuterol Sulfate [Proair Hfa] 2 puff INHALATION RT-Q4H PRN 05/14/21 05/14/21 History Allergies Allergy/AdvReac Type Severity Reaction Status Date / Time quetiapine [From Seroquel] Allergy Rash/Hives Verified 05/17/21 04:46 Physical Exam Vitals: Vital Signs Pulse BP 05/17/21 15:19 101 H 120/78 Cranial Nerve Examination - Cranial Nerves Cranial Nerve II- Optic: Intact Cranial Nerve III- Oculomotor: Intact Cranial Nerve IV- Trochlear: Intact Cranial Nerve V- Trigeminal: Intact Cranial Nerve - Abducens: Intact Cranial Nerve VII- Facial: Intact Cranial Nerve VIII- Auditory: Intact Cranial Nerve IX- Glossopharyngeal: Intact Cranial Nerve X- Vagus: Intact Cranial Nerve XI- Accessory: Intact Cranial Nerve XII- Hypoglossal: Intact Thrombosis Risk Factor Assmnt - Choose All That Apply Any of the Below Risk Factors Present?: No
[2021-05-18] MEDS: ALBUTEROL HFA INHALER INHALATION PRN (16:36)
[2021-05-18] MEDS: NICOTINE POLACRILEX 2 MG GUM BUCCAL PRN (20:30)
[2021-05-18] MEDS ORDERED: OLANZapine 2.5 MG TAB PO SCH (21:00)
[2021-05-19 06:59] VITALS: RESP 18; TEMP 98
[2021-05-19] MEDS: Buprenorphine Hcl/Naloxone Hcl [Suboxone 8 Mg-2 Mg Sl Film] 1 EACH Fil SUBLINGUAL SCH (08:15)
[2021-05-19] MEDS: lamoTRIgine 25 MG TAB PO SCH (08:15)
[2021-05-19] MEDS: NICOTINE 14MG/24HR PATCH TRANSDERM SCH (08:17)
[2021-05-19] MEDS: NICOTINE POLACRILEX 2 MG GUM BUCCAL PRN (08:17)
[2021-05-19] MEDS: CYCLOBENZAPRINE 5 MG TAB PO PRN (08:17)
[2021-05-19] MEDS ORDERED: BUTALB/APAP/CAFF 50-325-40MG TAB PO PRN (09:09)
[2021-05-19] MEDS: LORazepam 1 MG TAB PO PRN (09:49)
[2021-05-19 09:51] VITALS: BP 143/83; PULSE 104
--- NOTE | 2021-05-19 11:20 | P.DS ---
Providers Date of admission: 05/16/21 23:58 Expected date of discharge: 05/19/21 Attending physician: Lei Monroy MD Consults: 05/17/21 00:11 Consult Physician Routine Consulting Provider: Chaparro Physician Consult Reason/Comments: H&P and medical Do you want consulting provider notified?: Yes Primary care physician: Sukh Wilkerson - Discharge Diagnosis(es) (1) Bipolar disorder current episode depressed Current Visit: Yes Status: Acute Priority: High (2) Anxiety disorder, unspecified Current Visit: Yes Status: Acute Priority: Medium (3) Cannabis use disorder, mild, abuse Current Visit: Yes Status: Acute Priority: Medium (4) Opioid abuse Current Visit: Yes Status: Acute Priority: Medium (5) Nicotine dependence Current Visit: Yes Status: Acute Priority: Low Hospital Course: Admission HPI: Admission note was completed by manual writer "This patient is a 35-year-old female who currently lives with her [id number] and her in a house and has 1. She is currently unemployed. The patient presented to the hospital initially after a overdose and apparently admitted in the ER that it was a suicide attempt. Patient also had admitted that she was causing abrasions on her arms. She admitted to taking 15 pills fiorcet and other medications. Patient's MCV was 105. Patient's UDS was positive for barbiturates benzodiazepines and THC. Patient's acetaminophen level was 107 on admission however has now improved to below 10. Patient was given Mucomyst for treatment. Patient received Haldol IM as a prn med for agitation. Patient's nurse claims the patient has not been endorsing any current suicidal thoughts however has been tearful. Patient was initially seen by manual writer at the bedside for psychiatric consultation and was tearful at times and appeared to be irritable and rambling. She claims that "nothing's going on" and minimized her mental health history and also the reason why she came to the hospital. She states that she took 10-12 tablets of fiorcet for pain but states that she took it over a 12 hr time frame. At this time she claims that it was not a suicide attempt and was very confrontational and aggressive with manual writer denying that it ever was. She states that she try to relax after watching TV with her son. She states that she is worried about her not coming home. She claims that after taking the medications she tried to walk down the stairs and fell down and her [id number] brought her in the hospital. She states that she became agitated in the hospital. She claims that she does not want to be admitted and showed very poor impulse control and agitation. She claims that she has not been taking her psychiatric meds for a "long time" and claims that she has not been going to her [facility] appointments in quite some time. She said that she is currently depressed and anxious. She has very poor insight into her condition and need for treatment. After patient was transferred to the mental health unit, patient was seen again on the floor and agreeable to speak to manual writer in the office for evaluation. She was more superficial today and appeared to have a brighter affect. She claims that she "messed up" and states that she should've been taking her medications. She claims that her mood feels still "unstable" however states that it has been getting better. She claims that she does have some anxiety during the day. She states that she could not sleep well last night. At this time patient denies any current suicidal or homical ideations, intent or plan. Patient denies any auditory, visual hallucinations and denies any paranoia or delusions. Patients admits to using cigarettes daily and opiates and marijuana." Hospital course: Upon admission to the unit patient was initially depressed and anxious. Patient was however admitted involuntarily and filed with the court. Patient ended up meeting with trial attorney on day of discharge and deferred court and was agreeable to treatment. Patient got along well with other patients on the unit and followed unit protocol. Patient was compliant with the medications and denied any side effects throughout hospital course. Patient was started on Zyprexa and increased to a dose of 7.5 mg daily at bedtime for mood stabilization/insomnia. Patient was also started on Lamictal 25 mg twice a day for mood stabilization/depression. Patient spoke of her stressors and engaged in therapy both group and individual. Patient was also seen by medical team for history and physical exam. Throughout the course of the hospitalization patient gradually improved with regards to mood, anxiety, sleep and became more future oriented with improved insight and judgment. On the day of discharge patient denied any suicidal or homicidal ideations intent or plan denied any auditory or visual hallucinations. Patient endorsed wanting to live for her family and her future. The patient denied any access to guns or weapons. Patient denied any paranoia and did not endorse any delusions. Patient does have a significant history of substance abuse and was counseled on abstaining from all substances including alcohol and marijuana.Patient was offered however declined inpatient substance-abuse rehab. Patient elected to do outpatient substance use treatment program through [facility]. Patient was also counseled on the medications and need for regular compliance and was encouraged to follow-up with their outpatient appointment for mental health and also for primary care. Prior to discharge a family meeting will be arranged by social services to answer any questions and ensure safety upon discharge. Mental status exam: General Appearance: Patient appears to be stated age is alert, pleasant, and cooperative. Patient is in no acute distress and has improved hygiene and grooming Behavior: Patient is calmly seated without any agitated behavior. Speech: Patient's speech is fluent and nonpressured. Mood/Affect: Patient reports their mood is "better", affect is congruent and euthymic. Suicidality/Homicidality: Patient denies having any suicidal or homicidal ideation intent or plan. Perceptions: Patient denies any auditory or visual hallucinations. Though content/process: There is no evidence of any delusional thought content and thought process is linear and goal-directed. more future oriented Memory and concentration: AOX3, grossly intact for the purposes of this session. Can spell "WORLD" backwards correctly. Judgment and insight: chronically poor, however has improved with guarded prognosis Impression: Bipolar disorder, currently depressed Anxiety disorder unspecified Cannabis use disorder Opioid abuse Nicotine dependence Plan: -Continue with discharge today as patient has improved and stabilized psychiatrically and is not currently an imminent threat to herself and/or others. Patient will remain at chronically elevated risk for harm to self and/or others due to her impulsivity and polysubstance abuse. -Continue medications: Zyprexa 7.5 mg daily at bedtime for mood stabilization/insomnia. Melatonin 6 mg daily at bedtime for insomnia. Lamictal 25 mg twice a day for mood stabilization/depression. Informed patient to monitor for any rash and to seek urgent medical attention if this does occur as it is a side effect of Lamictal, she verbally understood and agreed. -Patient was counseled on the need for medication compliance and appropriate follow-up at mental health and also primary care for medical issues. Patient verbalized understanding and agreed. -Social work to arrange for and conduct family meeting to ensure safety upon discharge and answer any questions/concerns. Social work also to arrange for patients follow up appointments with [facility] for psychiatric care along with follow up with primary care provider. -Patient counseled on abstaining from recreational drugs and marijuana and alcohol. Was informed/educated on the adverse effects on their physical and mental health. Patient verbally agreed and understood. Patient was offered substance abuse treatment however declined at this time. -Patient was instructed to return to the hospital or seek immediate medical care if their psychiatric or medical symptoms do worsen or reoccur. Allergies Allergy/AdvReac Type Severity Reaction Status Date / Time quetiapine [From Seroquel] Allergy Rash/Hives Verified 05/17/21 04:46 Vital Signs Temp 98.0 F 05/19/21 06:41 Pulse 104 H 05/19/21 09:50 Resp 18 05/19/21 06:41 BP 143/83 05/19/21 09:50 Pulse Ox 96 05/17/21 00:05 Patient Condition at Discharge: Stable Plan - Discharge Summary Discharge Rx Participant: No New Discharge Prescriptions: New Melatonin 6 mg PO HS 30 Days tablet Nicotine Polacrilex [Nicorette] 2 mg BUCCAL Q4HR PRN 28 Days gum PRN Reason: Nicotine Cravings OLANZapine [ZyPREXA] 7.5 mg PO HS 30 Days tablet lamoTRIgine [LaMICtal] 25 mg PO BID 30 Days tab Continue Cyclobenzaprine [Flexeril] 5 mg PO TID PRN PRN Reason: Muscle Spasm Buprenorphine HCl/Naloxone HCl [Suboxone 8 mg-2 mg Sl Film] 1 film SUBLINGUAL BID Butalb/APAP/Caff 50-325-40Mg [Fioricet 50-325-40] 1 tab PO Q6H PRN PRN Reason: Migraine Headache Albuterol Sulfate [Proair Hfa] 2 puff INHALATION RT-Q4H PRN PRN Reason: Shortness Of Breath Discharge Medication List Buprenorphine HCl/Naloxone HCl [Suboxone 8 mg-2 mg Sl Film] 1 film SUBLINGUAL BID 10/14/20 [History] Butalb/APAP/Caff 50-325-40Mg [Fioricet 50-325-40] 1 tab PO Q6H PRN 10/14/20 [History] Cyclobenzaprine [Flexeril] 5 mg PO TID PRN 10/14/20 [History] Albuterol Sulfate [Proair Hfa] 2 puff INHALATION RT-Q4H PRN 05/14/21 [History] Melatonin 6 mg PO HS 30 Days tablet 05/19/21 [Rx] Nicotine Polacrilex [Nicorette] 2 mg BUCCAL Q4HR PRN 28 Days gum 05/19/21 [Rx] OLANZapine [ZyPREXA] 7.5 mg PO HS 30 Days tablet 05/19/21 [Rx] lamoTRIgine [LaMICtal] 25 mg PO BID 30 Days tab 05/19/21 [Rx] Follow up Appointment(s)/Referral(s): Other, other [Other] - 05/23/21 12:30 pm [facility] [NON-STAFF] - 1 Week Patient Instructions/Handouts: How to Stop Smoking (DC), Depression (DC) Activity/Diet/Wound Care/Special Instructions: Activity and diet as tolerated. Avoid the use of street drugs and alcohol. Take all medications as prescribed. When you are in need of refills on your medications please contact your medical provider and/or outpatient psychiatrist to have this done. Please go to scheduled outpatient appointment for aftercare treatment. If symptoms return or become worse, call the crisis line at and/or go to the nearest emergency room for evaluation. Discharge Disposition: HOME SELF-CARE
[2021-05-19] MEDS: ALBUTEROL HFA INHALER INHALATION PRN (11:38)
[2021-05-19] MEDS ORDERED: MELATONIN 3 MG TABLET PO SCH (21:00)
== END 2021-05-19 13:55 | disposition home or self-care (01) | DRG 918 ==
LOC: 3MHU 23:58
PROVIDERS: ADMIT Psychiatry & Neurology Psychiatry; ATTEND Psychiatry & Neurology Psychiatry
DX: T50.902A Poisoning by unspecified drugs, medicaments and biological substances, intentional self-harm, initial encounter (principal); F31.30 Bipolar disorder, current episode depressed, mild or moderate severity, unspecified; I10 Essential (primary) hypertension; M06.9 Rheumatoid arthritis, unspecified; S40.812A Abrasion of left upper arm, initial encounter; S40.811A Abrasion of right upper arm, initial encounter; G47.00 Insomnia, unspecified; F41.9 Anxiety disorder, unspecified; F12.10 Cannabis abuse, uncomplicated; F11.10 Opioid abuse, uncomplicated; F17.210 Nicotine dependence, cigarettes, uncomplicated; Z79.899 Other long term (current) drug therapy; Z71.6 Tobacco abuse counseling; Z71.51 Drug abuse counseling and surveillance of drug abuser

== ENCOUNTER 2022-02-10 23:49 | Observation (INO) | payer OTHER ==
[2022-02-11] MEDS ORDERED: SODIUM CHLORIDE 0.9% 1,000 ML IV ONE (00:27)
[2022-02-11 01:09] LABS: Calcium 9.3 mg/dL (8.4-10.2); Magnesium 1.8 mg/dL (1.6-2.3); Total Bilirubin 0.3 mg/dL (0.2-1.3); Total Protein 7.2 g/dL (6.3-8.2)
--- NOTE | 2022-02-11 01:12 | XR ---
EXAMINATION TYPE: XR chest 2V DATE OF EXAM: 02/11/2022 COMPARISON: 08/21/2017 HISTORY: Chest pain TECHNIQUE: FINDINGS: Heart and mediastinum are normal. Lungs are clear. Diaphragm is normal. Bony thorax appears normal. IMPRESSION: Normal chest. No change.
--- NOTE | 2022-02-11 01:20 | ED ---
General Adult HPI - General Chief complaint: Chest Pain Stated complaint: Chest Pain, Shortness of Breath Time Seen by Provider: 02/11/22 00:11 Source: patient, RN notes reviewed, old records reviewed Mode of arrival: ambulatory - History of Present Illness Initial comments: 36-year-old female presenting with palpitations, racing heart, and lightheaded sensation. Patient states she has a history of tachycardia and atrial fibrillation. She is currently on lisinopril. She denies illicit drug use. Denies alcohol. She denies abdominal pain. She denies vomiting. She denies dysuria or hematuria. - Related Data Home Medications Medication Instructions Recorded Confirmed Buprenorphine HCl/Naloxone HCl 1 film SUBLINGUAL BID 10/14/20 05/14/21 [Suboxone 8 mg-2 mg Sl Film] Butalb/APAP/Caff 50-325-40Mg 1 tab PO Q6H PRN 10/14/20 05/14/21 [Fioricet 50-325-40] Cyclobenzaprine [Flexeril] 5 mg PO TID PRN 10/14/20 05/14/21 Albuterol Sulfate [Proair Hfa] 2 puff INHALATION RT-Q4H PRN 05/14/21 05/14/21 Previous Rx's Medication Instructions Recorded Melatonin 6 mg PO HS 30 Days tablet 05/19/21 Nicotine Gum (Polacrilex) 2 mg BUCCAL Q4HR PRN 28 Days gum 05/19/21 [Nicorette] OLANZapine [ZyPREXA] 7.5 mg PO HS 30 Days tablet 05/19/21 lamoTRIgine [LaMICtal] 25 mg PO BID 30 Days tab 05/19/21 Allergies Allergy/AdvReac Type Severity Reaction Status Date / Time quetiapine [From Seroquel] Allergy Rash/Hives Verified 02/11/22 00:06 Review of Systems ROS Statement: Those systems with pertinent positive or pertinent negative responses have been documented in the HPI. ROS Other: All systems not noted in ROS Statement are negative. Past Medical History Past Medical History: Atrial Fibrillation, Hypertension, Rheumatoid Arthritis (RA) Additional Past Medical History / Comment(s): TUBAL PREGANCY, chronic back pain, scleraderma, lupus, ddd History of Any Multi-Drug Resistant Organisms: MRSA Date of last positivie culture/infection: 07/01/16 MDRO Source:: RIGHT WRIST Past Surgical History: Section, Tonsillectomy Additional Past Surgical History / Comment(s): LAPROSCOPY Past Anesthesia/Blood Transfusion Reactions: No Reported Reaction Past Psychological History: Anxiety, Bipolar, Depression Smoking Status: Current every day smoker Past Alcohol Use History: None Reported Past Drug Use History: Marijuana, Opiates, Prescription Drug Abuse General Exam General appearance: alert, in no apparent distress Head exam: Present: atraumatic, normocephalic Eye exam: Present: normal appearance, PERRL ENT exam: Present: mucous membranes dry Neck exam: Present: normal inspection. Absent: tenderness, meningismus Respiratory exam: Present: normal lung sounds bilaterally. Absent: respiratory distress, wheezes Cardiovascular Exam: Present: normal rhythm, tachycardia GI/Abdominal exam: Present: soft. Absent: distended, tenderness, guarding Extremities exam: Present: normal inspection, normal capillary refill. Absent: pedal edema Neurological exam: Present: alert, oriented X3, CN II-XII intact. Absent: motor sensory deficit Psychiatric exam: Present: normal affect, normal mood Skin exam: Present: warm, dry, intact. Absent: cyanosis, diaphoretic Course Vital Signs 02/11/22 02/11/22 02/11/22 00:01 00:51 02:28 Temperature 98 F Pulse Rate 141 H 125 H 112 H Respiratory 19 18 18 Rate Blood Pressure 95/67 106/76 122/74 O2 Sat by Pulse 100 98 97 Oximetry - Reevaluation(s) Reevaluation #1: 02/11/22 03:16 Heart rate significantly improved with hydration. EKG Findings - EKG Comments: EKG Findings:: EKG: Sinus tachycardia, rate of 132, HI interval 126, QRS du ration 86, QTC 4080 ST segment elevation. Medical Decision Making - Medical Decision Making 36 yo female presenting with chief complaint of palpitations, lightheadedness. Patient is tachycardic to 130s. Blood pressure is normal but on the low side of normal. She has leukocytosis 16.0. She has a mild acute kidney injury with a creatinine of 1.37. She has a negative d-dimer. Her initial troponin is 0.04. I suspect this is from demand secondary to tachycardia. This level will be trended. She has a urinalysis consistent with UTI. Her tachycardia improves with IV hydration and IV antibiotics. Blood cultures are obtained. She will be admitted for continued IV hydration and IV antibiotics awaiting culture results. - Lab Data Result diagrams: 02/11/22 00:43 02/11/22 00:43 Lab Results 02/11/22 02/11/22 02/11/22 Range/Units 00:43 00:43 00:43 WBC 16.0 H (3.8-10.6) k/uL RBC 4.20 (3.80-5.40) m/uL Hgb 15.0 (11.4-16.0) gm/dL Hct 46.1 H (34.0-46.0) % MCV 109.7 H (80.0-100.0) fL MCH 35.6 H (25.0-35.0) pg MCHC 32.5 (31.0-37.0) g/dL RDW 12.9 (11.5-15.5) % Plt Count 338 (150-450) k/uL MPV 7.6 Neutrophils % 76 % Lymphocytes % 16 % Monocytes % 4 % Eosinophils % 1 % Basophils % 1 % Neutrophils # 12.2 H (1.3-7.7) k/uL Lymphocytes # 2.6 (1.0-4.8) k/uL Monocytes # 0.7 (0-1.0) k/uL Eosinophils # 0.1 (0-0.7) k/uL Basophils # 0.1 (0-0.2) k/uL Manual Slide Review Performed Large Platelets Present Poikilocytosis (manual Present Anisocytosis (manual) Present Macrocytosis Marked A PT 10.7 (9.0-12.0) sec INR 1.0 (<1.2) APTT 23.6 (22.0-30.0) sec D-Dimer 0.21 (<0.60) mg/L FEU Sodium 139 (137-145) mmol/L Potassium 4.0 (3.5-5.1) mmol/L Chloride 107 (98-107) mmol/L Carbon Dioxide 20 L (22-30) mmol/L Anion Gap 12 mmol/L BUN 22 H (7-17) mg/dL Creatinine 1.37 H (0.52-1.04) mg/dL Est GFR (CKD-EPI)AfAm 57 (>60 ml/min/1.73 sqM) Est GFR (CKD-EPI)NonAf 50 (>60 ml/min/1.73 sqM) Glucose 122 H (74-99) mg/dL Plasma Lactic Acid Flex (0.7-2.0) mmol/L Calcium 9.3 (8.4-10.2) mg/dL Magnesium 1.8 (1.6-2.3) mg/dL Total Bilirubin 0.3 (0.2-1.3) mg/dL AST 23 (14-36) U/L ALT 14 (4-34) U/L Alkaline Phosphatase 83 (38-126) U/L Troponin I (0.000-0.034) ng/mL Total Protein 7.2 (6.3-8.2) g/dL Albumin 4.0 (3.5-5.0) g/dL Lipase 371 H (23-300) U/L Urine Color Urine Appearance (Clear) Urine pH (5.0-8.0) Ur Specific [place] (1.001-1.035) Urine Protein (Negative) Urine Glucose (UA) (Negative) Urine Ketones (Negative) Urine Blood (Negative) Urine Nitrite (Negative) Urine Bilirubin (Negative) Urine Urobilinogen (<2.0) mg/dL Ur Leukocyte Esterase (Negative) Urine RBC (0-5) /hpf Urine WBC (0-5) /hpf Urine WBC Clumps (None) /hpf Ur Squamous Epith Cells (0-4) /hpf Urine Bacteria (None) /hpf Hyaline Casts (0-2) /lpf Urine Mucus (None) /hpf Urine HCG, Qual (Not Detectd) Urine Opiates Screen (NotDetected) Ur Oxycodone Screen (NotDetected) Urine Methadone Screen (NotDetected) Ur Propoxyphene Screen (NotDetected) Ur Barbiturates Screen (NotDetected) U Tricyclic Antidepress (NotDetected) Ur Phencyclidine Scrn (NotDetected) Ur Amphetamines Screen (NotDetected) U Methamphetamines Scrn (NotDetected) U Benzodiazepines Scrn (NotDetected) Urine Cocaine Screen (NotDetected) U Marijuana (THC) Screen (NotDetected) 02/11/22 02/11/22 02/11/22 Range/Units 00:43 00:43 00:43 WBC (3.8-10.6) k/uL RBC (3.80-5.40) m/uL Hgb (11.4-16.0) gm/dL Hct (34.0-46.0) % MCV (80.0-100.0) fL MCH (25.0-35.0) pg MCHC (31.0-37.0) g/dL RDW (11.5-15.5) % Plt Count (150-450) k/uL MPV Neutrophils % % Lymphocytes % % Monocytes % % Eosinophils % % Basophils % % Neutrophils # (1.3-7.7) k/uL Lymphocytes # (1.0-4.8) k/uL Monocytes # (0-1.0) k/uL Eosinophils # (0-0.7) k/uL Basophils # (0-0.2) k/uL Manual Slide Review Large Platelets Poikilocytosis (manual Anisocytosis (manual) Macrocytosis PT (9.0-12.0) sec INR (<1.2) APTT (22.0-30.0) sec D-Dimer (<0.60) mg/L FEU Sodium (137-145) mmol/L Potassium (3.5-5.1) mmol/L Chloride (98-107) mmol/L Carbon Dioxide (22-30) mmol/L Anion Gap mmol/L BUN (7-17) mg/dL Creatinine (0.52-1.04) mg/dL Est GFR (CKD-EPI)AfAm (>60 ml/min/1.73 sqM) Est GFR (CKD-EPI)NonAf (>60 ml/min/1.73 sqM) Glucose (74-99) mg/dL Plasma Lactic Acid Flex (0.7-2.0) mmol/L Calcium (8.4-10.2) mg/dL Magnesium (1.6-2.3) mg/dL Total Bilirubin (0.2-1.3) mg/dL AST (14-36) U/L ALT (4-34) U/L Alkaline Phosphatase (38-126) U/L Troponin I 0.040 H* (0.000-0.034) ng/mL Total Protein (6.3-8.2) g/dL Albumin (3.5-5.0) g/dL Lipase (23-300) U/L Urine Color Yellow Urine Appearance Turbid H (Clear) Urine pH 5.5 (5.0-8.0) Ur Specific [place] 1.033 (1.001-1.035) Urine Protein 1+ H (Negative) Urine Glucose (UA) Negative (Negative) Urine Ketones Negative (Negative) Urine Blood Small H (Negative) Urine Nitrite Negative (Negative) Urine Bilirubin Negative (Negative) Urine Urobilinogen 2.0 (<2.0) mg/dL Ur Leukocyte Esterase Large H (Negative) Urine RBC 45 H (0-5) /hpf Urine WBC >182 H (0-5) /hpf Urine WBC Clumps Moderate H (None) /hpf Ur Squamous Epith Cells 73 H (0-4) /hpf Urine Bacteria Rare H (None) /hpf Hyaline Casts 10 H (0-2) /lpf Urine Mucus Occasional H (None) /hpf Urine HCG, Qual Not Detected (Not Detectd) Urine Opiates Screen (NotDetected) Ur Oxycodone Screen (NotDetected) Urine Methadone Screen (NotDetected) Ur Propoxyphene Screen (NotDetected) Ur Barbiturates Screen (NotDetected) U Tricyclic Antidepress (NotDetected) Ur Phencyclidine Scrn (NotDetected) Ur Amphetamines Screen (NotDetected) U Methamphetamines Scrn (NotDetected) U Benzodiazepines Scrn (NotDetected) Urine Cocaine Screen (NotDetected) U Marijuana (THC) Screen (NotDetected) 02/11/22 02/11/22 02/11/22 Range/Units 00:43 02:37 03:15 WBC (3.8-10.6) k/uL RBC (3.80-5.40) m/uL Hgb (11.4-16.0) gm/dL Hct (34.0-46.0) % MCV (80.0-100.0) fL MCH (25.0-35.0) pg MCHC (31.0-37.0) g/dL RDW (11.5-15.5) % Plt Count (150-450) k/uL MPV Neutrophils % % Lymphocytes % % Monocytes % % Eosinophils % % Basophils % % Neutrophils # (1.3-7.7) k/uL Lymphocytes # (1.0-4.8) k/uL Monocytes # (0-1.0) k/uL Eosinophils # (0-0.7) k/uL Basophils # (0-0.2) k/uL Manual Slide Review Large Platelets Poikilocytosis (manual Anisocytosis (manual) Macrocytosis PT (9.0-12.0) sec INR (<1.2) APTT (22.0-30.0) sec D-Dimer (<0.60) mg/L FEU Sodium (137-145) mmol/L Potassium (3.5-5.1) mmol/L Chloride (98-107) mmol/L Carbon Dioxide (22-30) mmol/L Anion Gap mmol/L BUN (7-17) mg/dL Creatinine (0.52-1.04) mg/dL Est GFR (CKD-EPI)AfAm (>60 ml/min/1.73 sqM) Est GFR (CKD-EPI)NonAf (>60 ml/min/1.73 sqM) Glucose (74-99) mg/dL Plasma Lactic Acid Flex 2.8 H* (0.7-2.0) mmol/L Calcium (8.4-10.2) mg/dL Magnesium (1.6-2.3) mg/dL Total Bilirubin (0.2-1.3) mg/dL AST (14-36) U/L ALT (4-34) U/L Alkaline Phosphatase (38-126) U/L Troponin I 0.041 H* (0.000-0.034) ng/mL Total Protein (6.3-8.2) g/dL Albumin (3.5-5.0) g/dL Lipase (23-300) U/L Urine Color Urine Appearance (Clear) Urine pH (5.0-8.0) Ur Specific [place] (1.001-1.035) Urine Protein (Negative) Urine Glucose (UA) (Negative) Urine Ketones (Negative) Urine Blood (Negative) Urine Nitrite (Negative) Urine Bilirubin (Negative) Urine Urobilinogen (<2.0) mg/dL Ur Leukocyte Esterase (Negative) Urine RBC (0-5) /hpf Urine WBC (0-5) /hpf Urine WBC Clumps (None) /hpf Ur Squamous Epith Cells (0-4) /hpf Urine Bacteria (None) /hpf Hyaline Casts (0-2) /lpf Urine Mucus (None) /hpf Urine HCG, Qual (Not Detectd) Urine Opiates Screen Not Detected (NotDetected) Ur Oxycodone Screen Not Detected (NotDetected) Urine Methadone Screen Not Detected (NotDetected) Ur Propoxyphene Screen Not Detected (NotDetected) Ur Barbiturates Screen Detected H (NotDetected) U Tricyclic Antidepress Detected H (NotDetected) Ur Phencyclidine Scrn Not Detected (NotDetected) Ur Amphetamines Screen Not Detected (NotDetected) U Methamphetamines Scrn Not Detected (NotDetected) U Benzodiazepines Scrn Not Detected (NotDetected) Urine Cocaine Screen Not Detected (NotDetected) U Marijuana (THC) Screen Detected H (NotDetected) Disposition Clinical Impression: Sepsis secondary to UTI, Troponin level elevated Disposition: ADMITTED IP TO THIS [facility] Condition: Stable Is patient prescribed a controlled substance at d/c from ED?: No Referrals: Sukh Wilkerson MD [Primary Care Provider] - 1-2 days Time of Disposition: 03:10
[2022-02-11 01:21] LABS: Appearance,Urine Turbid (Clear); Bacteria,Urine Rare /hpf; Bilirubin,Urine Negative (Negative); Blood,Urine Small (Negative); Color,Urine Yellow; Glucose,Urine (UA) Negative (Negative); Hyaline Casts,Urine 10 /lpf (0-2); Ketones,Urine Negative (Negative); Leukocyte Esterase,Urine Large (Negative); Mucus,Urine Occasional /hpf; Nitrite,Urine Negative (Negative); PH, Urine 5.5 (5.0-8.0); Protein,Urine 1+ (Negative); RBC,Urine 45 /hpf (0-5); Specific Gravity,Urine 1.033 (1.001-1.035); Squamous Epithelial Cell,Urine 73 /hpf (0-4); WBC,Urine >182 /hpf (0-5)
[2022-02-11 01:29] LABS: Amphetamine Screen,Urine Not Detected (NotDetected); Barbiturate Screen,Urine Detected (NotDetected); Benzodiazepines Screen,Urine Not Detected (NotDetected); Cocaine Screen,Urine Not Detected (NotDetected); Methadone Screen, Urine Not Detected (NotDetected); Opiate Screen,Urine Not Detected (NotDetected); Oxycodone Screen, Urine Not Detected (NotDetected); Phencyclidine Screen,Urine Not Detected (NotDetected); Tricyclic Antidepressant,Urine Detected (NotDetected); Urn Cannabinoid Scrn Detected (NotDetected)
[2022-02-11 01:33] LABS: Basophils # (A) 0.1 k/uL (0-0.2); Basophils % (A) 1 %; Eosinophils # (A) 0.1 k/uL (0-0.7); Eosinophils % (A) 1 %; HCT 46.1 % (34.0-46.0); Lymphocytes # (A) 2.6 k/uL (1.0-4.8); Lymphocytes % (A) 16 %; MCH 35.6 pg (25.0-35.0); MCHC 32.5 g/dL (31.0-37.0); MCV 109.7 fL (80.0-100.0); Macrocytosis Marked; Mean Platelet Volume 7.6; Monocytes # (A) 0.7 k/uL (0-1.0); Monocytes % (A) 4 %; Neutrophils # (A) 12.2 k/uL (1.3-7.7); Neutrophils % (A) 76 %; Platelet Count 338 k/uL (150-450); RDW 12.9 % (11.5-15.5)
[2022-02-11] MEDS ORDERED: cefTRIAXone IN SWFI 1,000 MG/10 ML SYRINGE IVP STA (01:40)
[2022-02-11] MEDS ORDERED: SODIUM CHLORIDE 0.9% 500 ML 500 ML IV ONE (01:40)
[2022-02-11 02:03] LABS: Partial Thromboplastin Time 23.6 sec (22.0-30.0); Prothrombin Time 10.7 sec (9.0-12.0)
[2022-02-11 02:10] LABS: Anisocytosis (M) Present; Large Platelets Present
[2022-02-11 02:12] LABS: Poikilocytosis (M) Present
[2022-02-11] MEDS: SODIUM CHLORIDE 0.9% 1,000 ML IV SCH ×3 (02:39→20:35)
[2022-02-11] MEDS ORDERED: ACETAMINOPHEN TAB 325 MG TAB PO PRN (03:10)
[2022-02-11] MEDS ORDERED: NALOXONE 0.4 MG/ML 1 ML VIAL IV PRN (03:10)
[2022-02-11] MEDS ORDERED: ONDANSETRON 4 MG/2 ML VIAL IVP PRN (03:10)
[2022-02-11] MEDS ORDERED: LORazepam 2 MG/ML INJ IV STA (03:15)
[2022-02-11] MEDS ORDERED: ASPIRIN 325 MG TAB PO STA (04:02)
[2022-02-11] MEDS: METOPROLOL TARTRATE 25 MG TAB PO SCH ×2 (09:17→20:34)
[2022-02-11] MEDS ORDERED: ALBUTEROL NEBULIZED 2.5 MG/3 ML INHALATION PRN (09:41)
[2022-02-11] MEDS ORDERED: CYCLOBENZAPRINE 5 MG TAB PO PRN (09:41)
--- NOTE | 2022-02-11 10:21 | CONS ---
CONSULTATION This is a 36-year-old lady who is currently on Suboxone for opiate withdrawal. She came into the hospital with very nondescript symptoms of what seems to be mostly a sensation of palpitations, racing heart and lightheadedness. She has history of tachycardia. However, after arrival she was found to have a urinary tract infection and has been on antibiotics. I was asked to see her because of her palpitations. On questioning, she is not sure if she has any diagnosis of atrial fibrillation. She does have bipolar disorder and underlying depression and currently has opioid abuse. She is being weaned off with Suboxone. She has no chest pain or palpitations at the time of my evaluation. Unfortunately she smokes fairly heavily, uses marijuana and in the past used opiates also. Medications at home include Suboxone, Fioricet, Flexeril, albuterol inhaler and Nicorette gum. On examination, blood pressure is 118/70. Pulse rate is 110 per minute, regular. HEENT unremarkable. Fundus was not examined by me. Neck is supple. No JVD. I do not hear a carotid bruit. There is no thyromegaly. Heart exam reveals S1, S2 heard normally in all areas. No rub, murmur or gallop. Lungs are clear. Abdomen is soft, nontender. Lower extremities reveal normal pulses, no edema. Central nervous system is normal. EKG revealed sinus tachycardia, no acute changes. IMPRESSION: 1. Urinary tract infection. 2. Palpitations. 3. History of opioid withdrawal, in progress. RECOMMENDATIONS: I would recommend that we add a small dose of beta kat, metoprolol tartrate 25 mg b.i.d., hydrate her, continue antibiotics and perform echocardiogram tomorrow. Troponin is borderline elevated at 0.04, but this is not considered significant or related to any myocardial injury. Thank you very much for consult. MMODL / IJN: [id number] /
[2022-02-11] MEDS ORDERED: KETOROLAC 15 MG/ML 1 ML VIAL IVP PRN (11:38)
[2022-02-11] MEDS: LORazepam 2 MG/ML INJ IV PRN ×2 (12:31→20:34)
[2022-02-11] MEDS: lamoTRIgine 25 MG TAB PO SCH ×2 (12:36→20:34)
[2022-02-11] MEDS: BUPRENORPHINE HCL SUBLINGUAL SCH ×2 (18:30→21:25)
[2022-02-11] MEDS: NALOXONE HCL SUBLINGUAL SCH ×2 (18:30→21:25)
[2022-02-11] MEDS ORDERED: OLANZapine 7.5 MG TAB PO SCH (21:00)
[2022-02-12] MEDS: LORazepam 2 MG/ML INJ IV PRN ×2 (02:19→08:58)
--- NOTE | 2022-02-12 02:53 | P.HPIM ---
History of Present Illness H&P Date: 02/11/22 Chief Complaint: Palpitations 36-year-old female presenting with palpitations, racing heart, and lightheaded sensation. Patient states she has a history of tachycardia and atrial fibrillation. She is currently on lisinopril. She denies illicit drug use. Denies alcohol. She denies abdominal pain. She denies vomiting. She denies dysuria or hematuria. Patient presented to the ER with palpitations, lightheadedness. Patient is tachycardic to 130s. Pt had leukocytosis 16.0. She has a mild acute kidney injury with a creatinine of 1.37. She has a negative d- dimer. Her initial troponin is 0.04. She has a urinalysis consistent with UTI. Her tachycardia improves with IV hydration and IV antibiotics. Blood cultures are obtained. Review of Systems Constitutional: Denies chills, Denies fever Eyes: denies blurred vision, denies pain Ears: deny: earache Ears, nose, mouth and throat: Denies epistaxis, Denies headache Cardiovascular: Reports palpitations, Denies chest pain, Denies dyspnea on exertion, Denies leg edema Respiratory: Denies hemoptysis, Denies home oxygen Gastrointestinal: Denies hematemesis, Denies hematochezia Genitourinary: Denies hematuria, Denies hot flashes Menstruation: Denies period light Musculoskeletal: absent: ankle pain, ankle stiffness Integumentary: Denies unusual bruising, Denies wounds Neurological: Denies aphasia, Denies hearing difficulties Psychiatric: Denies anxiety, Denies change in appetite Endocrine: Denies cold intolerance, Denies deepening of the voice Hematologic/Lymphatic: Denies easy bruising, Denies lymphadenopathy Allergic/Immunologic: Denies angioedema, Denies gluten intolerance Past Medical History Past Medical History: Atrial Fibrillation, Hypertension, Rheumatoid Arthritis (RA) Additional Past Medical History / Comment(s): TUBAL PREGANCY, chronic back pain, scleraderma, lupus, ddd History of Any Multi-Drug Resistant Organisms: MRSA Date of last positivie culture/infection: 07/01/16 MDRO Source:: RIGHT WRIST Past Surgical History: Section, Tonsillectomy Additional Past Surgical History / Comment(s): LAPROSCOPY Past Anesthesia/Blood Transfusion Reactions: No Reported Reaction Past Psychological History: Anxiety, Bipolar, Depression Smoking Status: Current every day smoker Past Alcohol Use History: None Reported Past Drug Use History: Marijuana, Opiates, Prescription Drug Abuse Medications and Allergies Home Medications Medication Instructions Recorded Confirmed Type Buprenorphine HCl/Naloxone HCl 1 film SUBLINGUAL BID 10/14/20 02/11/22 History [Suboxone 8 mg-2 mg Sl Film] Butalb/APAP/Caff 50-325-40Mg 1 tab PO Q6H PRN 10/14/20 02/11/22 History [Fioricet 50-325-40] Cyclobenzaprine [Flexeril] 5 mg PO TID PRN 10/14/20 02/11/22 History lisinopriL [Zestril] 10 mg PO DAILY 02/11/22 02/11/22 History Allergies Allergy/AdvReac Type Severity Reaction Status Date / Time quetiapine [From Seroquel] Allergy Rash/Hives Verified 02/11/22 11:49 Physical Exam Vitals: Vital Signs Temp Pulse Pulse Resp BP BP Pulse Ox 02/11/22 09:15 98 F 115 H 16 112/78 98 02/11/22 05:00 97.7 F 118 H 18 98/62 98 02/11/22 04:11 116 H 18 126/75 97 02/11/22 02:28 112 H 18 122/74 97 02/11/22 00:51 125 H 18 106/76 98 02/11/22 00:01 98 F 141 H 19 95/67 100 Intake and Output 02/10/22 02/11/22 02/11/22 22:59 06:59 14:59 Intake Total 10 Balance 10 Intake: IV 10 Invasive Line 1 10 Other: Voiding Method Toilet # Voids 1 Weight 72.121 kg General appearance: alert, in no apparent distress Head exam: Present: atraumatic, normocephalic Eye exam: Present: normal appearance, PERRL ENT exam: Present: mucous membranes dry Neck exam: Present: normal inspection. Absent: tenderness, meningismus Respiratory exam: Present: normal lung sounds bilaterally. Absent: respiratory distress, wheezes Cardiovascular Exam: Present: normal rhythm, tachycardia GI/Abdominal exam: Present: soft. Absent: distended, tenderness, guarding Extremities exam: Present: normal inspection, normal capillary refill. Absent: pedal edema Neurological exam: Present: alert, oriented X3, CN II-XII intact. Absent: motor sensory deficit Psychiatric exam: Present: normal affect, normal mood Skin exam: Present: warm, dry, intact. Absent: cyanosis, diaphoretic Results CBC & Chem 7: 02/11/22 00:43 02/11/22 00:43 Labs: Abnormal Lab Results - Last 24 Hours (Table) 02/11/22 02/11/22 02/11/22 Range/Units 00:43 00:43 00:43 WBC 16.0 H (3.8-10.6) k/uL Hct 46.1 H (34.0-46.0) % MCV 109.7 H (80.0-100.0) fL MCH 35.6 H (25.0-35.0) pg Neutrophils # 12.2 H (1.3-7.7) k/uL Macrocytosis Marked A Carbon Dioxide 20 L (22-30) mmol/L BUN 22 H (7-17) mg/dL Creatinine 1.37 H (0.52-1.04) mg/dL Glucose 122 H (74-99) mg/dL Plasma Lactic Acid Flex (0.7-2.0) mmol/L Troponin I 0.040 H* (0.000-0.034) ng/mL Lipase 371 H (23-300) U/L Urine Appearance (Clear) Urine Protein (Negative) Urine Blood (Negative) Ur Leukocyte Esterase (Negative) Urine RBC (0-5) /hpf Urine WBC (0-5) /hpf Urine WBC Clumps (None) /hpf Ur Squamous Epith Cells (0-4) /hpf Urine Bacteria (None) /hpf Hyaline Casts (0-2) /lpf Urine Mucus (None) /hpf Ur Barbiturates Screen (NotDetected) U Tricyclic Antidepress (NotDetected) U Marijuana (THC) Screen (NotDetected) 02/11/22 02/11/22 02/11/22 Range/Units 00:43 00:43 02:37 WBC (3.8-10.6) k/uL Hct (34.0-46.0) % MCV (80.0-100.0) fL MCH (25.0-35.0) pg Neutrophils # (1.3-7.7) k/uL Macrocytosis Carbon Dioxide (22-30) mmol/L BUN (7-17) mg/dL Creatinine (0.52-1.04) mg/dL Glucose (74-99) mg/dL Plasma Lactic Acid Flex 2.8 H* (0.7-2.0) mmol/L Troponin I (0.000-0.034) ng/mL Lipase (23-300) U/L Urine Appearance Turbid H (Clear) Urine Protein 1+ H (Negative) Urine Blood Small H (Negative) Ur Leukocyte Esterase Large H (Negative) Urine RBC 45 H (0-5) /hpf Urine WBC >182 H (0-5) /hpf Urine WBC Clumps Moderate H (None) /hpf Ur Squamous Epith Cells 73 H (0-4) /hpf Urine Bacteria Rare H (None) /hpf Hyaline Casts 10 H (0-2) /lpf Urine Mucus Occasional H (None) /hpf Ur Barbiturates Screen Detected H (NotDetected) U Tricyclic Antidepress Detected H (NotDetected) U Marijuana (THC) Screen Detected H (NotDetected) 02/11/22 Range/Units 03:15 WBC (3.8-10.6) k/uL Hct (34.0-46.0) % MCV (80.0-100.0) fL MCH (25.0-35.0) pg Neutrophils # (1.3-7.7) k/uL Macrocytosis Carbon Dioxide (22-30) mmol/L BUN (7-17) mg/dL Creatinine (0.52-1.04) mg/dL Glucose (74-99) mg/dL Plasma Lactic Acid Flex (0.7-2.0) mmol/L Troponin I 0.041 H* (0.000-0.034) ng/mL Lipase (23-300) U/L Urine Appearance (Clear) Urine Protein (Negative) Urine Blood (Negative) Ur Leukocyte Esterase (Negative) Urine RBC (0-5) /hpf Urine WBC (0-5) /hpf Urine WBC Clumps (None) /hpf Ur Squamous Epith Cells (0-4) /hpf Urine Bacteria (None) /hpf Hyaline Casts (0-2) /lpf Urine Mucus (None) /hpf Ur Barbiturates Screen (NotDetected) U Tricyclic Antidepress (NotDetected) U Marijuana (THC) Screen (NotDetected) Thrombosis Risk Factor Assmnt - Choose All That Apply Any of the Below Risk Factors Present?: No Other Risk Factors: No Thrombosis Risk Factor Assessment Level: Very Low Risk Assessment and Plan Assessment: 1. UTI/SEPSIS: patient received IV Rocephin 1 gram in ED; we will plan to continue same with plans to make adjustments once urine culture is available 2. Elevated troponin: rule out acute coronary syndrome we will monitor EKG and trend troponin Q4 hours x 3 ; start patient on aspirin 325 mg daily ; consult cardiology for further recommendations; recommend 2D echo 3. HTN: Continue home dose of lisinsopril and monitor BP closely 4. Chronic pain continue home dose of suboxone DVT Prophylaxis SCDs Code Status: Full Code
[2022-02-12] MEDS: SODIUM CHLORIDE 0.9% 1,000 ML IV SCH ×2 (03:42→08:49)
[2022-02-12 05:47] VITALS: RESP 16
[2022-02-12] MEDS: lamoTRIgine 25 MG TAB PO SCH (08:48)
[2022-02-12] MEDS: METOPROLOL TARTRATE 25 MG TAB PO SCH (08:48)
[2022-02-12] MEDS: BUPRENORPHINE HCL SUBLINGUAL SCH (08:49)
[2022-02-12] MEDS: NALOXONE HCL SUBLINGUAL SCH (08:49)
--- NOTE | 2022-02-12 10:01 | ECHOF ---
Referral Reason:palpitations MEASUREMENTS -------- HEIGHT: 162.6 cm WEIGHT: 72.1 kg BP: 111/74 RVIDd: 1.9 cm (< 3.3) IVSd: 1.0 cm (0.6 - 1.1) LVIDd: 4.1 cm (3.9 - 5.3) LVPWd: 1.2 cm (0.6 - 1.1) IVSs: 1.5 cm LVIDs: 2.9 cm LVPWs: 1.5 cm LAESV Index (A-L): 10.05 ml/m Ao Diam: 2.9 cm (2.0 - 3.7) AV Cusp: 2.0 cm (1.5 - 2.6) LA Diam: 3.0 cm (2.7 - 3.8) MV EXCURSION: 20.499 mm (> 18.000) MV EF SLOPE: 161 mm/s (70 - 150) EPSS: 1.4 cm MV E Thai: 0.99 m/s MV DecT: 170 ms MV A Thai: 0.78 m/s MV E/A Ratio: 1.27 AR PHT: 506 ms RAP: 5.00 mmHg RVSP: 19.78 mmHg FINDINGS -------- This was a technically adequate study. The left ventricular size is normal. Left ventricular wall thickness is normal. Overall left vent ricular systolic function is normal with, an EF between 55 - 60 %. The diastolic filling pattern is normal for the age of the patient 10.08. The right ventricle is normal in size. The left atrial size is normal. Normal LA size by volume 22+/-6 ml/m2. The right atrial size is normal. The aortic valve is trileaflet and appears structurally normal. Trace amount of aortic regurgitatio n. The mitral valve is normal. There is trace mitral regurgitation. The tricuspid valve appears structurally normal. Trace tricuspid regurgitation present. Right [place] tricular systolic pressure is normal at < 35 mmHg. There is no pulmonic regurgitation present. The aortic root size is normal. Normal inferior vena cava with normal inspiratory collapse consistent with estimated right atrial pre ssure of 5 mmHg. There is no pericardial effusion. CONCLUSIONS -------- 1. The left ventricular size is normal. 2. Left ventricular wall thickness is normal. 3. Overall left ventricular systolic function is normal with, an EF between 55 - 60 %. 4. The diastolic filling pattern is normal for the age of the patient 10.08 5. Trace amount of aortic regurgitation. 6. There is trace mitral regurgitation. 7. Trace tricuspid regurgitation present. 8. There is no pericardial effusion. HUMAN RESOURCES SPECIALIST: Elba Benton RDCS
[2022-02-12 13:51] VITALS: BP 106/58; PULSE 86; TEMP 97.6
--- NOTE | 2022-02-12 14:13 | PN ---
PROGRESS NOTE DATE OF SERVICE: 02/12/2022 This 36-year-old woman who was admitted with palpitations also had features of acute UTI. The troponin is also slightly elevated. The patient is being closely monitored. No chest pain. No palpitations. No fever. PHYSICAL EXAMINATION: Alert and oriented x3. Pulse 94, blood pressure 109/60, respirations 16. CHEST: Clear to auscultation. ABDOMEN: Soft, non-tender. NERVOUS SYSTEM: No focal deficit. LABS: Reviewed. ASSESSMENT: 1. Urinary tract infection with sepsis. 2. Tachycardia. 3. Elevated troponin. 4. Hypertension. 5. Chronic pain syndrome. RECOMMENDATIONS: I recommend to continue current medications, continue with the monitoring, symptomatic treatment. Continue the broad-spectrum IV antibiotics. Follow the cultures. Follow with Cardiology. Prognosis guarded. Further recommendations to follow. MMJENNIEL / JENIFFERN: [id number] /
--- NOTE | 2022-02-14 13:06 | DS ---
DISCHARGE SUMMARY FINAL DIAGNOSIS: 1. Urinary tract infection with sepsis, present on admission. 2. Tachycardia. 3. Elevated troponin. 4. Hypertension. 5. Chronic pain syndrome. DISCHARGE DISPOSITION: The patient left the hospital AGAINST MEDICAL ADVICE. HISTORY OF PRESENT ILLNESS: This 36-year-old woman was admitted with UTI with sepsis. Please refer to the previous records for further information. Patient left the hospital AGAINST MEDICAL ADVICE. Prognosis remains guarded. MMODL / IJN: [id number] /
== END 2022-02-12 14:07 | disposition left against medical advice (07) ==
LOC: EC 23:49 → 3SCARD 02-11 03:10 → INTOOBSV 02-11 03:10 → 3SCARD 02-11 04:11 → UNDODISIN 02-12 14:07
PROVIDERS: ADMIT Hospitalist; ATTEND Hospitalist
DX: A41.9 Sepsis, unspecified organism (principal); N39.0 Urinary tract infection, site not specified; Z53.29 Procedure and treatment not carried out because of patient's decision for other reasons; N17.9 Acute kidney failure, unspecified; R77.8 Other specified abnormalities of plasma proteins; F17.200 Nicotine dependence, unspecified, uncomplicated; I10 Essential (primary) hypertension; G89.4 Chronic pain syndrome; F11.20 Opioid dependence, uncomplicated; R00.0 Tachycardia, unspecified; R42 Dizziness and giddiness; I48.91 Unspecified atrial fibrillation; R00.2 Palpitations; M54.9 Dorsalgia, unspecified; H15.9 Unspecified disorder of sclera; F41.9 Anxiety disorder, unspecified; F31.9 Bipolar disorder, unspecified; M06.9 Rheumatoid arthritis, unspecified; R06.02 Shortness of breath; Z71.9 Counseling, unspecified; Z79.899 Other long term (current) drug therapy; Z86.14 Personal history of Methicillin resistant Staphylococcus aureus infection; Z79.891 Long term (current) use of opiate analgesic; Z88.8 Allergy status to other drugs, medicaments and biological substances
CPT/HCPCS: 96376 ×3; 96361 ×3; 96365; 96366; 96375 ×2; 99285; 36415; 94760; 93005; 93306; 85379; 80053; 83605; 83690; 83735; 84484; 85025; 85610; 85730; 81001; 81025; 87040; 80306; 87086; 71046; G0378 ×2; J2060 ×2; J0696 ×2; J1885; 96374

== ENCOUNTER 2022-03-08 22:17 | Emergency (ER) | payer OTHER ==
[2022-03-08 22:38] VITALS: BP 118/88; PULSE 102; RESP 18; TEMP 98
[2022-03-09] MEDS ORDERED: MORPHINE SULFATE 4 MG/ML SYRINGE ONE (02:00)
[2022-03-09] MEDS ORDERED: SODIUM CHLORIDE 0.9% 1,000 ML BAG ONE (02:00)
[2022-03-09] MEDS ORDERED: PROCHLORPERAZINE INJ 10 MG/2 ML VIAL ONE (02:00)
--- NOTE | 2022-03-09 07:10 | CT ---
EXAM: CT Abdomen and Pelvis Without Intravenous Contrast CLINICAL HISTORY: upper abdominal pain x 2 days. History of ectopic TECHNIQUE: Axial computed tomography images of the abdomen and pelvis without intravenous contrast. CTDI is 7.87 mGy and DLP is 321.6 mGy-cm. This CT exam was performed using one or more of the following dose reduction techniques: automated exposure control, adjustment of the mA and/or kV according to patient size, and/or use of iterative reconstruction technique. COMPARISON: CT abdomen/pelvis on 05/14/2021 FINDINGS: Lung bases: Mild bibasilar atelectasis. ABDOMEN: Liver: Unremarkable. Gallbladder and bile ducts: Unremarkable. No calcified stones. No ductal dilation. Pancreas: Unremarkable. No ductal dilation. Spleen: Unremarkable. No splenomegaly. Adrenals: Unremarkable. No mass. Kidneys and ureters: No hydronephrosis or stone. Stomach and bowel: Mildly prominent fluid and gas-filled small bowel loops may represent enteritis or ileus. Evaluation of the stomach is limited by underdistention. PELVIS: Appendix: Normal appendix. Bladder: Decompressed bladder. Small gas foci in the anterior aspect of the bladder. This could be related to recent manipulation. Please correlate with urinalysis to evaluate for cystitis. No stones. Reproductive: Retroverted uterus. ABDOMEN and PELVIS: Intraperitoneal space: Unremarkable. No free air. No significant fluid collection. Bones/joints: Mild degenerative changes of the spine, most prominently at L5-S1. No acute fracture. No dislocation. Soft tissues: Unremarkable. Vasculature: Unremarkable. No abdominal aortic aneurysm. Lymph nodes: Unremarkable. No enlarged lymph nodes. IMPRESSION: 1. Mildly prominent fluid and gas-filled small bowel loops may represent enteritis or ileus. 2. Decompressed bladder. Small gas foci in the anterior aspect of the bladder. This could be related to recent manipulation. Please correlate with urinalysis to evaluate for cystitis.
[2022-03-09 07:49] LABS: Basophils % (A) 0 %; Eosinophils # (A) 0.2 k/uL (0-0.7); Eosinophils % (A) 2 %; HCT 46.4 % (34.0-46.0); HGB 14.9 gm/dL (11.4-16.0); Lymphocytes # (A) 4.1 k/uL (1.0-4.8); Lymphocytes % (A) 36 %; MCHC 32.1 g/dL (31.0-37.0); MCV 105.9 fL (80.0-100.0); Macrocytosis Moderate; Mean Platelet Volume 7.5; Monocytes # (A) 0.5 k/uL (0-1.0); Monocytes % (A) 5 %; Neutrophils # (A) 6.3 k/uL (1.3-7.7); Neutrophils % (A) 55 %; Platelet Count 437 k/uL (150-450); RBC 4.38 m/uL (3.80-5.40); RDW 14.1 % (11.5-15.5); WBC 11.4 k/uL (3.8-10.6)
[2022-03-09 08:01] LABS: Lactic Acid, Venous 1.4 mmol/L (0.7-2.0)
[2022-03-09 08:15] LABS: Albumin 3.7 g/dL (3.5-5.0); Calcium 8.9 mg/dL (8.4-10.2); Magnesium 1.8 mg/dL (1.6-2.3); Phosphorus 3.7 mg/dL (2.5-4.5); Potassium 3.8 mmol/L (3.5-5.1); Total Bilirubin 0.5 mg/dL (0.2-1.3); Total Protein 6.3 g/dL (6.3-8.2)
[2022-03-09 08:19] LABS: Creatine Kinase 130 U/L (30-135); Creatine Kinase MB 2.2 ng/mL (0.0-2.4); Troponin I <0.012 ng/mL (0.000-0.034)
[2022-03-09 08:48] LABS: Appearance,Urine Cloudy (Clear); Bilirubin,Urine Negative (Negative); Blood,Urine Negative (Negative); Calcium Oxalate Crystals,Urine Occasional /hpf; Color,Urine Yellow; Glucose,Urine (UA) Negative (Negative); Ketones,Urine Negative (Negative); Leukocyte Esterase,Urine Moderate (Negative); Mucus,Urine Moderate /hpf; Nitrite,Urine Negative (Negative); Protein,Urine 1+ (Negative); RBC,Urine 3 /hpf (0-5); Specific Gravity,Urine 1.035 (1.001-1.035); Squamous Epithelial Cell,Urine 6 /hpf (0-4); Urobilinogen,Urine <2.0 mg/dL (<2.0); WBC,Urine 23 /hpf (0-5)
== END 2022-03-09 04:30 ==
LOC: EC 22:17
DX: R10.9 Unspecified abdominal pain (principal)
CPT/HCPCS: 36415; 80053; 82140; 82550; 82553; 83605; 83690; 83735; 84100; 84484; 85025; 81001; 87086; 74176; 99285; 96374; 96375; J2270; J0780

== ENCOUNTER 2022-05-15 09:01 | Emergency (ER) | payer OTHER ==
[2022-05-15 09:05] VITALS: BP 135/85; PULSE 113; RESP 18; TEMP 97.7
--- NOTE | 2022-05-15 09:22 | ED ---
General Adult HPI - General Chief complaint: Extremity Injury, Upper Stated complaint: RT wrist injury Time Seen by Provider: 05/15/22 09:02 Source: patient, RN notes reviewed, old records reviewed Mode of arrival: ambulatory Limitations: no limitations - History of Present Illness Initial comments: 36-year-old female presenting for evaluation of right wrist pain. Patient states she may have injured it at work. She's had pain with range of motion for the past 2 days. She also states this may be secondary to overuse. She does work with her hands. No fever. No other injury reported. Patient is otherwise healthy. Denies current . - Related Data Home Medications Medication Instructions Recorded Confirmed Cyclobenzaprine [Flexeril] 5 mg PO TID PRN 10/14/20 03/11/22 Previous Rx's Medication Instructions Recorded Metoprolol Tartrate [Lopressor] 25 mg PO BID #60 tab 03/13/22 lisinopriL [Prinivil] 5 mg PO DAILY #30 tab 03/14/22 Allergies Allergy/AdvReac Type Severity Reaction Status Date / Time quetiapine [From Seroquel] Allergy Rash/Hives Verified 05/15/22 09:05 Review of Systems ROS Statement: Those systems with pertinent positive or pertinent negative responses have been documented in the HPI. ROS Other: All systems not noted in ROS Statement are negative. Past Medical History Past Medical History: Atrial Fibrillation, Hypertension, Rheumatoid Arthritis (RA) Additional Past Medical History / Comment(s): TUBAL PREGANCY, chronic back pain, scleraderma, lupus, ddd History of Any Multi-Drug Resistant Organisms: MRSA Date of last positivie culture/infection: 07/01/16 MDRO Source:: RIGHT WRIST Past Surgical History: Section, Tonsillectomy Additional Past Surgical History / Comment(s): LAPROSCOPY Past Anesthesia/Blood Transfusion Reactions: No Reported Reaction Past Psychological History: Anxiety, Bipolar, Depression Smoking Status: Current every day smoker Past Alcohol Use History: None Reported Past Drug Use History: Marijuana, Opiates, Prescription Drug Abuse General Exam Limitations: no limitations General appearance: alert, in no apparent distress Head exam: Present: atraumatic, normocephalic Eye exam: Present: normal appearance ENT exam: Present: normal exam Neck exam: Present: normal inspection. Absent: tenderness, meningismus Respiratory exam: Present: normal lung sounds bilaterally. Absent: respiratory distress, wheezes Cardiovascular Exam: Present: regular rate, normal rhythm GI/Abdominal exam: Absent: distended Extremities exam: Present: normal inspection, tenderness (Tenderness over the distal radius at the wrist joint, some pain with range of motion. No erythema. No warmth. ). Absent: full ROM Neurological exam: Present: alert, oriented X3 Psychiatric exam: Present: normal affect, normal mood Skin exam: Present: warm, dry, intact, normal color Course Vital Signs 05/15/22 09:02 Temperature 97.7 F Pulse Rate 113 H Respiratory 18 Rate Blood Pressure 135/85 O2 Sat by Pulse 100 Oximetry Medical Decision Making - Medical Decision Making 36-year-old female with injury to the right wrist. Patient believes she may have bumped it but is not completely sure. She also states this could be secondary to overuse. X-ray performed, negative for fracture dislocation. Patient placed in an [place] wrap and will follow-up with primary care physician. She started on Motrin Disposition Clinical Impression: Sprain of wrist, right Disposition: HOME SELF-CARE Condition: Good Instructions (If sedation given, give patient instructions): Wrist Injury (ED) Is patient prescribed a controlled substance at d/c from ED?: No Referrals: Sukh Wilkerson MD [Primary Care Provider] - 1-2 days Time of Disposition: 09:40
--- NOTE | 2022-05-15 09:47 | XR ---
EXAMINATION TYPE: XR wrist complete RT DATE OF EXAM: 05/15/2022 9:42 AM INDICATION: Patient age:Female; 36 years old; Reason for study: PAIN; PHH. COMPARISON: Right hand radiograph 05/19/2019. TECHNIQUE: 4 views of the right wrist. Frontal, navicular, lateral, and oblique. FINDINGS: No acute osseous pathology, joint dislocation, or joint effusion. No evidence of any soft tissue swelling is seen. IMPRESSION: No acute osseous pathology.
== END 2022-05-15 10:10 | disposition home or self-care (01) ==
LOC: EC 09:01
DX: S63.501A Unspecified sprain of right wrist, initial encounter (principal); I10 Essential (primary) hypertension; I48.91 Unspecified atrial fibrillation; F41.9 Anxiety disorder, unspecified; F31.9 Bipolar disorder, unspecified; F17.200 Nicotine dependence, unspecified, uncomplicated; F12.90 Cannabis use, unspecified, uncomplicated; Z88.8 Allergy status to other drugs, medicaments and biological substances; Z79.811 Long term (current) use of aromatase inhibitors; Z79.899 Other long term (current) drug therapy; X50.3XXA Overexertion from repetitive movements, initial encounter; Y99.0 Civilian activity done for income or pay
CPT/HCPCS: 99283

== ENCOUNTER 2022-11-07 02:39 | Inpatient (IN) | payer MEDICAID, OTHER ==
--- NOTE | 2022-11-07 02:43 | ED ---
Psych HPI - General Source: police, RN notes reviewed, old records reviewed Mode of arrival: ambulatory Limitations: no limitations - History of Present Illness MD Complaint: suicidal ideation, feels depressed, altered mental status -: unknown Associated Psychiatric Symptoms: depression, suicidal ideation, racing thoughts, delusions History of same: Yes Quality: constant, getting worse Improves With: none Worsens With: none Context: significant life stressor Associated Symptoms: denies other symptoms Treatments Prior to Arrival: placed on mental health hold If Self Harm: admits thoughts of self harm <Melchor Levin - Last Filed: 11/07/22 03:20> <Faisal Wilkerson - Last Filed: 11/07/22 10:38> - General Stated Complaint: Petition Time Seen by Provider: 11/07/22 02:43 - History of Present Illness Initial Comments: This is a 37-year-old female under petition having psychiatric outbreak, homicidal or suicidal or psychotic. (Melchor Levin) - Related Data Home Medications Medication Instructions Recorded Confirmed Cyclobenzaprine [Flexeril] 5 mg PO TID PRN 10/14/20 03/11/22 Previous Rx's Medication Instructions Recorded Metoprolol Tartrate [Lopressor] 25 mg PO BID #60 tab 03/13/22 lisinopriL [Prinivil] 5 mg PO DAILY #30 tab 03/14/22 Allergies Allergy/AdvReac Type Severity Reaction Status Date / Time quetiapine [From Seroquel] Allergy Rash/Hives Verified 11/07/22 02:57 Review of Systems ROS Other: All systems not noted in ROS Statement are negative. <Melchor Levin - Last Filed: 11/07/22 03:20> ROS Other: All systems not noted in ROS Statement are negative. <Faisal Wilkerson - Last Filed: 11/07/22 10:38> ROS Statement: Those systems with pertinent positive or pertinent negative responses have been documented in the HPI. Past Medical History Past Medical History: Atrial Fibrillation, Hypertension, Rheumatoid Arthritis (RA) Additional Past Medical History / Comment(s): TUBAL PREGANCY, chronic back pain, scleraderma, lupus, ddd History of Any Multi-Drug Resistant Organisms: MRSA Date of last positivie culture/infection: 07/01/16 MDRO Source:: RIGHT WRIST Past Surgical History: Section, Tonsillectomy Additional Past Surgical History / Comment(s): LAPROSCOPY Past Anesthesia/Blood Transfusion Reactions: No Reported Reaction Past Psychological History: Anxiety, Bipolar, Depression Smoking Status: Current every day smoker Past Alcohol Use History: None Reported Past Drug Use History: Marijuana, Opiates, Prescription Drug Abuse <Melchor Levin - Last Filed: 11/07/22 03:20> General Exam General appearance: alert, in no apparent distress Head exam: Present: atraumatic, normocephalic, normal inspection Eye exam: Present: normal appearance, PERRL, EOMI. Absent: scleral icterus, conjunctival injection, periorbital swelling ENT exam: Present: normal exam, mucous membranes moist Neck exam: Present: normal inspection. Absent: tenderness, meningismus, lymphadenopathy Respiratory exam: Present: normal lung sounds bilaterally. Absent: respiratory distress, wheezes, rales, rhonchi, stridor Cardiovascular Exam: Present: regular rate, normal rhythm, normal heart sounds. Absent: systolic murmur, diastolic murmur, rubs, gallop, clicks GI/Abdominal exam: Present: soft, normal bowel sounds. Absent: distended, tenderness, guarding, rebound, rigid Extremities exam: Present: normal inspection, full ROM, normal capillary refill. Absent: tenderness, pedal edema, joint swelling, calf tenderness Back exam: Present: normal inspection Neurological exam: Present: alert, oriented X3, CN II-XII intact Psychiatric exam: Present: normal affect, normal mood Skin exam: Present: warm, dry, intact, normal color. Absent: rash <Melchor Levin - Last Filed: 11/07/22 03:20> Course <Melchor Levin - Last Filed: 11/07/22 03:20> Vital Signs 11/07/22 11/07/22 02:52 03:41 Temperature 98.1 F Pulse Rate 144 H 110 H Respiratory 22 18 Rate Blood Pressure 137/94 116/70 O2 Sat by Pulse 97 100 Oximetry - Reevaluation(s) Reevaluation #1: 11/07/22 03:21 Medical record is reviewed (Melchor Levin) Reevaluation #2: 11/07/22 03:21 Medical clear for psychiatric evaluation (Melchor Levin) Medical Decision Making <Faisal Wilkerson - Last Filed: 11/07/22 10:38> - Medical Decision Making The patient was endorsed me pending EPS evaluation. Patient was evaluated by the psychiatric service and will be admitted for inpatient treatment I did fill out a clinical certification. Patient is demonstrating suicidal or homicidal ideation exacerbation of her underlying schizophrenia. Was pt. sent in by a medical professional or institution (, JAIME, SQL BI DEVELOPER, urgent care, hospital, or penitentiary...) When possible be specific @ Patient was brought in by police-No Did you speak to anyone other than the patient for history (EMS, parent, family, police, friend...)? What history was obtained from this source @ -No Did you review nursing and triage notes (agree or disagree)? Why? @ Yes and agree-I reviewed and agree with nursing and triage notes Were old charts reviewed (outside hosp., previous admission, EMS record, old EKG, old radiological studies, urgent care reports/EKG's, penitentiary records)? Report findings @ -No old charts were reviewed Differential Diagnosis (chest pain, altered mental status, abdominal pain women, abdominal pain men, vaginal bleeding, weakness, fever, dyspnea, syncope, headache, dizziness, GI bleed, back pain, seizure, CVA, palpatations, mental health)? @ Depression, suicidal ideation, homicidal elevation, schizophrenia exacerbation, anxiety-not applicable EKG interpreted by me (3pts min.). @ -As above X-rays interpreted by me (1pt min.). @ -None done CT interpreted by me (1pt min.). @ -None done U/S interpreted by me (1pt. min.). @ -None done What testing was considered but not performed or refused? (CT, X-rays, U/S, labs)? Why? @ -None What meds were considered but not given or refused? Why? @ -None Did you discuss the management of the patient with other professionals (professionals i.e. JAIME Burr, SQL BI DEVELOPER, lab, RT, psych nurse, manager social, assistant front desk manager, teacher, conservation science officer, machine adjuster leader case trim)? Give summary @ EPS nursing staff-No Was smoking cessation discussed for >3mins.? @ -No Was critical care preformed (if so, how long)? @ -No Were there social determinants of health that impacted care today? How? (Homelessness, low income, unemployed, alcoholism, drug addiction, transportation, low edu. Level, literacy, decrease access to med. care, alf, rehab)? @ -No Was there de-escalation of care discussed even if they declined (Discuss DNR or withdrawal of care, Hospice)? DNR status @ -No What co-morbidities impacted this encounter? (DM, HTN, Smoking, COPD, CAD, Cancer, CVA, ARF, Chemo, Hep., AIDS, mental health diagnosis, sleep apnea, morbid obesity)? @ -None Was patient admitted / discharged? Hospital course, mention meds given and route, prescriptions, significant lab abnormalities, going to OR and other pertinent info. @ Patient was admitted to the psychiatric inpatient unit-hospital course Undiagnosed new problem with uncertain prognosis? @ -No Drug Therapy requiring intensive monitoring for toxicity (Heparin, Nitro, Insulin, Cardizem)? @ -No Were any procedures done? @ -No Diagnosis/symptom? @ Depression, suicidal ideation, homicidal ideation, schizophrenia-default Acute, or Chronic, or Acute on Chronic? @ Acute chronic -default Uncomplicated (without systemic symptoms) or Complicated (systemic symptoms)? @ -default Side effects of treatment? @ -No Exacerbation, Progression, or Severe Exacerbation? @ -No Poses a threat to life or bodily function? How? (Chest pain, USA, CA, pneumonia, PE, COPD, DKA, ARF, appy, cholecystitis, CVA, Diverticulitis, Homicidal, Suicidal, threat to staff... and all critical care pts) @ -No (Faisal Wilkerson) Disposition <Melchor Levin - Last Filed: 11/07/22 03:20> Decision Date: 11/07/22 Decision Time: 10:00 <Faisal Wilkerson - Last Filed: 11/07/22 10:38> Clinical Impression: Chronic schizophrenia, Suicidal ideation, Homicidal ideation, Depression Disposition: TRANSFER TO PSYCH HOSP/UNIT Condition: Fair Referrals: Sukh Wilkerson MD [Primary Care Provider] - 1-2 days
[2022-11-07] MEDS ORDERED: LORazepam 1 MG TAB PO STA (09:57)
[2022-11-07] MEDS ORDERED: HALOPERIDOL LACTATE 5 MG/ML 1 ML VIAL IM PRN ×2 (10:03→12:24)
[2022-11-07] MEDS ORDERED: diphenhydrAMINE 50 MG/ML 1 ML VIAL IM STA (10:04)
[2022-11-07] MEDS ORDERED: LORazepam 2 MG/ML INJ IM STA (10:08)
[2022-11-07] MEDS ORDERED: ALBUTEROL INHALER 60 PUFF/8 GM INHALER (MHU) INHALATION PRN (12:23)
[2022-11-07] MEDS ORDERED: MAG HYDROX/AL HYDROX/SIMETH 30 ML CUP PO PRN (12:24)
[2022-11-07] MEDS ORDERED: MAGNESIUM HYDROXIDE 2,400 MG/10 ML CUP PO PRN (12:24)
[2022-11-07] MEDS ORDERED: LORazepam 2 MG/ML INJ IM PRN (12:27)
[2022-11-07] MEDS ORDERED: NON FORMULARY DRUG (Buprenorphine/Naloxone 8mg/2mg 1 EACH Film) SL SCH (12:30)
[2022-11-07] MEDS ORDERED: BUPRENORPHINE SL SCH (15:12)
[2022-11-07] MEDS ORDERED: NALOXONE SL SCH (15:12)
[2022-11-07] MEDS: haloperidoL 5 MG TAB PO PRN (17:26)
[2022-11-07] MEDS: LORazepam 1 MG TAB PO PRN (17:26)
[2022-11-07] MEDS ORDERED: MELATONIN 3 MG TABLET PO SCH (21:00)
[2022-11-07] MEDS ORDERED: OLANZapine 5 MG TAB PO SCH (21:00)
[2022-11-07] MEDS: lamoTRIgine 25 MG TAB PO SCH (22:11)
--- NOTE | 2022-11-08 03:30 | CONS ---
CONSULTATION CHIEF COMPLAINT: Bipolar depression. HISTORY OF PRESENT ILLNESS: This is another admission for this 37-year-old, who came in with major depression and was petitioned in. She was suicidal. She has a history of hypertension, rheumatoid arthritis, and atrial fibrillation. REVIEW OF SYSTEMS: Unremarkable. She has had no headaches, chest pain, abdominal pain, fever, chills, urinary complaints, etc. Past medical history, family history, personal and social histories are all otherwise unremarkable and noncontributory. PHYSICAL EXAMINATION: VITAL SIGNS: Blood pressure is 129/72 with a pulse of 80, respirations of 15, she is afebrile. GENERAL: She appeared to be well developed, well nourished, no acute distress. HEAD, EARS, EYES, NOSE, MOUTH AND THROAT: Normal. NECK: Neck veins not distended. Thyroid was not enlarged. CHEST: Clear. CARDIAC: Normal. ABDOMEN: Soft and nontender. EXTREMITIES: Normal. IMPRESSION: 1. Bipolar depression with suicidal thoughts. 2. Atrial fibrillation. 3. Hypertension. 4. Rheumatoid arthritis. RECOMMENDATIONS: None at this time. MMODL / IJN: [id number] /
[2022-11-08] MEDS: LORazepam 1 MG TAB PO PRN ×3 (07:38→20:50)
[2022-11-08] MEDS: lamoTRIgine 25 MG TAB PO SCH ×2 (07:38→20:48)
[2022-11-08] MEDS: NICOTINE 21MG/24HR PATCH TRANSDERM SCH (09:30)
[2022-11-08] MEDS: BUPRENORPHINE-NALOX 8-2 MG TAB 1 EACH TAB.SUBL SL SCH (09:30)
--- NOTE | 2022-11-08 11:37 | P.HP ---
Psychiatric H&P - . H&P Date: 11/08/22 History & Physical: Allergies Allergy/AdvReac Type Severity Reaction Status Date / Time quetiapine [From Seroquel] Allergy Rash/Hives Verified 11/07/22 02:57 Vital Signs Temp 97.3 F L 11/07/22 13:16 Pulse 86 11/07/22 13:16 Resp 16 11/07/22 13:16 BP 135/87 11/07/22 13:16 Pulse Ox 100 11/07/22 13:16 FiO2 Laboratory Last Values Coronavirus (PCR) Not Detected (Not Detectd) 11/07/22 10:18 11/08/22 11:30 IDENTIFYING DATA: This patient is a 37-year-old female who currently lives with her friend in a house and has 1 kid who is estranged. She is currently unemployed. HISTORY OF PRESENT ILLNESS: The patient presented to the hospital yesterday on a petition by police stating that patient was endorsing homicidal thoughts and also suicidal thoughts of wanting to end her life. Patient was admitted involuntarily to the mental health unit. Patient has a history of bipolar disorder and polysubstance abuse. Patient was seen this morning and agreeable to speak to typewriter assembler today in the office. Patient appeared to have poor hygiene and grooming. She claims that she has been "having conversations with people". She states that she has been hearing voices talking to her. She claims that she is also having visual hallucinations as well. She appeared to have very poor insight and judgment. She states that she has stopped taking her psychiatric medications and does not believe she needs them. He claims that her boyfriend on Saturday from a brain aneurysm and she claims that she tried to see them. She was illogical at times during the interview. She is also on displaying poor frustration tolerance. She claims that she has "blood on my shoes from him". She claims that she has also been feeling depressed and anxious. Also endorsing paranoia. She states that she could not sleep well last night. At this time patient denies any current suicidal or homical ideations, intent or plan. Patients admits to using cigarettes daily and mariju candis. Patient has not given a urine drug screen. PAST PSYCHIATRIC HISTORY: Patient has a a history of bipolar disorder and polysubstance abuse. Patient in the past was previously taking Haldol, Lamictal and trazodone, Zyprexa. Patient has had multiple psychiatric hospitalizations in the past and her last admission was in April 2021. Patient denies any psychiatric outpatient follow-up. Patient denies any history of suicide attempts in the past. PAST MEDICAL HISTORY: Lupus, rheumatoid arthritis, hypertension ALLERGIES: as per EMR. CHEMICAL DEPENDENCY HISTORY: as per HPI. FAMILY PSYCHIATRIC/SUBSTANCE USE HISTORY: denies SOCIAL HISTORY: Patient was born and raised in [facility]. She states that she completed high school and did some college in psychology. 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 She states that she stopped working for her disability as she has lupus. She states that she went to prison briefly in the past for unpaid child support. She has 1 biological son. She lives in a house with her friend. MENTAL STATUS EXAM: General Appearance: Patient appears to be stated age is alert, irritable at times and distracted. Patient appears to have poor hygiene and grooming. Behavior: Patient is seated without any agitated behavior. Uncooperative. Irritable. Speech: Patient's speech is fluent and nonpressured. Mood/Affect: Patient reports their mood is anxious depressed, affect is congruent Suicidality/Homicidality: Patient denies having any homicidal ideation intent or plan. Denies any suicidal ideations intent or plan Perceptions: Patient denies any visual hallucinations and denies any auditory hallucinations Though content/process: She was endorsing paranoia. Argumentative at times. Delusional. Memory and concentration: AOX3, grossly intact for the purposes of this session. Cannot spell "WORLD" backwards Judgment and insight: poor STRENGTHS/WEAKNESSES: strength is that patient is resilient. Weakness is that patient has poor judgment and is impulsive INTELLECT: average IMPRESSIONS: Bipolar disorder with psychotic features Cannabis use disorder Opiate dependence on agonist therapy Nicotine dependence PLAN: -Patient is admitted under involuntary status to MHU for stabilization of psychiatric symptoms and safety. Patient has not signed adult voluntary form and medication consent and is placed in patient's chart. A second certification was completed and along with petition will be filed for court. -Medications : Will start patient on Zyprexa 7.5 mg daily at bedtime for mood stabilization/insomnia. Lamictal 25 mg twice a day for mood stabilization/depression. melatonin qhs for sleep. -Ativan and Haldol PRN for agitation/aggression -Patient was counselled on substance abuse and desired to cut back on use -Patient was informed of the risks, benefits and side effects of the medication -Internal Medicine consult to perform medical evaluation and physical. -NRT - nicotine patch -SW on board for discharge planning. Encourage patient to participate in groups to work on coping skills. Will await deferral and court date.
[2022-11-08] MEDS: CYCLOBENZAPRINE 5 MG TAB PO PRN ×2 (11:41→16:55)
[2022-11-08] MEDS: ACETAMINOPHEN TAB 325 MG TAB PO PRN ×3 (11:42→21:08)
[2022-11-08] MEDS: NICOTINE GUM (POLACRILEX) 2 MG GUM BUCCAL PRN (11:44)
[2022-11-08 12:22] LABS: Basophils % (A) 0 %; Eosinophils # (A) 0.1 k/uL (0-0.7); Eosinophils % (A) 2 %; HCT 39.6 % (34.0-46.0); HGB 12.6 gm/dL (11.4-16.0); Lymphocytes # (A) 1.2 k/uL (1.0-4.8); Lymphocytes % (A) 20 %; MCH 32.7 pg (25.0-35.0); MCV 102.4 fL (80.0-100.0); Macrocytosis Slight; Mean Platelet Volume 7.5; Monocytes # (A) 0.3 k/uL (0-1.0); Monocytes % (A) 5 %; Neutrophils # (A) 4.3 k/uL (1.3-7.7); Neutrophils % (A) 72 %; Platelet Count 254 k/uL (150-450); RBC 3.86 m/uL (3.80-5.40); RDW 13.6 % (11.5-15.5)
[2022-11-08 12:42] LABS: Albumin 3.4 g/dL (3.5-5.0); Calcium 8.3 mg/dL (8.4-10.2); Potassium 4.5 mmol/L (3.5-5.1); Total Bilirubin 0.5 mg/dL (0.2-1.3); Total Protein 6.1 g/dL (6.3-8.2)
[2022-11-08] MEDS: MELATONIN 5 MG TABLET PO SCH (20:48)
[2022-11-08] MEDS ORDERED: OLANZapine 7.5 MG TAB PO SCH (21:00)
[2022-11-09] MEDS: LORazepam 1 MG TAB PO PRN ×3 (06:46→20:01)
[2022-11-09] MEDS: lamoTRIgine 25 MG TAB PO SCH ×3 (06:46→19:59)
[2022-11-09] MEDS: ACETAMINOPHEN TAB 325 MG TAB PO PRN ×3 (06:47→20:01)
[2022-11-09] MEDS: BUPRENORPHINE-NALOX 8-2 MG TAB 1 EACH TAB.SUBL SL SCH (08:35)
[2022-11-09] MEDS: NICOTINE GUM (POLACRILEX) 2 MG GUM BUCCAL PRN ×3 (08:36→18:26)
[2022-11-09] MEDS: NICOTINE 21MG/24HR PATCH TRANSDERM SCH (09:20)
[2022-11-09] MEDS: CYCLOBENZAPRINE 5 MG TAB PO PRN ×2 (10:28→18:22)
[2022-11-09] MEDS: BUTALB/APAP/CAFF 50-325-40MG TAB PO PRN ×2 (12:07→18:22)
[2022-11-09] MEDS: SULFACETAMIDE SOD 10% OPHTH DROPS 15 ML BTL LEFT EYE SCH ×3 (12:08→21:07)
--- NOTE | 2022-11-09 13:43 | P.PN ---
Progress Note - Text Progress Note Date: 11/09/22 Interval History: Patient was seen wandering the hallways and was directable and agreeable to jess ferguson with personal lines underwriter in the office. Patient states that she just finished eating lunch fairly well. She claims that she is feeling very anxious today and continues to feel depressed. She claims that she did not sleep well last night as well. We spoke about increasing her nighttime medications and also adding Benadryl which she was okay with. She denied any rash at this time from the Lamictal. Claims that she has been going to some groups. We spoke about the court process and she'll be talking to the ip attorney today. Since of a fair appetite. At this time patient denies any suicidal or homical ideations, intent or plan. Patient denies any visual hallucinations and denies any paranoia or delusions. She did state that she was hearing voices last night. Patient denies any side effects from the medications and has been compliant with meds. Mental Status Exam: General Appearance: Patient appears to be stated age is alert, less irritable at times, directable. Patient appears to have improving hygiene and grooming. Behavior: Patient is seated without any agitated behavior.more Cooperative today. Not irritable. Speech: Patient's speech is fluent and nonpressured. Mood/Affect: Patient reports their mood is anxious, affect is congruent Suicidality/Homicidality: Patient denies having any homicidal ideation intent or plan. Denies any suicidal ideations intent or plan Perceptions: Patient denies any visual hallucinations and claims that she was hearing voices last night. Though content/process: She was endorsing paranoia, improving. less Argumentative at times. More goal oriented. Memory and concentration: AOX3, grossly intact for the purposes of this session. Judgment and insight: poor, improving mildly IMPRESSIONS: Bipolar disorder with psychotic features Cannabis use disorder Opiate dependence on agonist therapy Nicotine dependence Plan: -Patient continues to meet criteria for inpatient psychiatric admission for symptom stabilization and safety. Patient has not signed adult voluntary form and medication consent and was placed in patient's chart. -Medications: increase Zyprexa 10 mg daily at bedtime for mood stabilization/insomnia. increase Lamictal 25 mg tid for mood stabilization/depression. added prozac 20 mg daily for anxiety/mood. melatonin qhs for sleep. added benadryl 25 mg qhs prn for insomnia. -When necessary Ativan and Haldol for agitation/aggression. -NRT - nicotine patch -SW on board for discharge planning. Encouraged the patient to participate in milieu. Currently awaiting deferral with ip attorney and court date.
[2022-11-09] MEDS: FLUoxetine HCL 20 MG CAP PO SCH (15:45)
[2022-11-09] MEDS: MELATONIN 5 MG TABLET PO SCH (19:59)
[2022-11-09] MEDS: diphenhydrAMINE 25 MG CAP PO PRN (20:15)
[2022-11-09] MEDS ORDERED: OLANZapine 10 MG TAB PO SCH (21:00)
[2022-11-10] MEDS: SULFACETAMIDE SOD 10% OPHTH DROPS 15 ML BTL LEFT EYE SCH ×5 (06:18→23:52)
[2022-11-10] MEDS: BUTALB/APAP/CAFF 50-325-40MG TAB PO PRN ×4 (06:37→21:11)
[2022-11-10] MEDS: LORazepam 1 MG TAB PO PRN ×3 (06:37→21:12)
[2022-11-10] MEDS: ACETAMINOPHEN TAB 325 MG TAB PO PRN ×4 (06:37→21:10)
[2022-11-10] MEDS: BUPRENORPHINE-NALOX 8-2 MG TAB 1 EACH TAB.SUBL SL SCH (08:53)
[2022-11-10] MEDS: lamoTRIgine 25 MG TAB PO SCH ×3 (08:55→21:07)
[2022-11-10] MEDS: FLUoxetine HCL 20 MG CAP PO SCH (08:55)
[2022-11-10] MEDS: NICOTINE 21MG/24HR PATCH TRANSDERM SCH (08:55)
[2022-11-10] MEDS: NICOTINE GUM (POLACRILEX) 2 MG GUM BUCCAL PRN ×5 (09:26→21:13)
[2022-11-10] MEDS: haloperidoL 5 MG TAB PO PRN (09:42)
--- NOTE | 2022-11-10 12:43 | P.PN ---
Subjective Progress Note Date: 11/10/22 Principal diagnosis: Progress note Text she was seen today in the office: she was dressed casually and has earlier participated in the unit activities. she did not ruminate excessively over the petition court. She noted she continued to experience intermittent panic attacks with no marked mood swings. She did not note change in her appetite; hwoever, she was distressed over the metablic side effects of olanzapine wt gain of over 20 lg. She reviewed her rpevious response; and thought she would be better off if she would be switched back to Geodon. She was not yet optimized on her lamictal at the low dose rande of 25 mg po tid. She dismissed the daltercation to be chaotic scene and was prepared to plan for future: housing and relationship problem. She did not harbor any suicidal or homicidal ideation Diagnosis: Bipolar disorder, mixed type comorbid panic disorder, rule out PTSD. substance use history was denied as the dtrigger for her admission MSU: she was lucid and coherent wit her treatment response. She was distressed over her lack of progress with her Zyprexa and open to Treatment options. Affect; highly anxious with intermittent fidgetting but responding to reassurance. No marked labile affect. congruent with her thought content. No marked grudges over the petiton of her admission. No suicial or homicidal ideation. No hallucinations, no delusions She was oriented and was fully aware of her Rx history, her goals and her discharge and treatment plan. Insight and judgement was advanced from maginal to abover aaverage. Management plan; 1. Clarify her petition and encourge her to complete the process soon 2. start on Geodon with her previous positive resposne 20 mg po bid x 1 day increasing to 40 mg po bid. SHe may benefit from IM deppot of Geodon. EKG was done within the last few months. 3. Titrate lamictal to 100 mg po od to 150 mg po od 4. community engagement to realign with her support system for her to find more stable housing and support 5. contineu to refine her discharge planning Objective - Vital Signs Vital signs: Vital Signs Temp 97.6 F 11/10/22 06:00 Pulse 131 H 11/10/22 09:44 Resp 19 11/10/22 06:00 BP 135/93 11/10/22 09:44 Pulse Ox 99 11/10/22 06:00 FiO2 Intake & Output 11/09/22 11/10/22 11/10/22 18:59 06:59 18:59 Weight 68.039 kg - Labs CBC & Chem 7: 11/08/22 11:24 11/08/22 11:24
[2022-11-10] MEDS: CYCLOBENZAPRINE 5 MG TAB PO PRN ×2 (12:44→21:11)
[2022-11-10] MEDS: ZIPRASIDONE 20 MG CAP PO SCH (18:46)
--- NOTE | 2022-11-10 19:32 | CONS ---
CONSULTATION CONSULT: Psych service. CHIEF COMPLAINT: Bipolar depression. HISTORY OF PRESENT ILLNESS: This lady is apparently admitted through the emergency room on petition because of agitation, bipolar depression and suicidal thoughts. She was just in the hospital several days ago. At that time, she is complaining of some difficulty with the left eye. REVIEW OF SYSTEMS: Presently, she denies any headaches, chest pain, shortness of breath, abdominal pain, nausea, urinary complaints, etc. She does still have some irritation of that left thigh. She believes she has otherwise been healthy. In the hospital, she is known to have a low TSH and a positive hepatitis C antibody panel, but hepatitis DIGITAL PROJECT COORDINATOR is negative. She does have a history of alcohol abuse. She is allergic to nothing. She is currently on lisinopril, cyclobenzaprine, Fioricet and buprenorphine. PHYSICAL EXAMINATION: VITAL SIGNS: Blood pressure is 108/60 with a pulse of 65, respirations of 20 and she is afebrile. GENERAL: She appeared to be slender, well developed, well nourished, in no acute distress. SKIN: Skin color was normal. Skin was dry. HEAD, EARS, EYES, NOSE, MOUTH AND THROAT: Revealed mild conjunctivitis of the left eye. CHEST: Clear. CARDIAC: Normal. ABDOMEN: Soft, nontender. IMPRESSION: 1. Major depression. 2. History of bipolar disorder. 3. Low TSH. 4. Hepatitis C antibody. 5. Conjunctivitis, left eye. 6. History of alcohol abuse. RECOMMENDATIONS: None at this time. We will start her on sulfacetamide 10% eyedrops to the left eye. MMODL / IJN: [id number] /
[2022-11-10] MEDS: MELATONIN 5 MG TABLET PO SCH (21:07)
[2022-11-10] MEDS: diphenhydrAMINE 25 MG CAP PO PRN (21:12)
[2022-11-11] MEDS: NICOTINE GUM (POLACRILEX) 2 MG GUM BUCCAL PRN ×6 (04:45→23:47)
[2022-11-11] MEDS: LORazepam 1 MG TAB PO PRN ×3 (04:45→20:07)
[2022-11-11] MEDS: BUTALB/APAP/CAFF 50-325-40MG TAB PO PRN ×5 (04:45→23:47)
[2022-11-11] MEDS: SULFACETAMIDE SOD 10% OPHTH DROPS 15 ML BTL LEFT EYE SCH ×4 (06:17→23:47)
[2022-11-11] MEDS: ZIPRASIDONE 20 MG CAP PO SCH ×2 (08:58→17:17)
[2022-11-11] MEDS: BUPRENORPHINE-NALOX 8-2 MG TAB 1 EACH TAB.SUBL SL SCH (08:58)
[2022-11-11] MEDS: FLUoxetine HCL 20 MG CAP PO SCH (08:59)
[2022-11-11] MEDS: lamoTRIgine 25 MG TAB PO SCH ×3 (08:59→20:08)
[2022-11-11] MEDS: NICOTINE 21MG/24HR PATCH TRANSDERM SCH (08:59)
[2022-11-11] MEDS: NICOTINE 14MG/24HR PATCH TRANSDERM SCH (14:05)
[2022-11-11] MEDS: CYCLOBENZAPRINE 5 MG TAB PO PRN ×2 (15:18→21:56)
[2022-11-11] MEDS: ACETAMINOPHEN TAB 325 MG TAB PO PRN ×2 (20:07→23:47)
[2022-11-11] MEDS: diphenhydrAMINE 25 MG CAP PO PRN (20:07)
[2022-11-11] MEDS: MELATONIN 5 MG TABLET PO SCH (20:08)
--- NOTE | 2022-11-11 21:09 | P.PN ---
Subjective Progress Note Date: 11/11/22 Principal diagnosis: Progress note She was seen tdoay for reveiw of her progress. she was pleased wih her mood yet she requsted that her opiate use disorder be attended to She was realigned to Opiae reccovery clinic and Suboxoen Rx was prescribed 8/ od. She talked about how she wanted her Rx to be optimzied. She would liek Lamotrigine to be icnreased ; however, she was advised to gradual and to focuss on her goals of recovery. She was agreeable to have another round of talk with [facility] team by saturday. OVerlal imporvement in her Bipolar Depression. No adverse events were evident. Plan Reinforce collaborating with the Team Continue with Current Rx. Objective - Vital Signs Vital signs: Vital Signs Temp 97.6 F 11/10/22 06:00 Pulse 122 H 11/11/22 09:03 Resp 19 11/10/22 06:00 BP 130/77 11/11/22 09:03 Pulse Ox 99 11/10/22 06:00 FiO2 - Labs CBC & Chem 7: 11/08/22 11:24 11/08/22 11:24
[2022-11-11] MEDS: haloperidoL 5 MG TAB PO PRN (21:56)
[2022-11-12] MEDS: LORazepam 1 MG TAB PO PRN ×4 (00:01→20:05)
[2022-11-12] MEDS: BUTALB/APAP/CAFF 50-325-40MG TAB PO PRN ×4 (06:34→21:07)
[2022-11-12] MEDS: ACETAMINOPHEN TAB 325 MG TAB PO PRN ×3 (06:34→17:14)
[2022-11-12] MEDS: NICOTINE GUM (POLACRILEX) 2 MG GUM BUCCAL PRN ×5 (06:34→20:07)
[2022-11-12] MEDS: BUPRENORPHINE-NALOX 8-2 MG TAB 1 EACH TAB.SUBL SL SCH (09:01)
[2022-11-12] MEDS: SULFACETAMIDE SOD 10% OPHTH DROPS 15 ML BTL LEFT EYE SCH ×3 (09:26→17:17)
[2022-11-12] MEDS: CYCLOBENZAPRINE 5 MG TAB PO PRN ×2 (09:31→20:05)
[2022-11-12] MEDS: FLUoxetine HCL 20 MG CAP PO SCH (09:31)
[2022-11-12] MEDS: NICOTINE 14MG/24HR PATCH TRANSDERM SCH (09:31)
[2022-11-12] MEDS: ZIPRASIDONE 20 MG CAP PO SCH ×2 (09:31→17:14)
[2022-11-12] MEDS: lamoTRIgine 25 MG TAB PO SCH ×2 (09:31→20:05)
[2022-11-12] MEDS ORDERED: diphenhydrAMINE 50 MG CAP PO PRN (11:47)
[2022-11-12] MEDS ORDERED: hydrOXYzine pamoate 25 MG CAP PO PRN (11:51)
--- NOTE | 2022-11-12 11:56 | P.PN ---
Progress Note - Text Progress Note Date: 11/12/22 Interval History: Patient was seen wandering the hallways and was directable and agreeable to jess ferguson with mortgage underwriter in the office. Patient was fairly focused on discharge today. She claims that she has been doing better with regards or medications. She was changed To Geodon over the Weekend and Claims That She Is Tolerating It Better. She States That She is improving regarding her mood but had anxiety and agitation last night and required haldol prn. she claims that she has been sleeping on and off lately. she seemed to be fairly focused on meds and discharge. Claims that she has been going to some groups. improving appetite. At this time patient denies any suicidal or homical ideations, intent or plan. Patient denies any visual hallucinations and denies any paranoia or delusions. Patient denies any side effects from the medications and has been compliant with meds. Mental Status Exam: General Appearance: Patient appears to be stated age is alert, less irritable at times, directable. Patient appears to have improving hygiene and grooming. Behavior: Patient is seated without any agitated behavior.more Cooperative today. Speech: Patient's speech is fluent and nonpressured. Mood/Affect: Patient reports their mood is anxious, improving mildly, affect is congruent Suicidality/Homicidality: Patient denies having any homicidal ideation intent or plan. Denies any suicidal ideations intent or plan Perceptions: Patient denies any visual hallucinations and claims that she was hearing voices last night. Though content/process: She was not endorsing paranoia. More goal oriented. Memory and concentration: AOX3, grossly intact for the purposes of this session. Judgment and insight: improving mildly IMPRESSIONS: Bipolar disorder with psychotic features Cannabis use disorder Opiate dependence on agonist therapy Nicotine dependence Plan: -Patient continues to meet criteria for inpatient psychiatric admission for symptom stabilization and safety. Patient has not signed adult voluntary form and medication consent and was placed in patient's chart. -Medications: continue geodon 20 mg bid for mood stabilization/psychosis. increase Lamictal 50 mg bid for mood stabilization/depression. prozac 20 mg daily for anxiety/mood. melatonin qhs for sleep. increase benadryl 50 mg qhs prn for insomnia. -When necessary Ativan and Haldol for agitation/aggression. -NRT - nicotine patch -SW on board for discharge planning. Encouraged the patient to participate in milieu. patient deferred with her dermatologist managing partner. likely discharge back home tomorrow.
[2022-11-12 13:57] LABS: Appearance,Urine Clear (Clear); Bilirubin,Urine Negative (Negative); Blood,Urine Negative (Negative); Color,Urine Light Yellow; Glucose,Urine (UA) Negative (Negative); Ketones,Urine Negative (Negative); Leukocyte Esterase,Urine Negative (Negative); Nitrite,Urine Negative (Negative); Protein,Urine Negative (Negative); Specific Gravity,Urine 1.013 (1.001-1.035); Urobilinogen,Urine <2.0 mg/dL (<2.0)
[2022-11-12] MEDS: MELATONIN 5 MG TABLET PO SCH (20:05)
[2022-11-12 21:54] LABS: Urine Alcohol Negative (Negative); Urine Barbiturate Positive (Negative); Urine Cocaine Negative (Negative); Urine Methadone Negative (Negative); Urine Opiates Negative (Negative); Urine Phencyclidine Negative (Negative)
[2022-11-13] MEDS: SULFACETAMIDE SOD 10% OPHTH DROPS 15 ML BTL LEFT EYE SCH ×4 (00:43→11:53)
[2022-11-13] MEDS: BUTALB/APAP/CAFF 50-325-40MG TAB PO PRN ×3 (02:34→10:34)
[2022-11-13] MEDS: LORazepam 1 MG TAB PO PRN ×2 (04:28→10:33)
[2022-11-13] MEDS: ACETAMINOPHEN TAB 325 MG TAB PO PRN (04:28)
[2022-11-13] MEDS: NICOTINE GUM (POLACRILEX) 2 MG GUM BUCCAL PRN ×3 (04:28→09:08)
[2022-11-13 05:06] VITALS: BP 123/72; PULSE 106; RESP 18; TEMP 97
[2022-11-13] MEDS: NICOTINE 14MG/24HR PATCH TRANSDERM SCH (08:34)
[2022-11-13] MEDS: CYCLOBENZAPRINE 5 MG TAB PO PRN (08:34)
[2022-11-13] MEDS: FLUoxetine HCL 20 MG CAP PO SCH (08:34)
[2022-11-13] MEDS: BUPRENORPHINE-NALOX 8-2 MG TAB 1 EACH TAB.SUBL SL SCH (08:34)
[2022-11-13] MEDS: lamoTRIgine 25 MG TAB PO SCH (08:34)
[2022-11-13] MEDS: ZIPRASIDONE 20 MG CAP PO SCH (08:34)
--- NOTE | 2022-11-13 11:33 | P.DS ---
Providers Date of admission: 11/07/22 12:18 Expected date of discharge: 11/13/22 Attending physician: Lei Monroy MD Consults: 11/07/22 12:24 Consult Physician Routine Consulting Provider: Da Bowers Consult Reason/Comments: H and P Do you want consulting provider notified?: Yes Primary care physician: Sukh Wilkerson - Discharge Diagnosis(es) (1) Bipolar disorder with psychotic features Current Visit: Yes Status: Acute Priority: High (2) Cannabis use disorder Current Visit: Yes Status: Acute Priority: High (3) Opioid dependence on agonist therapy Current Visit: Yes Status: Acute Priority: Low (4) Nicotine dependence Current Visit: Yes Status: Acute Priority: Low Hospital Course: Admission HPI: Admission note was completed by advertising copy writer "This patient is a 37-year-old female who currently lives with her friend in a house and has 1 kid who is estranged. She is currently unemployed. The patient presented to the hospital yesterday on a petition by police stating that patient was endorsing homicidal thoughts and also suicidal thoughts of wanting to end her life. Patient was admitted involuntarily to the mental health unit. Patient has a history of bip olar disorder and polysubstance abuse. Patient was seen this morning and agreeable to speak to advertising copy writer today in the office. Patient appeared to have poor hygiene and grooming. She claims that she has been "having conversations with people". She states that she has been hearing voices talking to her. She claims that she is also having visual hallucinations as well. She appeared to have very poor insight and judgment. She states that she has stopped taking her psychiatric medications and does not believe she needs them. He claims that her boyfriend on Saturday from a brain aneurysm and she claims that she tried to see them. She was illogical at times during the interview. She is also on displaying poor frustration tolerance. She claims that she has "blood on my shoes from him". She claims that she has also been feeling depressed and anxious. Also endorsing paranoia. She states that she could not sleep well last night. At this time patient denies any current suicidal or homical ideations, intent or plan. Patients admits to using cigarettes daily and marijuana. Patient has not given a urine drug screen." Hospital course: Upon admission to the unit patient was admitted involuntarily on a petition and certificate and a second certificate was completed and faxed with the courts. Patient ended up signing a deferral with the employment law attorney and agreeing to treatment. Patient got along well with other patients on the unit and followed unit protocol. Patient was compliant with the medications and denied any side effects throughout hospital course. Patient was started on her home dose of suboxone, Geodon 20 mg twice a day for mood stabilization/psychosis, Lamictal 100 mg daily for mood stabilization/depression, Prozac 20 mg daily for anxiety/mood, melatonin daily at bedtime for sleep, Benadryl 50 mg daily at bedtime when necessary for insomnia. Patient spoke of her stressors and engaged in therapy both group and individual. Patient was also seen by medical team for history and physical exam. Throughout the course of the hospitalization patient gradually improved with regards to mood, anxiety, psychosis, sleep and returned back to their baseline level of functioning. On the day of discharge patient denied any suicidal or homicidal ideations intent or plan denied any auditory or visual hallucinations. Patient endorsed wanting to live for her family and her future. The patient denied any access to guns or weapons. Patient denied any paranoia and did not endorse any delusions. Patient does have a significant history of substance abuse and was counseled on abstaining from all substances including alcohol and marijuana. Patient elected to do outpatient substance use treatment program through [facility]. Patient was also counseled on the medications and need for regular compliance and was encouraged to follow-up with their outpatient appointment for mental health and also for primary care. Prior to discharge a family meeting will be arranged by social worker school to answer any questions and ensure safety upon discharge. Mental status exam: General Appearance: Patient appears to be stated age is alert, pleasant, and cooperative. Patient is in no acute distress and has improved hygiene and grooming Behavior: Patient is calmly seated without any agitated behavior. Speech: Patient's speech is fluent and nonpressured. Mood/Affect: Patient reports their mood is "good", affect is congruent Suicidality/Homicidality: Patient denies having any suicidal or homicidal ideation intent or plan. Perceptions: Patient denies any auditory or visual hallucinations. Though content/process: There is no evidence of any delusional thought content and thought process is linear and goal-directed. Memory and concentration: AOX3, grossly intact for the purposes of this session. Can spell "WORLD" backwards correctly. Judgment and insight: chronically poor, however has improved with guarded prognosis Impression: Bipolar disorder with psychotic features Cannabis use disorder Opioid dependence currently on agonist therapy Nicotine dependence Plan: -Continue with discharge today as patient has improved and stabilized psychiatrically and is not currently an imminent threat to herself and/or others. Patient will remain at chronically elevated risk for harm to self and/or others due to her polysubstance abuse. -Continue medications: Geodon 20 mg twice a day for mood stabilization/psychosis, Lamictal 100 mg daily for mood stabilization/depression, Prozac 20 mg daily for anxiety/mood, melatonin daily at bedtime for sleep, Benadryl 50 mg daily at bedtime when necessary for insomnia. -Patient was counseled on the need for medication compliance and appropriate follow-up at mental health and also primary care for medical issues. Patient ve rbalized understanding and agreed. -Social work to arrange for and conduct family meeting to ensure safety upon discharge and answer any questions/concerns. Social work also to arrange for patients follow up appointments with [facility] for psychiatric care along with follow up with primary care provider. -Patient counseled on abstaining from recreational drugs and marijuana and alcohol. Was informed/educated on the adverse effects on their physical and mental health. Patient verbally agreed and understood. Patient was offered substance abuse treatment however declined at this time. -Patient was instructed to return to the hospital or seek immediate medical care if their psychiatric or medical symptoms do worsen or reoccur. Allergies Allergy/AdvReac Type Severity Reaction Status Date / Time quetiapine [From Seroquel] Allergy Rash/Hives Verified 11/09/22 13:54 Laboratory Results WBC 6.0 k/uL (3.8-10.6) 11/08/22 11:24 RBC 3.86 m/uL (3.80-5.40) 11/08/22 11:24 Hgb 12.6 gm/dL (11.4-16.0) 11/08/22 11:24 Hct 39.6 % (34.0-46.0) 11/08/22 11:24 MCV 102.4 fL (80.0-100.0) H 11/08/22 11:24 MCH 32.7 pg (25.0-35.0) 11/08/22 11:24 MCHC 32.0 g/dL (31.0-37.0) 11/08/22 11:24 RDW 13.6 % (11.5-15.5) 11/08/22 11:24 Plt Count 254 k/uL (150-450) 11/08/22 11:24 MPV 7.5 11/08/22 11:24 Neutrophils % 72 % 11/08/22 11:24 Lymphocytes % 20 % 11/08/22 11:24 Monocytes % 5 % 11/08/22 11:24 Eosinophils % 2 % 11/08/22 11:24 Basophils % 0 % 11/08/22 11:24 Neutrophils # 4.3 k/uL (1.3-7.7) 11/08/22 11:24 Lymphocytes # 1.2 k/uL (1.0-4.8) 11/08/22 11:24 Monocytes # 0.3 k/uL (0-1.0) 11/08/22 11:24 Eosinophils # 0.1 k/uL (0-0.7) 11/08/22 11:24 Basophils # 0.0 k/uL (0-0.2) 11/08/22 11:24 Macrocytosis Slight 11/08/22 11:24 Sodium 135 mmol/L (137-145) L 11/08/22 11:24 Potassium 4.5 mmol/L (3.5-5.1) 11/08/22 11:24 Chloride 104 mmol/L (98-107) 11/08/22 11:24 Carbon Dioxide 28 mmol/L (22-30) 11/08/22 11:24 Anion Gap 3 mmol/L 11/08/22 11:24 BUN 12 mg/dL (7-17) 11/08/22 11:24 Creatinine 1.20 mg/dL (0.52-1.04) H 11/08/22 11:24 Est GFR (CKD-EPI)AfAm 67 (>60 ml/min/1.73 sqM) 11/08/22 11:24 Est GFR (CKD-EPI)NonAf 58 (>60 ml/min/1.73 sqM) 11/08/22 11:24 Glucose 106 mg/dL (74-99) H 11/08/22 11:24 Calcium 8.3 mg/dL (8.4-10.2) L 11/08/22 11:24 Total Bilirubin 0.5 mg/dL (0.2-1.3) 11/08/22 11:24 AST 81 U/L (14-36) H 11/08/22 11:24 ALT 36 U/L (4-34) H 11/08/22 11:24 Alkaline Phosphatase 88 U/L (38-126) 11/08/22 11:24 Total Protein 6.1 g/dL (6.3-8.2) L 11/08/22 11:24 Albumin 3.4 g/dL (3.5-5.0) L 11/08/22 11:24 TSH 0.452 mIU/L (0.465-4.680) L 11/08/22 11:24 Free T4 1.48 ng/dL (0.78-2.19) 11/08/22 11:24 Urine Color Light Yellow 11/12/22 10:35 Urine Appearance Clear (Clear) 11/12/22 10:35 Urine pH 8.0 (5.0-8.0) 11/12/22 10:35 Ur Specific [place] 1.013 (1.001-1.035) 11/12/22 10:35 Urine Protein Negative (Negative) 11/12/22 10:35 Urine Glucose (UA) Negative (Negative) 11/12/22 10:35 Urine Ketones Negative (Negative) 11/12/22 10:35 Urine Blood Negative (Negative) 11/12/22 10:35 Urine Nitrite Negative (Negative) 11/12/22 10:35 Urine Bilirubin Negative (Negative) 11/12/22 10:35 Urine Urobilinogen <2.0 mg/dL (<2.0) 11/12/22 10:35 Ur Leukocyte Esterase Negative (Negative) 11/12/22 10:35 Urine HCG, Qual Not Detected (Not Detectd) 11/12/22 10:35 Urine Opiates Screen Negative (Negative) 11/12/22 10:35 Urine Methadone Screen Negative (Negative) 11/12/22 10:35 Ur Propoxyphene Screen Negative (Negative) 11/12/22 10:35 Urine Barbiturates Positive (Negative) A 11/12/22 10:35 Ur Phencyclidine Scrn Negative (Negative) 11/12/22 10:35 Ur Amphetamine Screen Negative (Negative) 11/12/22 10:35 U Benzodiazepines Scrn Negative (Negative) 11/12/22 10:35 Urine Cocaine Screen Negative (Negative) 11/12/22 10:35 U Cannabinoids Screen Positive (Negative) A 11/12/22 10:35 Urine Alcohol Negative (Negative) 11/12/22 10:35 Coronavirus (PCR) Not Detected (Not Detectd) 11/07/22 10:18 Vital Signs Temp 97.0 F L 11/13/22 02:20 Pulse 106 H 11/13/22 02:20 Resp 18 11/13/22 02:20 BP 123/72 11/13/22 02:20 Pulse Ox 99 11/13/22 02:20 FiO2 Patient Condition at Discharge: Stable Plan - Discharge Summary Discharge Rx Participant: No New Discharge Prescriptions: New Sulfacetamide 10% Ophth Soln [Bleph-10] 2 drops LEFT EYE Q6HR #1 ml Nicotine 14Mg/24Hr Patch [Habitrol] 1 patch TRANSDERM DAILY 14 Days #14 patch Melatonin 10 mg PO HS 30 Days #60 tab hydrOXYzine pamoate [Vistaril] 50 mg PO DAILY PRN 30 Days #30 cap PRN Reason: Anxiety diphenhydrAMINE [Benadryl] 50 mg PO HS PRN 30 Days #30 cap PRN Reason: Insomnia Ziprasidone [Geodon] 20 mg PO AC-BID 30 Days #60 cap lamoTRIgine [LaMICtal] 100 mg PO DAILY 30 Days #30 tab FLUoxetine HCL [PROzac] 20 mg PO DAILY 30 Days #30 cap Continue Cyclobenzaprine [Flexeril] 5 mg PO TID PRN PRN Reason: Muscle Spasm Butalb/APAP/Caff 50-325-40Mg [Fioricet 50-325-40] 1 tab PO Q6H PRN PRN Reason: Migraine Headache Buprenorphine HCl/Naloxone HCl [Suboxone 4 mg-1 mg Sl Film] 1 film SL ONCE Discontinued Buprenorphine/Naloxone 8Mg/2Mg [Suboxone 8-2Mg Film] 1 film SL DIRECTED Discharge Medication List Cyclobenzaprine [Flexeril] 5 mg PO TID PRN 10/14/20 [History] Buprenorphine HCl/Naloxone HCl [Suboxone 4 mg-1 mg Sl Film] 1 film SL ONCE 11/07/22 [History] Butalb/APAP/Caff 50-325-40Mg [Fioricet 50-325-40] 1 tab PO Q6H PRN 11/07/22 [History] FLUoxetine HCL [PROzac] 20 mg PO DAILY 30 Days #30 cap 11/13/22 [Rx] Melatonin 10 mg PO HS 30 Days #60 tab 11/13/22 [Rx] Nicotine 14Mg/24Hr Patch [Habitrol] 1 patch TRANSDERM DAILY 14 Days #14 patch 11/13/22 [Rx] Sulfacetamide 10% Ophth Soln [Bleph-10] 2 drops LEFT EYE Q6HR #1 ml 11/13/22 [Rx] Ziprasidone [Geodon] 20 mg PO AC-BID 30 Days #60 cap 11/13/22 [Rx] diphenhydrAMINE [Benadryl] 50 mg PO HS PRN 30 Days #30 cap 11/13/22 [Rx] hydrOXYzine pamoate [Vistaril] 50 mg PO DAILY PRN 30 Days #30 cap 11/13/22 [Rx] lamoTRIgine [LaMICtal] 100 mg PO DAILY 30 Days #30 tab 11/13/22 [Rx] Follow up Appointment(s)/Referral(s): Sukh Wilkerson MD [Primary Care Provider] - 1-2 days Activity/Diet/Wound Care/Special Instructions: Avoid the use of street drugs and alcohol. Take all prescriptions as prescribed. When you are in need of refills on your medications, please contact your medical provider and/or outpatient psychiatrist to have this done. Please go to scheduled outpatient appointment for aftercare treatment. If symptoms return or become worse, call the crisis line at and/or go to the nearest emergency room for evaluation Discharge Disposition: HOME SELF-CARE
== END 2022-11-13 13:31 | disposition home or self-care (01) | DRG 885 ==
LOC: EC 02:39 → 3MHU 12:18
PROVIDERS: ADMIT Psychiatry & Neurology Psychiatry; ATTEND Psychiatry & Neurology Psychiatry
DX: F31.30 Bipolar disorder, current episode depressed, mild or moderate severity, unspecified (principal); F11.20 Opioid dependence, uncomplicated; R45.851 Suicidal ideations; F31.60 Bipolar disorder, current episode mixed, unspecified; F12.90 Cannabis use, unspecified, uncomplicated; F17.210 Nicotine dependence, cigarettes, uncomplicated; F20.9 Schizophrenia, unspecified; F41.0 Panic disorder [episodic paroxysmal anxiety]; G47.00 Insomnia, unspecified; H10.9 Unspecified conjunctivitis; I10 Essential (primary) hypertension; M06.9 Rheumatoid arthritis, unspecified; R45.850 Homicidal ideations; Z56.0 Unemployment, unspecified; Z63.8 Other specified problems related to primary support group; Z79.899 Other long term (current) drug therapy; Z20.822 Contact with and (suspected) exposure to COVID-19
CPT/HCPCS: 80053; 80306; 81003; 81025; 82075; 84439; 84443; 85025; 87635

== ENCOUNTER 2024-02-25 13:52 | Inpatient (IN) | payer MEDICAID, OTHER ==
--- NOTE | 2024-02-25 15:14 | ED ---
Psych HPI - General Chief Complaint: Psychiatric Symptoms Stated Complaint: Detox, mental health eval Time Seen by Provider: 02/25/24 14:27 Source: patient, family, RN notes reviewed Mode of arrival: ambulatory Limitations: no limitations - History of Present Illness Initial Comments: 38-year-old female presents emergency department with chief complaint of alcohol withdrawal, depression, 6 ideation. Patient states she has long history of alcohol abuse, alcohol withdrawal seizures. Patient states that she still has alcohol in her system but feels very shaky, nauseated. Patient also is having issues with her depression, bipolar disorder. Patient states that she plans to overdose or other ways of harming herself. Patient also states has been vo miting in which she states has been more like coffee-ground in nature. - Related Data Home Medications Medication Instructions Recorded Confirmed Acamprosate Calcium [Campral] 666 mg PO TID 02/25/24 02/25/24 Atorvastatin Calcium [Lipitor] 80 mg PO HS 02/25/24 02/25/24 Cyclobenzaprine [Flexeril] 10 mg PO TID PRN 02/25/24 02/25/24 Ergocalciferol [Vitamin D2 (1250 1,250 mcg PO QMONTHLY 02/25/24 02/25/24 Mcg = 56786 Iu)] FLUoxetine HCL [PROzac] 10 mg PO DAILY 02/25/24 02/25/24 Levothyroxine Sodium 25 mcg PO DAILY 02/25/24 02/25/24 Metoprolol Succinate (ER) [Toprol 50 mg PO DAILY 02/25/24 02/25/24 Xl] QUEtiapine [SEROquel] 100 mg PO HS 02/25/24 02/25/24 Ziprasidone [Geodon] 20 mg PO DAILY 02/25/24 02/25/24 lisinopriL [Zestril] 20 mg PO DAILY 02/25/24 02/25/24 Previous Rx's Medication Instructions Recorded Nicotine 14Mg/24Hr Patch [Habitrol] 1 patch TRANSDERM DAILY 14 Days 11/13/22 #14 patch diphenhydrAMINE [Benadryl] 50 mg PO HS PRN 30 Days #30 cap 11/13/22 Allergies Allergy/AdvReac Type Severity Reaction Status Date / Time quetiapine [From Seroquel] Allergy Rash/Hives Verified 02/25/24 14:11 Review of Systems ROS Statement: Those systems with pertinent positive or pertinent negative responses have been documented in the HPI. ROS Other: All systems not noted in ROS Statement are negative. Past Medical History Past Medical History: Atrial Fibrillation, Hypertension, Rheumatoid Arthritis (RA) Additional Past Medical History / Comment(s): TUBAL PREGANCY, chronic back pain, scleraderma, lupus, ddd History of Any Multi-Drug Resistant Organisms: MRSA Date of last positivie culture/infection: 07/01/16 MDRO Source:: RIGHT WRIST Past Surgical History: Section, Tonsillectomy Additional Past Surgical History / Comment(s): LAPROSCOPY Past Anesthesia/Blood Transfusion Reactions: No Reported Reaction Past Psychological History: Anxiety, Bipolar, Depression, Schizophrenia Smoking Status: Current every day smoker General Exam Limitations: no limitations General appearance: alert, in no apparent distress, anxious Head exam: Present: atraumatic, normocephalic, normal inspection Eye exam: Present: normal appearance, PERRL, EOMI. Absent: scleral icterus, conjunctival injection, periorbital swelling ENT exam: Present: normal exam, normal oropharynx, mucous membranes moist Neck exam: Present: normal inspection, full ROM. Absent: tenderness, meningismus, lymphadenopathy Respiratory exam: Present: normal lung sounds bilaterally. Absent: respiratory distress, wheezes, rales, rhonchi, stridor Cardiovascular Exam: Present: normal rhythm, tachycardia, normal heart sounds. Absent: systolic murmur, diastolic murmur, rubs, gallop, clicks GI/Abdominal exam: Present: soft, tenderness, normal bowel sounds. Absent: distended, guarding, rebound, rigid Neurological exam: Present: alert Skin exam: Present: warm, dry, intact, normal color. Absent: rash Course Vital Signs 02/25/24 02/25/24 02/25/24 14:07 17:49 19:47 Temperature 97.7 F 98.4 F Pulse Rate 155 H 154 H 155 H Respiratory 20 18 18 Rate Blood Pressure 120/84 117/94 136/90 O2 Sat by Pulse 98 100 100 Oximetry 02/25/24 02/26/24 02/26/24 22:49 00:50 02:45 Temperature 98.6 F Pulse Rate 158 H 158 H 147 H Respiratory 18 18 18 Rate Blood Pressure 127/93 121/101 128/94 O2 Sat by Pulse 99 97 97 Oximetry 05/01/24 04:00 Temperature Pulse Rate 147 H Respiratory 18 Rate Blood Pressure 133/92 O2 Sat by Pulse 98 Oximetry Medical Decision Making - Medical Decision Making Was pt. sent in by a medical professional or institution (, [facility], CONVEYOR FEEDER OFFBEARER, urgent care, hospital, or jail...) When possible be specific @ -No Did you speak to anyone other than the patient for history (EMS, parent, family, police, friend...)? What history was obtained from this source @ -No Did you review nursing and triage notes (agree or disagree)? Why? @ -I reviewed and agree with nursing and triage notes Were old charts reviewed (outside hosp., previous admission, EMS record, old EKG, old radiological studies, urgent care reports/EKG's, jail records)? Report findings @ -No old charts were reviewed Differential Diagnosis (chest pain, altered mental status, abdominal pain women, abdominal pain men, vaginal bleeding, weakness, fever, dyspnea, syncope, headache, dizziness, GI bleed, back pain, seizure, CVA, palpatations, mental health, musculoskeletal)? @ -Differential Mental Health Depression, anxiety, bipolar, psychosis, schizophrenia, borderline personality, situational depression, adjustment disorder, behavioral disorder, brain tumor, malingering, substance abuse, encephalopathy, medication reaction, dementia, hypothyroidism, degenerative neurologic disorder, lupus, drug abuse, alcohol abuse.... This is not meant to be all-inclusive list EKG interpreted by me (3pts min.). @ -As above X-rays interpreted by me (1pt min.). @ -None done CT interpreted by me (1pt min.). @ -None done U/S interpreted by me (1pt. min.). @ -None done What testing was considered but not performed or refused? (CT, X-rays, U/S, labs)? Why? @ -None What meds were considered but not given or refused? Why? @ -None Did you discuss the management of the patient with other professionals (professionals i.e. , [facility], CONVEYOR FEEDER OFFBEARER, lab, RT, psych nurse, social media sr strategy manager, chronic disease manager, teacher, security control room officer, heel caser)? Give summary @ -Dr. Bowers for medical admission with psychiatric consult Was smoking cessation discussed for >3mins.? @ -No Was critical care preformed (if so, how long)? @ -No Were there social determinants of health that impacted care today? How? (Homelessness, low income, unemployed, alcoholism, drug addiction, transportation, low edu. Level, literacy, decrease access to med. care, senior living, rehab)? @ -No Was there de-escalation of care discussed even if they declined (Discuss DNR or withdrawal of care, Hospice)? DNR status @ -No What co-morbidities impacted this encounter? (DM, HTN, Smoking, COPD, CAD, Cancer, CVA, ARF, Chemo, Hep., AIDS, mental health diagnosis, sleep apnea, morbid obesity)? @ -Bipolar disorder, alcohol abuse Was patient admitted / discharged? Hospital course, mention meds given and route, prescriptions, significant lab abnormalities, going to OR and other pertinent info. @ -Admit to inpatient patient presented for depression, suicide ideation with plans to overdose or jump in the water. Patient was found to have significant alcohol withdrawal symptoms she will require medical admission with admitting protocol and CIWA. Patient will consult to along with GI for hematemesis Undiagnosed new problem with uncertain prognosis? @ -No Drug Therapy requiring intensive monitoring for toxicity (Heparin, Nitro, Insulin, Cardizem)? @ -No Were any procedures done? @ -No Diagnosis/symptom? @ -Bipolar disorder, suicidal ideation, hematemesis Acute, or Chronic, or Acute on Chronic? @ -Acute Uncomplicated (without systemic symptoms) or Complicated (systemic symptoms)? @ -Complicated Side effects of treatment? @ -No Exacerbation, Progression, or Severe Exacerbation? @ -No Poses a threat to life or bodily function? How? (Chest pain, [place], [place], pneumonia, PE, COPD, DKA, ARF, appy, cholecystitis, CVA, Diverticulitis, Homicidal, Suicidal, threat to staff... and all critical care pts) @ -Yes suicidal - Lab Data Result diagrams: 02/25/24 15:06 02/25/24 15:44 Lab Results 02/25/24 02/25/24 02/25/24 Range/Units 15:06 15:06 15:06 WBC 4.7 (3.8-10.6) k/uL RBC 3.62 L (3.80-5.40) m/uL Hgb 12.0 (11.4-16.0) gm/dL Hct 36.6 (34.0-46.0) % MCV 101.2 H (80.0-100.0) fL MCH 33.0 (25.0-35.0) pg MCHC 32.7 (31.0-37.0) g/dL RDW 17.6 H (11.5-15.5) % Plt Count 241 (150-450) k/uL MPV 8.5 Neutrophils % 57 % Lymphocytes % 31 % Monocytes % 7 % Eosinophils % 2 % Basophils % 0 % Neutrophils # 2.7 (1.3-7.7) k/uL Lymphocytes # 1.5 (1.0-4.8) k/uL Monocytes # 0.3 (0-1.0) k/uL Eosinophils # 0.1 (0-0.7) k/uL Basophils # 0.0 (0-0.2) k/uL Anisocytosis Slight Macrocytosis Moderate PT (10.0-12.5) sec INR (<1.2) APTT (22.0-30.0) sec Urine Color Colorless Urine Appearance Cloudy H (Clear) Urine pH 6.0 (5.0-8.0) Ur Specific [place] 1.013 (1.001-1.035) Urine Protein Trace H (Negative) Urine Glucose (UA) Negative (Negative) Urine Ketones Negative (Negative) Urine Blood Negative (Negative) Urine Nitrite Negative (Negative) Urine Bilirubin Negative (Negative) Urine Urobilinogen <2.0 (<2.0) mg/dL Ur Leukocyte Esterase Moderate H (Negative) Urine RBC 4 (0-5) /hpf Urine WBC 6 H (0-5) /hpf Ur Squamous Epith Cells 10 H (0-4) /hpf Urine Bacteria Rare H (None) /hpf Hyaline Casts 17 H (0-2) /lpf Urine Mucus Rare H (None) /hpf Urine HCG, Qual Not Detected (Not Detectd) Urine Opiates Screen Not Detected (NotDetected) Ur Oxycodone Screen Not Detected (NotDetected) Urine Methadone Screen Not Detected (NotDetected) Ur Barbiturates Screen Not Detected (NotDetected) U Tricyclic Antidepress Not Detected (NotDetected) Ur Phencyclidine Scrn Not Detected (NotDetected) Ur Amphetamines Screen Not Detected (NotDetected) U Methamphetamines Scrn Not Detected (NotDetected) U Benzodiazepines Scrn Detected H (NotDetected) Urine Cocaine Screen Not Detected (NotDetected) U Marijuana (THC) Screen Not Detected (NotDetected) 02/25/24 Range/Units 15:06 WBC (3.8-10.6) k/uL RBC (3.80-5.40) m/uL Hgb (11.4-16.0) gm/dL Hct (34.0-46.0) % MCV (80.0-100.0) fL MCH (25.0-35.0) pg MCHC (31.0-37.0) g/dL RDW (11.5-15.5) % Plt Count (150-450) k/uL MPV Neutrophils % % Lymphocytes % % Monocytes % % Eosinophils % % Basophils % % Neutrophils # (1.3-7.7) k/uL Lymphocytes # (1.0-4.8) k/uL Monocytes # (0-1.0) k/uL Eosinophils # (0-0.7) k/uL Basophils # (0-0.2) k/uL Anisocytosis Macrocytosis PT 11.6 (10.0-12.5) sec INR 1.1 (<1.2) APTT 23.2 (22.0-30.0) sec Urine Color Urine Appearance (Clear) Urine pH (5.0-8.0) Ur Specific [place] (1.001-1.035) Urine Protein (Negative) Urine Glucose (UA) (Negative) Urine Ketones (Negative) Urine Blood (Negative) Urine Nitrite (Negative) Urine Bilirubin (Negative) Urine Urobilinogen (<2.0) mg/dL Ur Leukocyte Esterase (Negative) Urine RBC (0-5) /hpf Urine WBC (0-5) /hpf Ur Squamous Epith Cells (0-4) /hpf Urine Bacteria (None) /hpf Hyaline Casts (0-2) /lpf Urine Mucus (None) /hpf Urine HCG, Qual (Not Detectd) Urine Opiates Screen (NotDetected) Ur Oxycodone Screen (NotDetected) Urine Methadone Screen (NotDetected) Ur Barbiturates Screen (NotDetected) U Tricyclic Antidepress (NotDetected) Ur Phencyclidine Scrn (NotDetected) Ur Amphetamines Screen (NotDetected) U Methamphetamines Scrn (NotDetected) U Benzodiazepines Scrn (NotDetected) Urine Cocaine Screen (NotDetected) U Marijuana (THC) Screen (NotDetected) - EKG Data -: EKG Interpreted by Me EKG Comments: EKG performed at 15: 24 sinus tachycardia rate of 149 QRS 123 QRS 86 QT/QTc 326/411 Disposition Clinical Impression: Alcohol withdrawal syndrome, Acute psychosis, Bipolar disorder, Hematemesis Disposition: ADMITTED IP TO THIS [facility] Time of Disposition: 15:46
[2024-02-25 15:24] LABS: Anisocytosis Slight; Basophils % (A) 0 %; Eosinophils # (A) 0.1 k/uL (0-0.7); Eosinophils % (A) 2 %; HCT 36.6 % (34.0-46.0); Lymphocytes # (A) 1.5 k/uL (1.0-4.8); Lymphocytes % (A) 31 %; MCHC 32.7 g/dL (31.0-37.0); MCV 101.2 fL (80.0-100.0); Macrocytosis Moderate; Mean Platelet Volume 8.5; Monocytes # (A) 0.3 k/uL (0-1.0); Monocytes % (A) 7 %; Neutrophils # (A) 2.7 k/uL (1.3-7.7); Neutrophils % (A) 57 %; Platelet Count 241 k/uL (150-450); RBC 3.62 m/uL (3.80-5.40); RDW 17.6 % (11.5-15.5); WBC 4.7 k/uL (3.8-10.6)
[2024-02-25 15:28] LABS: Appearance,Urine Cloudy (Clear); Bacteria,Urine Rare /hpf; Bilirubin,Urine Negative (Negative); Blood,Urine Negative (Negative); Color,Urine Colorless; Glucose,Urine (UA) Negative (Negative); Hyaline Casts,Urine 17 /lpf (0-2); Ketones,Urine Negative (Negative); Leukocyte Esterase,Urine Moderate (Negative); Mucus,Urine Rare /hpf; Nitrite,Urine Negative (Negative); Protein,Urine Trace (Negative); RBC,Urine 4 /hpf (0-5); Specific Gravity,Urine 1.013 (1.001-1.035); Squamous Epithelial Cell,Urine 10 /hpf (0-4); Urobilinogen,Urine <2.0 mg/dL (<2.0); WBC,Urine 6 /hpf (0-5)
[2024-02-25 15:37] LABS: Amphetamine Screen,Urine Not Detected (NotDetected); Barbiturate Screen,Urine Not Detected (NotDetected); Benzodiazepines Screen,Urine Detected (NotDetected); Cocaine Screen,Urine Not Detected (NotDetected); Methadone Screen, Urine Not Detected (NotDetected); Opiate Screen,Urine Not Detected (NotDetected); Oxycodone Screen, Urine Not Detected (NotDetected); Phencyclidine Screen,Urine Not Detected (NotDetected); Tricyclic Antidepressant,Urine Not Detected (NotDetected); Urn Cannabinoid Scrn Not Detected (NotDetected)
[2024-02-25] MEDS: LORazepam 2 MG/ML INJ IV STA ×2 (15:42→17:58)
[2024-02-25] MEDS: SODIUM CHLORIDE 0.9% 1,000 ML IV ONE (15:43)
[2024-02-25] MEDS: METOCLOPRAMIDE 5 MG/ML 2 ML VIAL IVP STA (15:45)
[2024-02-25] MEDS ORDERED: NALOXONE 0.4 MG/ML 1 ML VIAL IV PRN (15:46)
[2024-02-25] MEDS: THIAMINE 100 MG/ML 2 ML VIAL IM STA (15:47)
[2024-02-25] MEDS: PANTOPRAZOLE 40 MG/10 ML VIAL IVP STA (15:51)
[2024-02-25 15:53] LABS: INR 1.1 (<1.2); Partial Thromboplastin Time 23.2 sec (22.0-30.0); Prothrombin Time 11.6 sec (10.0-12.5)
[2024-02-25 16:01] LABS: ALT 24 U/L (4-34); AST 59 U/L (14-36); African American GFR (CKD) 65 (>60 ml/min/1.73 sqM); Albumin 3.5 g/dL (3.5-5.0); Alkaline Phosphatase 82 U/L (38-126); Anion Gap 15 mmol/L; Blood Urea Nitrogen 10 mg/dL (7-17); Calcium 8.5 mg/dL (8.4-10.2); Carbon Dioxide 21 mmol/L (22-30); Chloride 104 mmol/L (98-107); Glucose 127 mg/dL (74-99); Magnesium 1.4 mg/dL (1.6-2.3); Non-African American GFR(CKD) 56 (>60 ml/min/1.73 sqM); Potassium 3.1 mmol/L (3.5-5.1); Sodium 140 mmol/L (137-145); Total Bilirubin 0.3 mg/dL (0.2-1.3)
[2024-02-25 16:20] LABS: Alcohol 215 mg/dL
[2024-02-25] MEDS: SODIUM CHLORIDE 0.9% 1,000 ML IV SCH (17:57)
[2024-02-25] MEDS: POTASSIUM CHLORIDE ER 20 MEQ TAB.ER PO STA (17:58)
[2024-02-25] MEDS: SODIUM CHLORIDE 0.9% 500 ML 500 ML IV ONE (18:00)
[2024-02-25] MEDS: MAGNESIUM SULFATE-D5W PMX 1 GM in DEXTROSE/WATER 1 100ML.BAG IVPB SCH (18:42)
[2024-02-25] MEDS: LORazepam 2 MG/ML INJ IV PRN (19:58)
[2024-02-25] MEDS: PANTOPRAZOLE 40 MG/10 ML VIAL IV SCH (22:58)
[2024-02-26] MEDS: SODIUM CHLORIDE 0.9% 500 ML 500 ML IV ONE ×2 (01:07→05:18)
[2024-02-26] MEDS: LORazepam 2 MG/ML INJ IV PRN ×2 (04:43→09:11)
[2024-02-26] MEDS: QUEtiapine 100 MG TAB PO STA (05:18)
[2024-02-26] MEDS: METOPROLOL SUCCINATE (ER) 25 MG TAB.ER.24H PO STA ×2 (05:18→09:01)
[2024-02-26] MEDS: ACETAMINOPHEN TAB 325 MG TAB PO PRN (05:19)
--- NOTE | 2024-02-26 06:24 | HP ---
HISTORY AND PHYSICAL CHIEF COMPLAINT: Acute alcohol intoxication with DTs and a history of hematemesis. HISTORY OF PRESENT ILLNESS: This is another admission for this 38-year-old white female who presented to the emergency room intoxicated and depressed. She does have a diagnosis of bipolar depression and schizophrenia. She has been on atorvastatin, levothyroxine, Banophen, ziprasidone, metoprolol, ondansetron p.r.n., Flexeril, Prozac, hydroxyzine, Seroquel, and thiamine. She had been on Campral in the past. She is also on lisinopril. Remainder of her history is unremarkable. She does continue to smoke. PHYSICAL EXAMINATION: VITAL SIGNS: Blood pressure is 170/118 with a pulse OF 125. Respirations were 35. She is afebrile. GENERAL: Overdose, lethargic and acutely intoxicated. HEAD, EARS, EYES, NOSE, MOUTH AND THROAT: Normal. CHEST: Clear. CARDIAC: Demonstrated sinus tachycardia. ABDOMEN: Soft, protuberant. There are no masses or visceromegaly. Bowel sounds present. EXTREMITIES: Normal. NEUROLOGIC: She is intact. She was tremulous. She is admitted to the hospital with diagnoses of: 1. Acute alcohol intoxication and overdose. 2. Delirium tremens. 3. History of chronic alcoholism. 4. Schizophrenia. 5. Bipolar depression. PLAN: 1. Bed rest. 2. IV fluids. 3. CIWA protocol. ERIN / RAMU: [id number] /
[2024-02-26] MEDS: IBUPROFEN 400 MG TAB PO PRN (07:47)
[2024-02-26 08:26] LABS: HCG,Qualitative Serum Not Detected
--- NOTE | 2024-02-26 08:51 | P.HPIM ---
History of Present Illness Patient is a pleasant 38 years old female with past medical history of multiple medical problems as below. Presents because of her alcohol problems, She thinks she is going to have a seizure and she thinks she requires benzodiazepine. Patient states she drinks about fifth daily and her alcohol level was elevated on admission. Also patient has been complaining from abdominal pain all across her abdomen for the last 2 months, moderate in severity nonradiating felt like burning and affected by food sometimes increase or decrease by food. Yesterday she vomited t several times with was with some of blood and coffee- ground vomitus Patient states also she had thoughts to kill herself by jumping in water or take fentanyl, She complains from depression and suicidal and homicidal ideation She denies dysuria or urgency, she complains from migraine headache but walking with no difficulty She denies smoking or illicit drugs On admission she was tachycardic with heart rate was 158, EKG showing sinus tachycardia versus atrial flutter with a rate of 149, she received 1 dose of 12.5 mg of metoprolol with slight decrease of heart rate down to 137 but blood pressure 129/82 therefore we are going to give her another dose of metoprolol 12.5 mg. Rest of labs including CBC, BMP and liver enzymes were unremarkable except for mild hypokalemia and hypomagnesemia which is being replaced. Urine analysis is slightly abnormal looks concentrated sample but patient denies any other complaints. Urine hCG is negative Urine drug screen is negative Serum alcohol was elevated 215 Review of Systems Review of systems CONSTITUTIONAL: No fever, no malaise, no fatigue. HEENT: No recent visual problems or hearing problems. Denied any sore throat. CARDIOVASCULAR: No orthopnea, PND, no palpitations, no syncope. PULMONARY: No shortness of breath, no cough, no hemoptysis. GASTROINTESTINAL: No constipation. Normoactive bowel sounds. NEUROLOGICAL: No headaches, no weakness, no numbness. HEMATOLOGICAL: Denies any bleeding or petechiae. GENITOURINARY: Denies any burning micturition, frequency, or urgency. MUSCULOSKELETAL/RHEUMATOLOGICAL: Denies any joint pain, swelling, or any muscle pain. ENDOCRINE: Denies any polyuria or polydipsia. Past Medical History Past Medical History: Atrial Fibrillation, Hypertension, Rheumatoid Arthritis (RA) Additional Past Medical History / Comment(s): TUBAL PREGANCY, chronic back pain, scleraderma, lupus, ddd History of Any Multi-Drug Resistant Organisms: MRSA Date of last positivie culture/infection: 07/01/16 MDRO Source:: RIGHT WRIST Past Surgical History: Section, Tonsillectomy Additional Past Surgical History / Comment(s): LAPROSCOPY Past Anesthesia/Blood Transfusion Reactions: No Reported Reaction Past Psychological History: Anxiety, Bipolar, Depression, Schizophrenia Smoking Status: Current every day smoker Medications and Allergies Home Medications Medication Instructions Recorded Confirmed Type Nicotine 14Mg/24Hr Patch [Habitrol] 1 patch TRANSDERM DAILY 14 Days 11/13/22 02/25/24 Rx #14 patch diphenhydrAMINE [Benadryl] 50 mg PO HS PRN 30 Days #30 cap 11/13/22 02/25/24 Rx Acamprosate Calcium [Campral] 666 mg PO TID 02/25/24 02/25/24 History Atorvastatin Calcium [Lipitor] 80 mg PO HS 02/25/24 02/25/24 History Cyclobenzaprine [Flexeril] 10 mg PO TID PRN 02/25/24 02/25/24 History Ergocalciferol [Vitamin D2 (1250 1,250 mcg PO QMONTHLY 02/25/24 02/25/24 History Mcg = 91816 Iu)] FLUoxetine HCL [PROzac] 10 mg PO DAILY 02/25/24 02/25/24 History Levothyroxine Sodium 25 mcg PO DAILY 02/25/24 02/25/24 History Metoprolol Succinate (ER) [Toprol 50 mg PO DAILY 02/25/24 02/25/24 History Xl] QUEtiapine [SEROquel] 100 mg PO HS 02/25/24 02/25/24 History Ziprasidone [Geodon] 20 mg PO DAILY 02/25/24 02/25/24 History lisinopriL [Zestril] 20 mg PO DAILY 02/25/24 02/25/24 History Allergies Allergy/AdvReac Type Severity Reaction Status Date / Time quetiapine [From Seroquel] Allergy Rash/Hives Verified 02/25/24 14:11 Physical Exam Vitals: Vital Signs Temp Pulse Resp BP Pulse Ox 02/26/24 07:35 134 H 18 120/72 97 02/26/24 04:00 147 H 18 133/92 98 02/26/24 02:45 147 H 18 128/94 97 02/26/24 00:50 98.6 F 158 H 18 121/101 97 02/25/24 22:49 158 H 18 127/93 99 02/25/24 19:47 155 H 18 136/90 100 02/25/24 17:49 98.4 F 154 H 18 117/94 100 02/25/24 14:07 97.7 F 155 H 20 120/84 98 GENERAL: The patient is alert and oriented x3, not in any acute distress. Well developed, well nourished. HEENT: Pupils are round and equally reacting to light. EOMI. No scleral icterus. No conjunctival pallor. Normocephalic, atraumatic. No pharyngeal erythema. No thyromegaly. CARDIOVASCULAR: S1 and S2 present. No murmurs, rubs, or gallops. PULMONARY: Chest is clear to auscultation, no wheezing , no crackles. -ABDOMEN: Soft, epigastric tenderness, no rebound tenderness or guarding a little more to the left side , nondistended, normoactive bowel sounds. No palpable organomegaly. MUSCULOSKELETAL: No joint swelling or deformity. EXTREMITIES: No cyanosis, clubbing, or pedal edema. NEUROLOGICAL: Gross neurological examination did not reveal any focal deficits. SKIN: No rashes. no petechiae. Results CBC & Chem 7: 02/25/24 15:06 02/25/24 15:44 Labs: Abnormal Lab Results - Last 24 Hours (Table) 02/25/24 02/25/24 02/25/24 Range/Units 15:06 15:06 15:44 RBC 3.62 L (3.80-5.40) m/uL MCV 101.2 H (80.0-100.0) fL RDW 17.6 H (11.5-15.5) % Potassium 3.1 L (3.5-5.1) mmol/L Carbon Dioxide 21 L (22-30) mmol/L Creatinine 1.22 H (0.52-1.04) mg/dL Glucose 127 H (74-99) mg/dL Magnesium 1.4 L (1.6-2.3) mg/dL AST 59 H (14-36) U/L Total Protein 6.0 L (6.3-8.2) g/dL Urine Appearance Cloudy H (Clear) Urine Protein Trace H (Negative) Ur Leukocyte Esterase Moderate H (Negative) Urine WBC 6 H (0-5) /hpf Ur Squamous Epith Cells 10 H (0-4) /hpf Urine Bacteria Rare H (None) /hpf Hyaline Casts 17 H (0-2) /lpf Urine Mucus Rare H (None) /hpf U Benzodiazepines Scrn Detected H (NotDetected) Serum Alcohol 215 H* mg/dL Assessment and Plan Assessment: Alcohol use disorder and alcohol withdrawal Depression/bipolar and history of schizophrenia with current signs symptoms of depression suicidal and homicidal ideation with plan Coffee-ground vomitus and possible GI bleed with epigastric pain and tenderness Atrial tachycardia most likely sinus tachycardia, rule out atrial flutter Acute kidney injury, mild Mild obstructive abnormality with hypokalemia and hypomagnesemia Plan: Continue with CIWA protocol and thiamine Continue with normal saline On IV Protonix 40 mg twice daily No anticoagulation and DC ibuprofen Continue with cardiology consult for tachycardia Continue with suicidal precaution and sitter at bedside Psychiatry and GI consult already been requested Labs and medication were reviewed.. Continue same treatment. Continue with symptomatic treatment. Resume home medication. Monitor labs and vitals. DVT and GI prophylaxis. Further recommendations as per clinical course of the patient DVT prophylaxis: no Subcutaneous heparin GI Prophylaxis: Ppi Prognosis is guarded
[2024-02-26] MEDS: THIAMINE 100 MG TAB PO SCH (09:00)
[2024-02-26 10:34] LABS: Basophils # (A) 0 X 10*3/uL (0.00-0.10); Basophils % (A) 0 %; Eosinophils # (A) 0.05 X 10*3/uL (0.04-0.35); HGB 8.7 g/dL (12.0-15.0); Lymphocytes % (A) 32.9 %; MCH 32.7 pg (27.0-32.0); MCHC 32.2 g/dL (32.0-37.0); MCV 101.5 FL (80.0-97.0); Mean Platelet Volume 9.3 FL (9.5-12.2); Monocytes # (A) 0.33 X 10*3/uL (0.20-1.00); Monocytes % (A) 6.8 %; NRBC Per 100 WBC 0 X 10*3/uL (0.00-0.01); Neutrophils # (A) 2.86 X 10*3/uL (1.80-7.70); Neutrophils % (A) 58.9 %; Platelet Count 133 X 10*3/uL (140-440); RBC 2.66 X 10*6/uL (4.10-5.20); RDW 17.9 % (11.5-14.5); WBC 4.86 X 10*3/uL (4.50-10.00)
[2024-02-26 12:13] LABS: ALT 19 U/L (8-44); AST 40 U/L (13-35); Albumin 3.3 g/dL (3.8-4.9); Albumin/Globulin Ratio 1.94 Ratio (1.60-3.17); Alkaline Phosphatase 69 U/L (41-126); BUN/Creat Ratio 7.33 Ratio (12.00-20.00); Blood Urea Nitrogen 8.8 mg/dL (9.0-27.0); Calcium 7.5 mg/dL (8.7-10.3); Chloride 106 mmol/L (96-109); Globulin 1.7 g/dL (1.6-3.3); Glucose 119 mg/dL (70-110); Magnesium 1.6 mg/dL (1.5-2.4); Potassium 3.5 mmol/L (3.5-5.5); Sodium 139 mmol/L (135-145); Total Bilirubin 0.2 mg/dL (0.3-1.2)
[2024-02-26] MEDS: chlordiazePOXIDE 25 MG CAP PO STA (14:26)
--- NOTE | 2024-02-26 14:28 | P.CN ---
Psychiatric Consult - . Consult date: 02/26/24 Consult:: 02/26/24 13:58 IDENTIFYING DATA: This patient is a 38-year-old female currently lives with a friend, she is she has 1 kid, she is unemployed currently. REASON FOR REFERRAL: Psychiatry was consulted for suicidal ideation and bipolar HISTORY OF PRESENT ILLNESS: The patient presented to the hospital initially complaining of alcohol withdrawal, also endorsing depression and suicidal ideations. Patient was displaying withdrawal symptoms including nausea vomiting, tachycardia, she was also having hematemesis, GI is consulted. Patient's urine drug screen is positive for benzodiazepines. Patient reported a history of bipolar disorder. She spoke with mortgage loan underwriter at the bedside today, states that she has not been taking her bipolar medications for several months now. States that she was feeling suicidal, depressed and very anxious. She states that she was having a plan to overdose and kill herself. She is not able to consent currently and states that she is still having suicidal thoughts and may harm herself in the hospital. Patient's blood alcohol level was 215 on admission. Patient claims that she was recently evicted from her apartment and "lost everything". She states that she has been drinking about 1/5 of vodka per day for the past year or so. States that her depression anxiety has been getting worse, states that her last drink was about 2 days ago claims that she does have a history of severe withdrawals including seizures. Claims that she is still having shaking, nausea and some restless leg symptoms. States that her sleep is been poor, appetite has been fair. She denies any homical ideations, intent or plan. Patient denies any auditory, visual hallucinations and denies any paranoia or delusions. Patients admits to using alcohol as noted above, denies any cigarette use. She states that she smokes marijuana occasionally. PAST PSYCHIATRIC HISTORY: Patient has a a history of bipolar disorder, depression and anxiety and alcohol use. Patient used to be on acamprosate Prozac and Seroquel however has not been taking medications for several months. She states that she was last psychiatrically hospitalized about a year ago does not know where. Patient denies any psychiatric outpatient follow-up. Aims that she attempted suicide by cutting her wrist about 2 years ago. Past Medical History: Atrial Fibrillation, Hypertension, Rheumatoid Arthritis ( RA) Additional Past Medical History / Comment(s): TUBAL PREGANCY, chronic back pain, scleraderma, lupus, ddd History of Any Multi-Drug Resistant Organisms: MRSA Date of last positivie culture/infection: 07/01/16 MDRO Source:: RIGHT WRIST Past Surgical History: Section, Tonsillectomy Additional Past Surgical History / Comment(s): LAPROSCOPY Past Anesthesia/Blood Transfusion Reactions: No Reported Reaction Past Psychological History: Anxiety, Bipolar, Depression, Schizophrenia Smoking Status: Current every day smoker ALLERGIES: as per EMR. CHEMICAL DEPENDENCY HISTORY: as per HPI. FAMILY PSYCHIATRIC/SUBSTANCE USE HISTORY: Denies SOCIAL HISTORY: Patient was born and raised in [place], claims that she completed some college that her GED. States that she does not have any legal history. Claims that she currently lives with a friend, she is she has 1 kid, she is unemployed. MENTAL STATUS EXAM: General Appearance: Patient appears to be overweight, disheveled appearance, stated age is alert, appears restless, attempts to cooperate. Patient appears to have poor hygiene and grooming wearing hospital gown with fair eye contact. Behavior: Patient is calmly lying in bed without any agitated behavior. Appears anxious, restless Speech: Patient's speech is fluent and nonpressured. [place], soft tone Mood/Affect: Patient reports their mood is "depressed and anxious", affect is congruent Suicidality/Homicidality: Patient is endorsing suicidal thoughts, no specific plan at this time. Denying any homicidal ideations. Perceptions: Patient denies any visual hallucinations and denies any auditory hallucinations Though content/process: There is no evidence of any delusional thought content and thought process is linear and goal-directed. [place] Memory and concentration: AOX3, grossly intact for the purposes of this session. Can spell "WORLD" backwards Judgment and insight: Poor IMPRESSIONS: Suicidal ideations Bipolar disorder, current episode depressed Alcohol use disorder, severe dependence, currently in withdrawal Cannabis use disorder mild PLAN: -At this time patient DOES meet criteria for inpatient psychiatric admission once patient is medically cleared. -Would recommend the following medication changes/additions: Start Librium 25 mg 3 times daily for alcohol withdrawal and plan to taper down. Trazodone 50 mg ni ghtly as needed for insomnia. Will wait till patient is medically cleared before speaking with her about being restarted back on antidepressants and mood stabilizing medications. -CIWA protocol with PRN Ativan for alcohol withdrawal. Continue to monitor vital signs. -Continue 1:1 sitter for safety due to patient being suicidal and currently being held for mental health admission. -Cannot leave AMA at this time. Patient will need a petition and certification if attempting to leave AMA. -When medically stable, patient is eligible for transfer to a psych bed when available. Currently investigating patient's drop in hemoglobin. appreciate GI recs. -Communicated plan to patient's nurse -Psychiatry will sign off at this time -Please contact with any questions. 02/26/24 14:22
--- NOTE | 2024-02-26 14:42 | P.CONS ---
History of Present Illness - Reason for Consult Consult date: 02/26/24 Hematemesis Requesting physician: Kiran Christianson - Chief Complaint Alcohol withdrawal, depression and suicidal ideation - History of Present Illness This is a pleasant 38-year-old female who had presented to the emergency department yesterday afternoon with complaints of depression, alcohol withdrawal and suicidal ideations. Patient states that she has a long history alcoholism and drinks a couple pints to 1/5 a day. Alcohol level was 215 on admission. States that she was having nausea and vomiting for 2 days prior to coming into the emergency department and that there was dark coffee-ground blood. States that she had 7-8 emesis and maybe 6 of them had blood. She had similar symptoms a few months ago and was seen at [facility] by gastroenterology and underwent an upper endoscopy August 2023 with findings of mild gastritis and no varices. She states that she has not had any further nausea or vomiting since coming into the hospital and is tolerating a clear liquid diet. She denies any abdominal pain. Hemoglobin on admission was 12.0 with a drop today to 8.7. She is also noted to have mild elevated LFTs, BUN normal. INR 1.1 Review of Systems REVIEW OF SYSTEMS: CARDIOPULMONARY: No chest pain or shortness of breath. Gastrointestinal: No epigastric or abdominal pain. Nausea and vomiting for the last 2 days, 7-8 episodes with coffee-ground emesis. No rectal bleeding, or melena. GENITOURINARY: No dysuria or hematuria. MUSCULOSKELETAL: Reports normal range of motion. SKIN: No rashes. No jaundice. ENDOCRINE: No chills, fevers. No excessive weight gain or loss. No polydipsia or polyuria. PSYCHIATRIC: Depression, suicidal ideation, alcohol abuse/dependence. NEUROLOGY: No change in mental status. Denies dizziness, headache. ENT: Vision unremarkable. CONSTITUTIONAL: No recent weight loss. No fever, chills, night sweats. Past Medical History Past Medical History: Atrial Fibrillation, Hypertension, Rheumatoid Arthritis (RA) Additional Past Medical History / Comment(s): TUBAL PREGANCY, chronic back pain, scleraderma, lupus, ddd History of Any Multi-Drug Resistant Organisms: MRSA Year Discovered:: 07/01/16 MDRO Source:: RIGHT WRIST Past Surgical History: Section, Tonsillectomy Additional Past Surgical History / Comment(s): LAPROSCOPY Past Anesthesia/Blood Transfusion Reactions: No Reported Reaction Past Psychological History: Anxiety, Bipolar, Depression, Schizophrenia Smoking Status: Current every day smoker Medications and Allergies Home Medications Medication Instructions Recorded Confirmed Type Nicotine 14Mg/24Hr Patch [Habitrol] 1 patch TRANSDERM DAILY 14 Days 11/13/22 02/25/24 Rx #14 patch diphenhydrAMINE [Benadryl] 50 mg PO HS PRN 30 Days #30 cap 11/13/22 02/25/24 Rx Acamprosate Calcium [Campral] 666 mg PO TID 02/25/24 02/25/24 History Atorvastatin Calcium [Lipitor] 80 mg PO HS 02/25/24 02/25/24 History Cyclobenzaprine [Flexeril] 10 mg PO TID PRN 02/25/24 02/25/24 History Ergocalciferol [Vitamin D2 (1250 1,250 mcg PO QMONTHLY 02/25/24 02/25/24 History Mcg = 06350 Iu)] FLUoxetine HCL [PROzac] 10 mg PO DAILY 02/25/24 02/25/24 History Levothyroxine Sodium 25 mcg PO DAILY 02/25/24 02/25/24 History Metoprolol Succinate (ER) [Toprol 50 mg PO DAILY 02/25/24 02/25/24 History Xl] QUEtiapine [SEROquel] 100 mg PO HS 02/25/24 02/25/24 History Ziprasidone [Geodon] 20 mg PO DAILY 02/25/24 02/25/24 History lisinopriL [Zestril] 20 mg PO DAILY 02/25/24 02/25/24 History Allergies Allergy/AdvReac Type Severity Reaction Status Date / Time quetiapine [From Seroquel] Allergy Rash/Hives Verified 02/25/24 14:11 Physical Exam Vitals: Vital Signs Temp Pulse Resp BP Pulse Ox 02/26/24 09:48 123 H 16 129/71 96 02/26/24 07:35 134 H 18 120/72 97 02/26/24 04:00 147 H 18 133/92 98 02/26/24 02:45 147 H 18 128/94 97 02/26/24 00:50 98.6 F 158 H 18 121/101 97 02/25/24 22:49 158 H 18 127/93 99 02/25/24 19:47 155 H 18 136/90 100 02/25/24 17:49 98.4 F 154 H 18 117/94 100 02/25/24 14:07 97.7 F 155 H 20 120/84 98 General appearance: The patient is alert, oriented, appears in no acute distress. HET: Head is normocephalic and atraumatic. Conjunctiva pink. Sclera anicteric. Neck: Supple without lymphadenopathy. Trachea midline. Heart: Regular. Lungs: Equal expansion, normal respiratory effort. Abdomen: Soft, nontender, nondistended. Skin: No rashes. No jaundice. Extremities: Normal skin color and turgor. No pedal edema. Neurological: No focal deficits. Alert and oriented x3. Results CBC & Chem 7: 02/26/24 07:48 02/26/24 07:48 Labs: Abnormal Lab Results - Last 24 Hours (Table) 02/25/24 02/25/24 02/25/24 Range/Units 15:06 15:06 15:44 RBC 3.62 L (3.80-5.40) m/uL MCV 101.2 H (80.0-100.0) fL RDW 17.6 H (11.5-15.5) % Potassium 3.1 L (3.5-5.1) mmol/L Carbon Dioxide 21 L (22-30) mmol/L Creatinine 1.22 H (0.52-1.04) mg/dL Glucose 127 H (74-99) mg/dL Magnesium 1.4 L (1.6-2.3) mg/dL AST 59 H (14-36) U/L Total Protein 6.0 L (6.3-8.2) g/dL Urine Appearance Cloudy H (Clear) Urine Protein Trace H (Negative) Ur Leukocyte Esterase Moderate H (Negative) Urine WBC 6 H (0-5) /hpf Ur Squamous Epith Cells 10 H (0-4) /hpf Urine Bacteria Rare H (None) /hpf Hyaline Casts 17 H (0-2) /lpf Urine Mucus Rare H (None) /hpf U Benzodiazepines Scrn Detected H (NotDetected) Serum Alcohol 215 H* mg/dL Assessment and Plan (1) Coffee ground emesis Narrative/Plan: 38-year-old female with a longstanding history of alcohol abuse, depression, history of recreational drug use, suicidal ideations presented to the hospital with alcohol withdrawal symptoms. She had stated she was going through wit hdrawal symptoms she drinks 2 pints to 1/5 a day. She was having nausea and vomiting with coffee-ground emesis for 2 days prior to coming into the emergency department. None since then. Initial hemoglobin 12.0 on admission with a drop to 8.7 with elevated MCV and normal BUN. Patient had been seen recently within the last few months with gastroenterology for previous GI bleed and had upper endoscopy done with no evidence of active bleeding or old blood, mild gastritis and no varices. No plans endoscopic evaluation at this time. Anemia may be secondary to underlying liver disease but will monitor. Will treat with Protonix 40 mg twice daily. Current Visit: Yes Status: Acute Code(s): K92.0 - HEMATEMESIS SNOMED Code(s): 52505066 (2) Anemia Current Visit: Yes Status: Acute Code(s): D64.9 - ANEMIA, UNSPECIFIED SNOMED Code(s): 567579805 (3) Alcohol abuse Current Visit: Yes Status: Acute Code(s): F10.10 - ALCOHOL ABUSE, UNCOMPLICATED SNOMED Code(s): 29174572 Plan: 1. Continue symptomatic and supportive care 2. Repeat CBC daily, transfuse for hemoglobin less than 7 3. Protonix 40 mg twice daily 4. Antiemetics as needed 5. Recommend alcohol abstinence 6. No plans on upper endoscopy at this time. Patient had recent upper endoscopy done at [facility] with findings of mild gastritis and no evidence of esophageal varices 7. The Rest of medical management per primary medical team Thank you for this consultation, we will continue to follow. Dr. Kateryna Kendall I agree with the dictator's note, documented as a scribe by Iqra Tavares.
[2024-02-26] MEDS: chlordiazePOXIDE 25 MG CAP PO SCH (16:05)
[2024-02-26] MEDS: ONDANSETRON 4 MG/2 ML VIAL IVP PRN (17:27)
[2024-02-26] MEDS: MAGNESIUM SULFATE-D5W PMX 1 GM in DEXTROSE/WATER 1 100ML.BAG IVPB ONE (19:57)
[2024-02-26] MEDS: POTASSIUM CHLORIDE ER 20 MEQ TAB.ER PO STA (19:58)
[2024-02-26] MEDS: traZODone HCL 50 MG TAB PO PRN (22:16)
[2024-02-27] MEDS: LORazepam 1 MG TAB PO PRN (08:20)
[2024-02-27 08:45] LABS: Anisocytosis Slight; HCT 28.5 % (34.0-46.0); MCH 32.6 pg (25.0-35.0); MCHC 31.5 g/dL (31.0-37.0); MCV 103.6 fL (80.0-100.0); Macrocytosis Moderate; Mean Platelet Volume 8.2; Platelet Count 156 k/uL (150-450); RBC 2.75 m/uL (3.80-5.40); RDW 17.8 % (11.5-15.5); WBC 2.9 k/uL (3.8-10.6)
[2024-02-27 09:02] LABS: ALT 18 U/L (4-34); AST 39 U/L (14-36); African American GFR (CKD) >90 (>60 ml/min/1.73 sqM); Albumin 2.5 g/dL (3.5-5.0); Alkaline Phosphatase 75 U/L (38-126); Anion Gap 4 mmol/L; Blood Urea Nitrogen 4 mg/dL (7-17); Calcium 7.8 mg/dL (8.4-10.2); Carbon Dioxide 20 mmol/L (22-30); Chloride 114 mmol/L (98-107); Globulin 2.4 g/dL; Glucose 102 mg/dL (74-99); Non-African American GFR(CKD) 83 (>60 ml/min/1.73 sqM); Potassium 3.8 mmol/L (3.5-5.1); Sodium 138 mmol/L (137-145); Total Bilirubin 0.3 mg/dL (0.2-1.3); Total Protein 4.9 g/dL (6.3-8.2)
--- NOTE | 2024-02-27 14:18 | P.PN ---
Subjective Progress Note Date: 02/27/24 Principal diagnosis: Hematemesis This is a pleasant 38-year-old female who had presented to the emergency department yesterday afternoon with complaints of depression, alcohol withdrawal and suicidal ideations. Patient states that she has a long history alcoholism and drinks a couple pints to 1/5 a day. Alcohol level was 215 on admission. States that she was having nausea and vomiting for 2 days prior to coming into the emergency department and that there was dark coffee-ground blood. States that she had 7-8 emesis and maybe 6 of them had blood. She had similar symptoms a few months ago and was seen at [facility] by gastroenterology and underwent an upper endoscopy August 2023 with findings of mild gastritis and no varices. She states that she has not had any further nausea or vomiting since coming into the hospital and is tolerating a clear liquid diet. She denies any abdominal pain. Hemoglobin on admission was 12.0 with a drop today to 8.7. She is also noted to have mild elevated LFTs, BUN normal. INR 1.1 02/27/2024 Patient seen and examined today as a follow-up. Is she denies any nausea or vomiting, no abdominal pain. No blood in her stool or black stool. States that she is hungry. Today's labs labs WBC 2.9 hemoglobin 9.0 hematocrit 28 platelet count 156,000 sodium 138 potassium 3.8 BUN 4 creatinine 0.8 total bilirubin 0.3 AST 39 ALT 18 alkaline phosphatase 75. Apparently patient is going through withdrawal symptoms, and is on CIWA protocol. Objective - Vital Signs Vital signs: Vital Signs Temp 98.2 F 02/27/24 07:30 Pulse 103 H 02/27/24 07:30 Resp 16 02/27/24 07:30 BP 132/92 02/27/24 07:30 Pulse Ox 100 02/27/24 07:30 FiO2 Intake & Output 02/26/24 02/27/24 02/27/24 18:59 06:59 18:59 Intake Total 360 Balance 360 Weight 85.5 kg Intake: Oral 360 Other: Voiding Method Toilet # Voids 3 - Exam General appearance: The patient is alert, oriented, appears in no acute distress. HET: Head is normocephalic and atraumatic. Conjunctiva pink. Sclera anicteric. Neck: Supple without lymphadenopathy. Abdomen: Soft, nontender, nondistended with bowel sounds. No guarding or rigidity. Extremities: Normal skin color and turgor. No pedal edema Skin: No rashes, no jaundice Neurological: No focal deficits. Alert and oriented. - Labs CBC & Chem 7: 02/27/24 07:54 02/27/24 07:54 Labs: Abnormal Lab Results - Last 24 Hours (Table) 02/26/24 02/26/24 02/27/24 Range/Units 07:48 07:48 07:54 WBC 2.9 L (3.8-10.6) k/uL RBC 2.66 L 2.75 L (4.10-5.20) X 10*6/uL Hgb 8.7 L 9.0 L D (12.0-15.0) g/dL Hct 27.0 L 28.5 L (37.2-46.3) % MCV 101.5 H 103.6 H (80.0-97.0) FL MCH 32.7 H (27.0-32.0) pg RDW 17.9 H 17.8 H (11.5-14.5) % Plt Count 133 L (140-440) X 10*3/uL MPV 9.3 L (9.5-12.2) FL Chloride (98-107) mmol/L Carbon Dioxide 21.0 L (21.6-31.8) mmol/L BUN 8.8 L (9.0-27.0) mg/dL Est GFR (CKD-EPI) 59 L (>=60) BUN/Creatinine Ratio 7.33 L (12.00-20.00) Ratio Glucose 119 H (70-110) mg/dL Calcium 7.5 L (8.7-10.3) mg/dL Total Bilirubin 0.2 L (0.3-1.2) mg/dL AST 40 H (13-35) U/L Total Protein 5.0 L (6.2-8.2) g/dL Albumin 3.3 L (3.8-4.9) g/dL 02/27/24 Range/Units 07:54 WBC (3.8-10.6) k/uL RBC (4.10-5.20) X 10*6/uL Hgb (12.0-15.0) g/dL Hct (37.2-46.3) % MCV (80.0-97.0) FL MCH (27.0-32.0) pg RDW (11.5-14.5) % Plt Count (140-440) X 10*3/uL MPV (9.5-12.2) FL Chloride 114 H (98-107) mmol/L Carbon Dioxide 20 L (21.6-31.8) mmol/L BUN 4 L (9.0-27.0) mg/dL Est GFR (CKD-EPI) (>=60) BUN/Creatinine Ratio (12.00-20.00) Ratio Glucose 102 H (70-110) mg/dL Calcium 7.8 L (8.7-10.3) mg/dL Total Bilirubin (0.3-1.2) mg/dL AST 39 H (13-35) U/L Total Protein 4.9 L (6.2-8.2) g/dL Albumin 2.5 L (3.8-4.9) g/dL Assessment and Plan (1) Coffee ground emesis Narrative/Plan: 38-year-old female with a longstanding history of alcohol abuse, depression, history of recreational drug use, suicidal ideations presented to the hospital with alcohol withdrawal symptoms. She had stated she was going through withdrawal symptoms she drinks 2 pints to 1/5 a day. She was having nausea and vomiting with coffee-ground emesis for 2 days prior to coming into the emergency department. None since then. Initial hemoglobin 12.0 on admission with a drop to 8.7 with elevated MCV and normal BUN. Patient had been seen recently within the last few months with gastroenterology for previous GI bleed and had upper endoscopy done with no evidence of active bleeding or old blood, mild gastritis and no varices. No plans endoscopic evaluation at this time. Anemia may be secondary to underlying liver disease but will monitor. Will treat with Protonix 40 mg twice daily. No further nausea or vomiting, no further coffee-ground emesis. No reported blood in her stool or black stool. Hemoglobin stable. May be secondary to alcohol gastritis. Still no plans on endoscopic evaluation. Will increase diet as tolerated. Current Visit: Yes Status: Acute Code(s): K92.0 - HEMATEMESIS SNOMED Code(s): 52574741 (2) Anemia Current Visit: Yes Status: Acute Code(s): D64.9 - ANEMIA, UNSPECIFIED SNOMED Code(s): 858842622 (3) Alcohol abuse Current Visit: Yes Status: Acute Code(s): F10.10 - ALCOHOL ABUSE, UNCOMPLICATED SNOMED Code(s): 20559640 Plan: 1. Continue symptomatic and supportive care 2. Repeat CBC daily, transfuse for hemoglobin less than 7 3. Protonix 40 mg twice daily 4. Antiemetics as needed 5. Recommend alcohol abstinence 6. Advance to regular diet 7. No plans on upper endoscopy at this time. Patient had recent upper endoscopy done at [facility] with findings of mild gastritis and no evidence of esophageal varices 8. The Rest of medical management per primary medical team Thank you for this consultation, we will continue to follow. Dr. Kateryna Kendall I agree with the dictator's note, documented as a scribe by Iqra Tavares.
[2024-02-27] MEDS: LORazepam 1 MG/0.5 ML VIAL IV PRN (16:07)
[2024-02-28] MEDS: LOPERAMIDE 2 MG CAP PO PRN (00:04)
[2024-02-28] MEDS: LORazepam 0.5 MG TAB PO PRN (00:04)
[2024-02-28] MEDS: LORazepam 1 MG/0.5 ML VIAL IV PRN (12:57)
--- NOTE | 2024-02-28 13:53 | P.PN ---
Subjective Progress Note Date: 02/28/24 Principal diagnosis: Hematemesis This is a pleasant 38-year-old female who had presented to the emergency department yesterday afternoon with complaints of depression, alcohol withdrawal and suicidal ideations. Patient states that she has a long history alcoholism and drinks a couple pints to 1/5 a day. Alcohol level was 215 on admission. States that she was having nausea and vomiting for 2 days prior to coming into the emergency department and that there was dark coffee-ground blood. States that she had 7-8 emesis and maybe 6 of them had blood. She had similar symptoms a few months ago and was seen at [facility] by gastroenterology and underwent an upper endoscopy August 2023 with findings of mild gastritis and no varices. She states that she has not had any further nausea or vomiting since coming into the hospital and is tolerating a clear liquid diet. She denies any abdominal pain. Hemoglobin on admission was 12.0 with a drop today to 8.7. She is also noted to have mild elevated LFTs, BUN normal. INR 1.1 02/27/2024 Patient seen and examined today as a follow-up. Is she denies any nausea or vomiting, no abdominal pain. No blood in her stool or black stool. States that she is hungry. Today's labs labs WBC 2.9 hemoglobin 9.0 hematocrit 28 platelet count 156,000 sodium 138 potassium 3.8 BUN 4 creatinine 0.8 total bilirubin 0.3 AST 39 ALT 18 alkaline phosphatase 75. Apparently patient is going through withdrawal symptoms, and is on CIWA protocol. 02/28/2024 Patient seen and examined today as a follow-up. She continues to deny any nausea or vomiting. No hematemesis and no blood in her stool. Patient is tolerating a regular diet. Objective - Vital Signs Vital signs: Vital Signs Temp 97.4 F L 02/28/24 13:20 Pulse 128 H 02/28/24 13:20 Resp 18 02/28/24 13:20 BP 134/90 02/28/24 13:20 Pulse Ox 98 02/28/24 13:20 FiO2 Intake & Output 02/27/24 02/28/24 02/28/24 18:59 06:59 18:59 Intake Total 950 Balance 950 Intake: Oral 950 Other: Voiding Method Toilet Toilet Toilet # Voids 1 3 1 # Bowel Movements 2 1 - Exam General appearance: The patient is alert, oriented, appears in no acute distress. HET: Head is normocephalic and atraumatic. Conjunctiva pink. Sclera anicteric. Neck: Supple without lymphadenopathy. Abdomen: Soft, nontender, nondistended with bowel sounds. No guarding or rigidity. Extremities: Normal skin color and turgor. No pedal edema Skin: No rashes, no jaundice Neurological: No focal deficits. Alert and oriented. - Labs CBC & Chem 7: 02/27/24 07:54 02/27/24 07:54 Assessment and Plan (1) Coffee ground emesis Narrative/Plan: 38-year-old female with a longstanding history of alcohol abuse, depression, history of recreational drug use, suicidal ideations presented to the hospital with alcohol withdrawal symptoms. She had stated she was going through withdrawal symptoms she drinks 2 pints to 1/5 a day. She was having nausea and vomiting with coffee-ground emesis for 2 days prior to coming into the emergency department. None since then. Initial hemoglobin 12.0 on admission with a drop to 8.7 with elevated MCV and normal BUN. Patient had been seen recently within the last few months with gastroenterology for previous GI bleed and had upper endoscopy done with no evidence of active bleeding or old blood, mild gastritis and no varices. No plans endoscopic evaluation at this time. Anemia may be secondary to underlying liver disease but will monitor. Will treat with Protonix 40 mg twice daily. No further nausea or vomiting, no further coffee-ground emesis. No reported blood in her stool or black stool. Hemoglobin stable. May be secondary to alcohol gastritis. Still no plans on endoscopic evaluation. Will increase diet as tolerated. Current Visit: Yes Status: Acute Code(s): K92.0 - HEMATEMESIS SNOMED Code(s): 21787123 (2) Anemia Current Visit: Yes Status: Acute Code(s): D64.9 - ANEMIA, UNSPECIFIED SNOMED Code(s): 794678796 (3) Alcohol abuse Current Visit: Yes Status: Acute Code(s): F10.10 - ALCOHOL ABUSE, UNCOMPLICATED SNOMED Code(s): 74049854 Plan: 1. Continue symptomatic and supportive care 2. Protonix 40 mg twice daily 3. Antiemetics as needed 4. Recommend alcohol abstinence 5. Advance to regular diet 6. No plans on upper endoscopy at this time. Patient had recent upper endoscopy done at [facility] with findings of mild gastritis and no evidence of esophageal varices 7. The Rest of medical management per primary medical team Thank you for this consultation, patient is cleared from gastroenterology for discharge. We will sign off at this time. Dr. Kateryna Kendall I agree with the dictator's note, documented as a scribe by Iqra Tavares.
[2024-02-28 17:46] LABS: Anisocytosis Slight; HGB 10.4 gm/dL (11.4-16.0); MCH 32.9 pg (25.0-35.0); MCHC 31.4 g/dL (31.0-37.0); MCV 104.6 fL (80.0-100.0); Macrocytosis Marked; Mean Platelet Volume 8.1; Platelet Count 193 k/uL (150-450); RBC 3.15 m/uL (3.80-5.40); RDW 18.1 % (11.5-15.5); WBC 4.3 k/uL (3.8-10.6)
[2024-02-28 18:35] LABS: Polychromasia Present
[2024-02-28 19:21] VITALS: BP 125/86; PULSE 130; RESP 22; TEMP 98.3
--- NOTE | 2024-02-29 21:01 | DS ---
DISCHARGE SUMMARY CHIEF COMPLAINT: Acute alcohol intoxication, DTs, major depression with suicidal thoughts. HISTORY OF PRESENT ILLNESS AND PHYSICAL EXAM: Details of this lady's history and physical can be found in the initial workup. LABORATORY STUDIES: While she is in the hospital, she had laboratory studies, details of which can be found in the laboratory section of her chart, which included elevated liver function studies and pancytopenia. She was treated for DTs and seen by psychiatrist, who wanted her transferred to the inpatient psych service and this was done on the . FINAL DIAGNOSES: 1. Acute alcohol intoxication. 2. Delirium tremens. 3. Chronic alcoholism. 4. Pancytopenia. 5. Major depression. OPERATIONS: None. CONSULTATIONS: Psychiatry. She has improved. MMODL / IJN: [id number] /
--- NOTE | 2024-03-01 08:28 | PN ---
PROGRESS NOTE DATE OF SERVICE: 02/27/2024 CHIEF COMPLAINT: Acute alcohol intoxication, DTs, depression, suicidal thoughts, and hypertension. HISTORY OF PRESENT ILLNESS: This lady is still in DTs and manifest being hypertension. She is to be seen by Psychiatry. LABORATORY DATA: white count low at 2900 with a hemoglobin of 8.7 and platelets of 133. PHYSICAL EXAMINATION: VITAL SIGNS: Blood pressure is high at 145/105. CHEST: Clear. CARDIAC: Demonstrates sinus tachycardia. ABDOMEN: Protuberant. Soft. IMPRESSION: 1. Acute alcohol intoxication. 2. Delirium tremens. 3. Hypertension. 4. Pancytopenia. 5. Depression with suicidal thoughts. PLAN: Continue CIWA protocol and following her blood pressure as well as her bone marrow function. MMODL / IJN: [id number] /
== END 2024-02-28 21:40 | DRG 775 ==
LOC: EC 13:52 → 5NMEDONC 15:41
PROVIDERS: ADMIT Family Medicine; ATTEND Family Medicine
DX: F10.231 Alcohol dependence with withdrawal delirium (principal); Y90.7 Blood alcohol level of 200-239 mg/100 ml; I48.91 Unspecified atrial fibrillation; I10 Essential (primary) hypertension; M06.9 Rheumatoid arthritis, unspecified; D61.818 Other pancytopenia; E83.42 Hypomagnesemia; E87.6 Hypokalemia; F10.229 Alcohol dependence with intoxication, unspecified; N17.9 Acute kidney failure, unspecified; F12.10 Cannabis abuse, uncomplicated; F17.200 Nicotine dependence, unspecified, uncomplicated; F20.9 Schizophrenia, unspecified; F68.8 Other specified disorders of adult personality and behavior; M32.9 Systemic lupus erythematosus, unspecified; M34.9 Systemic sclerosis, unspecified; K92.0 Hematemesis; R45.851 Suicidal ideations; R45.850 Homicidal ideations; R56.9 Unspecified convulsions; G43.909 Migraine, unspecified, not intractable, without status migrainosus; Z56.0 Unemployment, unspecified; G89.29 Other chronic pain; Z79.890 Hormone replacement therapy; Z79.899 Other long term (current) drug therapy; Z91.51 Personal history of suicidal behavior; Z86.14 Personal history of Methicillin resistant Staphylococcus aureus infection
CPT/HCPCS: 36415; 80053; 80306; 80320; 81001; 81025; 82075; 83735; 84443; 84703; 85025; 85027; 85610; 85730; 87635; 93005; 96361; 96365; 96366; 96372; 96375; 96376; 99285

== ENCOUNTER 2024-02-28 20:51 | Inpatient (IN) | payer MEDICAID ==
[2024-02-28] MEDS ORDERED: HALOPERIDOL LACTATE 5 MG/ML 1 ML VIAL IM PRN (21:02)
[2024-02-28] MEDS ORDERED: hydrOXYzine HCL 50 MG/ML 1 ML VIAL IM PRN (21:02)
[2024-02-28] MEDS ORDERED: LOPERAMIDE 2 MG CAP PO PRN (21:15)
[2024-02-28] MEDS: ACETAMINOPHEN TAB 325 MG TAB PO PRN (22:24)
[2024-02-28] MEDS: LORazepam 1 MG TAB PO PRN (22:26)
[2024-02-28] MEDS: haloperidoL 5 MG TAB PO PRN (22:26)
[2024-02-29] MEDS: hydrOXYzine HCL 25 MG TAB PO PRN (00:27)
[2024-02-29] MEDS: traZODone HCL 50 MG TAB PO PRN (00:58)
[2024-02-29] MEDS: PANTOPRAZOLE 40 MG TABLET PO SCH (07:56)
[2024-02-29] MEDS: NICOTINE 14MG/24HR PATCH TRANSDERM SCH (07:56)
[2024-02-29] MEDS: THIAMINE 100 MG TAB PO SCH (08:28)
[2024-02-29] MEDS: LORazepam 1 MG TAB PO PRN (09:01)
--- NOTE | 2024-02-29 10:27 | P.HP ---
Psychiatric H&P - . H&P Date: 02/29/24 History & Physical: Allergies Allergy/AdvReac Type Severity Reaction Status Date / Time quetiapine from Seroquel Allergy Rash/Hives Verified 02/25/24 14:11 Vital Signs Temp 97.6 F 02/29/24 08:50 Pulse 132 H 02/29/24 08:50 Resp 18 02/29/24 08:50 BP 122/82 02/29/24 08:50 Pulse Ox 98 02/29/24 08:50 FiO2 Intake & Output 02/28/24 02/29/24 02/29/24 18:59 06:59 18:59 Weight 182 kg 02/29/24 10:17 IDENTIFYING DATA: This patient is a 38-year-old female currently lives with a friend, she is she has 1 kid, she is unemployed currently. HISTORY OF PRESENT ILLNESS: Patient was transferred to the MHU last night and was seen by expert medical writer today. patient was initially seen by expert medical writer as a consultation in the ER and as per note "The patient presented to the hospital initially complaining of alcohol withdrawal, also endorsing depression and suicidal ideations. Patient was displaying withdrawal symptoms including nausea vomiting, tachycardia, she was also having hematemesis, GI is consulted. Patient's urine drug screen is positive for benzodiazepines. Patient reported a history of bipolar disorder. She spoke with expert medical writer at the bedside today, states that she has not been taking her bipolar medications for several months now. States that she was feeling suicidal, depressed and very anxious. She states that she was having a plan to overdose and kill herself. She is not able to consent currently and states that she is still having suicidal thoughts and may harm herself in the hospital. Patient's blood alcohol level was 215 on admission. Patient claims that she was recently evicted from her apartment and "lost everything". She states that she has been drinking about 1/5 of vodka per day for the past year or so. States that her depression anxiety has been getting worse, states that her last drink was about 2 days ago claims that she does have a history of severe withdrawals including seizures. Claims that she is still having shaking, nausea and some restless leg symptoms. States that her sleep is been poor, appetite has been fair. She denies any homical ideations, intent or plan. Patient denies any auditory, visual hallucinations and denies any paranoia or delusions. Patients admits to using alcohol as noted above, denies any cigarette use. She states that she smokes marijuana occasionally." Patient was seen today for assessment on the unit. Patient was fairly med seeking, asking about various different medications including controlled medications including Suboxone and other benzodiazepines and Haldol. She claims that she is still feeling suicidal, depressed and very high anxiety. She was agreeable to try Abilify and Zoloft, claims that she did not sleep well last night. States that her appetite is fair. Claims that the voices have "calm down a bit" and is denying any visual hallucinations. PAST PSYCHIATRIC HISTORY: Patient has a a history of bipolar disorder, depression and anxiety and alcohol use. Patient used to be on acamprosate Prozac and Seroquel however has not been taking medications for several months. She states that she was last psychiatrically hospitalized about a year ago does not know where. Patient denies any psychiatric outpatient follow-up. Aims that she attempted suicide by cutting her wrist about 2 years ago. Past Medical History: Atrial Fibrillation, Hypertension, Rheumatoid Arthritis (RA) Additional Past Medical History / Comment(s): TUBAL PREGANCY, chronic back pain, scleraderma, lupus, ddd History of Any Multi-Drug Resistant Organisms: MRSA Date of last positivie culture/infection: 07/01/16 MDRO Source:: RIGHT WRIST Past Surgical History: Section, Tonsillectomy Additional Past Surgical History / Comment(s): LAPROSCOPY Past Anesthesia/Blood Transfusion Reactions: No Reported Reaction Past Psychological History: Anxiety, Bipolar, Depression, Schizophrenia Smoking Status: Current every day smoker ALLERGIES: as per EMR. CHEMICAL DEPENDENCY HISTORY: as per HPI. FAMILY PSYCHIATRIC/SUBSTANCE USE HISTORY: Denies SOCIAL HISTORY: Patient was born and raised in [place], claims that she completed some college that her GED. States that she does not have any legal history. Claims that she currently lives with a friend, she is she has 1 kid, she is unemployed. MENTAL STATUS EXAM: General Appearance: Patient appears to be overweight, improving appearance, stated age is alert, attempts to cooperate. Patient appears to have improving hygiene and grooming wearing hospital gown with fair eye contact. Behavior: Patient is calmly lying in bed without any agitated behavior. Medication focus. Speech: Patient's speech is fluent and nonpressured. [place], soft tone Mood/Affect: Patient reports their mood is "depressed and anxious", affect is congruent Suicidality/Homicidality: Patient is endorsing suicidal thoughts, no specific plan at this time. Denying any homicidal ideations. Perceptions: Patient denies any visual hallucinations and denies any auditory salomon llucinations Though content/process: There is no evidence of any delusional thought content and thought process is linear and goal-directed. [place], focused on controlled medications. Memory and concentration: AOX3, grossly intact for the purposes of this session. Can spell "WORLD" backwards Judgment and insight: Poor STRENGTHS/WEAKNESSES: strength is that patient is resilient. Weakness is that patient has poor judgment and is impulsive INTELLECT: Average IMPRESSIONS: Suicidal ideations Bipolar disorder, current episode depressed Alcohol use disorder, severe dependence, currently in withdrawal Cannabis use disorder mild PLAN: -Patient is admitted under voluntary status to MHU for stabilization of psychiatric symptoms and safety. Patient has signed adult voluntary form and medication consent and is placed in patient's chart. -Medications : Abilify p.o. 5 mg daily for mood stabilization/depression, Zoloft 50 mg daily for mood/anxiety, trazodone increased to 100 mg nightly for i nsomnia/mood, Librium will continue to be titrated down for alcohol withdrawal. Vistaril as needed for anxiety. -Ativan and Haldol PRN for agitation/aggression -WA protocol with Ativan PRN for ETOH withdrawal. -Patient was counselled on substance abuse and desired to cut back on use -Patient was informed of the risks, benefits and side effects of the medication and patient verbally consented to taking the medications. Patient signed med consent form and was placed in chart. -Internal Medicine consult to perform medical evaluation and physical. -NRT -nicotine patch - on board for discharge planning. Encourage patient to participate in groups to work on coping skills. 02/29/24 10:24 02/29/24 10:27
[2024-02-29] MEDS: LEVOTHYROXINE 25 MCG TAB PO SCH (10:53)
[2024-02-29] MEDS: ARIPiprazole 5 MG TAB PO SCH (10:53)
[2024-02-29] MEDS: SERTRALINE 50 MG TAB PO SCH (10:53)
--- NOTE | 2024-02-29 18:04 | HP ---
HISTORY AND PHYSICAL CHIEF COMPLAINT: Alcoholism and major depression. HISTORY OF PRESENT ILLNESS: This 38-year-old female was transferred from the medical floor where she was treated for acute alcohol intoxication, DTs, and major depression. She also had hypertension. She also had moderate pancytopenia with a white count of 2900, hemoglobin of 8.7, and platelet count of 133,000, all attributed to her drinking. REVIEW OF SYSTEMS: Currently having no significant symptoms. Past medical history, family history, and personal and social histories are all otherwise unremarkable or noncontributory. PHYSICAL EXAMINATION: VITAL SIGNS: Blood pressure is 138/101. Remainder of the vital signs are normal. HEAD, EARS, EYES, NOSE, MOUTH, AND THROAT: Normal. CHEST: Clear. CARDIAC: Normal. ABDOMEN: Protuberant. Soft. EXTREMITIES: Normal. IMPRESSION: 1. Major depression. 2. Chronic alcoholism. 3. Pancytopenia. 4. Hypertension. RECOMMENDATIONS: None except to repeat her CBC in 1 week and follow her blood pressure. Thank you respectfully. MMODL / IJN: [id number] /
[2024-02-29] MEDS: traZODone HCL 100 MG TAB PO SCH (21:06)
[2024-03-01 10:13] LABS: Anisocytosis Slight; Basophils % (A) 1 %; Eosinophils # (A) 0.1 k/uL (0-0.7); Eosinophils % (A) 1 %; HCT 35.4 % (34.0-46.0); HGB 10.8 gm/dL (11.4-16.0); Hypochromasia Slight; Lymphocytes # (A) 1.4 k/uL (1.0-4.8); Lymphocytes % (A) 37 %; MCH 32.3 pg (25.0-35.0); MCHC 30.6 g/dL (31.0-37.0); MCV 105.7 fL (80.0-100.0); Macrocytosis Marked; Mean Platelet Volume 7.9; Monocytes # (A) 0.4 k/uL (0-1.0); Monocytes % (A) 10 %; Neutrophils # (A) 1.9 k/uL (1.3-7.7); Neutrophils % (A) 49 %; Platelet Count 262 k/uL (150-450); RBC 3.35 m/uL (3.80-5.40); RDW 18.6 % (11.5-15.5); WBC 3.9 k/uL (3.8-10.6)
[2024-03-01 11:16] LABS: Polychromasia Present
--- NOTE | 2024-03-01 13:46 | P.PN ---
Progress Note - Text Progress Note Date: 03/01/24 Interval history: Patient was seen wandering the hallways and was directable and agreeable to s peak with race and sports book writer. Patient has been up and socializing with others on the unit, claims that her anxiety is still elevated. She is continuing to endorse some depression and mild suicidal thoughts, no plan. Claims that she is trying to go to groups. She was mainly focused on her medications today claims that the Ativan has been helping with her withdrawal symptoms and was requesting more. She claims that she is having difficulties with sleep, wants to be switched back onto Seroquel. It is listed that Seroquel is an allergy however patient states that she once had a panic attack from it several years ago however at this time she states that she has been taking Seroquel at home and has not been having any issues at all with that and wants to go back onto it, she denies any rashes with it or any anaphylaxis symptoms and verbally understood the risks of possibly going back on it. She was somewhat focused on discharge. At this time patient denies any suicidal or homicidal ideations intent or plan. Denies any Auditory or visual hallucinations. Patient denies any side effects from the medications and has been compliant with meds. Mental status exam: General Appearance: Patient appears to be mildly overweight, stated age is alert, directable, and cooperative. Behavior: No agitated behavior. Patient is calm and directable, medication focused Speech: Patient's speech is fluent and nonpressured. Mood/Affect: Mood is improving mildly, affect is congruent and constricted. Improving mildly Suicidality/Homicidality: Patient denies having any suicidal or homicidal ideation intent or plan. Perceptions: Patient denies any auditory or visual hallucinations. Though content/process: There is no evidence of any delusional thought content and thought process is linear and goal-directed. Focused on medications on discharge Memory and concentration: AOX3, grossly intact for the purposes of this session Judgment and insight: Poor, improving mildly Assessment/Plan: Continue with current diagnosis. Patient continues to meet criteria for inpatient psychiatric admission for symptom stabilization and safety. Patient will be maintained on current psychotropic medication regimen, at patient's request she wants to be discontinued off trazodone and Abilify and states that she had better experience with Seroquel at home and wants to be resumed back onto it will start 50 mg nightly for mood stabilization/insomnia. Monitor for medication compliance and for any psychotropic medication side effects. Will continue to monitor ongoing response to treatment. Encouraged participation in milieu.
[2024-03-01] MEDS ORDERED: diphenhydrAMINE 50 MG CAP PO PRN (13:47)
[2024-03-01] MEDS: QUEtiapine 50 MG TAB PO SCH (20:16)
[2024-03-01] MEDS ORDERED: QUEtiapine 100 MG TAB PO SCH (21:00)
--- NOTE | 2024-03-02 10:05 | P.PN ---
Progress Note - Text Progress Note Date: 03/02/24 Interval History: Patient was seen [wandering the hallways] and was directable and agreeable to speak with abstract writer in the office. Patient states that she is doing ok today. She needed to take PRN's this morning for a "panic attack" Patient states she has been up here for 72 hours, and wants to go home. Patient claims she slept well last night, and that her appetite is good. Patient is superficial, minimizing need for treatment. She is going to groups. At this time patient denies any suicidal or homicidal ideations, intent or plan. Patient denies any auditory, visual hallucinations and denies any paranoia or delusions. Patient denies any side effects from the medications and has been compliant with meds. MENTAL STATUS EXAM: General Appearance: Patient appears to be overweight, improving appearance, stated age is alert, attempts to cooperate. Patient appears to have improving hygiene and grooming wearing hospital gown with fair eye contact. Behavior: Patient is calmly seated without any agitated behavior. Medication focus. Speech: Patient's speech is fluent and nonpressured. [place], soft tone Mood/Affect: Patient reports their mood is "ok", affect is congruent Suicidality/Homicidality: Patient is endorsing suicidal thoughts, no specific plan at this time. Denying any homicidal ideations. Perceptions: Patient denies any visual hallucinations and denies any auditory hallucinations Though content/process: There is no evidence of any delusional thought content and thought process is linear and goal-directed. [place], focused on controlled medications. Memory and concentration: AOX3, grossly intact for the purposes of this session. Judgment and insight: Poor IMPRESSIONS: Suicidal ideations Bipolar disorder, current episode depressed Alcohol use disorder, severe dependence, currently in withdrawal Cannabis use disorder mild PLAN: -Patient is admitted under voluntary status to MHU for stabilization of psychiatric symptoms and safety. Patient has signed adult voluntary form and medication consent and is placed in patient's chart. -Medications : Abilify p.o. 5 mg daily for mood stabilization/depression, increase Zoloft 100 mg daily for mood/anxiety, increase Seroquel 100mg qhs for mood stabilization/sleep, d/c Librium Vistaril as needed for anxiety. -Ativan and Haldol PRN for agitation/aggression -Will reach out to medicine to get further guidance on patient's atrial flutter and EKG results, will order new EKG today. -d/c CIWA -NRT -nicotine patch -SW on board for discharge planning. Encourage patient to participate in groups to work on coping skills. d/c in 2-3 days.
[2024-03-02] MEDS: METOPROLOL TARTRATE 25 MG TAB PO SCH (14:52)
[2024-03-02] MEDS: QUEtiapine 100 MG TAB PO SCH (20:48)
[2024-03-03] MEDS: SERTRALINE 100 MG TAB PO SCH (08:10)
--- NOTE | 2024-03-03 12:07 | P.PN ---
Progress Note - Text Progress Note Date: 03/03/24 Interval History: Patient was seen [wandering the hallways] and was directable and agreeable to speak with bid writer in the office. Patient claims that she got bad news about her dad having to go for chemo, and she wants to get out to be able to go with him. She states her anxiety is quite high, and she is taking PRN Haldol often for this. She claims the visteril does not work for her. Patient claims she slept well last night, and that her appetite is good. Patient is superficial, minimizing need for treatment. She is going to groups. At this time patient denies any suicidal or homicidal ideations, intent or plan. Patient denies any auditory, visual hallucinations and denies any paranoia or delusions. Patient denies any side effects from the medications and has been compliant with meds. MENTAL STATUS EXAM: General Appearance: Patient appears to be overweight, improving appearance, st ated age is alert, attempts to cooperate. Patient appears to have improving hygiene and grooming wearing her own clothes, with fair eye contact. Behavior: Patient is calmly seated without any agitated behavior. Medication focus.mildly improving Speech: Patient's speech is fluent and nonpressured. [place], soft tone, mildly improving Mood/Affect: Patient reports their mood is "ok", affect is congruent mildly improving Suicidality/Homicidality: Patient is endorsing suicidal thoughts, no specific plan at this time. Denying any homicidal ideations. Perceptions: Patient denies any visual hallucinations and denies any auditory hallucinations Though content/process: There is no evidence of any delusional thought content and thought process is linear and goal-directed. [place], focused on controlled medications. Memory and concentration: AOX3, grossly intact for the purposes of this session. Judgment and insight: Poor, mildly improving IMPRESSIONS: Suicidal ideations Bipolar disorder, current episode depressed Alcohol use disorder, severe dependence, currently in withdrawal Cannabis use disorder mild PLAN: -Patient is admitted under voluntary status to MHU for stabilization of psychiatric symptoms and safety. Patient has signed adult voluntary form and medication consent and is placed in patient's chart. -Medications : Abilify p.o. 5 mg daily for mood stabilization/depression, Zoloft 100 mg daily for mood/anxiety, Seroquel 100mg qhs for mood stabilization/sleep, add Seroquel 50mg qam for anxiety, Vistaril as needed for anxiety -Ativan and Haldol PRN for agitation/aggression -started on metoprolol 25 mg bid, will continue to monitor. -NRT -nicotine patch -SW on board for discharge planning. Encourage patient to participate in groups to work on coping skills. d/c , if patient continues to improve.
[2024-03-03] MEDS: QUEtiapine 50 MG TAB PO SCH (13:02)
[2024-03-03] MEDS: IBUPROFEN 800 MG TAB PO PRN (14:39)
--- NOTE | 2024-03-04 10:09 | P.PN ---
Progress Note - Text Progress Note Date: 03/04/24 Interval History: Patient was seen in group and was directable and agreeable to speak with bid writer in the office. Patient states that she is feeling pretty anxious today, and she says that she thinks that it is just her personality. Patient claims she slept ok last night, and that her appetite is good. Patient is superficial, minimizing need for treatment. She is going to groups. She is focused on discharge, and states she wants to go home. Patient is improving mildly with treatment and medi cation. At this time patient denies any suicidal or homicidal ideations, intent or plan. Patient denies any auditory, visual hallucinations and denies any paranoia or delusions. Patient denies any side effects from the medications and has been compliant with meds. MENTAL STATUS EXAM: General Appearance: Patient appears to be overweight, improving appearance, stated age is alert, attempts to cooperate. Patient appears to have improving hygiene and grooming wearing her own clothes, with fair eye contact. Behavior: Patient is calmly seated without any agitated behavior. mildly improving Speech: Patient's speech is fluent and nonpressured. mildly improving Mood/Affect: Patient reports their mood is "anxious", affect is congruent mildly improving Suicidality/Homicidality: Patient is not endorsing suicidal thoughts. Denying any homicidal ideations. Perceptions: Patient denies any visual hallucinations and denies any auditory hallucinations Though content/process: There is no evidence of any delusional thought content and thought process is linear and goal-directed. Memory and concentration: AOX3, grossly intact for the purposes of this session. Judgment and insight: mildly improving IMPRESSIONS: Suicidal ideations Bipolar disorder, current episode depressed Alcohol use disorder, severe dependence, currently in withdrawal Cannabis use disorder mild PLAN: -Patient is admitted under voluntary status to MHU for stabilization of psychiatric symptoms and safety. Patient has signed adult voluntary form and medication consent and is placed in patient's chart. -Medications : increase Zoloft 150 mg daily for mood/anxiety, increase Seroquel 150mg qhs for mood stabilization/sleep, Seroquel 50mg qam for anxiety, Vistaril as needed for anxiety -Ativan and Haldol PRN for agitation/aggression -started on metoprolol 25 mg bid, will continue to monitor. -NRT -nicotine patch -SW on board for discharge planning. Encourage patient to participate in groups to work on coping skills. d/c tomorrow, if patient continues to improve.
[2024-03-04] MEDS: SERTRALINE 50 MG TAB PO STA (10:35)
[2024-03-04] MEDS: QUEtiapine 50 MG TAB PO SCH (20:43)
[2024-03-04] MEDS: METOPROLOL TARTRATE 25 MG TAB PO SCH (20:43)
[2024-03-05 07:30] VITALS: TEMP 98.1
[2024-03-05] MEDS: SERTRALINE 50 MG TAB PO SCH (08:03)
[2024-03-05 08:19] VITALS: BP 109/59; PULSE 98; RESP 20
--- NOTE | 2024-03-05 10:14 | P.DS ---
Providers Date of admission: 02/28/24 21:41 Expected date of discharge: 03/05/24 Attending physician: Lei Monroy MD Consults: 02/28/24 21:02 Consult Physician Routine Consulting Provider: Da Bowers Consult Reason/Comments: Medical H&P Do you want consulting provider notified?: Yes Primary care physician: Da Bowers - Discharge Diagnosis(es) (1) Bipolar disorder current episode depressed Current Visit: No Status: Acute Priority: High (2) Suicidal ideation Current Visit: No Status: Acute Priority: High (3) Alcohol use disorder, severe, dependence Current Visit: Yes Status: Acute Priority: High (4) Cannabis use disorder, mild, abuse Current Visit: Yes Status: Acute Priority: Medium Hospital Course: Admission HPI: Admission note was completed by parts data writer "Patient was transferred to the MHU last night and was seen by parts data writer today. patient was initially seen by parts data writer as a consultation in the ER and as per note "The patient presented to the hospital in itially complaining of alcohol withdrawal, also endorsing depression and suicidal ideations. Patient was displaying withdrawal symptoms including nausea vomiting, tachycardia, she was also having hematemesis, GI is consulted. Patient's urine drug screen is positive for benzodiazepines. Patient reported a history of bipolar disorder. She spoke with parts data writer at the bedside today, states that she has not been taking her bipolar medications for several months now. States that she was feeling suicidal, depressed and very anxious. She states that she was having a plan to overdose and kill herself. She is not able to consent currently and states that she is still having suicidal thoughts and may harm herself in the hospital. Patient's blood alcohol level was 215 on admission. Patient claims that she was recently evicted from her apartment and "lost everything". She states that she has been drinking about 1/5 of vodka per day for the past year or so. States that her depression anxiety has been getting worse, states that her last drink was about 2 days ago claims that she does have a history of severe withdrawals including seizures. Claims that she is still having shaking, nausea and some restless leg symptoms. States that her sleep is been poor, appetite has been fair. She denies any homical ideations, intent or plan. Patient denies any auditory, visual hallucinations and denies any paranoia or delusions. Patients admits to using alcohol as noted above, denies any cigarette use. She states that she smokes marijuana occasionally." Patient was seen today for assessment on the unit. Patient was fairly med seeking, asking about various different medications including controlled medications including Suboxone and other benzodiazepines and Haldol. She claims that she is still feeling suicidal, depressed and very high anxiety. She was agreeable to try Abilify and Zoloft, claims that she did not sleep well last night. States that her appetite is fair. Claims that the voices have "calm down a bit" and is denying any visual hallucinations." Hospital course: Upon admission to the unit patient was directable and agreeable to commence treatment and signed adult voluntary form. Patient got along well with other patients on the unit and followed unit protocol. Patient was compliant with the medications and denied any side effects throughout hospital course. Patient was started on Zoloft increased to dose of 150 mg daily for mood/anxiety, Seroquel increased to dose of 150 mg nightly for mood stabilization/sleep plus daytime dose of 50 mg every morning. Vistaril as needed for anxiety. Naltrexone 50 mg p.o. daily for alcohol cravings. Patient spoke of her stressors and engaged in therapy both group and individual. Patient was also seen by medical team for history and physical exam. Throughout the course of the hospitalization patient gradually improved with regards to mood, anxiety, suicidal/homicidal thoughts, sleep and returned back to their baseline level of functioning. On the day of discharge patient denied any suicidal or homicidal ideations intent or plan denied any auditory or visual hallucinations. Patient endorsed wanting to live for her health and future. The patient denied any access to guns or weapons. Patient denied any paranoia and did not endorse any delusions. Patient does have a significant history of substance abuse and was counseled on abstaining from all substances including alcohol and marijuana. Patient was offered however declined inpatient substance-abuse rehab. Patient elected to do outpatient substance use treatment program through [facility]. Patient was also counseled on the medications and need for regular compliance and was encouraged to follow-up with their outpatient appointment for mental health and also for primary care. Mental status exam: General Appearance: Patient appears to be mildly overweight, stated age is alert, pleasant, and cooperative. Patient is in no acute distress and has im proved hygiene and grooming Behavior: Patient is calmly seated without any agitated behavior. Speech: Patient's speech is fluent and nonpressured. Mood/Affect: Patient reports their mood is "ok", affect is congruent and euthymic. Suicidality/Homicidality: Patient denies having any suicidal or homicidal ideation intent or plan. Perceptions: Patient denies any auditory or visual hallucinations. Though content/process: There is no evidence of any delusional thought content and thought process is linear and goal-directed. More future oriented Memory and concentration: AOX3, grossly intact for the purposes of this session. Can spell "WORLD" backwards correctly. Judgment and insight: improved with guarded prognosis Impression: Suicidal ideations Bipolar disorder, current episode depressed Alcohol use disorder, severe dependence, currently in withdrawal Cannabis use disorder mild Plan: -Continue with discharge today as patient has improved and stabilized psychiatrically and is not currently an imminent threat to herself and/or others. Patient will remain at chronically elevated risk for harm to self and/or others due to her impulsivity and polysubstance abuse. -Continue medications: Zoloft 150 mg daily for mood/anxiety, Paracodol 150 mg nightly for mood stabilization/sleep plus Seroquel 50 mg every morning, Vistaril 50 mg daily as needed for anxiety. Naltrexone p.o. 50 mg daily for alcohol cravings. -Patient was counseled on the need for medication compliance and appropriate follow-up at mental health and also primary care for medical issues. Patient verbalized understanding and agreed. -Social work to help coordinate patient's discharge today back to her cousin's house. Social work also to arrange for patients follow up appointments with [facility] for psychiatric care along with follow up with primary care provider. -Patient counseled on abstaining from recreational drugs and marijuana and alcohol. Was informed/educated on the adverse effects on their physical and mental health. Patient verbally agreed and understood. Patient was offered substance abuse treatment however declined at this time. -Patient was instructed to return to the hospital or seek immediate medical care if their psychiatric or medical symptoms do worsen or reoccur. Allergies Allergy/AdvReac Type Severity Reaction Status Date / Time No Known Allergies Allergy Verified 03/03/24 12:03 Laboratory Results WBC 3.9 k/uL (3.8-10.6) 03/01/24 09:50 RBC 3.35 m/uL (3.80-5.40) L 03/01/24 09:50 Hgb 10.8 gm/dL (11.4-16.0) L 03/01/24 09:50 Hct 35.4 % (34.0-46.0) 03/01/24 09:50 MCV 105.7 fL (80.0-100.0) H 03/01/24 09:50 MCH 32.3 pg (25.0-35.0) 03/01/24 09:50 MCHC 30.6 g/dL (31.0-37.0) L 03/01/24 09:50 RDW 18.6 % (11.5-15.5) H 03/01/24 09:50 Plt Count 262 k/uL (150-450) 03/01/24 09:50 MPV 7.9 03/01/24 09:50 Neutrophils % 49 % 03/01/24 09:50 Lymphocytes % 37 % 03/01/24 09:50 Monocytes % 10 % 03/01/24 09:50 Eosinophils % 1 % 03/01/24 09:50 Basophils % 1 % 03/01/24 09:50 Neutrophils # 1.9 k/uL (1.3-7.7) 03/01/24 09:50 Lymphocytes # 1.4 k/uL (1.0-4.8) 03/01/24 09:50 Monocytes # 0.4 k/uL (0-1.0) 03/01/24 09:50 Eosinophils # 0.1 k/uL (0-0.7) 03/01/24 09:50 Basophils # 0.0 k/uL (0-0.2) 03/01/24 09:50 Manual Slide Review Performed 03/01/24 09:50 Polychromasia Present 03/01/24 09:50 Hypochromasia Slight 03/01/24 09:50 Anisocytosis Slight 03/01/24 09:50 Macrocytosis Marked A 03/01/24 09:50 Vital Signs Temp 98.1 F 03/05/24 06:53 Pulse 98 03/05/24 08:09 Resp 20 03/05/24 08:09 BP 109/59 03/05/24 08:09 Pulse Ox 100 03/05/24 06:53 FiO2 Patient Condition at Discharge: Stable Plan - Discharge Summary New Discharge Prescriptions: New Metoprolol Tartrate [Lopressor] 25 mg PO BID 30 Days #60 tab Ibuprofen [Motrin] 800 mg PO Q8H PRN tab PRN Reason: Pain QUEtiapine [SEROquel] 50 mg PO DAILY 30 Days #30 tab QUEtiapine [SEROquel] 150 mg PO DAILY 30 Days #45 tablet hydrOXYzine HCL [Atarax] 50 mg PO DAILY PRN 30 Days #60 tab PRN Reason: Anxiety Nicotine 14Mg/24Hr Patch [Habitrol] 1 patch TRANSDERM DAILY 14 Days #14 patch Naltrexone HCl 50 mg PO DAILY 30 Days #30 tab Pantoprazole [Protonix] 40 mg PO AC-BID 30 Days #60 tab Sertraline [Zoloft] 150 mg PO DAILY 30 Days #90 tab Continue Levothyroxine Sodium 25 mcg PO DAILY Thiamine [Vitamin B-1] 100 mg PO DAILY tab Discontinued Nicotine 14Mg/24Hr Patch [Habitrol] 1 patch TRANSDERM DAILY 14 Days #14 patch Acamprosate Calcium [Campral] 666 mg PO TID FLUoxetine HCL [PROzac] 10 mg PO DAILY Ziprasidone [Geodon] 20 mg PO DAILY QUEtiapine [SEROquel] 100 mg PO HS traZODone HCL [Desyrel] 50 mg PO HS PRN tab PRN Reason: Insomnia Loperamide [Imodium] 2 mg PO QID PRN cap PRN Reason: Diarrhea Discharge Medication List Levothyroxine Sodium 25 mcg PO DAILY 02/25/24 [History] Thiamine [Vitamin B-1] 100 mg PO DAILY tab 02/28/24 [Rx] Ibuprofen [Motrin] 800 mg PO Q8H PRN tab 03/05/24 [Rx] Metoprolol Tartrate [Lopressor] 25 mg PO BID 30 Days #60 tab 03/05/24 [Rx] Naltrexone HCl 50 mg PO DAILY 30 Days #30 tab 03/05/24 [Rx] Nicotine 14Mg/24Hr Patch [Habitrol] 1 patch TRANSDERM DAILY 14 Days #14 patch 03/05/24 [Rx] Pantoprazole [Protonix] 40 mg PO AC-BID 30 Days #60 tab 03/05/24 [Rx] QUEtiapine [SEROquel] 50 mg PO DAILY 30 Days #30 tab 03/05/24 [Rx] QUEtiapine [SEROquel] 150 mg PO DAILY 30 Days #45 tablet 03/05/24 [Rx] Sertraline [Zoloft] 150 mg PO DAILY 30 Days #90 tab 03/05/24 [Rx] hydrOXYzine HCL [Atarax] 50 mg PO DAILY PRN 30 Days #60 tab 03/05/24 [Rx] Activity/Diet/Wound Care/Special Instructions: Activity and diet as tolerated. Avoid the use of street drugs and alcohol. Take all medications as prescribed. When you need refills on your medications, please contact your medical provider and/or outpatient psychiatrist to have this done. Please go to scheduled outpatient appointment for aftercare treatment. If symptoms return or become worse, call the crisis line at and/or go to the nearest emergency room for evaluation. Pt given discharge instructions, copies of after care, Pt v/u of information. In stable condition. Aware of resources.Belongings returned to patient at discharge, see Personal Property Sheet. Discharge instructions given with verbal understanding, papers signed and copies given in discharge folder. Patient verbalized ready for discharge denying suicidal and homicidal thoughts, verbalized intent to follow up at scheduled psychiatric appointments and take prescribed medications as ordered. Discharge Disposition: HOME SELF-CARE
[2024-03-05] MEDS: NALTREXONE HCL 50 MG TAB PO SCH (10:32)
== END 2024-03-05 12:52 | disposition home or self-care (01) | DRG 753 ==
LOC: 3MHU 21:41
PROVIDERS: ADMIT Psychiatry & Neurology Psychiatry; ATTEND Psychiatry & Neurology Psychiatry
DX: F31.30 Bipolar disorder, current episode depressed, mild or moderate severity, unspecified (principal); R45.851 Suicidal ideations; F10.239 Alcohol dependence with withdrawal, unspecified; D61.818 Other pancytopenia; F12.90 Cannabis use, unspecified, uncomplicated; F17.200 Nicotine dependence, unspecified, uncomplicated; F20.9 Schizophrenia, unspecified; F41.9 Anxiety disorder, unspecified; G47.00 Insomnia, unspecified; I10 Essential (primary) hypertension; I48.91 Unspecified atrial fibrillation; K92.0 Hematemesis; M06.9 Rheumatoid arthritis, unspecified; Y90.7 Blood alcohol level of 200-239 mg/100 ml; Z56.0 Unemployment, unspecified; Z79.899 Other long term (current) drug therapy; Z91.51 Personal history of suicidal behavior
CPT/HCPCS: 85025; 93005

== ENCOUNTER 2024-05-31 00:20 | Inpatient (IN) | payer MEDICAID, OTHER ==
--- NOTE | 2024-05-31 01:17 | ED ---
Psych HPI - General Source: patient, RN notes reviewed Mode of arrival: ambulatory Limitations: no limitations <Sasha River - Last Filed: 05/31/24 03:42> <Melchor Ruiz - Last Filed: 05/31/24 14:54> - General Stated Complaint: Mental health Time Seen by Provider: 05/31/24 01:15 - History of Present Illness Initial Comments: 38-year-old female presented to ER with a chief complaint of homicidal ideation. Patient states she is currently homeless for the past week. She states since then she has been on "bipolar sh". She states she has not taken her medications since being homeless. She has been living on the streets and states she feels unsafe. She states the man has been following her in the evening she was thinking of killing him. She states she had a heavy item that she was going to throw at him and do "some damage". Patient also reports mild suicidal ideation but denies any plan. Patient does report recent alcohol consumption. She states she drank about a half 1/5 of vodka this evening. Patient does report a history of seizures with alcohol withdrawal. Patient denies any headache, cough, congestion, fevers, chills, nausea, vomiting, chest pain, shortness of breath, abdominal pain, urinary complaints or peripheral edema. (Sasha River) - Related Data Home Medications Medication Instructions Recorded Confirmed Levothyroxine Sodium 25 mcg PO DAILY 02/25/24 02/29/24 Previous Rx's Medication Instructions Recorded Thiamine [Vitamin B-1] 100 mg PO DAILY tab 02/28/24 Ibuprofen [Motrin] 800 mg PO Q8H PRN tab 03/05/24 Metoprolol Tartrate [Lopressor] 25 mg PO BID 30 Days #60 tab 03/05/24 Naltrexone HCl 50 mg PO DAILY 30 Days #30 tab 03/05/24 Nicotine 14Mg/24Hr Patch [Habitrol] 1 patch TRANSDERM DAILY 14 Days 03/05/24 #14 patch Pantoprazole [Protonix] 40 mg PO AC-BID 30 Days #60 tab 03/05/24 QUEtiapine [SEROquel] 50 mg PO DAILY 30 Days #30 tab 03/05/24 QUEtiapine [SEROquel] 150 mg PO DAILY 30 Days #45 tablet 05/09/24 Sertraline [Zoloft] 150 mg PO DAILY 30 Days #90 tab 03/05/24 hydrOXYzine HCL [Atarax] 50 mg PO DAILY PRN 30 Days #60 tab 03/05/24 Allergies Allergy/AdvReac Type Severity Reaction Status Date / Time No Known Allergies Allergy Verified 03/03/24 12:03 Review of Systems ROS Other: All systems not noted in ROS Statement are negative. <Sasha River - Last Filed: 05/31/24 03:42> ROS Other: All systems not noted in ROS Statement are negative. <Melchor Ruiz - Last Filed: 05/31/24 14:54> ROS Statement: Those systems with pertinent positive or pertinent negative responses have been documented in the HPI. Past Medical History Past Medical History: Atrial Fibrillation, Asthma, Hypertension, Rheumatoid Arthritis (RA) Additional Past Medical History / Comment(s): TUBAL PREGANCY, chronic back pain, scleraderma, lupus, ddd; cardiac arrest at one time History of Any Multi-Drug Resistant Organisms: MRSA Date of last positivie culture/infection: 07/01/16 MDRO Source:: RIGHT WRIST Past Surgical History: Section, Tonsillectomy, Tubal Ligation Additional Past Surgical History / Comment(s): LAPROSCOPY Past Anesthesia/Blood Transfusion Reactions: No Reported Reaction Past Psychological History: Anxiety, Bipolar, Depression, Schizophrenia Smoking Status: Former smoker, Vaper Past Alcohol Use History: Daily, Heavy Past Drug Use History: Marijuana, Opiates, Prescription Drug Abuse <Sasha River - Last Filed: 05/31/24 03:42> General Exam Limitations: no limitations General appearance: alert, in no apparent distress, appears intoxicated Respiratory exam: Present: normal lung sounds bilaterally. Absent: respiratory distress, wheezes, rales, rhonchi, stridor Cardiovascular Exam: Present: regular rate, normal rhythm, normal heart sounds. Absent: systolic murmur, diastolic murmur, rubs, gallop, clicks GI/Abdominal exam: Present: soft, normal bowel sounds. Absent: distended, tenderness, guarding, rebound, rigid Extremities exam: Present: normal inspection, full ROM, normal capillary refill. Absent: tenderness, pedal edema, joint swelling, calf tenderness Neurological exam: Present: alert, oriented X3, CN II-XII intact Skin exam: Present: warm, dry, intact, normal color. Absent: rash <Sasha River - Last Filed: 05/31/24 03:42> Course Vital Signs 05/31/24 05/31/24 05/31/24 00:30 01:54 06:17 Temperature 97.5 F L Pulse Rate 76 90 101 H Respiratory 16 20 18 Rate Blood Pressure 121/78 124/84 125/82 O2 Sat by Pulse 97 95 97 Oximetry 05/31/24 10:36 Temperature 98 F Pulse Rate 99 Respiratory 19 Rate Blood Pressure 134/81 O2 Sat by Pulse 96 Oximetry Medical Decision Making - Lab Data Result diagrams: 05/31/24 02:14 05/31/24 02:14 <Sasha River - Last Filed: 05/31/24 03:42> - Lab Data Result diagrams: 05/31/24 02:14 05/31/24 02:14 <Melchor Ruiz - Last Filed: 05/31/24 14:54> - Medical Decision Making Was pt. sent in by a medical professional or institution (, PA, FUEL DOCK ATTENDANT, urgent care, hospital, or fpc...) When possible be specific @ -No Did you speak to anyone other than the patient for history (EMS, parent, family, police, friend...)? What history was obtained from this source @ -No Did you review nursing and triage notes (agree or disagree)? Why? @ -I reviewed and agree with nursing and triage notes Were old charts reviewed (outside hosp., previous admission, EMS record, old EKG, old radiological studies, urgent care reports/EKG's, fpc records)? Report findings @ -No old charts were reviewed Differential Diagnosis (chest pain, altered mental status, abdominal pain women, abdominal pain men, vaginal bleeding, weakness, fever, dyspnea, syncope, headache, dizziness, GI bleed, back pain, seizure, CVA, palpatations, mental health, musculoskeletal)? @ -Alcohol intoxication, drug use, electrolyte abnormality... This list is not meant to be all-inclusive EKG interpreted by me (3pts min.). @ -None X-rays interpreted by me (1pt min.). @ -None done CT interpreted by me (1pt min.). @ -None done U/S interpreted by me (1pt. min.). @ -None done What testing was considered but not performed or refused? (CT, X-rays, U/S, labs)? Why? @ -None What meds were considered but not given or refused? Why? @ -None Did you discuss the management of the patient with other professionals (professionals i.e. , PA, FUEL DOCK ATTENDANT, lab, RT, psych nurse, social studies department chair, schedule analyst, teacher, property utilization officer, corrections caseworker)? Give summary @ -No Was smoking cessation discussed for >3mins.? @ -No Was critical care preformed (if so, how long)? @ -No Were there social determinants of health that impacted care today? How? (Homelessness, low income, unemployed, alcoholism, drug addiction, transportation, low edu. Level, literacy, decrease access to med. care, long term, rehab)? @ -Patient is homeless. Was there de-escalation of care discussed even if they declined (Discuss DNR or withdrawal of care, Hospice)? DNR status @ -No What co-morbidities impacted this encounter? (DM, HTN, Smoking, COPD, CAD, Cancer, CVA, ARF, Chemo, Hep., AIDS, mental health diagnosis, sleep apnea, morb id obesity)? @ -Alcoholism Was patient admitted / discharged? Hospital course, mention meds given and route, prescriptions, significant lab abnormalities, going to OR and other pertinent info. @ -38-year-old female presented to ER with a chief complaint of suicide/homicidal ideation. History and physical exam completed. Vitals stable. Patient is intoxicated on exam. Patient has no acute complaints. Laboratory studies obtained remarkable for serum alcohol 175. Otherwise unimpressive. Patient sober at 0940 for EPS evaluation. Patient signed out to Dr. Mariscal pending EPS evaluation. (Sasha River) Was patient admitted / discharged? Hospital course, mention meds given and route, prescriptions, significant lab abnormalities, going to OR and other pertinent info. @ -Patient was seen by EPS a spoke with the psychiatrist and it was determined that the patient needed to be admitted. Undiagnosed new problem with uncertain prognosis? @ -No Drug Therapy requiring intensive monitoring for toxicity (Heparin, Nitro, Insulin, Cardizem)? @ -No Were any procedures done? @ -No Diagnosis/symptom? @ -Suicidal ideations Acute, or Chronic, or Acute on Chronic? @ -Acute Uncomplicated (without systemic symptoms) or Complicated (systemic symptoms)? @ -Complicated Side effects of treatment? @ -No Exacerbation, Progression, or Severe Exacerbation? @ -No Poses a threat to life or bodily function? How? (Chest pain, USA, VA, pneumonia, PE, COPD, DKA, ARF, appy, cholecystitis, CVA, Diverticulitis, Homicidal, Suicidal, threat to staff... and all critical care pts) @ -No (Melchor Ruiz) - Lab Data Lab Results 05/31/24 05/31/24 05/31/24 Range/Units 02:13 02:13 02:14 WBC 8.8 (3.8-10.6) k/uL RBC 3.52 L (3.80-5.40) m/uL Hgb 11.5 (11.4-16.0) gm/dL Hct 35.5 (34.0-46.0) % MCV 100.7 H (80.0-100.0) fL MCH 32.6 (25.0-35.0) pg MCHC 32.4 (31.0-37.0) g/dL RDW 19.4 H (11.5-15.5) % Plt Count 541 H (150-450) k/uL MPV 7.1 Neutrophils % 59 % Lymphocytes % 29 % Monocytes % 8 % Eosinophils % 2 % Basophils % 0 % Neutrophils # 5.2 (1.3-7.7) k/uL Lymphocytes # 2.5 (1.0-4.8) k/uL Monocytes # 0.7 (0-1.0) k/uL Eosinophils # 0.2 (0-0.7) k/uL Basophils # 0.0 (0-0.2) k/uL Hypochromasia Moderate Anisocytosis Slight Macrocytosis Moderate Sodium (137-145) mmol/L Potassium (3.5-5.1) mmol/L Chloride (98-107) mmol/L Carbon Dioxide (22-30) mmol/L Anion Gap mmol/L BUN (7-17) mg/dL Creatinine (0.52-1.04) mg/dL Est GFR (CKD-EPI)AfAm (>60 ml/min/1.73 sqM) Est GFR (CKD-EPI)NonAf (>60 ml/min/1.73 sqM) Glucose (74-99) mg/dL Calcium (8.4-10.2) mg/dL Total Bilirubin (0.2-1.3) mg/dL AST (14-36) U/L ALT (4-34) U/L Alkaline Phosphatase (38-126) U/L Total Protein (6.3-8.2) g/dL Albumin (3.5-5.0) g/dL Urine HCG, Qual Not Detected (Not Detectd) Urine Opiates Screen Not Detected (NotDetected) Ur Oxycodone Screen Not Detected (NotDetected) Urine Methadone Screen Not Detected (NotDetected) Ur Barbiturates Screen Not Detected (NotDetected) U Tricyclic Antidepress Not Detected (NotDetected) Ur Phencyclidine Scrn Not Detected (NotDetected) Ur Amphetamines Screen Detected H (NotDetected) U Methamphetamines Scrn Detected H (NotDetected) U Benzodiazepines Scrn Detected H (NotDetected) Urine Cocaine Screen Not Detected (NotDetected) U Marijuana (THC) Screen Not Detected (NotDetected) Serum Alcohol mg/dL SARS-CoV-2 (PCR) (Not Detectd) 05/31/24 05/31/24 Range/Units 02:14 12:49 WBC (3.8-10.6) k/uL RBC (3.80-5.40) m/uL Hgb (11.4-16.0) gm/dL Hct (34.0-46.0) % MCV (80.0-100.0) fL MCH (25.0-35.0) pg MCHC (31.0-37.0) g/dL RDW (11.5-15.5) % Plt Count (150-450) k/uL MPV Neutrophils % % Lymphocytes % % Monocytes % % Eosinophils % % Basophils % % Neutrophils # (1.3-7.7) k/uL Lymphocytes # (1.0-4.8) k/uL Monocytes # (0-1.0) k/uL Eosinophils # (0-0.7) k/uL Basophils # (0-0.2) k/uL Hypochromasia Anisocytosis Macrocytosis Sodium 140 (137-145) mmol/L Potassium 4.1 (3.5-5.1) mmol/L Chloride 105 (98-107) mmol/L Carbon Dioxide 24 (22-30) mmol/L Anion Gap 11 mmol/L BUN 14 (7-17) mg/dL Creatinine 0.96 (0.52-1.04) mg/dL Est GFR (CKD-EPI)AfAm 87 (>60 ml/min/1.73 sqM) Est GFR (CKD-EPI)NonAf 75 (>60 ml/min/1.73 sqM) Glucose 90 (74-99) mg/dL Calcium 9.6 (8.4-10.2) mg/dL Total Bilirubin 0.4 (0.2-1.3) mg/dL AST 35 (14-36) U/L ALT 20 (4-34) U/L Alkaline Phosphatase 89 (38-126) U/L Total Protein 6.8 (6.3-8.2) g/dL Albumin 4.1 (3.5-5.0) g/dL Urine HCG, Qual (Not Detectd) Urine Opiates Screen (NotDetected) Ur Oxycodone Screen (NotDetected) Urine Methadone Screen (NotDetected) Ur Barbiturates Screen (NotDetected) U Tricyclic Antidepress (NotDetected) Ur Phencyclidine Scrn (NotDetected) Ur Amphetamines Screen (NotDetected) U Methamphetamines Scrn (NotDetected) U Benzodiazepines Scrn (NotDetected) Urine Cocaine Screen (NotDetected) U Marijuana (THC) Screen (NotDetected) Serum Alcohol 175 mg/dL SARS-CoV-2 (PCR) Not Detected (Not Detectd) Disposition <Sasha River - Last Filed: 05/31/24 03:42> Time of Disposition: 14:54 <Melchor Ruiz - Last Filed: 05/31/24 14:54> Clinical Impression: Alcoholic intoxication, Suicidal ideations, Homicidal ideations Disposition: ADMITTED IP TO THIS HOSP
[2024-05-31 03:06] LABS: ALT 20 U/L (4-34); AST 35 U/L (14-36); African American GFR (CKD) 87 (>60 ml/min/1.73 sqM); Albumin 4.1 g/dL (3.5-5.0); Alkaline Phosphatase 89 U/L (38-126); Anion Gap 11 mmol/L; Anisocytosis Slight; Basophils % (A) 0 %; Blood Urea Nitrogen 14 mg/dL (7-17); Calcium 9.6 mg/dL (8.4-10.2); Carbon Dioxide 24 mmol/L (22-30); Chloride 105 mmol/L (98-107); Eosinophils # (A) 0.2 k/uL (0-0.7); Eosinophils % (A) 2 %; Glucose 90 mg/dL (74-99); HCT 35.5 % (34.0-46.0); HGB 11.5 gm/dL (11.4-16.0); Hypochromasia Moderate; Lymphocytes # (A) 2.5 k/uL (1.0-4.8); Lymphocytes % (A) 29 %; MCH 32.6 pg (25.0-35.0); MCHC 32.4 g/dL (31.0-37.0); MCV 100.7 fL (80.0-100.0); Macrocytosis Moderate; Mean Platelet Volume 7.1; Monocytes # (A) 0.7 k/uL (0-1.0); Monocytes % (A) 8 %; Neutrophils # (A) 5.2 k/uL (1.3-7.7); Neutrophils % (A) 59 %; Non-African American GFR(CKD) 75 (>60 ml/min/1.73 sqM); Platelet Count 541 k/uL (150-450); Potassium 4.1 mmol/L (3.5-5.1); RBC 3.52 m/uL (3.80-5.40); RDW 19.4 % (11.5-15.5); Sodium 140 mmol/L (137-145); Total Bilirubin 0.4 mg/dL (0.2-1.3); Total Protein 6.8 g/dL (6.3-8.2); WBC 8.8 k/uL (3.8-10.6)
[2024-05-31 03:30] LABS: Cocaine Screen,Urine Not Detected (NotDetected); Urn Cannabinoid Scrn Not Detected (NotDetected)
[2024-05-31 03:31] LABS: Amphetamine Screen,Urine Detected (NotDetected); Barbiturate Screen,Urine Not Detected (NotDetected); Benzodiazepines Screen,Urine Detected (NotDetected); Methadone Screen, Urine Not Detected (NotDetected); Opiate Screen,Urine Not Detected (NotDetected); Oxycodone Screen, Urine Not Detected (NotDetected); Phencyclidine Screen,Urine Not Detected (NotDetected); Tricyclic Antidepressant,Urine Not Detected (NotDetected)
[2024-05-31 03:38] LABS: Alcohol 175 mg/dL
[2024-05-31] MEDS: THIAMINE 100 MG/ML 2 ML VIAL IM STA (04:02)
[2024-05-31] MEDS ORDERED: ACETAMINOPHEN TAB 325 MG TAB PO STA (06:29)
[2024-05-31] MEDS: ACETAMINOPHEN TAB 325 MG TAB PO STA (06:32)
[2024-05-31] MEDS: LORazepam 1 MG TAB PO STA ×2 (08:39→12:24)
[2024-05-31] MEDS ORDERED: IBUPROFEN 600 MG TAB PO PRN (14:02)
[2024-05-31] MEDS ORDERED: MAG HYDROX/AL HYDROX/SIMETH 355 ML BOTTLE PO PRN (14:02)
[2024-05-31] MEDS ORDERED: HALOPERIDOL LACTATE 5 MG/ML 1 ML VIAL IM PRN (14:02)
[2024-05-31] MEDS ORDERED: LORazepam 1 MG TAB PO PRN (14:02)
[2024-05-31] MEDS ORDERED: MAGNESIUM HYDROXIDE 2,400 MG/30 ML CUP PO PRN (14:02)
[2024-05-31] MEDS: THIAMINE 100 MG TAB PO SCH (15:19)
[2024-05-31] MEDS: FOLIC ACID 1 MG TAB PO SCH (15:19)
[2024-05-31] MEDS: LORazepam 1 MG TAB PO PRN (15:19)
[2024-05-31] MEDS: MULTIVITAMINS, THERA 1 EACH TAB PO SCH (15:19)
[2024-05-31] MEDS: ACETAMINOPHEN TAB 325 MG TAB PO PRN (15:20)
[2024-05-31] MEDS: NICOTINE 14MG/24HR PATCH TRANSDERM SCH (15:22)
[2024-05-31 15:36] VITALS: RESP 20; TEMP 97.3
[2024-05-31 16:27] VITALS: BP 138/88; PULSE 98
[2024-05-31] MEDS: chlordiazePOXIDE 25 MG CAP PO SCH (18:29)
[2024-05-31] MEDS: PANTOPRAZOLE 40 MG TABLET PO SCH (18:29)
[2024-05-31 18:30] LABS: Amorphous Sediment,Urine Rare /hpf; Appearance,Urine Clear (Clear); Bilirubin,Urine Negative (Negative); Blood,Urine Negative (Negative); Color,Urine Colorless; Glucose,Urine (UA) Negative (Negative); Ketones,Urine Negative (Negative); Leukocyte Esterase,Urine Large (Negative); Nitrite,Urine Negative (Negative); Protein,Urine Negative (Negative); Specific Gravity,Urine 1.004 (1.001-1.035); Squamous Epithelial Cell,Urine 1 /hpf (0-4); Urobilinogen,Urine <2.0 mg/dL (<2.0); WBC,Urine 4 /hpf (0-5)
[2024-05-31] MEDS: METOPROLOL TARTRATE 25 MG TAB PO SCH (20:45)
[2024-05-31] MEDS: haloperidoL 5 MG TAB PO PRN (22:36)
[2024-06-01] MEDS ORDERED: MULTIVITAMINS, THERA 1 EACH TAB ONE (08:09)
[2024-06-01] MEDS ORDERED: NICOTINE 14MG/24HR PATCH TRANSDERM ONE (08:09)
[2024-06-01] MEDS ORDERED: chlordiazePOXIDE 25 MG CAP ONE ×5 (08:10→19:55)
[2024-06-01] MEDS ORDERED: PANTOPRAZOLE 40 MG TABLET PO ONE (08:10)
[2024-06-01] MEDS ORDERED: LEVOTHYROXINE 25 MCG TAB ONE (08:10)
[2024-06-01] MEDS ORDERED: METOPROLOL TARTRATE 25 MG TAB ONE ×2 (08:10→19:55)
[2024-06-01] MEDS ORDERED: FOLIC ACID 1 MG TAB ONE (08:10)
[2024-06-01] MEDS ORDERED: LORazepam 1 MG TAB ONE ×3 (08:33→22:42)
[2024-06-01] MEDS ORDERED: THIAMINE 100 MG TAB PO SCH (09:00)
[2024-06-01] MEDS ORDERED: LEVOTHYROXINE 25 MCG TAB PO SCH (09:00)
[2024-06-01] MEDS ORDERED: IBUPROFEN 600 MG TAB PO ONE (15:18)
[2024-06-01] MEDS ORDERED: ACETAMINOPHEN TAB 325 MG TAB ONE ×2 (18:39→22:42)
[2024-06-01] MEDS ORDERED: QUEtiapine 25 MG TAB ONE ×2 (19:55)
[2024-06-02] MEDS ORDERED: MULTIVITAMINS, THERA 1 EACH TAB ONE (08:40)
[2024-06-02] MEDS ORDERED: PANTOPRAZOLE 40 MG TABLET PO ONE ×2 (08:40→17:35)
[2024-06-02] MEDS ORDERED: FOLIC ACID 1 MG TAB ONE (08:41)
[2024-06-02] MEDS ORDERED: METOPROLOL TARTRATE 25 MG TAB ONE ×2 (08:42→20:09)
[2024-06-02] MEDS ORDERED: LEVOTHYROXINE 25 MCG TAB ONE (08:42)
[2024-06-02] MEDS ORDERED: chlordiazePOXIDE 25 MG CAP ONE ×5 (08:46→18:37)
[2024-06-02] MEDS ORDERED: SERTRALINE 50 MG TAB ONE ×2 (09:20)
[2024-06-02] MEDS ORDERED: THIAMINE 100 MG TAB ONE ×2 (09:23)
[2024-06-02] MEDS ORDERED: haloperidoL 5 MG TAB ONE ×3 (09:24→14:36)
[2024-06-02] MEDS ORDERED: LORazepam 1 MG TAB ONE ×2 (09:30→20:12)
[2024-06-02] MEDS ORDERED: ACETAMINOPHEN TAB 325 MG TAB ONE ×2 (14:36→18:38)
[2024-06-02] MEDS ORDERED: IBUPROFEN 600 MG TAB PO ONE (16:01)
[2024-06-02] MEDS ORDERED: risperiDONE 1 MG TAB ONE ×2 (20:14)
[2024-06-02] MEDS ORDERED: MELATONIN 5 MG TABLET ONE (20:15)
[2024-06-02] MEDS ORDERED: QUEtiapine 100 MG TAB ONE ×2 (20:15)
[2024-06-03] MEDS ORDERED: PANTOPRAZOLE 40 MG TABLET PO ONE ×2 (08:02→17:20)
[2024-06-03] MEDS ORDERED: MULTIVITAMINS, THERA 1 EACH TAB ONE (08:02)
[2024-06-03] MEDS ORDERED: FOLIC ACID 1 MG TAB ONE (08:02)
[2024-06-03] MEDS ORDERED: METOPROLOL TARTRATE 25 MG TAB ONE (08:03)
[2024-06-03] MEDS ORDERED: THIAMINE 100 MG TAB ONE ×2 (08:03)
[2024-06-03] MEDS ORDERED: LEVOTHYROXINE 25 MCG TAB ONE (08:03)
[2024-06-03] MEDS ORDERED: QUEtiapine 100 MG TAB ONE ×4 (08:04→20:43)
[2024-06-03] MEDS ORDERED: SERTRALINE 50 MG TAB ONE ×2 (08:04)
[2024-06-03] MEDS ORDERED: chlordiazePOXIDE 25 MG CAP ONE ×8 (08:21→20:42)
[2024-06-03] MEDS ORDERED: haloperidoL 5 MG TAB ONE (16:06)
[2024-06-03] MEDS ORDERED: ACETAMINOPHEN TAB 325 MG TAB ONE (16:06)
[2024-06-03] MEDS ORDERED: risperiDONE 1 MG TAB ONE ×2 (20:43)
[2024-06-03] MEDS ORDERED: MELATONIN 5 MG TABLET ONE (20:43)
[2024-06-03] MEDS ORDERED: LORazepam 1 MG TAB ONE (20:49)
[2024-06-04] MEDS ORDERED: LEVOTHYROXINE 25 MCG TAB ONE (06:59)
[2024-06-04] MEDS ORDERED: QUEtiapine 100 MG TAB ONE ×6 (08:06→20:13)
[2024-06-04] MEDS ORDERED: SERTRALINE 50 MG TAB ONE ×2 (08:07)
[2024-06-04] MEDS ORDERED: MULTIVITAMINS, THERA 1 EACH TAB ONE (08:07)
[2024-06-04] MEDS ORDERED: METOPROLOL TARTRATE 25 MG TAB ONE ×2 (08:08→20:14)
[2024-06-04] MEDS ORDERED: PANTOPRAZOLE 40 MG TABLET PO ONE ×2 (08:08→17:41)
[2024-06-04] MEDS ORDERED: FOLIC ACID 1 MG TAB ONE (08:08)
[2024-06-04] MEDS ORDERED: chlordiazePOXIDE 25 MG CAP ONE ×4 (08:38→20:13)
[2024-06-04] MEDS ORDERED: haloperidoL 5 MG TAB ONE (13:59)
[2024-06-04] MEDS ORDERED: risperiDONE 2 MG TAB ONE ×2 (20:13)
[2024-06-04] MEDS ORDERED: MELATONIN 5 MG TABLET ONE (20:14)
[2024-06-04] MEDS ORDERED: ACETAMINOPHEN TAB 325 MG TAB ONE (20:50)
[2024-06-05] MEDS ORDERED: THIAMINE 100 MG TAB ONE ×2 (07:59)
[2024-06-05] MEDS ORDERED: PANTOPRAZOLE 40 MG TABLET PO ONE (07:59)
[2024-06-05] MEDS ORDERED: NICOTINE 14MG/24HR PATCH TRANSDERM ONE (07:59)
[2024-06-05] MEDS ORDERED: QUEtiapine 100 MG TAB ONE ×6 (07:59→19:52)
[2024-06-05] MEDS ORDERED: MULTIVITAMINS, THERA 1 EACH TAB ONE (07:59)
[2024-06-05] MEDS ORDERED: LEVOTHYROXINE 25 MCG TAB ONE (08:00)
[2024-06-05] MEDS ORDERED: METOPROLOL TARTRATE 25 MG TAB ONE ×2 (08:00→19:52)
[2024-06-05] MEDS ORDERED: chlordiazePOXIDE 25 MG CAP ONE ×4 (08:00→21:37)
[2024-06-05] MEDS ORDERED: FOLIC ACID 1 MG TAB ONE (08:00)
[2024-06-05] MEDS ORDERED: IBUPROFEN 600 MG TAB PO ONE (10:54)
[2024-06-05] MEDS ORDERED: LORazepam 1 MG TAB ONE ×3 (10:54→20:58)
[2024-06-05] MEDS ORDERED: ACETAMINOPHEN TAB 325 MG TAB ONE (13:16)
[2024-06-05] MEDS ORDERED: haloperidoL 5 MG TAB ONE (13:17)
[2024-06-05] MEDS ORDERED: SERTRALINE 50 MG TAB ONE ×2 (18:35)
[2024-06-05] MEDS ORDERED: risperiDONE 2 MG TAB ONE ×2 (19:51)
[2024-06-05] MEDS ORDERED: MELATONIN 5 MG TABLET ONE (19:52)
[2024-06-06 02:56] LABS: Glucose,Whole Blood 150 mg/dL (70-110)
[2024-06-06] MEDS ORDERED: LEVOTHYROXINE 25 MCG TAB ONE (06:18)
[2024-06-06] MEDS ORDERED: THIAMINE 100 MG TAB ONE ×2 (07:47)
[2024-06-06] MEDS ORDERED: MULTIVITAMINS, THERA 1 EACH TAB ONE (07:47)
[2024-06-06] MEDS ORDERED: PANTOPRAZOLE 40 MG TABLET PO ONE ×2 (07:47→16:56)
[2024-06-06] MEDS ORDERED: FOLIC ACID 1 MG TAB ONE (07:48)
[2024-06-06] MEDS ORDERED: chlordiazePOXIDE 25 MG CAP ONE ×3 (07:48→20:31)
[2024-06-06] MEDS ORDERED: QUEtiapine 100 MG TAB ONE ×6 (07:48→20:31)
[2024-06-06] MEDS ORDERED: SERTRALINE 50 MG TAB ONE ×2 (07:48)
[2024-06-06] MEDS ORDERED: ACETAMINOPHEN TAB 325 MG TAB ONE ×2 (08:46→15:22)
[2024-06-06] MEDS ORDERED: LORazepam 1 MG TAB ONE (15:22)
[2024-06-06] MEDS ORDERED: risperiDONE 0.5 MG TAB ONE ×2 (20:31)
[2024-06-06] MEDS ORDERED: MELATONIN 5 MG TABLET ONE (20:31)
[2024-06-06] MEDS ORDERED: risperiDONE 1 MG TAB ONE ×2 (20:31)
[2024-06-06] MEDS ORDERED: METOPROLOL TARTRATE 25 MG TAB ONE (20:32)
[2024-06-06] MEDS ORDERED: IBUPROFEN 600 MG TAB PO ONE (21:20)
[2024-06-06] MEDS ORDERED: haloperidoL 5 MG TAB ONE (21:20)
[2024-06-07] MEDS ORDERED: ACETAMINOPHEN TAB 325 MG TAB ONE ×2 (05:30→12:19)
[2024-06-07] MEDS ORDERED: LORazepam 1 MG TAB ONE ×2 (05:31→12:18)
[2024-06-07] MEDS ORDERED: LEVOTHYROXINE 25 MCG TAB ONE (05:32)
[2024-06-07] MEDS ORDERED: THIAMINE 100 MG TAB ONE ×2 (07:52)
[2024-06-07] MEDS ORDERED: MULTIVITAMINS, THERA 1 EACH TAB ONE (07:52)
[2024-06-07] MEDS ORDERED: PANTOPRAZOLE 40 MG TABLET PO ONE ×2 (07:52→16:11)
[2024-06-07] MEDS ORDERED: SERTRALINE 50 MG TAB ONE ×2 (07:53)
[2024-06-07] MEDS ORDERED: chlordiazePOXIDE 25 MG CAP ONE (07:53)
[2024-06-07] MEDS ORDERED: FOLIC ACID 1 MG TAB ONE (07:53)
[2024-06-07] MEDS ORDERED: QUEtiapine 100 MG TAB ONE ×2 (07:53)
[2024-06-07] MEDS ORDERED: risperiDONE 0.5 MG TAB ONE ×2 (07:53)
[2024-06-07] MEDS ORDERED: METOPROLOL TARTRATE 25 MG TAB ONE (07:53)
[2024-06-07] MEDS ORDERED: IBUPROFEN 600 MG TAB PO ONE (08:27)
[2024-06-07] MEDS ORDERED: haloperidoL 5 MG TAB ONE (14:40)
[2024-06-07] MEDS ORDERED: QUEtiapine 200 MG TAB ONE ×2 (20:39)
[2024-06-07] MEDS ORDERED: MELATONIN 5 MG TABLET ONE (20:40)
[2024-06-07] MEDS ORDERED: PALIPERIDONE 6 MG TAB.ER.24 PO ONE (20:40)
[2024-06-08] MEDS ORDERED: haloperidoL 5 MG TAB ONE ×2 (03:45→18:12)
[2024-06-08] MEDS ORDERED: ACETAMINOPHEN TAB 325 MG TAB ONE (03:45)
[2024-06-08] MEDS ORDERED: LEVOTHYROXINE 25 MCG TAB ONE (06:18)
[2024-06-08] MEDS ORDERED: NICOTINE 14MG/24HR PATCH TRANSDERM ONE (08:22)
[2024-06-08] MEDS ORDERED: SERTRALINE 50 MG TAB ONE ×2 (08:23)
[2024-06-08] MEDS ORDERED: PANTOPRAZOLE 40 MG TABLET PO ONE ×2 (08:23→15:25)
[2024-06-08] MEDS ORDERED: FOLIC ACID 1 MG TAB ONE (08:23)
[2024-06-08] MEDS ORDERED: METOPROLOL TARTRATE 25 MG TAB ONE ×2 (08:23→21:00)
[2024-06-08] MEDS ORDERED: MULTIVITAMINS, THERA 1 EACH TAB ONE (08:23)
[2024-06-08] MEDS ORDERED: QUEtiapine 100 MG TAB ONE ×4 (13:25→20:45)
[2024-06-08] MEDS ORDERED: LORazepam 1 MG TAB ONE (18:13)
[2024-06-08] MEDS ORDERED: MELATONIN 5 MG TABLET ONE (20:45)
[2024-06-08] MEDS ORDERED: PALIPERIDONE 6 MG TAB.ER.24 PO ONE (20:46)
[2024-06-09] MEDS ORDERED: SERTRALINE 50 MG TAB ONE ×2 (08:02)
[2024-06-09] MEDS ORDERED: FOLIC ACID 1 MG TAB ONE (08:02)
[2024-06-09] MEDS ORDERED: PANTOPRAZOLE 40 MG TABLET PO ONE (08:02)
[2024-06-09] MEDS ORDERED: MULTIVITAMINS, THERA 1 EACH TAB ONE (08:02)
[2024-06-09] MEDS ORDERED: METOPROLOL TARTRATE 25 MG TAB ONE (08:03)
[2024-06-09] MEDS ORDERED: LEVOTHYROXINE 25 MCG TAB ONE (08:03)
[2024-06-09] MEDS ORDERED: QUEtiapine 100 MG TAB ONE ×2 (08:54)
== END 2024-06-09 10:42 | disposition home or self-care (01) | DRG 753 ==
LOC: EC 00:20 → 3MHU 13:55
PROVIDERS: ADMIT Psychiatry & Neurology Psychiatry; ATTEND Psychiatry & Neurology Psychiatry
DX: F31.9 Bipolar disorder, unspecified (principal); F10.129 Alcohol abuse with intoxication, unspecified; F10.131 Alcohol abuse with withdrawal delirium; I10 Essential (primary) hypertension; I48.91 Unspecified atrial fibrillation; J45.909 Unspecified asthma, uncomplicated; M06.9 Rheumatoid arthritis, unspecified; R45.850 Homicidal ideations; R45.851 Suicidal ideations; L55.9 Sunburn, unspecified; R51.9 Headache, unspecified; I95.9 Hypotension, unspecified; F41.9 Anxiety disorder, unspecified; R45.1 Restlessness and agitation; Z11.52 Encounter for screening for COVID-19; Z59.02 Unsheltered homelessness; Z79.890 Hormone replacement therapy; Z86.74 Personal history of sudden cardiac arrest; Z79.899 Other long term (current) drug therapy; Z28.21 Immunization not carried out because of patient refusal; Z87.891 Personal history of nicotine dependence
CPT/HCPCS: 36415; 80053; 80306; 80320; 81001; 81025; 82075; 85025; 87635; 99285